=== PATIENT | female | born 1975 | race Caucasian/White ===

== ENCOUNTER → 2016-02-28 | Outpatient (CLI) | payer BC ==
[~2016-02-28] MED LIST: CYAN10005 PO; CYAN3INJ INJ; FERR1TAB23; FOLI400T18 PO; PRENTAB26 PO; VALA500T60 PO
[2016-02-28 11:30] LABS: GTGD 50 Grams
[2016-02-29 13:56] LABS: AFP CONCENTRATION 37.7 NG/ML; AFPTS GESTATIONAL AGE 16.4 WEEKS; AFPTS INSULIN DEP DIABETIC? NO; AFPTS MATERNAL WT 196 LBS; ALPHA-FETOPROTEIN RACE CAUCASIAN=W; EDD DETERMINED BY ULTRASOUND; ESTRIOL MULTIPLE OF MEDIAN 0.89; HISTORY OF NTD NO; INHIBIN A 103 PG/ML; REPEAT SAMPLE? NO; hCG MULTIPLE OF MEDIAN 1.13
== END | disposition home or self-care (01) ==
LOC: C.LAB1850 10:20
PROVIDERS: ATTEND Obstetrics & Gynecology
DX: O09.522 Supervision of elderly multigravida, second trimester (principal)

== ENCOUNTER → 2016-05-22 | Outpatient (CLI) | payer BC ==
[2016-05-22 10:26] LABS: HEMATOCRIT 31.1 % (37-47)
[2016-05-22 12:22] LABS: URINE APPEARANCE CLEAR (CLEAR); URINE BILIRUBIN NEG (NEG); URINE COLOR YELLOW; URINE NITRITE NEG (NEG); URINE SPECIFIC GRAVITY 1.023 (1.000-1.030); UROBILINOGEN NEG (NEG)
[2016-05-22 12:24] LABS: MANUAL MICROSCOPIC REQUIRED? YES; REVIEW REQ? NO
[2016-05-22 12:37] LABS: URINE BACTERIA 1+ (NEG); URINE RBC 0-4 /hpf (0-4)
== END | disposition home or self-care (01) ==
LOC: C.LAB1850 08:56
PROVIDERS: ATTEND Obstetrics & Gynecology
DX: O09.522 Supervision of elderly multigravida, second trimester (principal); Z3A.00 Weeks of gestation of pregnancy not specified; O28.1 Abnormal biochemical finding on antenatal screening of mother

== ENCOUNTER 2016-05-25 16:40 | Outpatient (CLI) | payer BC ==
[~2016-05-25] VITALS: Ht 177.8 cm; Wt 99.0 kg
[~2016-05-25 16:40] MED LIST changes: -FERR1TAB23; -VALA500T60 PO
[2016-05-25 17:44] LABS: BASO % 0.3 %; BASO ABS # 0.03 K/uL (0-0.2); EOS % 1.6 %; HEMATOCRIT 29.9 % (37-47); IG% 0.3 %; LYMPH % 31.5 %; LYMPH ABS # 3.46 K/uL (1.2-3.4); MEAN CELL VOLUME 83.5 fL (80-100); MEAN CORPUSCULAR HEMOGLOBIN 28.2 pg (25-34); MONO % 5.1 %; NEUT % 61.2 %; PLATELET COUNT 300 K/uL (130-400); RED BLOOD COUNT 3.58 M/uL (4.2-5.4); WHITE BLOOD COUNT 10.99 K/uL (4.8-10.8)
[2016-05-25 17:49] LABS: COMPLETE YES; MEAN CORPUSCULAR HGB CONC 33.8 g/dl (32-36)
[2016-05-25 17:59] VITALS: Ht 177.8 cm; Wt 99.0 kg
[2016-05-25 18:02] LABS: ALB/GLOB RATIO 0.7 (0.9-2); ALKALINE PHOSPHATASE 73 U/L (45-117); ALT/SGPT 12 U/L (12-78); AST/SGOT 13 U/L (15-37); BLOOD UREA NITROGEN 9 mg/dl (7-18); BUN/CREATININE RATIO 15.1 (10-20); CALCIUM 8.5 mg/dl (8.5-10.1); CARBON DIOXIDE 25 mmol/L (21-32); CHLORIDE 106 mmol/L (98-107); CREATININE 0.59 mg/dl (0.60-1.20); GLUCOSE 81 mg/dl (70-99); POTASSIUM 3.5 mmol/L (3.5-5.1); SODIUM 141 mmol/L (136-145)
[2016-05-25] MEDS ORDERED: FERR1TAB23 (18:06)
[2016-05-27 23:05] LABS: URINE TOTAL PROTEIN 6.3 mg/dl (0-11.9)
[2016-05-27 23:07] LABS: URINE TOTAL PROTEIN CALC 176.4 mg/24 hr (0-149.1)
== END 2016-05-25 19:12 | disposition home or self-care (01) ==
LOC: C.OPB 16:40 → C.LD 16:40 → C.OPB 19:12
PROVIDERS: ATTEND Obstetrics & Gynecology
DX: O99.89 Other specified diseases and conditions complicating pregnancy, childbirth and the puerperium (principal); R03.0 Elevated blood-pressure reading, without diagnosis of hypertension; O09.523 Supervision of elderly multigravida, third trimester; Z3A.28 28 weeks gestation of pregnancy

== ENCOUNTER → 2016-07-17 | Outpatient (CLI) | payer BC ==
[~2016-07-17] MED LIST changes: +FERR1TAB23; -FOLI400T18 PO; +VALA500T60 PO
== END | disposition home or self-care (01) ==
LOC: C.LABSPEC 10:00
PROVIDERS: ATTEND Obstetrics & Gynecology
DX: O09.523 Supervision of elderly multigravida, third trimester (principal)

== ENCOUNTER 2016-08-08 22:33 | Inpatient (IN) | payer BC ==
[~2016-08-08] VITALS: Ht 172.7 cm; Wt 104.5 kg
[~2016-08-08 22:33] MED LIST changes: -VALA500T60 PO
[2016-08-09] MEDS ORDERED: LACTATED RINGER'S 1000ML 1,000 ML IV PRN (02:12)
[2016-08-09] MEDS ORDERED: LACTATED RINGER'S 1000ML 1,000 ML IV SCH (02:12)
[2016-08-09 02:34] LABS: HEMATOCRIT 38.3 % (37-47); MEAN CELL VOLUME 86.1 fL (80-100); MEAN CORPUSCULAR HEMOGLOBIN 27.6 pg (25-34); MEAN PLATELET VOLUME 10.6 fL (7.4-10.4); PLATELET COUNT 233 K/uL (130-400); RED BLOOD COUNT 4.45 M/uL (4.2-5.4); WHITE BLOOD COUNT 11.39 K/uL (4.8-10.8)
[2016-08-09 02:39] LABS: MEAN CORPUSCULAR HGB CONC 32.1 g/dl (32-36)
[2016-08-09 03:07] LABS: ALB/GLOB RATIO 0.7 (0.9-2); ALKALINE PHOSPHATASE 124 U/L (45-117); ALT/SGPT 16 U/L (12-78); AST/SGOT 15 U/L (15-37); BLOOD UREA NITROGEN 6 mg/dl (7-18); BUN/CREATININE RATIO 7.9 (10-20); CALCIUM 8.9 mg/dl (8.5-10.1); CARBON DIOXIDE 23 mmol/L (21-32); CHLORIDE 109 mmol/L (98-107); CREATININE 0.71 mg/dl (0.60-1.20); GLUCOSE 83 mg/dl (70-99); SODIUM 142 mmol/L (136-145)
[2016-08-09] MEDS ORDERED: VALA500T60 PO (04:21)
[2016-08-09 04:25] VITALS: Ht 172.7 cm; Wt 104.5 kg
[2016-08-09] MEDS ORDERED: BUPIVACAINE 0.25% 30 ML VIAL ONE (04:51)
[2016-08-09] MEDS ORDERED: EpHEDrine SULFATE INJ 50 MG/ML AMP ONE (04:52)
[2016-08-09] MEDS ORDERED: FENTANYL 2MCG/ML ROPIV 1.25MG/ML 100ML BAG EPI ONE (04:52)
[2016-08-09] MEDS ORDERED: FENTANYL CITRATE INJ 50 MCG/1 ML 2 ML VIAL ONE (04:52)
[2016-08-09] MEDS ORDERED: NALOXONE HCL INJ 1 MG in SODIUM CHLORIDE 0.9% 1000ML 1,000 ML IV PRN ×4 (05:29)
[2016-08-09] MEDS ORDERED: LACTATED RINGER'S 1000ML 500 ML IV PRN (05:29)
[2016-08-09] MEDS ORDERED: DiphenhydrAMINE HCL 50 MG/ML VIAL IV PRN (05:30)
[2016-08-09] MEDS ORDERED: NALOXONE HCL INJ 0.4 MG/1 ML VIAL/CARP IV PRN (05:30)
[2016-08-09] MEDS ORDERED: NALBUPHINE HCL INJ 10 MG/ML AMP IV PRN (05:30)
[2016-08-09] MEDS ORDERED: ONDANSETRON INJ 2 MG/ML 2 ML VIAL IV PRN (05:30)
[2016-08-09] MEDS ORDERED: EpHEDrine SULFATE INJ 50 MG/ML AMP IV PRN (05:30)
[2016-08-09] MEDS ORDERED: PROMETHAZINE HCL INJ 25 MG in SODIUM CHLORIDE 0.9% 50ML 50 ML IV PRN (05:30)
[2016-08-09] MEDS: FENTANYL 2MCG/ML ROPIV 1.25MG/ML 100ML BAG EPI PRN ×2 (07:05→10:41)
[2016-08-09] MEDS ORDERED: ACETAMINOPHEN 500 MG TAB PO STA (13:34)
[2016-08-09] MEDS ORDERED: OXYTOCIN 30 UNITS/500ML NSS IV ONE ×2 (16:03→17:18)
[2016-08-09] MEDS ORDERED: OXYTOCIN 30 UNITS/500ML NSS IV PRN (17:30)
[2016-08-09] MEDS ORDERED: LANOLIN OINT EXT PRN ×2 (17:30)
[2016-08-09] MEDS ORDERED: HYDROCORTISONE ACETATE 25 MG SUPP PR PRN (17:30)
[2016-08-09] MEDS ORDERED: BENZOCAINE 20% AER SPR 82.5 GM CAN EXT PRN (17:30)
[2016-08-09] MEDS ORDERED: SUPERCREAM 0.870 % 15GM JAR EXT PRN (17:30)
--- NOTE | 2016-08-09 17:30 | Medical Student: [facility] ---
Medical Student Delivery Note Emily Wallace is a 41-year-old at 39 weeks-5/7 days who presented to labor and delivery with headache, "seeing spots," elevated blood pressure, and having contractions. Labor was augmented with AROM at 0400. Since admission Emily became complete, 2+ station and was ready to push. heart rate decreased but returned to baseline with supplemental maternal oxygenation. A viable female infant was delivered at 1640 in the right occiput transverse position. A nuchal cord was identified and reduced at the perineum. The was placed on the maternal abdomen for drying and attention where her nose and mouth were bulb suctioned. The umbilical cord was doubly clamped and cut by the father of the baby. scores were 8 and 9. Weight pending. An intact placenta with a 3 vessel cord was then delivered shortly after with uterine massage and ninoska downward traction. Hemostasis was achieved with continued uterine massage and Pitocin, and she did not require further intervention. EBL was 300 cc. A third degree perineal tear was apparent and was repaired with 3-0 Chromic with a crown stitch in the usual fashion. Mother and baby are currently doing well and are recovering together.
--- NOTE | 2016-08-09 19:21 | Anesthesia Procedure Note ---
Anesthesia Epidural Removal Nt Date & Time Aug 09, 2016 at 19:21 Vital Signs Pain Intensity: 4.0 Notes Mental Status: alert / awake / arousable, participated in evaluation Nausea / Vomiting: adequately controlled Pain: adequately controlled Airway Patency, RR, SpO2: stable & adequate BP & HR: stable & adequate Hydration State: stable & adequate Neuraxial Anesthesia: was administered Anesthetic Complications: no major complications apparent, pt satisfied with anesthetic care Epidural: removed without complications, with tip intact
[2016-08-09] MEDS: IBUPROFEN 600 MG TAB PO PRN (22:07)
[2016-08-09 22:30] VITALS: BP 159/84; PULSE 105; TEMP 36.7
[2016-08-09 23:00] VITALS: BP 130/89; PULSE 88; TEMP 36.8
[2016-08-09] MEDS: DOCUSATE SODIUM 100 MG CAP PO SCH (23:26)
[2016-08-09] MEDS: OXYCODONE/ACETAMINOPHEN 5-325 TAB PO PRN (23:30)
--- NOTE | 2016-08-10 00:52 | DELIVERY SUMMARY ---
DATE OF OPERATION: 08/09/2016 PREDELIVERY DIAGNOSES: 1. 41-year-old G8, P1-0-6-1 at 39 weeks 5 days. 2. Chronic hypertension. 3. History of section x1. 4. History of HSV. POSTDELIVERY DIAGNOSES: Same. PROCEDURE: Vaginal after section and repair of third degree perineal laceration. ESTIMATED BLOOD LOSS: 300 mL. FINDINGS: Viable female , Apgars 8 and 9, weight pending. Please see nursery records. DESCRIPTION OF DELIVERY: The patient progressed to complete with epidural anesthesia. She then began to push. She spontaneously vaginally delivered a viable female from cephalic presentation. The head delivered. Nuchal cord x1 was noted and easily reduced. The anterior shoulder was delivered, followed by the posterior shoulder and followed by the body. Baby was placed on mother's abdomen and a spontaneous cry was heard. Using delayed cord clamping technique, the cord was doubly clamped and cut at 1 minute. Cord blood was obtained. The placenta delivered spontaneously intact with a 3-vessel cord. Pitocin was given and the uterus began to become firm. The uterus and vagina were swept of all clots and debris. The cervix, vagina and perineum were inspected and a third degree perineal laceration with a right focal tear was noted. The rectum was examined and no lacerations were noted in the rectum. Using a 3-0 chromic, the muscle capsule of the anal sphincter was re-approximated using [id number] sutures. Next, the focal tear was re-approximated using a running stitch of 3-0 Vicryl. Now, second degree perineal laceration was repaired in standard fashion with 3-0 Vicryl. At the conclusion of the repair, an additional rectal exam was performed to ensure no stitches in the rectum and good muscle tone. Excellent hemostasis was noted. Mother and baby recovered well in the room. All instruments, sponge, and needle counts were correct x2 at the conclusion of the delivery. Prior to repair of perineal area, lidocaine was injected for better anesthetic. I attest to the content of the Intraoperative Record and any orders documented therein. Any exception s are noted below.
[2016-08-10] MEDS: IBUPROFEN 600 MG TAB PO PRN ×4 (03:28→20:01)
[2016-08-10 03:30] VITALS: BP 163/95; PULSE 75; TEMP 36.6
--- NOTE | 2016-08-10 06:38 | Medical Student: [facility] ---
Med Student [employer] Progress Nt Date of Service Aug 10, 2016. Subjective conversation w/ patient Ambulation: ambulating normally Voiding: no voiding problems Passing Gas: Yes Diet Tolerance: Regular Diet Lochia: Small Feeding Type: Breast Feeding Pain: "sore and tight" on her bottom Notes: Emily Wallace is a 41-year-old G8 now P2062 day 1 for normal spontaneous vaginal delivery. Upon admission to L&D, Emily had elevated blood pressure, headache, and was seeing spots. Yesterday her blood pressure was labile and denied having any symptoms from the day prior. Today she continues to deny headache, seeing spots, and RUQ pain. Emily says she is doing "pretty good" and does not have any other complaints. Review of Systems Constitutional: No fever, No chills Respiratory: No shortness of breath Cardiac: No chest pain Abdomen: + nausea (when showering; none otherwise), No vomiting Objective Vital Signs Date Time Temp Pulse Resp B/P (MAP) Pulse Ox O2 Delivery O2 Flow Rate FiO2 08/10/16 03:30 36.6 75 18 163/95 08/09/16 23:00 36.8 88 18 130/89 08/09/16 23:00 Room Air 08/09/16 22:30 36.7 105 18 159/84 Physical Exam General Appearance: WELL-APPEARING Respiratory/Chest: lungs clear, normal breath sounds Cardiovascular: regular rate, rhythm, no edema, no gallop, + systolic murmur ( likely of normal ) Fundus: Relation to Umbilicus (1 fingerbreadth above umbilicus) Extremities: no pedal edema, no calf tenderness Laboratory Results Last 24 Hours Test 08/10/16 04:44 Assessment and Plan Post- Day Number: 1 Continue Routine Care: Emily Wallace is a 41-year-old G8 now P2062 day 1 for normal spontaneous vaginal delivery. - Continue routine care. - Encourage fluid intake and ambulation. - Continue to monitor signs of eclampsia and HELLP syndrome.
[2016-08-10 07:32] LABS: HEMATOCRIT 27.5 % (37-47)
--- NOTE | 2016-08-10 07:34 | Progress Note ---
Subjective Aug 10, 2016. Subjective conversation w/ patient, physical exam Ambulation: ambulating normally Voiding: no voiding problems Passing Gas: Yes Diet Tolerance: Regular Diet Lochia: Moderate Feeding Type: Breast Feeding Pain: controlled Review of Systems Constitutional: No problem reported Respiratory: No problem reported Cardiac: No problem reported Breast: No problem reported Abdomen: No problem reported Female : No problem reported Objective Vital Signs Date Time Temp Pulse Resp B/P (MAP) Pulse Ox O2 Delivery O2 Flow Rate FiO2 08/10/16 03:30 36.6 75 18 163/95 08/09/16 23:00 36.8 88 18 130/89 08/09/16 23:00 Room Air 08/09/16 22:30 36.7 105 18 159/84 Physical Exam General Appearance: WELL-APPEARING, NO APPARENT DISTRESS Respiratory/Chest: no respiratory distress Cardiovascular: regular rate, rhythm Abdomen: non tender, soft Fundus: Firm Extremities: normal inspection Laboratory Results Last 24 Hours Test 08/10/16 06:54 Assessment and Plan Post- Day#: 1 Continue Routine Care: Doing well PPD#1. Continue routine care.
[2016-08-10] MEDS: DOCUSATE SODIUM 100 MG CAP PO SCH ×2 (07:52→20:00)
[2016-08-10 08:00] VITALS: BP 147/95; PULSE 85; TEMP 36.7
[2016-08-10] MEDS: OXYCODONE/ACETAMINOPHEN 5-325 TAB PO PRN (10:16)
[2016-08-10 12:00] VITALS: BP 145/93; PULSE 77; TEMP 36.6
[2016-08-10 15:48] VITALS: BP 132/85; PULSE 92; TEMP 36.7
[2016-08-10] MEDS ORDERED: BISACODYL 5 MG TABEC PO SCH (20:00)
[2016-08-11 00:25] VITALS: BP 139/89; PULSE 80; TEMP 36.7; O2SAT 99
[2016-08-11] MEDS: OXYCODONE/ACETAMINOPHEN 5-325 TAB PO PRN (00:41)
[2016-08-11] MEDS: IBUPROFEN 600 MG TAB PO PRN (06:02)
--- NOTE | 2016-08-11 06:43 | Progress Note ---
Subjective Aug 11, 2016. Subjective conversation w/ patient, physical exam Ambulation: ambulating normally Voiding: no voiding problems Diet Tolerance: Regular Diet Lochia: Small Feeding Type: Breast Feeding Pain: nipples sore Objective Vital Signs Date Time Temp Pulse Resp B/P (MAP) Pulse Ox O2 Delivery O2 Flow Rate FiO2 08/11/16 00:25 36.7 80 20 139/89 08/11/16 00:25 99 Room Air 08/10/16 16:00 Room Air 08/10/16 15:48 36.7 92 20 132/85 08/10/16 12:00 36.6 77 20 145/93 08/10/16 08:00 36.7 85 20 147/95 Physical Exam General Appearance: WELL-APPEARING, WD/WN, NO APPARENT DISTRESS Respiratory/Chest: lungs clear Cardiovascular: regular rate, rhythm Abdomen: non tender, soft Fundus: Firm, Relation to Umbilicus (2 down) Extremities: non-tender Laboratory Results Last 24 Hours Test 08/10/16 06:54 Hemoglobin 9.2 g/dL Hematocrit 27.5 % Assessment and Plan Post- Day#: 2 Continue Routine Care: stable, d/c home. f/u 6wks pp check. instructions reviewed.
--- NOTE | 2016-08-11 06:44 | Discharge Instructions ---
Discharge Instructions Date of Service Aug 11, 2016. Admission Reason for Admission: Chronic Hypertension Affecting Discharge Discharge Diagnosis / Problem: after delivery Discharge Goals Goal(s): Routine recovery after delivery Medications Continue Dispensed Medications: supercream, dermaplast, tucks, lansinoh Activity Recommendations Activity Limitations: as noted below . Instructions / Follow-Up Instructions / Follow-Up ACTIVITY RECOMMENDATIONS: * Gradual return to full activity over the next 2-3 weeks. * No lifting - nothing heavier than baby over the next 2-3 weeks. * Do not engage in vigorous exercise, sexual activity or sports until cleared by your physician. * Do not drive or operate any motorized equipment until cleared by your physician. * You may shower/bathe daily. MEDICATIONS: For discomfort or pain, you may use Acetaminophen (Tylenol), Ibuprofen (Advil), or Naproxen (Aleve) following the package directions. For constipation you may use Colace following the package directions. BREAST CARE: If you are not breast feeding: * Wear a supportive bra 24 hours a day for one to two weeks. * Avoid stimulating your breasts and nipples as much as possible during the first few weeks after delivery. * When taking a shower, have the warm water hit your back, not breasts. * When your breasts feel full, apply ice packs. Usually three to four times a day helps ease the discomfort. * Take a mild pain medication (Tylenol / Motrin) when you are uncomfortable. If breast feeding: * Use breast milk to lubricate nipples. Lansinoh cream may be used for sore nipples. You do not need to remove cream prior to breast feeding. If using a different brand of cream, check the label for directions regarding removal of cream prior to nursing. * Wear a supportive bra. * If having problems with breasts or breast feeding, call a sql consultant or your health care provider. EPISIOTOMY CARE: After delivery, if you have an episiotomy (stitches), the following steps will ease discomfort and aid healing. * For the first 24 hours after delivery, place ice packs next to your episiotomy to help reduce swelling. * After the first 24 hour-period, sitz baths, either portable or in the tub, are suggested. A shower with a shower arm sprayed over the episiotomy may be comforting. * Kenzie care should be done after each voiding and bowel movement. Squirt warm water from a plastic bottle over the perineum (region of the body between the anus and urinary opening) and pat dry. * Use Dermoplast to ease discomfort. Shake container. [place] directly over the episiotomy. Place a Tucks on a clean sanitary pad next to your episiotomy. SPECIAL CARE INSTRUCTIONS: When you are discharged from the hospital, it is important for you to follow the instructions listed below: * During the first week at home, you should be able to care for yourself and your baby. In addition, the usual light household activities are encouraged. * Limit your activities to the way you feel. Do not try to clean the house or move furniture. Be sensible. * If you actively engage in sports and have done so up until the time of your delivery, you may resume these activities as soon as you feel able. This may take up to one month or even longer. Use good judgment. * Continue to take your vitamins for at least six weeks after the of your baby. * Your diet need not be limited unless you were on a special diet before your delivery. Breast-feeding mothers need around 2500 calories per day and at least 64-80 ounces of fluid per day (8 to 10 glasses). * You should eat foods from the four major food groups. Crash diets or fad diets are to be avoided. Eating lean meats, fresh fruits and vegetables, low-fat dairy products, high fiber foods and a regular exercise program, will help you get back to your pre- weight without putting your health at risk. * Constipation is sometimes a problem after delivery. Take a mild laxative as needed. If breast feeding, Milk of Magnesia is acceptable to use. You may use a suppository or Fleets enema if no episiotomy. * A daily shower or tub bath is suggested. Be sure to thoroughly and gently dry the perineum. * A bloody vaginal discharge will usually continue until around four weeks post . A small amount of bleeding may continue for as long as six weeks. Vaginal discharge changes from the bright red bleeding after delivery to pink then brownish and finally yellowish-pink before becoming white and disappearing. * Bleeding may increase with activity. Your first period may come in 4-8 weeks. If you are breast feeding, your period may be delayed even longer. * Starke (sex) can begin whenever both you and your partner feel comfortable and do not have any form of genital infection. It is recommended that you wait at least six weeks for internal and external healing to occur. If you have questions, please talk to your health care practitioner. A condom should be used to prevent infection and . * Foreplay, gentle intercourse and lubrication is very important the first several times to prevent pain. A water-based lubricant such as K-Y jelly or Astroglide may be used. * If you have RH negative blood and your baby is RH positive, you will receive RHOGAM by injection prior to discharge. The nurse will give you a card to keep with you that has the date and place that you received RHOGAM after delivery. * During your care, you had a Rubella screen done to check for the presence of rubella antibodies in your blood. If your test was negative, you will receive a Rubella vaccine prior to discharge. This vaccine may cause a fever, soreness at the injection site and flu-like symptoms. If these symptoms persist, notify your health care practitioner. is not advised for one month after a Rubella vaccine. * Verbalizes understanding of car seat law as reviewed with patient nursing. * Car Seat hand-out given and reviewed with patient by nursing. * Shaken baby information reviewed with patient by nursing. Call you doctor if: * Heavy bleeding (saturating several pads an hour) or passing clots the size of your fist. * A fever >101 degrees F (38.3 degrees C) on two occasions four hours apart and /or chills. * Unusual pain in the pelvic or vaginal areas. * "Baby Blues" lasting longer than two weeks. If you have any questions or concerns, call your health care practitioner at . FOLLOW UP VISIT: * Please call the office at to schedule a 6 week examination. It is important you keep this appointment. It is important for you to make arrangements for either yearly or twice yearly check-ups thereafter. Current Hospital Diet Patient's current hospital diet: Regular OB Diet Discharge Diet Recommended Diet: Regular Diet Pending Studies Studies pending at discharge: no Medical Emergencies . Who to Call and When: Medical Emergencies: If at any time you feel your situation is an emergency, please call 911 immediately. . Non-Emergent Contact Non-Emergency issues call your: Software Licensing Analyst . . "Provider Documentation" section prepared by Kerry Brush. . VTE Core Measure Inpt VTE Proph given/why not?: Treatment not indicated
[2016-08-11] MEDS: DOCUSATE SODIUM 100 MG CAP PO SCH (07:33)
[2016-08-11 07:47] VITALS: BP 134/87; PULSE 76; TEMP 36.7
[2016-08-11 11:40] VITALS: BP_DIAS 87; PULSE 76; TEMP 36.7
== END 2016-08-11 11:40 | disposition home health service (06) | DRG 774 ==
LOC: C.OPB 22:33 → C.LD 22:33 → C.OPB 08-09 02:14 → C.OBG 08-09 22:50
PROVIDERS: ADMIT Obstetrics & Gynecology; ATTEND Obstetrics & Gynecology
PROC: 0DQR0ZZ Repair Anal Sphincter, Open Approach (ICD-10-PCS; principal; 2016-08-09)
PROC: 0KQM0ZZ Repair Perineum Muscle, Open Approach (ICD-10-PCS; principal; 2016-08-09)
PROC: 10903ZC Drainage of Amniotic Fluid, Therapeutic from Products of Conception, Percutaneous Approach (ICD-10-PCS; principal; 2016-08-09)
PROC: 10E0XZZ Delivery of Products of Conception, External Approach (ICD-10-PCS; principal; 2016-08-09)
DX: O10.92 Unspecified pre-existing hypertension complicating childbirth (principal); O70.20 Third degree perineal laceration during delivery, unspecified; O34.211 Maternal care for low transverse scar from previous cesarean delivery; O69.81X0 Labor and delivery complicated by cord around neck, without compression, not applicable or unspecified; Z3A.39 39 weeks gestation of pregnancy; Z86.19 Personal history of other infectious and parasitic diseases; Z37.0 Single live birth

== ENCOUNTER → 2016-08-22 | Outpatient (CLI) | payer BC ==
[~2016-08-22] MED LIST changes: -CYAN10005 PO
[2016-08-22 17:24] LABS: URINE APPEARANCE CLEAR (CLEAR); URINE BILIRUBIN NEG (NEG); URINE COLOR YELLOW; URINE EPITHELIAL CELL AUTO 20-30 /lpf (0-5); URINE NITRITE NEG (NEG); URINE SPECIFIC GRAVITY 1.015 (1.000-1.030); UROBILINOGEN NEG (NEG)
[2016-08-22 17:29] LABS: MANUAL MICROSCOPIC REQUIRED? NO; REVIEW REQ? NO
== END | disposition home or self-care (01) ==
LOC: C.LABSPEC 16:27
PROVIDERS: ATTEND Obstetrics & Gynecology
DX: R39.9 Unspecified symptoms and signs involving the genitourinary system (principal)

== ENCOUNTER → 2016-08-30 | Outpatient (CLI) | payer BC | END | disposition home or self-care (01) | LOC: C.LAB1850 15:01 | PROVIDERS: ATTEND Obstetrics & Gynecology | DX: N39.0 Urinary tract infection, site not specified (principal) ==

== ENCOUNTER → 2017-07-05 | Outpatient (CLI) | payer OTHER | END | disposition home or self-care (01) | LOC: C.LABSPEC 13:15 | PROVIDERS: ATTEND Obstetrics & Gynecology | DX: N60.09 Solitary cyst of unspecified breast (principal) ==

== ENCOUNTER 2022-01-25 10:24 | Inpatient (IN) ==
[2022-01-25 11:20] LABS: Basophils # (auto) 0.04 K/uL (0-0.2); Basophils % (auto) 0.4 %; Eosinophils # (auto) 0.11 K/uL (0-0.50); Eosinophils % (auto) 1.1 %; Hematocrit (blood only) 35.5 % (34.1-44.9); Hemoglobin 12.9 g/dl (12.0-16.0); Immature Granulocytes # (auto) 0.04 K/uL (0.00-0.02); Immature Granulocytes % (auto) 0.4 %; Lymphocytes # (auto) 1.34 K/uL (1.2-3.4); Lymphocytes % (auto) 13.4 %; Mean Corpuscular Hemoglobin 37.1 pg (25.0-34.0); Mean Corpuscular Hgb Conc 36.3 g/dL (32.0-36.0); Mean Platelet Volume 10.5 fL (9.4-12.3); Monocytes # (auto) 0.62 K/uL (0.24-0.82); Monocytes % (auto) 6.2 %; Neutrophils # (auto) 7.86 K/uL (1.4-6.5); Neutrophils % (auto) 78.5 %; Platelet Count 142 K/uL (130-400); RDW Coefficient of Variation 11.2 % (11.5-14.5); RDW Standard Deviation 42.3 fL (36.4-46.3); Red Blood Count 3.48 M/uL (3.93-5.22); White Blood Count 10.01 K/ul (4.8-10.8)
[2022-01-25 11:40] LABS: BUN Creatinine Ratio 6.8 (10-20); Calcium 8.9 mg/dl (8.5-10.1); Creatinine Clr Calc Pharmacy 137.5 ml/min; Est GFR (African American) 128.3 ml/min; Est GFR (Non-African American) 110.7 ml/min; Potassium 3.9 mmol/L (3.5-5.1)
[2022-01-25 11:42] LABS: Albumin Globulin Ratio 1.3 (0.9-2); Albumin Level 3.9 gm/dl (3.4-5.0); Bilirubin,Total 0.9 mg/dl (0.2-1.0); Globulin 2.9 gm/dl (2.5-4.0); Total Protein 6.8 gm/dl (6.0-8.3)
[2022-01-25] MEDS ORDERED: ONDANSETRON INJ 2 MG/ML 2 ML VIAL IV STA (12:54)
[2022-01-25] MEDS ORDERED: FAMOTIDINE 20MG IV PUSH 20 MG/5 ML SYR IV STA (12:54)
[2022-01-25] MEDS ORDERED: MULTI-VITAMIN INFUSION 10 ML, THIAMINE HCL 100 MG, FOLIC ACID 1 MG in SODIUM CHLORIDE 0... IV ONE (12:54)
[2022-01-25] MEDS ORDERED: MoRPHine SULFATE 4 MG/ML 1 ML CARP\\VIAL IV STA (13:05)
[2022-01-25] MEDS ORDERED: OPTIRAY 350 100ml IV ONE (13:14)
--- NOTE | 2022-01-25 14:03 | CT Scan Report ---
CT abd pelvis IV con only CLINICAL HISTORY: pancreatitis TECHNIQUE: Helical axial images of the abdomen and pelvis were obtained and displayed. Automated dose lowering techniques and/or adjustment according to patient size were utilized for this exam. This e xam was performed with intravenous contrast. CT DOSE: 630.84 mGy.cm COMPARISON: Comparison is made to CT abdomen pelvis 03/29/2018 FINDINGS: Lower chest: No acute abnormality. Liver: Hepatic steatosis is noted. Gallbladder and biliary tree: No calcified gallstones. Normal caliber wall. No intra- or extrahepatic biliary ductal dilation. Pancreas: Pancreatic fat stranding is seen. No morales pancreatic edema is noted. Spleen: Unremarkable. Adrenals: Unremarkable. Kidneys and ureters: Subcentimeter hypodensities are too small to characterize. Bladder: Unremarkable. Reproductive organs: Bilateral adnexal cysts are seen. Bowel: Unremarkable appearance of the bowel. The appendix is normal. Postsurgical changes of gastric bypass are noted. Lymph nodes Retroperitoneal: Unremarkable. Pelvic: Unremarkable. Mesenteric: Unremarkable. Peritoneum: Small amount of free fluid is seen. Vessels: Atherosclerotic calcifications are seen. Abdominal wall: A fat-containing umbilical hernia is seen. Bones: Unremarkable. IMPRESSION: 1. There is mild fat stranding about the pancreas which may reflect mild pancreatitis. Postsurgical changes of Mitzi-en-Y gastric bypass are seen. Free fluid in the pelvis is likely reactive. No [place]an creatic fluid collection is seen. 2. Hepatic steatosis. 3. Additional findings as above. ACT 112: Negative or not required by law. Electronically signed by: Sunil Krueger M.D. 01/25/2022 2:02 PM
[2022-01-25 14:28] LABS: Influenza A virus by PCR Negative (Neg); Influenza B virus by PCR Negative (Neg); RSV by PCR Negative (Neg); SARS CoV2 RNA(COVID-19) Ceph NEGATIVE (Negative)
[2022-01-25 14:48] LABS: Appearance Urine Clear (Clear); Bacteria Urine Automated Negative (Negative); Bilirubin Urine Negative (Negative); Blood Urine Negative (Negative); Cast Urine Automated 0 /lpf (0-5); Color Urine Yellow; Epithelial Cell Urine Auto >30 /lpf (0-5); Glucose Urine UA Negative (Negative); Ketones Urine Negative (Negative); Leukocyte Esterase Urine 1+ (Negative); Nitrite Urine Negative (Negative); Protein Urine Negative (Negative); RBC Urine Automated 0-4 /hpf (0-4); Specific Gravity Urine 1.025 (1.000-1.030); Urobilinogen Urine Negative (Negative)
[2022-01-25] MEDS: LACTATED RINGER'S 1,000 ML IV SCH ×2 (16:03→21:18)
--- NOTE | 2022-01-25 16:15 | Emergency Department Note ---
Impression & Plan Acute pancreatitis, Hyponatremia, Alcohol dependence, Upper abdominal pain ED Provider Note NAME: MARIELENA SIMS AGE: 47 SEX: F ARRIVES VIA: Walk-In INFORMANT: Patient ED PROVIDER(S): Walter Mejia MD CHIEF COMPLAINT: Abdominal pain PLAN: Disposition: Admit MEDICAL DECISION MAKING: The patient is a pleasant 47-year-old woman with a past medical history of alcohol dependence/abuse, recent episode of seizure-like activity currently on Keppra with scheduled outpatient neurology follow-up, history of migraines, anxiety/panic attacks, hypertension, vitamin B-12 deficiency who presents to the emergency department accompanied by her for evaluation of upper abdominal pain and nausea as well as diarrhea that has been evolving over the p ast several days. She reports having some mild upper respiratory congestion and cough which has been ongoing for the past week or so. She denies any fevers. She denies any chest pain or shortness of breath. On arrival the patient is dressed, afebrile stable vital signs. She appears clinically dry. She has mild epigastric discomfort without discrete tenderness. She has no guarding or rebound. WBC, H/H and platelets within normal limits. Chemistry without metabolic acidosis. Sodium 127 in the setting of history of alcohol dependence. AST mildly elevated at 41 in the setting of history of alcohol dependence. LFTs otherwise unremarkable. Patient's lipase is 1250 consistent with pancreatitis. UA without convincing evidence of infection with epithelial cells present. Patient's medical alcohol was undetectable where she reports last drink was last night and reports she drinks 2 bottles of wine daily. COVID-19, influenza and RSV PCR's were negative. CT of the abdomen pelvis was performed and demonstrates mild fat stranding around the pancreas consistent with pancreatitis. Patient was treated with IV fluid hydration with banana bag, famotidine, Zofran in addition to morphine for pain. She does agree with plan for admission for further management including IV fluids bowel rest as well was monitoring for etoh withdrawal. Case was discussed with Emilie WILSON with Dr. Montague, Neil hospitalist, who will evaluate the patient for admission. Triage Nursing notes reviewed and agree them. Prior medical records reviewed Vital Signs: reviewed Differential diagnosis: Appendicitis, ovarian cyst, ovarian torsion, ectopic , TOA, PID, infections, diverticulitis, UTI, obstruction, mesenteric ischemia, aortic pathology, inflammatory bowel disease, renal colic, PUD, pancreatitis, biliary pathology, hernia, volvulus, constipation, as well as other pathologies. ER treatment provided: See below. Diagnostics interpreted by me: Cardiac Monitoring: An order for continuous cardiac monitoring was placed and demonstrated normal sinus rhythm, 70 bpm, no ectopy. Laboratory studies: See below Imaging studies: See below Consultation(s): Emilie WILSON with Neil Whitlock hospitalist HPI: The patient is a pleasant 47-year-old woman with a past medical history of alcohol dependence/abuse, recent episode of seizure-like activity currently on Keppra with scheduled outpatient neurology follow-up, history of migraines, anxiety/panic attacks, hypertension, vitamin B-12 deficiency who presents to the emergency department accompanied by her for evaluation of upper abdominal pain and nausea as well as diarrhea that has been evolving over the past several days. She reports having some mild upper respiratory congestion and cough which has been ongoing for the past week or so. She denies any fevers. She denies any chest pain or shortness of breath. ROS: See above HPI for pertinent positives & negatives. A total of 10 systems reviewed and were otherwise negative. VITALS:See Below PHYSICAL EXAMINATION: GENERAL: Awake, alert, well-appearing, in no distress HENT: Normocephalic, atraumatic. Oropharynx with dry mucous membranes and otherwise unremarkable. EYES: Normal conjunctiva. Sclera non-icteric. NECK: Supple. No nuchal rigidity. FROM. No JVD. RESPIRATORY: Clear to auscultation. CARDIAC: Regular rate, normal rhythm. Extremities warm and well perfused. Pulses equal. ABDOMEN: Soft, non-distended. Mild epigastric discomfort without discrete tenderness. No rebound or guarding. No masses. RECTAL: Deferred. MUSCULOSKELETAL: Chest examination reveals no tenderness. The back is symmet rical on inspection without obvious abnormality. There is no CVA tenderness to palpation. No joint edema. LOWER EXTREMITIES: Calves are equal size bilaterally and non-tender. No edema. No discoloration. NEURO: Normal sensorium. No sensory or motor deficits noted. SKIN: No rash or jaundice noted. Walter Mejia MD Past Med/Surg History Medical History (Updated 01/25/22 @ 16:14 by Walter Mejia MD) Breech presentation Chronic mixed headache syndrome Elevated blood pressure affecting , antepartum Herpes simplex infection History of chicken pox History of nephrolithiasis Missed Surgical History delivery delivered H/O lithotripsy History of gynecologic surgery D&E-surgically induced History of Mitzi-en-Y gastric bypass Status post surgery laryngeal surgery- stripping of vocal cords Family History Uncle Bladder cancer maternal uncle Sister Brain tumor Grandfather (Paternal) Colorectal cancer Aunt Lung cancer paternal aunt Father Essential tremor Mother Hypertension Denies family history of Ovarian cancer Breast cancer Social History Smoking Status: Never smoker Hx Alcohol Use: Yes (social) Alcohol type: wine Alcohol Intake Frequency Comment: 2-3 drinks, 5-7 days per week Preferred Language: Danish marital status: Current Living Situation: Spouse and Family 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 Feels Safe at Home: Yes Allergies Allergies Allergy/AdvReac Type Severity Reaction Status Date / Time No Known Allergies Allergy Verified 12/29/21 10:52 Home Meds Home Medications Medication Instructions Recorded Confirmed cyanocobalamin (vitamin B-12) 1,000 mcg IM MONTHLY 03/29/18 12/29/21 1,000 mcg/mL injection solution zolpidem 12.5 mg tablet,extended 12.5 mg PO HS PRN Sleep 08/12/19 12/29/21 release,multiphase lisinopril 10 mg tablet 10 mg PO DAILY 06/29/20 12/29/21 escitalopram oxalate 20 mg tablet 20 mg PO DAILY 07/19/21 12/29/21 Previous Rx's Medication Instructions Recorded propranolol 160 mg capsule,24 160 mg PO DAILY #90 caps 07/19/21 hr,extended release propranolol 60 mg capsule,24 60 mg PO BID #180 caps 07/19/21 hr,extended release clindamycin phosphate 1 % lotion 1 applic topical BID #60 mL 12/29/21 levetiracetam 500 mg tablet 500 mg PO BID 2 weeks #28 tabs 01/12/22 (Aneta) Results & Data (ED) Vital Signs Vital Signs - 24 hr 01/25/22 10:30 01/25/22 14:57 Temperature 36.4 C L Temperature Source Temporal Artery Scan Pulse Rate 82 Pulse Rate [Apical] 70 Respiratory Rate 20 20 Respiratory Effort / Characteristics Non-Labored Respiratory Depth Normal Blood Pressure 117/77 Blood Pressure [Right Arm] 129/95 Blood Pressure Mean 90 Blood Pressure Mean [Right Arm] 106 Pulse Oximetry 97 97 Oxygen Delivery Method Room Air Room Air Sepsis Recent Fever Within 48 Hours No Sepsis New/Unexplained Change in Mental Status N/A Sepsis Action Taken by Nursing No Action Required Laboratory Data Attestation: I reviewed the patient's lab results. Result diagrams: 01/25/22 11:07 01/25/22 11:07 Lab Results 01/25/22 01/25/22 01/25/22 Range/Units 11:07 11:07 13:42 WBC 10.01 (4.8-10.8) K/ul RBC 3.48 L (3.93-5.22) M/uL Hgb 12.9 (12.0-16.0) g/dl Hct 35.5 (34.1-44.9) % MCV 102.0 H (80.0-100.0) fL MCH 37.1 H (25.0-34.0) pg MCHC 36.3 H (32.0-36.0) g/dL RDW Std Deviation 42.3 (36.4-46.3) fL RDW Coeff of Brielle 11.2 L (11.5-14.5) % Plt Count 142 (130-400) K/uL MPV 10.5 (9.4-12.3) fL Immature Gran % (Auto) 0.4 % Neut % (Auto) 78.5 % Lymph % (Auto) 13.4 % [place] % (Auto) 6.2 % Eos % (Auto) 1.1 % Baso % (Auto) 0.4 % Neut # (Auto) 7.86 H (1.4-6.5) K/uL Lymph # (Auto) 1.34 (1.2-3.4) K/uL [place] # (Auto) 0.62 (0.24-0.82) K/uL Eos # (Auto) 0.11 (0-0.50) K/uL Baso # (Auto) 0.04 (0-0.2) K/uL Immature Gran # (Auto) 0.04 H (0.00-0.02) K/uL Sodium 127 L (136-145) mmol/L Potassium 3.9 (3.5-5.1) mmol/L Chloride 92 L (98-107) mmol/L Carbon Dioxide 25 (21-32) mmol/L Anion Gap 10 (3-11) BUN 4 L (6-23) mg/dl Creatinine 0.59 L (0.6-1.2) mg/dl Est Cr Clr Drug Dosing 137.5 ml/min Est GFR ( Amer) 128.3 ml/min Est GFR (Non-Af Amer) 110.7 ml/min BUN/Creatinine Ratio 6.8 L (10-20) Glucose 97 (70-99(Fasting)) mg/dl Calcium 8.9 (8.5-10.1) mg/dl Total Bilirubin 0.9 (0.2-1.0) mg/dl AST 41 H (13-39) U/L ALT 24 (7-52) U/L Alkaline Phosphatase 91 (34-104) U/L Total Protein 6.8 (6.0-8.3) gm/dl Albumin 3.9 (3.4-5.0) gm/dl Globulin 2.9 (2.5-4.0) gm/dl Albumin/Globulin Ratio 1.3 (0.9-2) Lipase 1250 H (11-82) U/L Urine Color Urine Appearance (Clear) Urine pH (4.5-7.5) Ur Specific [place] (1.000-1.030) Urine Protein (Negative) Urine Glucose (UA) (Negative) Urine Ketones (Negative) Urine Blood (Negative) Urine Nitrite (Negative) Urine Bilirubin (Negative) Urine Urobilinogen (Negative) Ur Leukocyte Esterase (Negative) Urine WBC (Auto) (0-5) /hpf Urine RBC (Auto) (0-4) /hpf U Hyaline Cast (Auto) (0-5) /lpf U Epithel Cells (Auto) (0-5) /lpf Urine Bacteria (Auto) (Negative) Ethyl Alcohol mg/dL (<10.0) mg/dl SARS-CoV-2 (PCR) NEGATIVE (Negative) Influenza Type A (PCR) Negative (Neg) Influenza Type B (PCR) Negative (Neg) RSV (RT-PCR) Negative (Neg) 01/25/22 01/25/22 Range/Units 14:14 14:39 WBC (4.8-10.8) K/ul RBC (3.93-5.22) M/uL Hgb (12.0-16.0) g/dl Hct (34.1-44.9) % MCV (80.0-100.0) fL MCH (25.0-34.0) pg MCHC (32.0-36.0) g/dL RDW Std Deviation (36.4-46.3) fL RDW Coeff of Brielle (11.5-14.5) % Plt Count (130-400) K/uL MPV (9.4-12.3) fL Immature Gran % (Auto) % Neut % (Auto) % Lymph % (Auto) % [place] % (Auto) % Eos % (Auto) % Baso % (Auto) % Neut # (Auto) (1.4-6.5) K/uL Lymph # (Auto) (1.2-3.4) K/uL [place] # (Auto) (0.24-0.82) K/uL Eos # (Auto) (0-0.50) K/uL Baso # (Auto) (0-0.2) K/uL Immature Gran # (Auto) (0.00-0.02) K/uL Sodium (136-145) mmol/L Potassium (3.5-5.1) mmol/L Chloride (98-107) mmol/L Carbon Dioxide (21-32) mmol/L Anion Gap (3-11) BUN (6-23) mg/dl Creatinine (0.6-1.2) mg/dl Est Cr Clr Drug Dosing ml/min Est GFR ( Amer) ml/min Est GFR (Non-Af Amer) ml/min BUN/Creatinine Ratio (10-20) Glucose (70-99(Fasting)) mg/dl Calcium (8.5-10.1) mg/dl Total Bilirubin (0.2-1.0) mg/dl AST (13-39) U/L ALT (7-52) U/L Alkaline Phosphatase (34-104) U/L Total Protein (6.0-8.3) gm/dl Albumin (3.4-5.0) gm/dl Globulin (2.5-4.0) gm/dl Albumin/Globulin Ratio (0.9-2) Lipase (11-82) U/L Urine Color Yellow Urine Appearance Clear (Clear) Urine pH 6.0 (4.5-7.5) Ur Specific [place] 1.025 (1.000-1.030) Urine Protein Negative (Negative) Urine Glucose (UA) Negative (Negative) Urine Ketones Negative (Negative) Urine Blood Negative (Negative) Urine Nitrite Negative (Negative) Urine Bilirubin Negative (Negative) Urine Urobilinogen Negative (Negative) Ur Leukocyte Esterase 1+ H (Negative) Urine WBC (Auto) 5-10 H (0-5) /hpf Urine RBC (Auto) 0-4 (0-4) /hpf U Hyaline Cast (Auto) 0 (0-5) /lpf U Epithel Cells (Auto) >30 H (0-5) /lpf Urine Bacteria (Auto) Negative (Negative) Ethyl Alcohol mg/dL < 10.0 (<10.0) mg/dl SARS-CoV-2 (PCR) (Negative) Influenza Type A (PCR) (Neg) Influenza Type B (PCR) (Neg) RSV (RT-PCR) (Neg) Administered Medications Lactated Ringer's (Lr) 1,000 mls @ 200 mls/hr IV .Q5H MIN Stop: 02/24/22 15:59 Last Admin: 01/25/22 16:03 Dose: 200 mls/hr Documented By: ELISABETH Discontinued Medications Multivitamins 10 ml/ Thiamine HCl 100 mg/ Folic Acid 1 mg/Sodium Chloride 1,011.2 mls @ 1,011.2 mls/hr IV .Q1H ONE Stop: 01/25/22 13:53 Last Infusion: 01/25/22 15:29 Dose: 0 mls/hr Documented By: Admin: 01/25/22 13:20 Dose: 1,011.2 mls/hr Documented By: ARABELLA Famotidine (Pepcid 20mg Iv Push) 20 mg in 5 mls @ 2.5 mls/min IV NOW STA Stop: 01/25/22 12:55 Last Admin: 01/25/22 13:21 Dose: 2.5 mls/min Documented By: ARABELLA Ioversol (Optiray 350 100ml) 87 ml IV ONCE ONE Stop: 01/25/22 13:15 Last Admin: 01/25/22 13:15 Dose: 87 ml Documented By: NATALIA Morphine Sulfate (Morphine Sulfate 4 Mg/Ml 1 Ml Carp\Vial) 4 mg IV NOW STA Stop: 01/25/22 13:06 Last Admin: 01/25/22 13:21 Dose: 4 mg Documented By: ARABELLA Ondansetron HCl (Ondansetron Inj 2 Mg/Ml 2 Ml Vial) 4 mg IV NOW STA Stop: 01/25/22 12:55 Last Admin: 01/25/22 13:21 Dose: 4 mg Documented By: ARABELLA Imaging Data Radiologist's Impression: Abdomen/Pelvis CT 01/25/22 12:54 CT abd pelvis IV con only CLINICAL HISTORY: pancreatitis TECHNIQUE: Helical axial images of the abdomen and pelvis were obtained and displayed. Automated dose lowering techniques and/or adjustment according to patient size were utilized for this exam. This exam was performed with intra venous contrast. CT DOSE: 630.84 mGy.cm COMPARISON: Comparison is made to CT abdomen pelvis 03/29/2018 FINDINGS: Lower chest: No acute abnormality. Liver: Hepatic steatosis is noted. Gallbladder and biliary tree: No calcified gallstones. Normal caliber wall. No intra- or extrahepatic biliary ductal dilation. Pancreas: Pancreatic fat stranding is seen. No morales pancreatic edema is noted. Spleen: Unremarkable. Adrenals: Unremarkable. Kidneys and ureters: Subcentimeter hypodensities are too small to characterize. Bladder: Unremarkable. Reproductive organs: Bilateral adnexal cysts are seen. Bowel: Unremarkable appearance of the bowel. The appendix is normal. Postsurgical changes of gastric bypass are noted. Lymph nodes Retroperitoneal: Unremarkable. Pelvic: Unremarkable. Mesenteric: Unremarkable. Peritoneum: Small amount of free fluid is seen. Vessels: Atherosclerotic calcifications are seen. Abdominal wall: A fat-containing umbilical hernia is seen. Bones: Unremarkable. IMPRESSION: 1. There is mild fat stranding about the pancreas which may reflect mild pancreatitis. Postsurgical changes of Mitzi-en-Y gastric bypass are seen. Free fluid in the pelvis is likely reactive. No [place]ancreatic fluid collection is seen. 2. Hepatic steatosis. 3. Additional findings as above. ACT 112: Negative or not required by law. Electronically signed by: Sunil Krueger M.D. 01/25/2022 2:02 PM Discharge Plan Visit Data Chief Complaint: Abnormal Labs/Diagnostic Testing Stated Complaint: STOMACH ILLNESS AND CHEST PAIN ED Provider: Walter Mejia Discharge Problem: Acute pancreatitis, Hyponatremia, Alcohol dependence, Upper abdominal pain Forms Stand Alone Forms: [facility] Prescriptions Prescriptions: No Action escitalopram oxalate 20 mg tablet 20 mg PO DAILY propranolol 160 mg capsule,extended release 24 hr 160 mg PO DAILY Qty: 90 3RF lisinopril 10 mg tablet 10 mg PO DAILY cyanocobalamin (vitamin B-12) 1,000 mcg/mL solution 1,000 mcg IM MONTHLY Rx Instructions: USUALLY AROUND MIDDLE OF MONTH zolpidem 12.5 mg tablet,ext release multiphase 12.5 mg PO HS PRN (Reason: Sleep) levetiracetam [Keppra] 500 mg tablet 500 mg PO BID 14 Days Qty: 28 0RF valacyclovir 500 mg Tablet 500 mg PO BID PRN (Reason: Cold Sores) propranolol 60 mg capsule,extended release 24 hr 120 mg PO QDL Referrals Referrals: Serena Deng DO [Primary Care Provider] -
--- NOTE | 2022-01-25 16:30 | History & Physical Report ---
Date of Service January 25, 2022 Assessment & Plan (1) Acute pancreatitis: Plan: Admit to [facility] with telemetry Patient presenting from home with reports of abdominal pain, nausea, vomiting x 4 days. In the ED, found to have elevated lipase and CT findings consistent with mild pancreatitis History of alcohol abuse, patient reports drinking 2 bottles of wine/day Noted normal LFTs Likely EtOH pancreatitis N.p.o., IVF GI consult (2) Alcohol dependence: Plan: Patient reports drinking 2 bottles of wine/day, last drink 01/24 evening Alcohol withdrawal protocol with gabapentin Start folic acid, thiamine Behavioral health liaison consult for outpatient rehab referrals (3) Hyponatremia: Plan: Na+ 127 Likely due to poor PO intake, vomiting IVF, trend BMP (4) Seizure-like activity: Plan: Seen in ED on 01/12 for evaluation of seizure-like activity and started on Keppra, d/c'd home ?? If this was a alcohol withdrawal seizure History of questionable seizure like activity in 2020 with negative work up and was not started on antiepileptics Continue Keppra Has follow-up appointment with neurology next week (5) Essential tremor: Plan: Continue propanolol (6) Anxiety: Plan: Continue escitalopram (7) Hypertension: Plan: BP controlled, continue lisinopril DVT prophylaxis SCDs History of Present Illness Chief Complaint: Abdominal pain, nausea, vomiting Primary Care Provider: Serena Deng DO 47-year-old female with PMH HTN, essential tremor, anxiety, history of gastric bypass, and other problems listed below who presents the ED for evaluation of abdominal pain, nausea, vomiting. Patient reports her symptoms began about 4 days ago. She reports epigastric abdominal pain that radiates up into her chest at times. She has had associated nausea and a few episodes of vomiting. She describes emesis is bilious in nature, denies hematemesis or coffee-ground emesi s. Also reports diarrhea, denies bright red bleeding per rectum or dark tarry stools. No fevers or chills. Patient denies shortness of breath. Patient reports she feels " off balance" but denies lightheadedness, dizziness, diaphoresis, syncopal events. Patient was seen in the ED on 01/12 for evaluation after seizure-like activity. Patient was started on Keppra 500 mg BID at that time with instructions to follow-up with neurology. Patient reports drinking 2 bottles of wine per day, last drink being last evening. She has been drinking this amount for about the past 1 year. In the ED, labs show Na+ 127, lipase 1250. CT ABD/pelvis shows signs consistent with mild pancreatitis. Patient is hemodynamically stable. Patient was given IV famotidine, IV morphine, banana bag, IV Zofran. Allergies Allergy/AdvReac Type Severity Reaction Status Date / Time No Known Allergies Allergy Verified 01/25/22 17:02 Home Medications Medication Instructions Recorded Confirmed Type cyanocobalamin (vitamin B-12) 1,000 mcg IM MONTHLY 03/29/18 01/25/22 History 1,000 mcg/mL injection solution zolpidem 12.5 mg tablet,extended 12.5 mg PO HS PRN Sleep 08/12/19 01/25/22 History release,multiphase lisinopril 10 mg tablet 10 mg PO DAILY 06/29/20 01/25/22 History escitalopram oxalate 20 mg tablet 20 mg PO DAILY 07/19/21 01/25/22 History propranolol 160 mg capsule,24 160 mg PO DAILY #90 caps 07/19/21 01/25/22 Rx hr,extended release levetiracetam 500 mg tablet 500 mg PO BID 2 weeks #28 tabs 01/12/22 01/25/22 Rx (Keppra) propranolol 60 mg capsule,24 120 mg PO QDL 01/25/22 01/25/22 History hr,extended release valacyclovir 500 mg tablet 500 mg PO BID PRN Cold Sores 01/25/22 01/25/22 History Past Med/Surg History Medical History Anxiety Breech presentation Chronic mixed headache syndrome Classic migraine with aura Elevated blood pressure affecting , antepartum Essential tremor Herpes simplex infection History of chicken pox History of nephrolithiasis Hypertension Missed Seizure-like activity Vitamin B12 deficiency Surgical History delivery delivered H/O lithotripsy History of gynecologic surgery D&E-surgically induced History of Mitzi-en-Y gastric bypass Status post surgery laryngeal surgery- stripping of vocal cords Family History Uncle Bladder cancer maternal uncle Sister Brain tumor Grandfather (Paternal) Colorectal cancer Aunt Lung cancer paternal aunt Father Essential tremor Mother Hypertension Denies family history of Ovarian cancer Breast cancer Social History Smoking Status: Never smoker Hx Alcohol Use: Yes (social) Alcohol type: wine Alcohol Intake Frequency Comment: 2-3 drinks, 5-7 days per week Hx Substance Use: No Preferred Language: Peruvian Credit Correspondence Clerk Required: No Beliefs That Will Affect Care: None marital status: Current Living Situation: Spouse and Family 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 Other Information That Helps Us Care for You: No Feels Safe at Home: Yes Safety Concerns: Feels Safe At This Time Assistive Devices: Glasses Review of Systems Review of Systems: ROS per HPI, all other systems reviewed and negative Physical Exam Constitutional: WD/WN, vitals as above Eyes: PERRL, conjunctivae normal, anicteric sclerae ENMT: external ear and nose normal, oropharynx normal Respiratory: normal respiratory effort, lungs clear to auscultation Cardiovascular: Rate/Rhythm: regular rate and regular rhythm Vessels: normal peripheral pulses Extremities: no edema Gastrointestinal (Abdomen): Inspection/Auscultation: normal bowel sounds; abdomen not distended Percussion/Palpation: + abdomen tender (Epigastric, bilateral upper quadrants) and abdomen soft; no hepatosplenomegaly Musculoskeletal: no cyanosis or clubbing, extremities motor strength 5/5 Skin: no rashes, warm and dry Neurologic: PERRL, EOMI, accommodation nl, no face palsy, no dysarthria Psychiatric: A+Ox3, euthymic affect Results & Data Results & Data ([facility]) Vital Signs (Past 12 Hours) Vital Signs Temp Pulse Pulse Resp BP BP Pulse Ox 01/25/22 14:57 70 20 129/95 97 01/25/22 10:30 36.4 C L 82 20 117/77 97 O2 Del Method 01/25/22 14:57 Room Air 01/25/22 10:30 Room Air Laboratory Results Short CBC 01/25/22 Range/Units 11:07 WBC 10.01 (4.8-10.8) K/ul Hgb 12.9 (12.0-16.0) g/dl Hct 35.5 (34.1-44.9) % Plt Count 142 (130-400) K/uL BMP 01/25/22 11:07 Sodium 127 L Potassium 3.9 Chloride 92 L Carbon Dioxide 25 BUN 4 L Creatinine 0.59 L Glucose 97 Calcium 8.9 Liver Function 01/25/22 Range/Units 11:07 Total Bilirubin 0.9 (0.2-1.0) mg/dl AST 41 H (13-39) U/L ALT 24 (7-52) U/L Alkaline Phosphatase 91 (34-104) U/L Albumin 3.9 (3.4-5.0) gm/dl Urine 01/25/22 Range/Units 14:39 Urine Color Yellow Urine Appearance Clear (Clear) Urine pH 6.0 (4.5-7.5) Ur Specific [place] 1.025 (1.000-1.030) Urine Protein Negative (Negative) Urine Glucose (UA) Negative (Negative) Diagnostic Findings Abdomen/Pelvis CT 01/25/22 12:54 CT abd pelvis IV con only CLINICAL HISTORY: pancreatitis TECHNIQUE: Helical axial images of the abdomen and pelvis were obtained and displayed. Automated dose lowering techniques and/or adjustment according to patient size were utilized for this exam. This exam was performed with intravenous contrast. CT DOSE: 630.84 mGy.cm COMPARISON: Comparison is made to CT abdomen pelvis 03/29/2018 FINDINGS: Lower chest: No acute abnormality. Liver: Hepatic steatosis is noted. Gallbladder and biliary tree: No calcified gallstones. Normal caliber wall. No intra- or extrahepatic biliary ductal dilation. Pancreas: Pancreatic fat stranding is seen. No morales pancreatic edema is noted. Spleen: Unremarkable. Adrenals: Unremarkable. Kidneys and ureters: Subcentimeter hypodensities are too small to characterize. Bladder: Unremarkable. Reproductive organs: Bilateral adnexal cysts are seen. Bowel: Unremarkable appearance of the bowel. The appendix is normal. Postsurgical changes of gastric bypass are noted. Lymph nodes Retroperitoneal: Unremarkable. Pelvic: Unremarkable. Mesenteric: Unremarkable. Peritoneum: Small amount of free fluid is seen. Vessels: Atherosclerotic calcifications are seen. Abdominal wall: A fat-containing umbilical hernia is seen. Bones: Unremarkable. IMPRESSION: 1. There is mild fat stranding about the pancreas which may reflect mild pancreatitis. Postsurgical changes of Mitzi-en-Y gastric bypass are seen. Free fluid in the pelvis is likely reactive. No [place]ancreatic fluid collection is seen. 2. Hepatic steatosis. 3. Additional findings as above. ACT 112: Negative or not required by law. Electronically signed by: Sunil Krueger M.D. 01/25/2022 2:02 PM Code Status & VTE Plan VTE Prophylaxis Plan VTE Prophylaxis will be ordered: Yes Supervising Physician Co-Signing Physician Notes I have seen and examined the patient and have discussed the case with the provider above. I agree with the assessment and plan as stated. The patient is a 47-year-old female with abdominal pain nausea and vomiting for the last 4 days. She has a history of excessive drinking including 2 bottles of wine per day and work-up reveals an elevated lipase and CT findings consistent with mild pancreatitis. She reports a new diagnosis of seizures in the last couple of weeks and has been started on Keppra without side effects. On exam she has mild tremor that is known and is well-nourished well-developed and mentating clearly. Skin is warm and dry. She is no evidence of jaundice or scleral icterus. Cardiac auscultation reveals regular rate and rhythm with no murmurs gallops or rubs. S1/S2 is heard. Lungs are clear to auscultation. Abdomen is tender without guarding mostly located in the epigastric to left upper quadrant area. There is no right upper quadrant tenderness or lower abdominal tenderness. There is no evidence of distention. No gross neurologic deficits. Work-up in the ER reveals no leukocytosis with a normal H&H. MCV is elevated at 102 likely evidence of persistent heavy alcohol use. Sodium level is 127 with hyponatremia likely reflecting poor p.o. intake in the setting of alcohol use. Renal function is normal. There is a mild elevation of AST of 41 with no other abnormal liver function studies. Lipase is 1250. Urinalysis is contaminated with 1+ leuk esterase and 5-10 white blood cells. This does not indicate an infection and there is no UTI symptoms reported. Alcohol level was negative. Abdomen CT with IV contrast reveals evidence of pancreatitis with no peripancreatic fluid collection seen. She is postsurgical changes of a Mitzi-en-Y gastric bypass that is present and evidence of hepatic steatosis. There is no evidence of calcified gallstones and no intra or extrahepatic biliary ductal dilation. Overall this is a 47-year-old female with history of heavy alcohol use presenting with acute pancreatitis. Agree with continuing bowel rest overnight and hydrating with IV fluids. Gastroenterology consulted and will defer additional imaging studies to them as needed. Would start her back on a clear liquid diet as soon as she is hungry again and clinically improved. There is no evidence of sepsis this evening. Alcohol withdrawal is a concern and she will be monitored closely for this. She was placed on a gabapentin tapered protocol and thiamine and folic acid supplementation. DO Eddi
[2022-01-25] MEDS ORDERED: LORazepam 1 MG TAB PO PRN ×3 (17:23)
[2022-01-25] MEDS ORDERED: ONDANSETRON INJ 2 MG/ML 2 ML VIAL IV PRN (17:23)
[2022-01-25] MEDS ORDERED: GABAPENTIN 1200MG ALCOHOL WITHDRAWAL LOAD PO STA (17:23)
[2022-01-25] MEDS ORDERED: GABAPENTIN 600 MG TAB PO ONE (17:23)
[2022-01-25] MEDS ORDERED: Ativan PO Alcohol Withdrawal--Active Protocol PO PRN (17:23)
[2022-01-25 17:26] LABS: BUN Creatinine Ratio 8.9 (10-20); Calcium 7.7 mg/dl (8.5-10.1); Creatinine Clr Calc Pharmacy 180.3 ml/min; Est GFR (African American) 140.3 ml/min; Potassium 3.9 mmol/L (3.5-5.1)
[2022-01-25] MEDS: FOLIC ACID 1 MG TAB PO SCH (17:57)
[2022-01-25] MEDS: THIAMINE HCL 100 MG TAB PO SCH (17:58)
[2022-01-25] MEDS: levETIRAcetam 500 MG TAB PO SCH (21:23)
[2022-01-25] MEDS: GABAPENTIN 600 MG TAB PO SCH (21:24)
[2022-01-25] MEDS ORDERED: LORazepam 0.5 MG TAB PO PRN (22:08)
[2022-01-25] MEDS: ZOLPIDEM TARTRATE 5 MG TAB PO PRN (23:19)
[2022-01-26] MEDS: LACTATED RINGER'S 1,000 ML IV SCH ×3 (02:19→15:36)
[2022-01-26] MEDS: GABAPENTIN 600 MG TAB PO SCH ×3 (04:10→20:39)
[2022-01-26] MEDS: MoRPHine SULFATE 4 MG/ML 1 ML CARP\\VIAL IV PRN ×2 (06:35→13:58)
[2022-01-26 07:16] LABS: Hematocrit (blood only) 30.4 % (34.1-44.9); Hemoglobin 10.8 g/dl (12.0-16.0); Mean Corpuscular Hemoglobin 37.1 pg (25.0-34.0); Mean Corpuscular Hgb Conc 35.5 g/dL (32.0-36.0); Mean Corpuscular Volume 104.5 fL (80.0-100.0); Mean Platelet Volume 11.3 fL (9.4-12.3); Platelet Count 110 K/uL (130-400); RDW Coefficient of Variation 11.4 % (11.5-14.5); RDW Standard Deviation 43.7 fL (36.4-46.3); Red Blood Count 2.91 M/uL (3.93-5.22); White Blood Count 5.84 K/ul (4.8-10.8)
[2022-01-26 07:54] LABS: Albumin Globulin Ratio 1.4 (0.9-2); Albumin Level 3.2 gm/dl (3.4-5.0); BUN Creatinine Ratio 6.3 (10-20); Bilirubin,Total 0.9 mg/dl (0.2-1.0); Calcium 8.6 mg/dl (8.5-10.1); Creatinine Clr Calc Pharmacy 126.8 ml/min; Est GFR (African American) 124.9 ml/min; Est GFR (Non-African American) 107.8 ml/min; Globulin 2.3 gm/dl (2.5-4.0); Potassium 4.1 mmol/L (3.5-5.1); Total Protein 5.5 gm/dl (6.0-8.3)
[2022-01-26] MEDS: lisinopril 10 MG TAB PO SCH (08:05)
[2022-01-26] MEDS: PROPRANOLOL HCL LA 80 MG CAPCR PO SCH (08:05)
[2022-01-26] MEDS: FOLIC ACID 1 MG TAB PO SCH (08:05)
[2022-01-26] MEDS: ESCITALOPRAM OXALATE 20 MG TAB PO SCH (08:05)
[2022-01-26] MEDS: THIAMINE HCL 100 MG TAB PO SCH (08:05)
[2022-01-26] MEDS: levETIRAcetam 500 MG TAB PO SCH ×2 (08:52→20:37)
[2022-01-26] MEDS: PANTOprazole 40 MG TAB PO SCH (09:38)
--- NOTE | 2022-01-26 10:22 | Hospitalist Progress Note ---
Date of Service January 26, 2022 Assessment & Plan (1) Acute pancreatitis: Plan: Admit to [facility] with telemetry Patient presenting from home with reports of abdominal pain, nausea, vomiting x 4 days. In the ED, found to have elevated lipase and CT findings consistent with mild pancreatitis History of alcohol abuse, patient reports drinking 2 bottles of wine/day Plan: - decrease fluid rate to 125cc/hr. Start on full liquid diet. Advance as tolerated - Continue pain control. - Conselling regarding alcohol use disorder. (2) Alcohol dependence: Plan: Patient reports drinking 2 bottles of wine/day, last drink 01/24 evening Alcohol withdrawal protocol with gabapentin Start folic acid, thiamine Behavioral health liaison consult for outpatient rehab referrals (3) Hyponatremia: Plan: Na improved to 130. Likely due to poor PO intake, vomiting Continue iv fluids. (4) Seizure-like activity: Plan: Seen in ED on 01/12 for evaluation of seizure-like activity and started on Keppra, d/c'd home History of questionable seizure like activity in 2020 with negative work up and was not started on antiepileptics Continue Keppra Has follow-up appointment with neurology next week (5) Essential tremor: Plan: Continue propanolol (6) Anxiety: Plan: Continue escitalopram (7) Hypertension: Plan: BP controlled, continue lisinopril DVT prophylaxis SCDs Admission and Anticipated Discharge Date Admission Date: January 25, 2022 Subjective Patient seen and examined at bedside. The epigastric pain has improved compared to admission. Patient denied nausea, vomiting and reports improve appetite. Reports no symptoms of alcohol withdrawal. Review of Systems Review of Systems: All systems reviewed & are unremarkable except as noted in Subjective Physical Exam Physical Exam: Constitutional: WD/WN, vitals as above, NAD, sitting up in bed, pleasant, conversing easily Respiratory: normal respiratory effort, lungs clear to auscultation, no wheeze, rales, rhonchi. Normal insp/exp effort, no accessory muscle use Cardiovascular: RRR, no murmur, no edema Vessels: no JVD or carotid bruit Chest: normal inspection of chest Abdomen: no tenderness, BS present. Musculoskeletal: no cyanosis or clubbing, extremities motor strength 5/5 Skin: no rashes, warm and dry normal turgor Neurologic: PERRL, EOMI, accommodation nl, no face palsy, no dysarthria CN's II- XI intact bilaterally and moves all extremities Psychiatric: A+Ox3, euthymic affect Lymphatic: no cervical or axillary lymphadenopathy : deferred Results & Data Results & Data ([facility]) Vital Signs (Past 12 Hours) Vital Signs Temp Pulse Pulse Pulse Resp BP BP 01/26/22 08:00 01/26/22 07:34 37.0 C 75 20 137/87 01/26/22 07:01 82 01/26/22 03:49 36.8 C 69 16 113/78 01/25/22 22:29 74 01/25/22 22:52 36.8 C 75 18 123/82 Pulse Ox O2 Del Method 01/26/22 08:00 Room Air 01/26/22 07:34 94 Room Air 01/26/22 07:01 01/26/22 03:49 95 Room Air 01/25/22 22:29 01/25/22 22:52 95 Room Air Laboratory Results Laboratory Results WBC 5.84 K/ul (4.8-10.8) 01/26/22 06:21 RBC 2.91 M/uL (3.93-5.22) L 01/26/22 06:21 Hgb 10.8 g/dl (12.0-16.0) L 01/26/22 06:21 Hct 30.4 % (34.1-44.9) L 01/26/22 06:21 MCV 104.5 fL (80.0-100.0) H 01/26/22 06:21 MCH 37.1 pg (25.0-34.0) H 01/26/22 06:21 MCHC 35.5 g/dL (32.0-36.0) 01/26/22 06:21 RDW Std Deviation 43.7 fL (36.4-46.3) 01/26/22 06:21 RDW Coeff of [place] 11.4 % (11.5-14.5) L 01/26/22 06:21 Plt Count 110 K/uL (130-400) L 01/26/22 06:21 MPV 11.3 fL (9.4-12.3) 01/26/22 06:21 Immature Gran % (Auto) 0.4 % 01/25/22 11:07 Neut % (Auto) 78.5 % 01/25/22 11:07 Lymph % (Auto) 13.4 % 01/25/22 11:07 [place] % (Auto) 6.2 % 01/25/22 11:07 Eos % (Auto) 1.1 % 01/25/22 11:07 Baso % (Auto) 0.4 % 01/25/22 11:07 Neut # (Auto) 7.86 K/uL (1.4-6.5) H 01/25/22 11:07 Lymph # (Auto) 1.34 K/uL (1.2-3.4) 01/25/22 11:07 [place] # (Auto) 0.62 K/uL (0.24-0.82) 01/25/22 11:07 Eos # (Auto) 0.11 K/uL (0-0.50) 01/25/22 11:07 Baso # (Auto) 0.04 K/uL (0-0.2) 01/25/22 11:07 Immature Gran # (Auto) 0.04 K/uL (0.00-0.02) H 01/25/22 11:07 Sodium 138 mmol/L (136-145) 01/26/22 06:21 Potassium 4.1 mmol/L (3.5-5.1) 01/26/22 06:21 Chloride 104 mmol/L (98-107) 01/26/22 06:21 Carbon Dioxide 31 mmol/L (21-32) 01/26/22 06:21 Anion Gap 3 (3-11) 01/26/22 06:21 BUN 4 mg/dl (6-23) L 01/26/22 06:21 Creatinine 0.64 mg/dl (0.6-1.2) 01/26/22 06:21 Est Cr Clr Drug Dosing 126.8 ml/min 01/26/22 06:21 Est GFR ( Amer) 124.9 ml/min 01/26/22 06:21 Est GFR (Non-Af Amer) 107.8 ml/min 01/26/22 06:21 BUN/Creatinine Ratio 6.3 (10-20) L 01/26/22 06:21 Glucose 77 mg/dl (70-99(Fasting)) 01/26/22 06:21 Calcium 8.6 mg/dl (8.5-10.1) 01/26/22 06:21 Total Bilirubin 0.9 mg/dl (0.2-1.0) 01/26/22 06:21 AST 25 U/L (13-39) 01/26/22 06:21 ALT 16 U/L (7-52) 01/26/22 06:21 Alkaline Phosphatase 73 U/L (34-104) 01/26/22 06:21 Total Protein 5.5 gm/dl (6.0-8.3) L 01/26/22 06:21 Albumin 3.2 gm/dl (3.4-5.0) L 01/26/22 06:21 Globulin 2.3 gm/dl (2.5-4.0) L 01/26/22 06:21 Albumin/Globulin Ratio 1.4 (0.9-2) 01/26/22 06:21 Lipase 1250 U/L (11-82) H 01/25/22 11:07 Urine Color Yellow 01/25/22 14:39 Urine Appearance Clear (Clear) 01/25/22 14:39 Urine pH 6.0 (4.5-7.5) 01/25/22 14:39 Ur Specific [place] 1.025 (1.000-1.030) 01/25/22 14:39 Urine Protein Negative (Negative) 01/25/22 14:39 Urine Glucose (UA) Negative (Negative) 01/25/22 14:39 Urine Ketones Negative (Negative) 01/25/22 14:39 Urine Blood Negative (Negative) 01/25/22 14:39 Urine Nitrite Negative (Negative) 01/25/22 14:39 Urine Bilirubin Negative (Negative) 01/25/22 14:39 Urine Urobilinogen Negative (Negative) 01/25/22 14:39 Ur Leukocyte Esterase 1+ (Negative) H 01/25/22 14:39 Urine WBC (Auto) 5-10 /hpf (0-5) H 01/25/22 14:39 Urine RBC (Auto) 0-4 /hpf (0-4) 01/25/22 14:39 U Hyaline Cast (Auto) 0 /lpf (0-5) 01/25/22 14:39 U Epithel Cells (Auto) >30 /lpf (0-5) H 01/25/22 14:39 Urine Bacteria (Auto) Negative (Negative) 01/25/22 14:39 Ethyl Alcohol mg/dL < 10.0 mg/dl (<10.0) 01/25/22 14:14 SARS-CoV-2 (PCR) NEGATIVE (Negative) 01/25/22 13:42 Influenza Type A (PCR) Negative (Neg) 01/25/22 13:42 Influenza Type B (PCR) Negative (Neg) 01/25/22 13:42 RSV (RT-PCR) Negative (Neg) 01/25/22 13:42 Impressions Abdomen/Pelvis CT 01/25/22 12:54 CT abd pelvis IV con only CLINICAL HISTORY: pancreatitis TECHNIQUE: Helical axial images of the abdomen and pelvis were obtained and displayed. Automated dose lowering techniques and/or adjustment according to patient size were utilized for this exam. This exam was performed with intravenous contrast. CT DOSE: 630.84 mGy.cm COMPARISON: Comparison is made to CT abdomen pelvis 03/29/2018 FINDINGS: Lower chest: No acute abnormality. Liver: Hepatic steatosis is noted. Gallbladder and biliary tree: No calcified gallstones. Normal caliber wall. No intra- or extrahepatic biliary ductal dilation. Pancreas: Pancreatic fat stranding is seen. No morales pancreatic edema is noted. Spleen: Unremarkable. Adrenals: Unremarkable. Kidneys and ureters: Subcentimeter hypodensities are too small to characterize. Bladder: Unremarkable. Reproductive organs: Bilateral adnexal cysts are seen. Bowel: Unremarkable appearance of the bowel. The appendix is normal. Postsurgical changes of gastric bypass are noted. Lymph nodes Retroperitoneal: Unremarkable. Pelvic: Unremarkable. Mesenteric: Unremarkable. Peritoneum: Small amount of free fluid is seen. Vessels: Atherosclerotic calcifications are seen. Abdominal wall: A fat-containing umbilical hernia is seen. Bones: Unremarkable. IMPRESSION: 1. There is mild fat stranding about the pancreas which may reflect mild pancreatitis. Postsurgical changes of Mitzi-en-Y gastric bypass are seen. Free fluid in the pelvis is likely reactive. No [place]ancreatic fluid collection is seen. 2. Hepatic steatosis. 3. Additional findings as above. ACT 112: Negative or not required by law. Electronically signed by: Sunil Krueger M.D. 01/25/2022 2:02 PM
--- NOTE | 2022-01-26 10:59 | Gastrointestinal Consultation ---
Date of Consultation January 26, 2022 Assessment & Plan (1) Acute pancreatitis: (2) Alcohol dependence: Plan This is a 47 y/o female s/p RYGB 2006, heavy ETOH use, who presented w/ several days of n/v, worsening abd pain, and ER w/u positive for mild pancreatitis on CT and elevated lipase, with hyponatremia and mildly elevated AST which has normalized. Overnight has mild anemia which may be dilutional but also has mild Tcytopenia. With her h/o ETOH use, hepatic steatosis I've also ordered INR to check for coagulopathy. Overnight she has clinically improved and tolerated full liquids today. On exam she is well appearing and abd nontender; she's afebrile and HDS stable. Episode likely c/w ETOH pancreatitis without complication and pt has already started to improve and tolerate some PO. - Diet as tolerated (full liquids), would advance to low-fat diet thereafter and upon DC as tolerated - Supportive care with IVF - Analgesia PRN - Discussed at length the importance of complete ETOH abstention and would encourage her to seek ETOH counseling/rehab as OP - Watch for ETOH withdrawal - Folic acid and thiamine supplementation - Given this was likely ETOH induced, may not need f/u endoscopy - Can f/u as OP w/ GI for the hepatic steatosis (would be a good idea to check Fibroscan and r/o early cirrhosis) and for other GI issues (chronic diarrhea) - GI will sign off, please call with questions Thank you for allowing us to participate in the care of this patient. Please call with any acute changes, questions or concerns. Please see addendum below with additional recommendation from my supervising physician. Supervising Physician Co-Signing Physician Notes I performed a history and physical examination of the patient today, including specifically on physical exam - soft abdomen. I have discussed the patient's management with the advanced practitioner. Please refer to the nurse practitioner's note for the documented findings and plan of care. Mild acute alcohol related pancreatitis. Feeling better and tolerated full liquid diet. Alcohol cessation. OP EUS. Recall GI if needed History of Present Illness Reason for Consultation: pancreatitis Requesting Physician: STEVE Pringle Attending Physician: Gualberto Agustin MD History of Present Illness Pt is a 47-year-old female with PMH HTN, essential tremor, anxiety, history of gastric bypass w/ RYGB in 2006, alcohol abuse, and other problems listed below who presented to the ED last night w/ abd pain, n/v. Her symptoms started 4 days prior to this and she stayed at home from work for a few days but the pain got worse. It started in the epigastrium but became diffuse; occasionally radiating to the chest; it felt like a constant labor contraction. She had a few episodes of nonbloody bilious vomiting at home. H/o alcohol abuse; drinks 2 bottles of wine per day; last drink was 01/24. Since her RYGB she has chronic issues with her stomach w/ dumping syndrome and chronic diarrhea and this is unchanged. She has nonbloody stools; the last one was 01/24. In the ER she had elevated lipase at 1250, hyponatremia, AST of 41, normal ALP and bili, no leukocytosis or anemia. CTAP w/ mild pancreatitis, hepatic steatosis; no manuel dil. She still has her GB but no apparent calcified stones. She was made NPO and started on IVF, IV analgesia, IV famotidine, banana bag and Zofran. ETOH withdrawal protocol as well. Overnight she has greatly improved. Last had analgesia around 6 AM. For breakfast she had cream of wheat which she tolerated well. She reports her pain is now gone; she has no n/v and no other complaints at present. Has essential tremor but denies ETOH withdrawal symptoms. She's afebrile resting in bed comfortably. She's making urine; passing flatus; no BM today. Labs today with mild anemia, thrombocytopenia. Na and LFTs have normalized. She lives with her kids and at home. She has been trying to cut back on her ETOH use as she realizes its excessive. Denies hematemesis, dysphagia significant heartburn, Cp, SOB, fever, chills, jaundice, dark urine, reed stools, leg edema. No tobacco use. No fam history of pancreatitis. She's never had endoscopy. Allergies Allergy/AdvReac Type Severity Reaction Status Date / Time No Known Allergies Allergy Verified 01/25/22 17:02 Home Medications Medication Instructions Recorded Confirmed Type cyanocobalamin (vitamin B-12) 1,000 mcg IM MONTHLY 03/29/18 01/25/22 History 1,000 mcg/mL injection solution zolpidem 12.5 mg tablet,extended 12.5 mg PO HS PRN Sleep 08/12/19 01/25/22 History release,multiphase lisinopril 10 mg tablet 10 mg PO DAILY 06/29/20 01/25/22 History escitalopram oxalate 20 mg tablet 20 mg PO DAILY 07/19/21 01/25/22 History propranolol 160 mg capsule,24 160 mg PO DAILY #90 caps 07/19/21 01/25/22 Rx hr,extended release levetiracetam 500 mg tablet 500 mg PO BID 2 weeks #28 tabs 01/12/22 01/25/22 Rx (Keppra) propranolol 60 mg capsule,24 120 mg PO QDL 01/25/22 01/25/22 History hr,extended release valacyclovir 500 mg tablet 500 mg PO BID PRN Cold Sores 01/25/22 01/25/22 History Patient History Medical History Anxiety Breech presentation Chronic mixed headache syndrome Classic migraine with aura Elevated blood pressure affecting , antepartum Essential tremor Herpes simplex infection History of chicken pox History of nephrolithiasis Hypertension Missed Seizure-like activity Vitamin B12 deficiency Surgical History delivery delivered H/O lithotripsy History of gynecologic surgery D&E-surgically induced History of Mitzi-en-Y gastric bypass Status post surgery laryngeal surgery- stripping of vocal cords Family History Uncle Bladder cancer maternal uncle Sister Brain tumor Grandfather (Paternal) Colorectal cancer Aunt Lung cancer paternal aunt Father Essential tremor Mother Hypertension Denies family history of Ovarian cancer Breast cancer Social History Smoking Status: Never smoker Hx Alcohol Use: Yes (social) Alcohol type: wine Alcohol Intake Frequency Comment: 2-3 drinks, 5-7 days per week Hx Substance Use: No Preferred Language: Moldovan Communication Ability: Effective Wire Technician Required: No Beliefs That Will Affect Care: None marital status: Current Living Situation: Spouse and Family 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 Other Information That Helps Us Care for You: No Feels Safe at Home: Yes Safety Concerns: Feels Safe At This Time Assistive Devices: None Review of Systems Review of Systems: All systems reviewed & are unremarkable except as noted in HPI & below Physical Exam Constitutional: WD/WN, vitals as above Eyes: PERRL, conjunctivae normal, anicteric sclerae ENMT: external ear and nose normal, oropharynx normal Respiratory: normal respiratory effort, lungs clear to auscultation Cardiovascular: RRR, no murmur, no edema Gastrointestinal (Abdomen): normal bowel sounds, soft, nontender, no hepatosplenomegaly Skin: no rashes, warm and dry Neurologic: mild tremor noted to the b/l extrems Psychiatric: A+Ox3, euthymic affect Results & Data ([facility]) Vital Signs (Past 12 Hours) Vital Signs Temp Pulse Pulse Pulse Resp BP BP 01/26/22 08:00 01/26/22 07:34 37.0 C 75 20 137/87 01/26/22 07:01 82 01/26/22 03:49 36.8 C 69 16 113/78 01/25/22 22:52 36.8 C 75 18 123/82 Pulse Ox O2 Del Method 01/26/22 08:00 Room Air 01/26/22 07:34 94 Room Air 01/26/22 07:01 01/26/22 03:49 95 Room Air 01/25/22 22:52 95 Room Air Laboratory Results 01/26/22 01/26/22 01/25/22 Range/Units 06:21 06:21 16:51 WBC 5.84 (4.8-10.8) K/ul RBC 2.91 L (3.93-5.22) M/uL Hgb 10.8 L (12.0-16.0) g/dl Hct 30.4 L (34.1-44.9) % MCV 104.5 H (80.0-100.0) fL MCH 37.1 H (25.0-34.0) pg MCHC 35.5 (32.0-36.0) g/dL RDW Std Deviation 43.7 (36.4-46.3) fL RDW Coeff of Brielle 11.4 L (11.5-14.5) % Plt Count 110 L (130-400) K/uL MPV 11.3 (9.4-12.3) fL Immature Gran % (Auto) % Neut % (Auto) % Lymph % (Auto) % Vernon % (Auto) % Eos % (Auto) % Baso % (Auto) % Neut # (Auto) (1.4-6.5) K/uL Lymph # (Auto) (1.2-3.4) K/uL Vernon # (Auto) (0.24-0.82) K/uL Eos # (Auto) (0-0.50) K/uL Baso # (Auto) (0-0.2) K/uL Immature Gran # (Auto) (0.00-0.02) K/uL Sodium 138 130 L (136-145) mmol/L Potassium 4.1 3.9 (3.5-5.1) mmol/L Chloride 104 99 (98-107) mmol/L Carbon Dioxide 31 22 (21-32) mmol/L Anion Gap 3 9 (3-11) BUN 4 L 4 L (6-23) mg/dl Creatinine 0.64 0.45 L (0.6-1.2) mg/dl Est Cr Clr Drug Dosing 126.8 180.3 ml/min Est GFR ( Amer) 124.9 140.3 ml/min Est GFR (Non-Af Amer) 107.8 121.0 ml/min BUN/Creatinine Ratio 6.3 L 8.9 L (10-20) Glucose 77 76 (70-99(Fasting)) mg/dl Calcium 8.6 7.7 L (8.5-10.1) mg/dl Total Bilirubin 0.9 (0.2-1.0) mg/dl AST 25 (13-39) U/L ALT 16 (7-52) U/L Alkaline Phosphatase 73 (34-104) U/L Total Protein 5.5 L (6.0-8.3) gm/dl Albumin 3.2 L (3.4-5.0) gm/dl Globulin 2.3 L (2.5-4.0) gm/dl Albumin/Globulin Ratio 1.4 (0.9-2) Lipase (11-82) U/L Urine Color Urine Appearance (Clear) Urine pH (4.5-7.5) Ur Specific [place] (1.000-1.030) Urine Protein (Negative) Urine Glucose (UA) (Negative) Urine Ketones (Negative) Urine Blood (Negative) Urine Nitrite (Negative) Urine Bilirubin (Negative) Urine Urobilinogen (Negative) Ur Leukocyte Esterase (Negative) Urine WBC (Auto) (0-5) /hpf Urine RBC (Auto) (0-4) /hpf U Hyaline Cast (Auto) (0-5) /lpf U Epithel Cells (Auto) (0-5) /lpf Urine Bacteria (Auto) (Negative) Ethyl Alcohol mg/dL (<10.0) mg/dl SARS-CoV-2 (PCR) (Negative) Influenza Type A (PCR) (Neg) Influenza Type B (PCR) (Neg) RSV (RT-PCR) (Neg) 01/25/22 01/25/22 01/25/22 Range/Units 14:39 14:14 13:42 WBC (4.8-10.8) K/ul RBC (3.93-5.22) M/uL Hgb (12.0-16.0) g/dl Hct (34.1-44.9) % MCV (80.0-100.0) fL MCH (25.0-34.0) pg MCHC (32.0-36.0) g/dL RDW Std Deviation (36.4-46.3) fL RDW Coeff of Brielle (11.5-14.5) % Plt Count (130-400) K/uL MPV (9.4-12.3) fL Immature Gran % (Auto) % Neut % (Auto) % Lymph % (Auto) % Vernon % (Auto) % Eos % (Auto) % Baso % (Auto) % Neut # (Auto) (1.4-6.5) K/uL Lymph # (Auto) (1.2-3.4) K/uL Vernon # (Auto) (0.24-0.82) K/uL Eos # (Auto) (0-0.50) K/uL Baso # (Auto) (0-0.2) K/uL Immature Gran # (Auto) (0.00-0.02) K/uL Sodium (136-145) mmol/L Potassium (3.5-5.1) mmol/L Chloride (98-107) mmol/L Carbon Dioxide (21-32) mmol/L Anion Gap (3-11) BUN (6-23) mg/dl Creatinine (0.6-1.2) mg/dl Est Cr Clr Drug Dosing ml/min Est GFR ( Amer) ml/min Est GFR (Non-Af Amer) ml/min BUN/Creatinine Ratio (10-20) Glucose (70-99(Fasting)) mg/dl Calcium (8.5-10.1) mg/dl Total Bilirubin (0.2-1.0) mg/dl AST (13-39) U/L ALT (7-52) U/L Alkaline Phosphatase (34-104) U/L Total Protein (6.0-8.3) gm/dl Albumin (3.4-5.0) gm/dl Globulin (2.5-4.0) gm/dl Albumin/Globulin Ratio (0.9-2) Lipase (11-82) U/L Urine Color Yellow Urine Appearance Clear (Clear) Urine pH 6.0 (4.5-7.5) Ur Specific [place] 1.025 (1.000-1.030) Urine Protein Negative (Negative) Urine Glucose (UA) Negative (Negative) Urine Ketones Negative (Negative) Urine Blood Negative (Negative) Urine Nitrite Negative (Negative) Urine Bilirubin Negative (Negative) Urine Urobilinogen Negative (Negative) Ur Leukocyte Esterase 1+ H (Negative) Urine WBC (Auto) 5-10 H (0-5) /hpf Urine RBC (Auto) 0-4 (0-4) /hpf U Hyaline Cast (Auto) 0 (0-5) /lpf U Epithel Cells (Auto) >30 H (0-5) /lpf Urine Bacteria (Auto) Negative (Negative) Ethyl Alcohol mg/dL < 10.0 (<10.0) mg/dl SARS-CoV-2 (PCR) NEGATIVE (Negative) Influenza Type A (PCR) Negative (Neg) Influenza Type B (PCR) Negative (Neg) RSV (RT-PCR) Negative (Neg) 01/25/22 01/25/22 Range/Units 11:07 11:07 WBC 10.01 (4.8-10.8) K/ul RBC 3.48 L (3.93-5.22) M/uL Hgb 12.9 (12.0-16.0) g/dl Hct 35.5 (34.1-44.9) % MCV 102.0 H (80.0-100.0) fL MCH 37.1 H (25.0-34.0) pg MCHC 36.3 H (32.0-36.0) g/dL RDW Std Deviation 42.3 (36.4-46.3) fL RDW Coeff of Brielle 11.2 L (11.5-14.5) % Plt Count 142 (130-400) K/uL MPV 10.5 (9.4-12.3) fL Immature Gran % (Auto) 0.4 % Neut % (Auto) 78.5 % Lymph % (Auto) 13.4 % Vernon % (Auto) 6.2 % Eos % (Auto) 1.1 % Baso % (Auto) 0.4 % Neut # (Auto) 7.86 H (1.4-6.5) K/uL Lymph # (Auto) 1.34 (1.2-3.4) K/uL Vernon # (Auto) 0.62 (0.24-0.82) K/uL Eos # (Auto) 0.11 (0-0.50) K/uL Baso # (Auto) 0.04 (0-0.2) K/uL Immature Gran # (Auto) 0.04 H (0.00-0.02) K/uL Sodium 127 L (136-145) mmol/L Potassium 3.9 (3.5-5.1) mmol/L Chloride 92 L (98-107) mmol/L Carbon Dioxide 25 (21-32) mmol/L Anion Gap 10 (3-11) BUN 4 L (6-23) mg/dl Creatinine 0.59 L (0.6-1.2) mg/dl Est Cr Clr Drug Dosing 137.5 ml/min Est GFR ( Amer) 128.3 ml/min Est GFR (Non-Af Amer) 110.7 ml/min BUN/Creatinine Ratio 6.8 L (10-20) Glucose 97 (70-99(Fasting)) mg/dl Calcium 8.9 (8.5-10.1) mg/dl Total Bilirubin 0.9 (0.2-1.0) mg/dl AST 41 H (13-39) U/L ALT 24 (7-52) U/L Alkaline Phosphatase 91 (34-104) U/L Total Protein 6.8 (6.0-8.3) gm/dl Albumin 3.9 (3.4-5.0) gm/dl Globulin 2.9 (2.5-4.0) gm/dl Albumin/Globulin Ratio 1.3 (0.9-2) Lipase 1250 H (11-82) U/L Urine Color Urine Appearance (Clear) Urine pH (4.5-7.5) Ur Specific [place] (1.000-1.030) Urine Protein (Negative) Urine Glucose (UA) (Negative) Urine Ketones (Negative) Urine Blood (Negative) Urine Nitrite (Negative) Urine Bilirubin (Negative) Urine Urobilinogen (Negative) Ur Leukocyte Esterase (Negative) Urine WBC (Auto) (0-5) /hpf Urine RBC (Auto) (0-4) /hpf U Hyaline Cast (Auto) (0-5) /lpf U Epithel Cells (Auto) (0-5) /lpf Urine Bacteria (Auto) (Negative) Ethyl Alcohol mg/dL (<10.0) mg/dl SARS-CoV-2 (PCR) (Negative) Influenza Type A (PCR) (Neg) Influenza Type B (PCR) (Neg) RSV (RT-PCR) (Neg) Diagnostic Findings CTAP: Lower chest: No acute abnormality. Liver: Hepatic steatosis is noted. Gallbladder and biliary tree: No calcified gallstones. Normal caliber wall. No intra- or extrahepatic biliary ductal dilation. Pancreas: Pancreatic fat stranding is seen. No morales pancreatic edema is noted. Spleen: Unremarkable. Adrenals: Unremarkable. Kidneys and ureters: Subcentimeter hypodensities are too small to characterize. Bladder: Unremarkable. Reproductive organs: Bilateral adnexal cysts are seen. Bowel: Unremarkable appearance of the bowel. The appendix is normal. Postsurgical changes of gastric bypass are noted. Lymph nodes Retroperitoneal: Unremarkable. Pelvic: Unremarkable. Mesenteric: Unremarkable. Peritoneum: Small amount of free fluid is seen. Vessels: Atherosclerotic calcifications are seen. Abdominal wall: A fat-containing umbilical hernia is seen. Bones: Unremarkable. IMPRESSION: 1. There is mild fat stranding about the pancreas which may reflect mild pancreatitis. Postsurgical changes of Mitzi-en-Y gastric bypass are seen. Free f luid in the pelvis is likely reactive. No peripancreatic fluid collection is seen. 2. Hepatic steatosis. 3. Additional findings as above.
[2022-01-26] MEDS: ACETAMINOPHEN 325 MG TAB PO PRN ×2 (11:05→21:22)
[2022-01-26 11:15] LABS: INR 1.1 (0.9-1.1); Prothrombin Time 11.4 Seconds (9.0-12.0)
[2022-01-26] MEDS ORDERED: PROPRANOLOL HCL 60 MG LA CAP PO SCH (11:30)
--- NOTE | 2022-01-26 19:26 | Ultrasound Report ---
ULTRASOUND RIGHT UPPER QUADRANT ABDOMEN CLINICAL HISTORY: History of pancreatitis. COMPARISON STUDY: Abdominal CT dated 01/25/2022. TECHNIQUE: Real-time, grayscale, and color flow sonography of the right upper quadrant of the abdomen was performed. Images are reviewed in the transverse and longitudinal planes. FINDINGS: Liver: The liver is enlarged and demonstrates heterogeneously increased echotexture indicating steato sis. There is no intrahepatic biliary ductal dilatation. The main portal vein is patent. Gallbladder: No shadowing gallstones are identified. Tiny gallbladder polyps measure up to 4 mm. Ther e is no gallbladder wall thickening or pericholecystic fluid. A sonographic Sawyer's sign is reported ly absent. The common bile duct measures up to 0.4 cm in diameter. Pancreas: Visualized portions of the pancreatic head and body are normal in appearance. The splenic v ein is patent. Right kidney: Survey images of the right kidney demonstrate normal size and echotexture. There is no hydronephrosis. Ascites: None. IMPRESSION: 1. No shadowing gallstones are identified. 2. Small gallbladder polyps are incidentally noted and measures up to 4 mm. 3. Hepatomegaly and hepatic steatosis. ACT 112: Negative or not required by law. Electronically signed by: Julius Salgado M.D. 01/26/2022 7:25 PM
[2022-01-26] MEDS: ZOLPIDEM TARTRATE 5 MG TAB PO PRN (21:22)
[2022-01-27] MEDS: LACTATED RINGER'S 1,000 ML IV SCH ×2 (00:04→07:30)
[2022-01-27] MEDS: MoRPHine SULFATE 4 MG/ML 1 ML CARP\\VIAL IV PRN (03:37)
[2022-01-27] MEDS: GABAPENTIN 600 MG TAB PO SCH (03:38)
[2022-01-27 05:59] LABS: Hematocrit (blood only) 30.4 % (34.1-44.9); Hemoglobin 10.6 g/dl (12.0-16.0); Mean Corpuscular Hemoglobin 36.9 pg (25.0-34.0); Mean Corpuscular Hgb Conc 34.9 g/dL (32.0-36.0); Mean Corpuscular Volume 105.9 fL (80.0-100.0); Mean Platelet Volume 10.7 fL (9.4-12.3); Platelet Count 125 K/uL (130-400); RDW Coefficient of Variation 11.3 % (11.5-14.5); RDW Standard Deviation 43.9 fL (36.4-46.3); Red Blood Count 2.87 M/uL (3.93-5.22); White Blood Count 5.71 K/ul (4.8-10.8)
[2022-01-27 06:12] LABS: BUN Creatinine Ratio 5.1 (10-20); Calcium 8.5 mg/dl (8.5-10.1); Est GFR (African American) 128.3 ml/min; Est GFR (Non-African American) 110.7 ml/min; Potassium 3.8 mmol/L (3.5-5.1)
[2022-01-27 06:24] LABS: Basophils # (auto) 0.03 K/uL (0-0.2); Basophils % (auto) 0.5 %; Eosinophils % (auto) 5.3 %; Immature Granulocytes # (auto) 0.01 K/uL (0.00-0.02); Immature Granulocytes % (auto) 0.2 %; Lymphocytes # (auto) 1.43 K/uL (1.2-3.4); Monocytes # (auto) 0.53 K/uL (0.24-0.82); Monocytes % (auto) 9.3 %; Neutrophils # (auto) 3.41 K/uL (1.4-6.5); Neutrophils % (auto) 59.7 %
[2022-01-27] MEDS: levETIRAcetam 500 MG TAB PO SCH (07:28)
[2022-01-27] MEDS: ESCITALOPRAM OXALATE 20 MG TAB PO SCH (07:28)
[2022-01-27] MEDS: THIAMINE HCL 100 MG TAB PO SCH (07:29)
[2022-01-27] MEDS: lisinopril 10 MG TAB PO SCH (07:29)
[2022-01-27] MEDS: FOLIC ACID 1 MG TAB PO SCH (07:29)
[2022-01-27] MEDS: PANTOprazole 40 MG TAB PO SCH (07:29)
[2022-01-27] MEDS: PROPRANOLOL HCL LA 80 MG CAPCR PO SCH (07:29)
--- NOTE | 2022-01-27 13:29 | Discharge Summary ---
Date of Service January 27, 2022 Admission HPI Per Admitting Provider 47-year-old female with PMH HTN, essential tremor, anxiety, history of gastric bypass, and other problems listed below who presents the ED for evaluation of abdominal pain, nausea, vomiting. Patient reports her symptoms began about 4 days ago. She reports epigastric abdominal pain that radiates up into her chest at times. She has had associated nausea and a few episodes of vomiting. She describes emesis is bilious in nature, denies hematemesis or coffee-ground emesis. Also reports diarrhea, denies bright red bleeding per rectum or dark tarry stools. No fevers or chills. Patient denies shortness of breath. Patient reports she feels " off balance" but denies lightheadedness, dizziness, diaphoresis, syncopal events. Patient was seen in the ED on 01/12 for evaluation after seizure-like activity. Patient was started on Keppra 500 mg BID at that time with instructions to follow-up with neurology. Patient reports drinking 2 bottles of wine per day, last drink being last evening. She has been drinking this amount for about the past 1 year. In the ED, labs show Na+ 127, lipase 1250. CT ABD/pelvis shows signs consistent with mild pancreatitis. Patient is hemodynamically stable. Patient was given IV famotidine, IV morphine, banana bag, IV Zofran. Admission Exam Per Admitting Provider Constitutional: WD/WN, vitals as above Eyes: PERRL, conjunctivae normal, anicteric sclerae ENMT: external ear and nose normal, oropharynx normal Respiratory: normal respiratory effort, lungs clear to auscultation Cardiovascular: Rate/Rhythm: regular rate and regular rhythm Vessels: normal peripheral pulses Extremities: no edema Gastrointestinal (Abdomen): Inspection/Auscultation: normal bowel sounds; abdomen not distended Percussion/Palpation: + abdomen tender (Epigastric, bilateral upper quadrants) and abdomen soft; no hepatosplenomegaly Musculoskeletal: no cyanosis or clubbing, extremities motor strength 5/5 Skin: no rashes, warm and dry Neurologic: PERRL, EOMI, accommodation nl, no face palsy, no dysarthria Psychiatric: A+Ox3, euthymic affect Principal Diagnosis Acute pancreatitis Alcohol use disorder Hyponatremia Discharge Exam Constitutional: WD/WN, vitals as above Eyes: PERRL, conjunctivae normal, anicteric sclerae ENMT: external ear and nose normal, oropharynx normal Respiratory: normal respiratory effort, lungs clear to auscultation Cardiovascular: Rate/Rhythm: regular rate and regular rhythm Vessels: normal peripheral pulses Extremities: no edema Gastrointestinal (Abdomen): Inspection/Auscultation: normal bowel sounds; abdomen not distended Percussion/Palpation: + abdomen tender (Epigastric, bilateral upper quadrants) and abdomen soft; no hepatosplenomegaly Musculoskeletal: no cyanosis or clubbing, extremities motor strength 5/5 Skin: no rashes, warm and dry Neurologic: PERRL, EOMI, accommodation nl, no face palsy, no dysarthria Psychiatric: A+Ox3, euthymic affect Discharge Data Allergies Allergy/AdvReac Type Severity Reaction Status Date / Time No Known Allergies Allergy Verified 01/25/22 17:02 Consultations 01/25/22 14:29 ED Decision to Admit Stat 01/25/22 17:23 Consult Behavioral Health Liaison Routine Consult Gastroenterology Routine Ordered Studies 01/25/22 12:54 CT abd pelvis IV con only Stat 01/26/22 15:19 US gallbladder Routine Hospital Course (1) Acute pancreatitis: (2) Alcohol dependence: (3) Hyponatremia: (4) Seizure-like activity: (5) Essential tremor: (6) Anxiety: (7) Hypertension: Plan Patient is a 47-year-old female with past medical history of hypertension, essential tremor, gastric bypass presented to the ED with abdominal pain, nausea and vomiting. Patient has history of alcohol use disorder; drinks 2 bottles of wine per day. CT abdomen was consistent with mild pancreatitis. Lipase was elevated. Ultrasound of the gallbladder showed 4 mm polyp; no gallstone. Patient was admitted to telemetry floor. She was treated with IV fluids and analgesics. Her diet was advanced as tolerated. Over the course of the hospitalization, patient reported improvement in her abdominal pain; was able to tolerate low-fat diet. Patient did not have any features of alcohol withdrawal. Patient was discharged home with instruction to follow-up with her primary care doctor and GI. Total Time Total Time Spent Total Time Spent (In Minutes): 35 Total Time Includes: Examination of the Patient, Discharge Planning, Medication Reconciliation, Communication With Other Providers and Other Discharge Plan Discharge Items Patient Disposition: Home - Self-Care Reason For Visit: STOMACH ILLNESS AND CHEST PAIN Discharge Diagnosis: Alcohol induced pancreatitis. Activity: Resume your previous activity Non-emergency contact: Primary Care Provider Call non-emergency contact if: you have any medication questions and your sympto ms worsen Follow-up/Referrals: Sriram Lew MD [Physician] - 01/30/22 11:00 am Serena Deng DO [Primary Care Provider] - (Date & Time 01/31/2022 10:00 AM Provider Miora Yancey DO [facility] ) Diet: Low Fat Addtl Attending Provider Instructions: You were admitted to the hospital with acute pancreatitis. You were treated with IV fluids and pain medication while you were here. Please continue to take low-fat diet for 1 week more. You can use [id number] ibuprofen and Tylenol if you have mild pain. If you have severe pain which does not resolve with [id number] medication; please contact your primary care doctor and if necessary, come back to hospital. Ultrasound of the gallbladder showed small 4 mm polyp. Please discuss the finding with your primary care doctor. You will need GI referral. You have follow-up with your primary care doctor on 31 January at 10 AM. Pending Studies at Discharge: No Stand-Alone Forms: My [employer], Smoking Cessation Medications and DC Order Prescriptions: Continued escitalopram oxalate 20 mg tablet 20 mg PO DAILY propranolol 160 mg capsule,extended release 24 hr 160 mg PO DAILY Qty: 90 3RF lisinopril 10 mg tablet 10 mg PO DAILY cyanocobalamin (vitamin B-12) 1,000 mcg/mL solution 1,000 mcg IM MONTHLY Rx Instructions: USUALLY AROUND MIDDLE OF MONTH zolpidem 12.5 mg tablet,ext release multiphase 12.5 mg PO HS PRN (Reason: Sleep) levetiracetam [Keppra] 500 mg tablet 500 mg PO BID 14 Days Qty: 28 0RF valacyclovir 500 mg Tablet 500 mg PO BID PRN (Reason: Cold Sores) propranolol 60 mg capsule,extended release 24 hr 120 mg PO QDL Discharge Orders: Discharge Order (Routine); Ordered 01/27/22 Ordered By: Gualberto Wilhelm/Other Patient Handouts: Essential Tremor (ET), Alcoholism Resources, Treating Drug Abuse and Addiction Admission Data Admit Date/Time: 01/25/22 14:41 Attending Provider: Gualberto Agustin Admit Provider: Karen Montague Primary Care Provider: Serena Deng Other Providers: Karen Montague ; Riccardo Valencia Other Interventions: Discharge Summary Assessment (RN) Last Done: 01/27/22 07:48
[2022-01-27] MEDS ORDERED: GABAPENTIN 600 MG TAB PO SCH (16:00)
[2022-01-29] MEDS ORDERED: GABAPENTIN 600 MG TAB PO SCH (04:00)
== END 2022-01-27 08:55 | disposition home or self-care (01) | DRG 439 ==
LOC: ED 10:24 → SUATTDRO 14:41 → EDINP 14:41 → 2N 20:10

== ENCOUNTER 2022-07-06 12:47 | Inpatient (IN) ==
[2022-07-06 14:05] LABS: Basophils # (auto) 0.05 K/uL (0-0.2); Basophils % (auto) 0.6 %; Eosinophils # (auto) 0.18 K/uL (0-0.50); Eosinophils % (auto) 2.1 %; Hematocrit (blood only) 38.8 % (37.0-47.0); Hemoglobin 13.9 g/dl (12.0-16.0); Immature Granulocytes # (auto) 0.03 K/uL (0.01-0.20); Immature Granulocytes % (auto) 0.4 %; Lymphocytes # (auto) 1.49 K/uL (1.2-3.4); Lymphocytes % (auto) 17.7 %; Mean Corpuscular Hemoglobin 35.9 pg (25.0-34.0); Mean Corpuscular Hgb Conc 35.8 g/dL (32.0-36.0); Mean Corpuscular Volume 100.3 fL (80.0-100.0); Mean Platelet Volume 10.4 fL (9.4-12.4); Monocytes # (auto) 0.55 K/uL (0.11-0.59); Monocytes % (auto) 6.5 %; Neutrophils % (auto) 72.7 %; Platelet Count 221 K/uL (130-400); RDW Coefficient of Variation 14.9 % (11.5-14.5); RDW Standard Deviation 55.6 fL (36.4-46.3); Red Blood Count 3.87 M/uL (4.20-5.40)
[2022-07-06 14:13] LABS: BUN Creatinine Ratio 12.5 (10-20); Calcium 10.4 mg/dl (8.6-10.3); Creatinine Clr Calc Pharmacy 101.4 ml/min; Est GFR (African American) 103.2 ml/min; Pregnancy Test, Serum Negative (Negative)
[2022-07-06 14:15] LABS: Albumin Globulin Ratio 1.5 (0.9-2); Albumin Level 4.8 gm/dl (3.4-5.0); Bilirubin,Total 1.8 mg/dl (0.2-1.0); Globulin 3.1 gm/dl (2.5-4.0); Total Protein 7.9 gm/dl (6.0-8.3)
[2022-07-06] MEDS ORDERED: SODIUM CHLORIDE 0.9% 1000ML 1,000 ML IV STA (15:20)
[2022-07-06] MEDS ORDERED: LORazepam 2 MG/1 ML VIAL IV STA (15:20)
[2022-07-06] MEDS ORDERED: MoRPHine SULFATE 4 MG/ML 1 ML CARP\\VIAL IV STA (15:20)
[2022-07-06] MEDS ORDERED: ONDANSETRON INJ 2 MG/ML 2 ML VIAL IV STA (15:20)
--- NOTE | 2022-07-06 15:27 | Emergency Department Note ---
Impression & Plan Abdominal pain, vomiting, and diarrhea ED Provider Note INFORMANT: Patient ED PROVIDER(S): Alex Garcia DO CHIEF COMPLAINT: Epigastric abdominal pain, nausea, vomiting, diarrhea PLAN: Disposition: Admission Outpatient prescription management: none Discussion with: I spoke with the hospitalist, who will see the patient for admission/observation and further evaluation and consultation. MEDICAL DECISION MAKING: This is a 47-year-old female who presents to the ED with a chief complaint of nausea, vomiting and diarrhea. She also reports epigastric abdominal pain. Symptoms started yesterday around 2 PM. She states that she ate some chicken noodle soup and then developed the symptoms. She states that she still has her gallbladder. She reports epigastric abdominal pain. No right upper quadrant abdominal pain. She also states that her son developed nausea and vomiting and some diarrhea last night as well. She feels like she might be dehydrated. She reports history of gastric bypass surgery. She also reports that she has had pancreatitis in the past. Also alcohol dependence is noted in her past medical history. She also is noted to have an essential tremor. The patient on my exam is a little shaky. She has a nontender abdomen. Normal bowel sounds. No CVA tenderness. Lungs are clear. Heart is regular rate and rhythm. Vital signs reveal mild hypertension. His CBC did not show leukocytosis or anemia. Chemistry panel shows no electrolyte abnormality. Bilirubin is mildly elevated at 1.8. Lipase is elevated at 1605 concerning for pancreatitis based on the patient's clinical symptoms of epigastric abdominal pain. EKG shows normal s inus rhythm at a rate of 73. The patient was treated with IV fluids, IV morphine, IV Zofran and some IV lorazepam. She will be seen by the hospitalist for further evaluation and care. Triage Nursing notes reviewed. Vital Signs: reviewed Prior /Outside records reviewed: none Differential diagnosis: Pancreatitis, cholecystitis, hepatitis, gastritis, bowel obstruction, dehydration, electrolyte abnormality, other. Diagnostics, as interpreted by me: 12 lead ECG: none Cardiac Monitoring ordered: none Medical decision rules: none Imaging studies: [none] Procedures: none. Critical care: none. HPI: See MDM above. PAST MEDICAL HISTORY: See Below PAST SURGICAL HISTORY: See Below SOCIAL HISTORY: See Below HOME MEDICATIONS:See Below ALLERGIES: See Below VITALS: See Below PHYSICAL EXAMINATION: See MDM for positive findings otherwise unremarkable. CONSTITUTIONAL/VITAL SIGNS: Reviewed GENERAL:done as appropriate INTEGUMENTARY: done as appropriate HEAD: done as appropriate EYES: done as appropriate RESPIRATORY: done as appropriate CARDIOVASCULAR:done as appropriate GI/ABDOMEN:done as appropriate EXTREMITIES: done as appropriate NEUROLOGICAL: done as appropriate PSYCHIATRIC:done as appropriate MUSCULOSKELETAL:done as appropriate TRIAGE NURSING DOCUMENTATION REVIEWED. Past Med/Surg History Medical History Acute pancreatitis Anxiety Breech presentation Chronic mixed headache syndrome Classic migraine with aura Elevated blood pressure affecting , antepartum Essential tremor Herpes simplex infection History of chicken pox History of nephrolithiasis Hypertension Hyponatremia Missed Seizure-like activity Vitamin B12 deficiency Surgical History delivery delivered H/O lithotripsy History of gynecologic surgery D&E-surgically induced History of Mitzi-en-Y gastric bypass Status post surgery laryngeal surgery- stripping of vocal cords Family History Uncle Bladder cancer maternal uncle Sister Brain tumor Grandfather (Paternal) Colorectal cancer Aunt Lung cancer paternal aunt Father Essential tremor Mother Hypertension Denies family history of Ovarian cancer Breast cancer Social History Smoking Status: Never smoker Do You Dip or Chew Tobacco: No; Hx Alcohol Use: Yes (social) Alcohol type: wine Alcohol Intake Frequency Comment: 2-3 drinks, 5-7 days per week Hx Substance Use: No Preferred Language: Maltese Communication Ability: Effective 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 Beliefs That Will Affect Care: None marital status: Current Living Situation: Spouse and Family 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 Feels Safe at Home: Yes Assistive Devices: None Allergies Allergies Allergy/AdvReac Type Severity Reaction Status Date / Time No Known Allergies Allergy Verified 03/22/22 15:29 Home Meds Home Medications Medication Instructions Recorded Confirmed lisinopril 10 mg tablet 10 mg PO DAILY 06/29/20 03/22/22 escitalopram oxalate 20 mg tablet 20 mg PO DAILY 07/19/21 03/22/22 valacyclovir 500 mg tablet 500 mg PO BID PRN Cold Sores 01/25/22 03/22/22 Previous Rx's Medication Instructions Recorded propranolol 160 mg capsule,24 160 mg PO DAILY #90 caps 07/19/21 hr,extended release propranolol 120 mg capsule,24 120 mg PO .COMPLEX #90 caps 03/06/22 hr,extended release cyanocobalamin (vitamin B-12) 1,000 mcg subcut .biweekly #2 mL 03/15/22 1,000 mcg/mL injection solution zolpidem 12.5 mg tablet,extended 12.5 mg PO HS PRN Sleep #30 tabs 03/15/22 release,multiphase levetiracetam 500 mg tablet 500 mg PO BID #60 tabs 06/12/22 Results & Data (ED) Vital Signs Vital Signs - 24 hr 07/06/22 12:49 Temperature 36.1 C L Temperature Source Temporal Artery Scan Pulse Rate 75 Respiratory Rate 18 Respiratory Effort / Characteristics Non-Labored Respiratory Depth Normal Blood Pressure 145/85 H Blood Pressure Mean 105 Pulse Oximetry 100 Oxygen Delivery Method Room Air Sepsis Recent Fever Within 48 Hours No Sepsis New/Unexplained Change in Mental Status No Sepsis Action Taken by Nursing No Action Required Laboratory Data 07/06/22 13:28 07/06/22 13:28 Lab Results 07/06/22 07/06/22 07/06/22 Range/Units 13:28 13:28 13:28 WBC 8.40 (4.8-10.8) K/ul RBC 3.87 L (4.20-5.40) M/uL Hgb 13.9 (12.0-16.0) g/dl Hct 38.8 (37.0-47.0) % MCV 100.3 H (80.0-100.0) fL MCH 35.9 H (25.0-34.0) pg MCHC 35.8 (32.0-36.0) g/dL RDW Std Deviation 55.6 H (36.4-46.3) fL RDW Coeff of Brielle 14.9 H (11.5-14.5) % Plt Count 221 (130-400) K/uL MPV 10.4 (9.4-12.4) fL Immature Gran % (Auto) 0.4 % Neut % (Auto) 72.7 % Lymph % (Auto) 17.7 % [place] % (Auto) 6.5 % Eos % (Auto) 2.1 % Baso % (Auto) 0.6 % Neut # (Auto) 6.10 (1.40-6.50) K/uL Lymph # (Auto) 1.49 (1.2-3.4) K/uL [place] # (Auto) 0.55 (0.11-0.59) K/uL Eos # (Auto) 0.18 (0-0.50) K/uL Baso # (Auto) 0.05 (0-0.2) K/uL Immature Gran # (Auto) 0.03 (0.01-0.20) K/uL Sodium 133 L (136-145) mmol/L Potassium 4.0 (3.5-5.1) mmol/L Chloride 97 L (98-107) mmol/L Carbon Dioxide 24 (21-32) mmol/L Anion Gap 12 H (3-11) BUN 10 (6-23) mg/dl Creatinine 0.80 (0.6-1.2) mg/dl Est Cr Clr Drug Dosing 101.4 ml/min Est GFR ( Amer) 103.2 ml/min Est GFR (Non-Af Amer) 89.0 ml/min BUN/Creatinine Ratio 12.5 (10-20) Glucose 113 H (70-99(Fasting)) mg/dl Calcium 10.4 H (8.6-10.3) mg/dl Total Bilirubin 1.8 H (0.2-1.0) mg/dl AST 29 (13-39) U/L ALT 15 (7-52) U/L Alkaline Phosphatase 82 (34-104) U/L Total Protein 7.9 (6.0-8.3) gm/dl Albumin 4.8 (3.4-5.0) gm/dl Globulin 3.1 (2.5-4.0) gm/dl Albumin/Globulin Ratio 1.5 (0.9-2) Lipase 1605 H (11-82) U/L HCG, Qual Negative (Negative) Discharge Plan Visit Data Chief Complaint: Abdominal Pain Stated Complaint: ABD PAIN, NAUSEA,VOMITING, ED Provider: Alex Garcia Discharge Problem: Abdominal pain, vomiting, and diarrhea Patient Disposition: Being Evaluated by Hospitalist Forms Stand Alone Forms: [facility] Prescriptions Prescriptions: No Action propranolol 120 mg capsule,extended release 24 hr 120 mg PO .COMPLEX Qty: 90 3RF Rx Instructions: 120 mg orally in the afternoon; levetiracetam 500 mg tablet 500 mg PO BID Qty: 60 1RF escitalopram oxalate 20 mg tablet 20 mg PO DAILY propranolol 160 mg capsule,extended release 24 hr 160 mg PO DAILY Qty: 90 3RF lisinopril 10 mg tablet 10 mg PO DAILY cyanocobalamin (vitamin B-12) 1,000 mcg/mL solution 1,000 mcg subcut .biweekly Qty: 2 5RF Rx Instructions: inject 1000mcg SQ once every two weeks zolpidem 12.5 mg tablet,ext release multiphase 12.5 mg PO HS PRN (Reason: Sleep) Qty: 30 5RF valacyclovir 500 mg Tablet 500 mg PO BID PRN (Reason: Cold Sores) Referrals Referrals: Serena Deng DO [Primary Care Provider] -
--- NOTE | 2022-07-06 15:39 | Electrocardiogram Report ---
Test Reason : Blood Pressure : / mmHG Vent. Rate : 073 BPM Atrial Rate : 073 BPM P-R Int : 154 ms QRS Dur : 066 ms QT Int : 384 ms P-R-T Axes : 051 -01 013 degrees QTc Int : 423 ms Normal sinus rhythm Abnormal ECG When compared with ECG of 12-JAN-2022 17:59, T wave inversion now evident in Inferior leads Nonspecific T wave abnormality now evident in Anterior leads Confirmed by Andreas Lane ([id number]) on 07/06/2022 3:39:20 PM Referred By: Confirmed By:Harjinder Lane
[2022-07-06 15:50] LABS: Appearance Urine Clear (Clear); Bacteria Urine Automated Negative (Negative); Blood Urine Negative (Negative); Color Urine Orange; Epithelial Cell Urine Auto >30 /lpf (0-5); Glucose Urine UA Negative (Negative); Ketones Urine 3+ (Negative); Leukocyte Esterase Urine Trace (Negative); Nitrite Urine Positive (Negative); Protein Urine Trace (Negative); RBC Urine Automated 0-4 /hpf (0-4); Specific Gravity Urine 1.023 (1.000-1.030); Urobilinogen Urine Negative (Negative); pH Urine 5.5 (4.5-7.5)
[2022-07-06 15:51] LABS: Bilirubin Urine 2+ (Negative)
[2022-07-06] MEDS ORDERED: ACETAMINOPHEN 325 MG TAB PO PRN (16:07)
[2022-07-06] MEDS ORDERED: MAGNESIUM HYDROXIDE SUSP 30 ML UDC PO PRN (16:07)
[2022-07-06] MEDS ORDERED: POLYETHYLENE (MIRALAX) 17 GM PACK PO PRN (16:07)
[2022-07-06] MEDS ORDERED: ALUMINUM/MAGNESIUM SUSP 30 ML UDC PO PRN (16:07)
[2022-07-06] MEDS ORDERED: ONDANSETRON INJ 2 MG/ML 2 ML VIAL IV PRN (16:07)
--- NOTE | 2022-07-06 17:43 | History & Physical Report ---
Date of Service July 06, 2022 Assessment & Plan (1) Acute pancreatitis: Plan: Likely secondary to alcohol use Past medical history of hypertension, essential tremors, alcohol use disorder, seizure disorder on Keppra Presents to the hospital with epigastric pain. Lipase elevated to 1605 Right upper quadrant shows features of acute cholecystitis; no gallstones seen. Recommend HIDA to rule out acute cholecystitis. Patient has gallstone polyp seen similar to her last gallbladder ultrasound from January 2022. IV fluids Pain control Clear liquid diet, n.p.o. from midnight. Will place on empiric ceftriaxone and Flagyl given the right upper quadrant ultrasound finding. Questionable if patient has acute cholecystitis. Will obtain HIDA scan. GI consult (2) Alcohol dependence: Plan: History of alcohol use disorder Patient reports cutting down on the alcohol. Currently drinks 3 glasses of wine a day Will start him on Valium 5 mg every 6 hours scheduled. Will taper down to 3 times a day, twice a day and once a day. Also Ativan ordered as needed Plan Chronic conditions; Essential tremorscontinue propanolol Seizure disordercontinue Keppra Mood disordercontinue citalopram Full code Prophylaxis SCDs Time spent evaluating patient, direct bedside care, chart review, placing orders, interpretation of diagnostic studies, discussion with consultants, patient, and family members, as well as other required patient management activities is 75 minutes Please note the above document was generated using voice recognition software. It may contain grammatical, syntax or spelling errors. Any formal questions or concerns about the content, text or information contained within the body of this dictation should be directly addressed to the provider for clarification History of Present Illness Chief Complaint: Epigastric pain for 1 day Primary Care Provider: Serena Deng DO History obtained from patient and records. Past medical history of hypertension, essential tremors, alcohol use disorder, seizure disorder on Keppra Last confinement in January 2022 for alcoholic pancreatitis. Patient presents to the hospital with epigastric pain since last 2 days. Patient reports that she has been trying to cut down on the alcohol since her last admission. Reports that she drinks only 3 glasses of wine daily presently. However, on Saturdaypatient drank increased amount of alcohol. The epigastric pain radiates to the back; is associated with nausea and vomiting. She denies fever, chills, chest pain, headache, dizziness or UTI symptoms. On presentation to the ED, she was hypertensive, afebrile and saturating well on room air. CBC unremarkable. Noted to have mild hyponatremia. Lipase elevated to 1605. Urinalysis shows ketones. Right upper quadrant ultrasound suggestive of distended gallbladder with edematous wall thickening. No cholelithiasis identified. Recommend hepatobiliary scan to exclude cholecystitis. Allergies Allergy/AdvReac Type Severity Reaction Status Date / Time No Known Allergies Allergy Verified 07/06/22 15:48 Home Medications Medication Instructions Recorded Confirmed Type lisinopril 10 mg tablet 10 mg PO DAILY 06/29/20 07/06/22 History escitalopram oxalate 20 mg tablet 20 mg PO DAILY 07/19/21 07/06/22 History valacyclovir 500 mg tablet 500 mg PO BID PRN Cold Sores 01/25/22 07/06/22 History cyanocobalamin (vitamin B-12) 1,000 mcg subcut .biweekly #2 mL 03/15/22 07/06/22 Rx 1,000 mcg/mL injection solution zolpidem 12.5 mg tablet,extended 12.5 mg PO HS PRN Sleep #30 tabs 03/15/22 07/06/22 Rx release,multiphase levetiracetam 500 mg tablet 500 mg PO BID #60 tabs 06/12/22 07/06/22 Rx propranolol 120 mg capsule,24 120 mg PO QPM 07/06/22 07/06/22 History hr,extended release propranolol 160 mg capsule,24 160 mg PO QAM 07/06/22 07/06/22 History hr,extended release Past Med/Surg History Medical History (Updated 07/06/22 @ 17:51 by Gualberto Agustin MD) Acute pancreatitis Anxiety Breech presentation Chronic mixed headache syndrome Classic migraine with aura Elevated blood pressure affecting , antepartum Essential tremor Herpes simplex infection History of chicken pox History of nephrolithiasis Hypertension Hyponatremia Missed Seizure-like activity Vitamin B12 deficiency Surgical History delivery delivered H/O lithotripsy History of gynecologic surgery D&E-surgically induced History of Mitzi-en-Y gastric bypass Status post surgery laryngeal surgery- stripping of vocal cords Family History Uncle Bladder cancer maternal uncle Sister Brain tumor Grandfather (Paternal) Colorectal cancer Aunt Lung cancer paternal aunt Father Essential tremor Mother Hypertension Denies family history of Ovarian cancer Breast cancer Social History Smoking Status: Never smoker Do You Dip or Chew Tobacco: No; Hx Alcohol Use: Yes (social) Alcohol type: wine Alcohol Intake Frequency Comment: 2-3 drinks, 5-7 days per week Hx Substance Use: No Preferred Language: Central African Communication Ability: Effective 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 Normal insp/exp effort, no accessory muscle use Cardiovascular: RRR, no murmur, no edema Vessels: no JVD or carotid bruit Chest: normal inspection of chest Abdomen: Tenderness in epigastric region. Musculoskeletal: no cyanosis or clubbing, extremities motor strength 5/5 Skin: no rashes, warm and dry normal turgor Neurologic: PERRL, EOMI, accommodation nl, no face palsy, no dysarthria CN's II- XI intact bilaterally and moves all extremities Psychiatric: A+Ox3, euthymic affect Lymphatic: no cervical or axillary lymphadenopathy : deferred Results & Data Results & Data Vital Signs (Past 12 Hours) Vital Signs Temp Pulse Resp BP Pulse Ox O2 Del Method 07/06/22 16:48 15 98 Room Air 07/06/22 16:04 75 07/06/22 15:48 84 15 96 07/06/22 15:42 16 98 Room Air 07/06/22 12:49 36.1 C L 75 18 145/85 H 100 Room Air Laboratory Results Laboratory Results WBC 8.40 K/ul (4.8-10.8) 07/06/22 13:28 RBC 3.87 M/uL (4.20-5.40) L 07/06/22 13:28 Hgb 13.9 g/dl (12.0-16.0) 07/06/22 13:28 Hct 38.8 % (37.0-47.0) 07/06/22 13:28 MCV 100.3 fL (80.0-100.0) H 07/06/22 13:28 MCH 35.9 pg (25.0-34.0) H 07/06/22 13:28 MCHC 35.8 g/dL (32.0-36.0) 07/06/22 13:28 RDW Std Deviation 55.6 fL (36.4-46.3) H 07/06/22 13:28 RDW Coeff of Brielle 14.9 % (11.5-14.5) H 07/06/22 13:28 Plt Count 221 K/uL (130-400) 07/06/22 13:28 MPV 10.4 fL (9.4-12.4) 07/06/22 13:28 Immature Gran % (Auto) 0.4 % 07/06/22 13:28 Neut % (Auto) 72.7 % 07/06/22 13:28 Lymph % (Auto) 17.7 % 07/06/22 13:28 [place] % (Auto) 6.5 % 07/06/22 13:28 Eos % (Auto) 2.1 % 07/06/22 13:28 Baso % (Auto) 0.6 % 07/06/22 13:28 Neut # (Auto) 6.10 K/uL (1.40-6.50) 07/06/22 13:28 Lymph # (Auto) 1.49 K/uL (1.2-3.4) 07/06/22 13:28 [place] # (Auto) 0.55 K/uL (0.11-0.59) 07/06/22 13:28 Eos # (Auto) 0.18 K/uL (0-0.50) 07/06/22 13:28 Baso # (Auto) 0.05 K/uL (0-0.2) 07/06/22 13:28 Immature Gran # (Auto) 0.03 K/uL (0.01-0.20) 07/06/22 13:28 Sodium 133 mmol/L (136-145) L 07/06/22 13:28 Potassium 4.0 mmol/L (3.5-5.1) 07/06/22 13:28 Chloride 97 mmol/L (98-107) L 07/06/22 13:28 Carbon Dioxide 24 mmol/L (21-32) 07/06/22 13:28 Anion Gap 12 (3-11) H 07/06/22 13:28 BUN 10 mg/dl (6-23) 07/06/22 13:28 Creatinine 0.80 mg/dl (0.6-1.2) 07/06/22 13:28 Est Cr Clr Drug Dosing 101.4 ml/min 07/06/22 13:28 Est GFR ( Amer) 103.2 ml/min 07/06/22 13:28 Est GFR (Non-Af Amer) 89.0 ml/min 07/06/22 13:28 BUN/Creatinine Ratio 12.5 (10-20) 07/06/22 13:28 Glucose 113 mg/dl (70-99(Fasting)) H 07/06/22 13:28 Calcium 10.4 mg/dl (8.6-10.3) H 07/06/22 13:28 Total Bilirubin 1.8 mg/dl (0.2-1.0) H 07/06/22 13:28 AST 29 U/L (13-39) 07/06/22 13:28 ALT 15 U/L (7-52) 07/06/22 13:28 Alkaline Phosphatase 82 U/L (34-104) 07/06/22 13:28 Total Protein 7.9 gm/dl (6.0-8.3) 07/06/22 13:28 Albumin 4.8 gm/dl (3.4-5.0) 07/06/22 13:28 Globulin 3.1 gm/dl (2.5-4.0) 07/06/22 13:28 Albumin/Globulin Ratio 1.5 (0.9-2) 07/06/22 13:28 Lipase 1605 U/L (11-82) H 07/06/22 13:28 HCG, Qual Negative (Negative) 07/06/22 13:28 Urine Color [place] 07/06/22 15:27 Urine Appearance Clear (Clear) 07/06/22 15:27 Urine pH 5.5 (4.5-7.5) 07/06/22 15:27 Ur Specific [place] 1.023 (1.000-1.030) 07/06/22 15:27 Urine Protein Trace (Negative) H 07/06/22 15:27 Urine Glucose (UA) Negative (Negative) 07/06/22 15:27 Urine Ketones 3+ (Negative) H 07/06/22 15:27 Urine Blood Negative (Negative) 07/06/22 15:27 Urine Nitrite Positive (Negative) A 07/06/22 15:27 Urine Bilirubin 2+ (Negative) H 07/06/22 15:27 Urine Urobilinogen Negative (Negative) 07/06/22 15:27 Ur Leukocyte Esterase Trace (Negative) H 07/06/22 15:27 Urine WBC (Auto) 1-5 /hpf (0-5) 07/06/22 15:27 Urine RBC (Auto) 0-4 /hpf (0-4) 07/06/22 15:27 U Hyaline Cast (Auto) 10-30 /lpf (0-5) H 07/06/22 15:27 U Epithel Cells (Auto) >30 /lpf (0-5) H 07/06/22 15:27 Urine Bacteria (Auto) Negative (Negative) 07/06/22 15:27 SARS-CoV-2, RNA, NAAT NEGATIVE (NEGATIVE) 07/06/22 16:52 Impressions Liver Ultrasound 07/06/22 16:07 ABDOMINAL ULTRASOUND, RIGHT UPPER QUADRANT HISTORY: Acute right upper quadrant abdominal pain COMPARISON: abdominal ultrasound 01/26/2022, CT 01/25/2022. . FINDINGS: Pancreas: The pancreas is obscured by bowel gas. Liver: 17 cm in length with increased echogenicity. No hepatic mass. Gallbladder: Distended without edematous wall thickening measuring up to 5. Positive sonographic Sawyer's sign. No shadowing cholelithiasis identified. Dependent nonshadowing echogenic foci within the gallbladder lumen measuring up to 5 mm. CBD: 0.6 cm. Right kidney: No hydronephrosis. IMPRESSION: 1. Distended gallbladder with edematous wall thickening and positive sonographic Sawyer's sign. No shadowing cholelithiasis identified, however finding should be correlated with hepatobiliary scan in order to exclude cholecystitis. 2. Hepatomegaly with hepatic steatosis. 3. Gallbladder polyps are again noted measuring up to 5 mm. ACT 112: Negative or not required by law. Electronically signed by: Colten Eldridge M.D. 07/06/2022 5:40 PM Code Status & VTE Plan VTE Prophylaxis Plan VTE Prophylaxis will be ordered: Yes
--- NOTE | 2022-07-06 17:43 | Ultrasound Report ---
ABDOMINAL ULTRASOUND, RIGHT UPPER QUADRANT HISTORY: Acute right upper quadrant abdominal pain COMPARISON: abdominal ultrasound 01/26/2022, CT 01/25/2022. . FINDINGS: Pancreas: The pancreas is obscured by bowel gas. Liver: 17 cm in length with increased echogenicity. No hepatic mass. Gallbladder: Distended without edematous wall thickening measuring up to 5. Positive sonographic Murp hy's sign. No shadowing cholelithiasis identified. Dependent nonshadowing echogenic foci within the g allbladder lumen measuring up to 5 mm. CBD: 0.6 cm. Right kidney: No hydronephrosis. IMPRESSION: 1. Distended gallbladder with edematous wall thickening and positive sonographic Sawyer's sign. No sh adowing cholelithiasis identified, however finding should be correlated with hepatobiliary scan in or [place] to exclude cholecystitis. 2. Hepatomegaly with hepatic steatosis. 3. Gallbladder polyps are again noted measuring up to 5 mm. ACT 112: Negative or not required by law. Electronically signed by: Colten Eldridge M.D. 07/06/2022 5:40 PM
[2022-07-06] MEDS: LACTATED RINGER'S 1,000 ML IV SCH (19:01)
[2022-07-06] MEDS: MoRPHine SULFATE 2 MG/ML CARP IV PRN (19:05)
[2022-07-06] MEDS ORDERED: LORazepam 1 MG TAB PO PRN (19:27)
[2022-07-06] MEDS ORDERED: LORazepam 2 MG/1 ML VIAL IV PRN (19:27)
[2022-07-06] MEDS: metroNIDAZOLE 500 MG/100 ML BAG IV SCH (20:16)
[2022-07-06] MEDS: diazePAM 5 MG TABLET PO SCH (20:16)
[2022-07-06] MEDS: levETIRAcetam 500 MG TAB PO SCH (20:49)
[2022-07-06] MEDS: cefTRIAXone SODIUM 2,000 MG in DEXTROSE 5% 50 ML IV SCH (20:58)
[2022-07-07] MEDS: diazePAM 5 MG TABLET PO SCH ×4 (01:45→20:13)
[2022-07-07] MEDS: LACTATED RINGER'S 1,000 ML IV SCH ×4 (01:49→20:11)
[2022-07-07] MEDS: MoRPHine SULFATE 2 MG/ML CARP IV PRN ×4 (01:56→20:12)
[2022-07-07] MEDS: metroNIDAZOLE 500 MG/100 ML BAG IV SCH ×3 (03:42→20:15)
[2022-07-07 05:28] LABS: Albumin Globulin Ratio 1.6 (0.9-2); Albumin Level 3.3 gm/dl (3.4-5.0); BUN Creatinine Ratio 8.7 (10-20); Bilirubin,Total 0.8 mg/dl (0.2-1.0); Calcium 8.2 mg/dl (8.6-10.3); Creatinine Clr Calc Pharmacy 117.6 ml/min; Est GFR (African American) 121.8 ml/min; Est GFR (Non-African American) 105.1 ml/min; Globulin 2.1 gm/dl (2.5-4.0); Hematocrit (blood only) 29.4 % (37.0-47.0); Hemoglobin 10.2 g/dl (12.0-16.0); Magnesium 1.5 mg/dl (1.7-2.4); Mean Corpuscular Hgb Conc 34.7 g/dL (32.0-36.0); Mean Corpuscular Volume 103.9 fL (80.0-100.0); Mean Platelet Volume 10.4 fL (9.4-12.4); Platelet Count 157 K/uL (130-400); Potassium 3.6 mmol/L (3.5-5.1); RDW Coefficient of Variation 14.8 % (11.5-14.5); RDW Standard Deviation 56.1 fL (36.4-46.3); Red Blood Count 2.83 M/uL (4.20-5.40); Total Protein 5.4 gm/dl (6.0-8.3); White Blood Count 6.12 K/ul (4.8-10.8)
[2022-07-07] MEDS: PROPRANOLOL HCL LA 80 MG CAPCR PO SCH (08:39)
[2022-07-07] MEDS: levETIRAcetam 500 MG TAB PO SCH ×2 (08:39→20:13)
[2022-07-07] MEDS: ESCITALOPRAM OXALATE 20 MG TAB PO SCH (08:40)
[2022-07-07] MEDS: THIAMINE HCL 100 MG in SYRINGE 9 ML IV SCH (08:41)
[2022-07-07] MEDS: lisinopril 10 MG TAB PO SCH (08:41)
[2022-07-07] MEDS: FOLIC ACID 1 MG TAB PO SCH (11:56)
--- NOTE | 2022-07-07 13:33 | Consultation ---
Date of Consultation July 07, 2022 History of Present Illness Reason for Consultation: pancreatitis Attending Physician: Chance Carrillo MD History of Present Illness 47 yo f with h/o alcohol abuse s/p hosp in January for alcoholic pancreatitis, now admit for 1 day history of pain, n/v that began . She drank a bottle of wine on Saturday. On admit, she had normal VS. Labs showed Hemoconcentration with fall in hgb and albumin wih hydration since admit; nl WBC; Bili 1.8 and now normal; normal transaminases; lipase 1605 on admit. Uls with CBD 6 mm, no stones, Gb wall thick and fluid but no stones with positive sono Sawyer's. At present, she continues to have pain requiring morphine q 4 hours but is hungry and passing flatus. She is urinating well. Denies chronic or recurring abdominal pain since January. She denies MJ use, tobacco. PE: Appears comfortable, although asking the nurse for pain meds. HEENT: oc clear, mmm, anicteric CV: RRR Resp: CTA Abd: tender epigastrium, also more severe tenderness in RUQ on light palpation. Extrem: 2+ pulses,no tremor Psych: lucid, pleasant and smiling but appears anxious. Labs/imaging reviewed A/P: Pancreatitis Cholecystitis - Clin exam and imaging findings suspicious for cholecsytitis. Will request MRCP r/o retained CBD stone, although normal LFTs and absence of manuel dil makes this unlikely,. I asked hospitalist to request surgery consult. - Her pancreatitis may be from alcohol use or from biliary source. No indication for ERCP, supportive care with fluids/analgesia. Adv diet once surgery has seen and if MRI shows no CBD stone. Allergies Allergy/AdvReac Type Severity Reaction Status Date / Time No Known Allergies Allergy Verified 07/06/22 15:48 Home Medications Medication Instructions Recorded Confirmed Type lisinopril 10 mg tablet 10 mg PO DAILY 06/29/20 07/06/22 History escitalopram oxalate 20 mg tablet 20 mg PO DAILY 07/19/21 07/06/22 History valacyclovir 500 mg tablet 500 mg PO BID PRN Cold Sores 01/25/22 07/06/22 History cyanocobalamin (vitamin B-12) 1,000 mcg subcut .biweekly #2 mL 03/15/22 07/06/22 Rx 1,000 mcg/mL injection solution zolpidem 12.5 mg tablet,extended 12.5 mg PO HS PRN Sleep #30 tabs 03/15/22 07/06/22 Rx release,multiphase levetiracetam 500 mg tablet 500 mg PO BID #60 tabs 06/12/22 07/06/22 Rx propranolol 120 mg capsule,24 120 mg PO QPM 07/06/22 07/06/22 History hr,extended release propranolol 160 mg capsule,24 160 mg PO QAM 07/06/22 07/06/22 History hr,extended release Patient History Medical History (Updated 07/06/22 @ 17:51 by Gualberto Agustin MD) Acute pancreatitis Anxiety Breech presentation Chronic mixed headache syndrome Classic migraine with aura Elevated blood pressure affecting , antepartum Essential tremor Herpes simplex infection History of chicken pox History of nephrolithiasis Hypertension Hyponatremia Missed Seizure-like activity Vitamin B12 deficiency Surgical History delivery delivered H/O lithotripsy History of gynecologic surgery D&E-surgically induced History of Mitzi-en-Y gastric bypass Status post surgery laryngeal surgery- stripping of vocal cords Family History Uncle Bladder cancer maternal uncle Sister Brain tumor Grandfather (Paternal) Colorectal cancer Aunt Lung cancer paternal aunt Father Essential tremor Mother Hypertension Denies family history of Ovarian cancer Breast cancer Social History Smoking Status: Never smoker Do You Dip or Chew Tobacco: No; Hx Alcohol Use: Yes Alcohol type: wine Alcohol Intake Frequency Comment: 2-3 drinks, 5-7 days per week Hx Substance Use: No Preferred Language: Estonian Communication Ability: Effective Crozer Required: No Beliefs That Will Affect Care: None marital status: Current Living Situation: Spouse 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 Feels Safe at Home: Yes Assistive Devices: None Results & Data Vital Signs (Past 12 Hours) Vital Signs Temp Pulse Pulse Resp BP BP Pulse Ox 07/07/22 11:51 75 07/07/22 11:35 37.2 C 72 19 142/87 H 97 07/07/22 11:32 37.2 C 72 19 142/87 H 97 07/07/22 08:56 72 22 128/89 99 07/07/22 06:30 65 12 95 07/07/22 06:15 83 13 96 07/07/22 06:00 72 16 94 07/07/22 05:45 69 14 94 07/07/22 05:30 67 23 95 05 05:15 68 17 94 07/07/22 05:00 67 18 94 07/07/22 04:45 71 15 93 07/07/22 04:30 69 12 94 07/07/22 04:15 70 17 94 07/07/22 04:00 71 20 95 07/07/22 03:46 72 16 120/84 96 07/07/22 03:45 72 15 94 07/07/22 03:30 69 19 94 07/07/22 03:15 73 20 93 07/07/22 03:00 72 18 92 07/07/22 02:45 73 23 94 07/07/22 02:30 75 16 93 07/07/22 02:15 71 15 96 07/07/22 02:00 78 24 96 07/07/22 01:45 77 22 95 O2 Del Method 07/07/22 11:51 07/07/22 11:35 Room Air 07/07/22 11:32 Room Air 07/07/22 08:56 Room Air 07/07/22 06:30 07/07/22 06:15 07/07/22 06:00 07/07/22 05:45 07/07/22 05:30 07/07/22 05:15 07/07/22 05:00 07/07/22 04:45 07/07/22 04:30 07/07/22 04:15 07/07/22 04:00 07/07/22 03:46 07/07/22 03:45 07/07/22 03:30 07/07/22 03:15 07/07/22 03:00 07/07/22 02:45 07/07/22 02:30 07/07/22 02:15 07/07/22 02:00 07/07/22 01:45
--- NOTE | 2022-07-07 14:48 | Magnetic Resonance Report ---
MR MRCP HISTORY: Generalized abdominal pain. acute pancreatitis TECHNIQUE: MRCP of the abdomen was performed without contrast according to standard departmental prot ocol. COMPARISON STUDY: Abdomen and pelvis CT 01/25/2022. Abdominal ultrasound 07/06/2022. FINDINGS: There are trace bilateral pleural effusions. No hepatic or splenic masses. There is a 1.3 c m T2 hyperintense lesion within the upper pole the left kidney. This contains a small amount of layer ing debris. This favors a slightly complex cyst. Stable 9 mm T2 hyperintense lesion within the right kidney which also favors a cyst. There is mild bilateral perinephric edema. No hydronephrosis. No ret roperitoneal lymphadenopathy. Normal caliber abdominal aorta. There is an edematous pancreatic head w ith surrounding peripancreatic edema. This is consistent with an acute pancreatitis. Small amount of fluid within the bilateral anterior pararenal spaces. There is also pericholecystic fluid/gallbladder wall edema. This is also likely due to the acute pancreatitis. There may be a small cluster of stone s at the gallbladder fundus.. The common bile duct and main pancreatic duct are normal in course and caliber. No filling defects within the common bile duct to suggest choledocholithiasis. IMPRESSION: 1. Edema both within and surrounding the pancreas consistent with an acute pancreatitis. 2. There is perinephric edema with a small amount of fluid within the bilateral anterior pararenal sp aces and retroperitoneum. This is likely due to the acute pancreatitis. 3. Pericholecystic fluid/gallbladder wall edema is also noted. This is likely due to the acute pancre atitis. Acute cholecystitis is considered less likely but not entirely excluded. This will be confirm ed with the nuclear medicine hepatobiliary scan. 4. Suspect a small gallstones at the gallbladder fundus. 5. Normal caliber common bile duct. No filling defects within the common bile duct to suggest choledo cholithiasis. ACT 112: Negative or not required by law. Electronically signed by: Cuauhtemoc Caldera M.D. 07/07/2022 2:46 PM
--- NOTE | 2022-07-07 15:37 | Hospitalist Progress Note ---
Date of Service July 07, 2022 Assessment & Plan (1) Acute pancreatitis: Plan: Likely secondary to alcohol use Past medical history of hypertension, essential tremors, alcohol use disorder, seizure disorder on Keppra Presents to the hospital with epigastric pain. Lipase elevated to 1605 Right upper quadrant shows features of acute cholecystitis; no gallstones seen. Recommend HIDA to rule out acute cholecystitis. Patient has gallstone polyp seen similar to her last gallbladder ultrasound from January 2022. IV fluids Pain control Clear liquid diet, n.p.o. from midnight. Will place on empiric ceftriaxone and Flagyl given the right upper quadrant ultrasound finding. Questionable if patient has acute cholecystitis. Will obtain HIDA scan. GI consult 07/07 still having some abdominal pain, but improving lipase improved to 500s MRCP: 1. Edema both within and surrounding the pancreas consistent with an acute pancreatitis. 2. There is perinephric edema with a small amount of fluid within the bilateral anterior pararenal spaces and retroperitoneum. This is likely due to the acute pancreatitis. 3. Pericholecystic fluid/gallbladder wall edema is also noted. This is likely due to the acute pancreatitis. Acute cholecystitis is considered less likely but not entirely excluded. This will be confirmed with the nuclear medicine hepatobiliary scan. 4. Suspect a small gallstones at the gallbladder fundus. 5. Normal caliber common bile duct. No filling defects within the common bile duct to suggest choledocholithiasis. GI consulted continue LR at 125cc/hr Possible Acute Cholecystis LFTs ok Gen Surg consulted continue Ceftri + Flagyl IV (2) Alcohol dependence: Plan: History of alcohol use disorder Patient reports cutting down on the alcohol. Currently drinks 3 glasses of wine a day Will start him on Valium 5 mg every 6 hours scheduled. Will taper down to 3 times a day, twice a day and once a day. Also Ativan ordered as needed 07/07 no signs of overt alcohol withdrawal continue Valium taper, PRN Ativan Plan Chronic conditions; Essential tremorscontinue propanolol Seizure disordercontinue Keppra Mood disordercontinue citalopram Full code Prophylaxis SCDs Disposition discharge to home when medically stable plan of care discussed with patient in detail and at length all questions answered she is understanding, agreeable, comfortable with the plan of care Admission and Anticipated Discharge Date Admission Date: July 06, 2022 Subjective ff up for acute pancreatitis, possible cholecystitis, etc seen resting in bed, RN at bedside throughout whole encounter not in distress, appears tired states she still has some abdominal pain, more on the LUQ no nausea/vomiting, fever/chills no chest pain, dyspnea, palpitations, dizziness no tremors, has some anxiety, no hallucinations no other symptoms Review of Systems Review of Systems: all noted and negative except for above Physical Exam Physical Exam: General- oriented x 3, not in distress, speaks in sentences with no effort or accessory muscle use Head- atraumatic Eyes- PERRL, EOMI, anicteric ENT- oropharynx clear Neck- supple, no JVD, no adenopathy, no thyromegaly; carotids +2/2, no bruits appreciated Lungs- clear to auscultation bilaterally, no rales/wheezes Heart- normal rate, regular rhythm; no murmur, no gallop, no rub appreciated Abdomen- normal bowel sounds, nondistended, soft, (+) mild epigastric and RUQ tenderness Extremities- no pretibial edema, no calf tenderness; peripheral pulses intact Neuro- alert, oriented x 3; CN 2-12 grossly intact; motor 5/5 bilaterally;sensation 100% on all extremities; no other gross focal neurologic deficits Skin- warm & dry Results & Data Results & Data Vital Signs (Past 12 Hours) Vital Signs Temp Pulse Pulse Resp BP BP Pulse Ox 07/07/22 12:30 07/07/22 11:51 75 07/07/22 11:35 37.2 C 72 19 142/87 H 97 07/07/22 11:32 37.2 C 72 19 142/87 H 97 07/07/22 08:56 72 22 128/89 99 07/07/22 06:30 65 12 95 07/07/22 06:15 83 13 96 07/07/22 06:00 72 16 94 07/07/22 05:45 69 14 94 07/07/22 05:30 67 23 95 07/07/22 05:15 68 17 94 07/07/22 05:00 67 18 94 07/07/22 04:45 71 15 93 07/07/22 04:30 69 12 94 07/07/22 04:15 70 17 94 07/07/22 04:00 71 20 95 07/07/22 03:46 72 16 120/84 96 07/07/22 03:45 72 15 94 O2 Del Method 07/07/22 12:30 Room Air 07/07/22 11:51 07/07/22 11:35 Room Air 07/07/22 11:32 Room Air 07/07/22 08:56 Room Air 07/07/22 06:30 07/07/22 06:15 07/07/22 06:00 07/07/22 05:45 07/07/22 05:30 07/07/22 05:15 07/07/22 05:00 07/07/22 04:45 07/07/22 04:30 07/07/22 04:15 07/07/22 04:00 07/07/22 03:46 07/07/22 03:45 all noted and reviewed including below
[2022-07-07] MEDS: PROPRANOLOL HCL 60 MG LA CAP PO SCH (16:03)
--- NOTE | 2022-07-07 16:16 | Surgery Consultation ---
Date of Consultation July 07, 2022 Assessment & Plan (1) Acute pancreatitis: (2) Abdominal pain, vomiting, and diarrhea: (3) Alcohol dependence: (4) Polyp of gallbladder: Plan The patient is clinically improving. She remains afebrile and HD stable with decreasing GI symptoms. Imaging findings c/w exam and history. No evidence for choledocholithiasis on imaging to be the cause of this pancreatitis episode. History points to an alcoholic pancreatitis and the organs in the area may become irritated from leaked pancreatic fluid which is the case with the GB appearance on imaging. The gallbladder was distended because she had not eaten for more than 12 hours prior to admission. That being said, I do think there is a possibility that outside of this particular episode, that Emily may experience some mild biliary colic-like symptoms from the presence of her known GB polyps and for that reason she may benefit from outpatient surgical follow up when her pancreatitis has resolved to determine the benefit of possible cholecystectomy. In the meantime, Emily may try full liquids today. Provided she tolerates without the development of n/v or worsened abdominal pain, she may continue to advance as tolerated and be discharged once medically stable and all abdominal symptoms have resolved. I have discussed the imaging findings and laboratory results with Emily making her aware that it seems as though this episode of alcoholic pancreatitis does seem more severe than her previous and that at this point she should not have any alcohol at all as her pancreas is now very sensitive to this substance. She may end up with worsened episodes in the future that could be fatal. In addition, her last episode was less than 6 months ago. She expressed understanding of this and has already considered this possibility of having to completely avoid alcohol from this point on. She may follow up with me in the office after discharge. History of Present Illness Reason for Consultation: Questionable acute cholecystitis Attending Physician: Chance Carrillo MD History of Present Illness 47 yo pleasant female with h/o alcohol abuse s/p hospitalization in January for alcoholic pancreatitis, now admitted yesterday for a 1 day history of pain, n/v that began . She drank a bottle of wine on Saturday. HD stable and no leukocytosis on admission. Bili was elevated at 1.8 and now normal and she had nol transaminitis. Her lipase was notably elevated to 1605 on admit. US not suspicious for GB stones mentions edematous with GB wall thickening to 5mm, CBD 6 mm not containing stones, Sawyer's sign was positive. Small polyps again noted in the GB compared to her last US in January. She was admitted to medicine and continued supportive care with IV fluid hydration for the pancreatitis. An MRCP was performed today that now provides a broader picture identifying edema within and surrounding the pancreas, leakage of pancreatic fluid at b/l perinephric spaces as well as in the retroperitoneum. At present, she continues to have pain but states it is much improved. Her pain is b/l upper abdomen and epigastric. She is no longer nauseous, has not vomited since early yesterday am and is passing flatus. She has been tolerating water this am and feels hungry. Denies chronic or recurring abdominal pain since January and said up until this week, she had really decreased her alcohol intake. While this current incident was triggered by alcohol intake, upon further questioning to elicit wether or not she could off and on have symptoms from GB polyps, she admits that for years she feels twinges at her RUQ when she eats fatty foods and also gets diarrhea. She describes symptoms of biliary colic that has been chronic. Allergies Allergy/AdvReac Type Severity Reaction Status Date / Time No Known Allergies Allergy Verified 07/06/22 15:48 Home Medications Medication Instructions Recorded Confirmed Type lisinopril 10 mg tablet 10 mg PO DAILY 06/29/20 07/06/22 History escitalopram oxalate 20 mg tablet 20 mg PO DAILY 07/19/21 07/06/22 History valacyclovir 500 mg tablet 500 mg PO BID PRN Cold Sores 01/25/22 07/06/22 History cyanocobalamin (vitamin B-12) 1,000 mcg subcut .biweekly #2 mL 03/15/22 07/06/22 Rx 1,000 mcg/mL injection solution zolpidem 12.5 mg tablet,extended 12.5 mg PO HS PRN Sleep #30 tabs 03/15/22 07/06/22 Rx release,multiphase levetiracetam 500 mg tablet 500 mg PO BID #60 tabs 06/12/22 07/06/22 Rx propranolol 120 mg capsule,24 120 mg PO QPM 07/06/22 07/06/22 History hr,extended release propranolol 160 mg capsule,24 160 mg PO QAM 07/06/22 07/06/22 History hr,extended release Patient History Medical History (Updated 07/07/22 @ 16:25 by Chao Pérez DO) Acute pancreatitis Anxiety Breech presentation Chronic mixed headache syndrome Classic migraine with aura Elevated blood pressure affecting , antepartum Essential tremor Herpes simplex infection History of chicken pox History of nephrolithiasis Hypertension Hyponatremia Missed Seizure-like activity Vitamin B12 deficiency Surgical History delivery delivered H/O lithotripsy History of gynecologic surgery D&E-surgically induced History of Mitzi-en-Y gastric bypass Status post surgery laryngeal surgery- stripping of vocal cords Family History Uncle Bladder cancer maternal uncle Sister Brain tumor Grandfather (Paternal) Colorectal cancer Aunt Lung cancer paternal aunt Father Essential tremor Mother Hypertension Denies family history of Ovarian cancer Breast cancer Social History Smoking Status: Never smoker Do You Dip or Chew Tobacco: No; Hx Alcohol Use: Yes Alcohol type: wine Alcohol Intake Frequency Comment: 2-3 drinks, 5-7 days per week Hx Substance Use: No Preferred Language: Brazilian Communication Ability: Effective Court Messenger Required: No Beliefs That Will Affect Care: None marital status: Current Living Situation: Spouse 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 Feels Safe at Home: Yes Assistive Devices: None Review of Systems Constitutional: no fever, no chills, no body aches and no weakness Respiratory: no cough, no dyspnea, no hemoptysis and no wheezing Cardiovascular: no chest pain, no chest pain with activity, no orthopnea and no lightheadedness Gastrointestinal: as stated above Physical Exam Constitutional: healthy appearing, cooperative and comfortable; no acute distress and not ill appearing Respiratory: normal respiratory effort; no respiratory distress, no labored breathing and does not use accessory muscles Cardiovascular: Rate/Rhythm: regular rate Extremities: no edema Gastrointestinal (Abdomen): Inspection/Auscultation: abdomen normal to inspection; abdomen not distended and no abdominal wall ecchymosis Percussion/Palpation: + abdomen tender (b/l upper abdomen c/w imaging findings) and abdomen soft; no guarding and abdomen not rigid Results & Data Vital Signs (Past 12 Hours) Vital Signs Temp Pulse Pulse Resp BP Pulse Ox O2 Del Method 07/07/22 12:30 Room Air 07/07/22 11:51 75 07/07/22 11:35 37.2 C 72 19 142/87 H 97 Room Air 07/07/22 11:32 37.2 C 72 19 142/87 H 97 Room Air 07/07/22 08:56 72 22 128/89 99 Room Air 07/07/22 06:30 65 12 95 07/07/22 06:15 83 13 96 07/07/22 06:00 72 16 94 07/07/22 05:45 69 14 94 07/07/22 05:30 67 23 95 07/07/22 05:15 68 17 94 07/07/22 05:00 67 18 94 07/07/22 04:45 71 15 93 07/07/22 04:30 69 12 94 07/07/22 04:15 70 17 94 Laboratory Results WBC remains WNL at 6.12 today H/H back to her baseline anemia at 10.2/29.4 Plt normal at 157 T bili WNL at 0.8 Transaminases and Alk Phos remain WNL Lipase decreased to 598 today Diagnostic Findings MRCP today: 1. Edema both within and surrounding the pancreas consistent with an acute pancreatitis. 2. There is perinephric edema with a small amount of fluid within the bilateral anterior pararenal spaces and retroperitoneum. This is likely due to the acute pancreatitis. 3. Pericholecystic fluid/gallbladder wall edema is also noted. This is likely due to the acute pancreatitis. Acute cholecystitis is considered less likely but not entirely excluded. This will be confirmed with the nuclear medicine hepatobiliary scan. 4. Suspect a small gallstones at the gallbladder fundus. 5. Normal caliber common bile duct. No filling defects within the common bile duct to suggest choledocholithiasis. Liver US on 07/06/22: 1. Distended gallbladder with edematous wall thickening and positive sonographic Sawyer's sign. No shadowing cholelithiasis identified, however finding should be correlated with hepatobiliary scan in order to exclude cholecystitis. 2. Hepatomegaly with hepatic steatosis. 3. Gallbladder polyps are again noted measuring up to 5 mm. PG Care Time/CCT Total # of Minutes Spent Total Time Spent with Patient: Total time spent is greater than 50% in coordination of care (as documented) at patient's floor/unit and/or counseling patient: Coding Level of Care Code 53167 IN/OBS CONSULT LVL 2,35M Diagnoses Acute pancreatitis K85.90 Abdominal pain, vomiting, and diarrhea R10.9; R11.10; R19.7 Alcohol dependence F10.20 Polyp of gallbladder K82.4
[2022-07-07] MEDS: cefTRIAXone SODIUM 2,000 MG in DEXTROSE 5% 50 ML IV SCH (21:15)
[2022-07-08] MEDS: diazePAM 5 MG TABLET PO SCH ×4 (01:11→20:39)
[2022-07-08] MEDS: metroNIDAZOLE 500 MG/100 ML BAG IV SCH ×3 (03:37→20:35)
[2022-07-08] MEDS: MoRPHine SULFATE 2 MG/ML CARP IV PRN ×3 (06:04→22:19)
[2022-07-08 06:17] LABS: Basophils # (auto) 0.04 K/uL (0-0.2); Basophils % (auto) 0.7 %; Eosinophils # (auto) 0.34 K/uL (0-0.50); Eosinophils % (auto) 5.7 %; Hematocrit (blood only) 28.6 % (37.0-47.0); Hemoglobin 9.9 g/dl (12.0-16.0); Immature Granulocytes # (auto) 0.01 K/uL (0.01-0.20); Immature Granulocytes % (auto) 0.2 %; Lymphocytes # (auto) 1.58 K/uL (1.2-3.4); Lymphocytes % (auto) 26.5 %; Mean Corpuscular Hemoglobin 36.7 pg (25.0-34.0); Mean Corpuscular Hgb Conc 34.6 g/dL (32.0-36.0); Mean Corpuscular Volume 105.9 fL (80.0-100.0); Mean Platelet Volume 10.8 fL (9.4-12.4); Monocytes # (auto) 0.46 K/uL (0.11-0.59); Monocytes % (auto) 7.7 %; Neutrophils # (auto) 3.53 K/uL (1.40-6.50); Neutrophils % (auto) 59.2 %; Platelet Count 141 K/uL (130-400); RDW Coefficient of Variation 14.5 % (11.5-14.5); RDW Standard Deviation 55.8 fL (36.4-46.3); White Blood Count 5.96 K/ul (4.8-10.8)
--- NOTE | 2022-07-08 06:29 | Surgery Progress Note ---
Date of Service July 08, 2022 Assessment & Plan (1) Polyp of gallbladder: (2) Acute pancreatitis: Plan: Patient has been admitted on the hospitalist service. Clinically seems to be improving. She has no leukocytosis, is HD stable and afebrile. From a surgical perspective we recommend continuing care as follows: Concern noted for alcoholic pancreatitis as the cause of patient's abdominal pain May begin to wean off IV fluids as patient is taking in oral intake and tolerating thus far. Monitor closely for changes. F/u lipase for this am, still pending with the lab to be sure it continues to trend down as she has started a diet. Continue antibiotics in the form of Rocephin and Flagyl Continue analgesics and antiemetics as needed. Abstaining from alcohol consumption recommended Concerning gallbladder polyps, patient will follow-up in surgery clinic as an outpatient and further discussion will be had concerning the possibility of cholecystectomy Admission and Anticipated Discharge Date Admission Date: July 06, 2022 Supervising Physician Co-Signing Physician Notes I have seen and examined this patient with the surgical PA and adjusted elements to this note. I agree with the plan. Subjective Patient notes overall she feels improved but does have a small amount of pain at the upper quadrants and feels this is more pronounced on the left side. She notes last evening she did have a bowel movement and is passing flatus. Currently she does not report any nausea or vomiting although says she had a small wave of nausea in the early am that resolved on its own. Says she is able to tolerate her current diet without immediate pain with eating. She denies any fevers, shakes, or chills. Physical Exam Gastrointestinal (Abdomen): Abdomen is soft and nonrigid with positive bowel sounds. Patient had some slight tenderness to palpation in the b/l upper quadrants without rebound tenderness or guarding. Results & Data Vital Signs (Past 12 Hours) Vital Signs Temp Pulse Pulse Resp BP Pulse Ox O2 Del Method 07/08/22 04:04 36.8 C 65 18 120/81 94 Room Air 07/07/22 22:06 37.3 C 74 18 104/68 93 Room Air 07/07/22 23:06 77 07/07/22 19:15 37.3 C 74 18 117/79 96 Room Air PG Care Time/CCT Total # of Minutes Spent Total Time Spent with Patient: Total time spent is greater than 50% in coordination of care (as documented) at patient's floor/unit and/or counseling patient: Coding [place] [address] SUB INP/OBS CARE 03/14MIN Patient Type Established Medical Decision Making Straight Forward Diagnoses Polyp of gallbladder K82.4 Acute pancreatitis K85.90
[2022-07-08 06:39] LABS: Albumin Level 3.1 gm/dl (3.4-5.0); BUN Creatinine Ratio 5.6 (10-20); Bilirubin Direct 0.1 mg/dl (0-0.2); Bilirubin,Total 0.4 mg/dl (0.2-1.0); Calcium 8.6 mg/dl (8.6-10.3); Creatinine Clr Calc Pharmacy 153.1 ml/min; Est GFR (African American) 132.1 ml/min; Potassium 3.7 mmol/L (3.5-5.1); Total Protein 5.3 gm/dl (6.0-8.3)
[2022-07-08] MEDS: levETIRAcetam 500 MG TAB PO SCH ×2 (08:25→20:39)
[2022-07-08] MEDS: lisinopril 10 MG TAB PO SCH (08:25)
[2022-07-08] MEDS: FOLIC ACID 1 MG TAB PO SCH (08:25)
[2022-07-08] MEDS: ESCITALOPRAM OXALATE 20 MG TAB PO SCH (08:25)
[2022-07-08] MEDS: PROPRANOLOL HCL LA 80 MG CAPCR PO SCH (08:26)
[2022-07-08] MEDS: THIAMINE HCL 100 MG in SYRINGE 9 ML IV SCH (10:01)
--- NOTE | 2022-07-08 14:24 | Gastroenterology Progress Note ---
Date of Service July 08, 2022 Assessment & Plan Admission and Anticipated Discharge Date Admission Date: July 06, 2022 Subjective No complaints - NO pain, and no use of PRN analgesics. Suman liquids, hungry for solids, and had BM this am. VS show O2 sat 93-94, o/w normal VS overnight Looks comfortable, watching TV and paying bills. OC clear Abd: soft NT. Her prior RUQ tenderness has completely resolved. Labs reviewed - Macrocytic anemia, normal LFTs MRI review - Peripanc fluid, pericholecystic fluid A/P: Alcoholic pancreatitis - Mild appears mild and clinically resolved. Diet as tolerated, re-emphasized need for complete EtOH abstinence. GB wall thick and fluid, RUQ tenderness - ? related to pancreatitis. Her RUQ pain is entirely resolved since yesterday. Defer management to surgery. Consi kentrell d/c abx. Macrocytic anemia - would ask hospitalist to check TSH, b12, folate; presumably EtOH related. Will sign off, please reconsult as needed. Results & Data Vital Signs (Past 12 Hours) Vital Signs Temp Pulse Pulse Resp BP BP Pulse Ox 07/08/22 12:02 36.9 C 77 20 104/75 93 07/08/22 09:30 07/08/22 08:15 36.8 C 72 18 126/84 94 07/08/22 06:04 65 07/08/22 04:04 36.8 C 65 18 120/81 94 O2 Del Method 07/08/22 12:02 Room Air 07/08/22 09:30 Room Air 07/08/22 08:15 Room Air 07/08/22 06:04 07/08/22 04:04 Room Air
[2022-07-08] MEDS: LACTATED RINGER'S 1,000 ML IV SCH (15:14)
[2022-07-08] MEDS: PROPRANOLOL HCL 60 MG LA CAP PO SCH (16:10)
--- NOTE | 2022-07-08 16:49 | Hospitalist Progress Note ---
Date of Service July 08, 2022 Assessment & Plan (1) Acute pancreatitis: Plan: Likely secondary to alcohol use Past medical history of hypertension, essential tremors, alcohol use disorder, seizure disorder on Keppra Presents to the hospital with epigastric pain. Lipase elevated to 1605 Right upper quadrant shows features of acute cholecystitis; no gallstones seen. Recommend HIDA to rule out acute cholecystitis. Patient has gallstone polyp seen similar to her last gallbladder ultrasound from January 2022. IV fluids Pain control Clear liquid diet, n.p.o. from midnight. Will place on empiric ceftriaxone and Flagyl given the right upper quadrant ultrasound finding. Questionable if patient has acute cholecystitis. Will obtain HIDA scan. GI consult 07/07 still having some abdominal pain, but improving lipase improved to 500s MRCP: 1. Edema both within and surrounding the pancreas consistent with an acute pancreatitis. 2. There is perinephric edema with a small amount of fluid within the bilateral anterior pararenal spaces and retroperitoneum. This is likely due to the acute pancreatitis. 3. Pericholecystic fluid/gallbladder wall edema is also noted. This is likely due to the acute pancreatitis. Acute cholecystitis is considered less likely but not entirely excluded. This will be confirmed with the nuclear medicine hepatobiliary scan. 4. Suspect a small gallstones at the gallbladder fundus. 5. Normal caliber common bile duct. No filling defects within the common bile duct to suggest choledocholithiasis. GI consulted continue LR at 125cc/hr Possible Acute Cholecystis LFTs ok Gen Surg consulted continue Ceftri + Flagyl IV 07/08 clinically improving Lipase trended down LFTS ok Acute Cholecystitis unlikely decrease LR continue with Abx per Gen Surg advance diet (2) Alcohol dependence: Plan: History of alcohol use disorder Patient reports cutting down on the alcohol. Currently drinks 3 glasses of wine a day Will start him on Valium 5 mg every 6 hours scheduled. Will taper down to 3 times a day, twice a day and once a day. Also Ativan ordered as needed 07/08 no signs of overt alcohol withdrawal continue Valium taper, PRN Ativan Plan Chronic conditions; Essential tremorscontinue propanolol Seizure disordercontinue Keppra Mood disordercontinue citalopram Full code Prophylaxis SCDs Disposition anticipate discharge to home tomorrow plan of care discussed with patient in detail and at length all questions answered she is understanding, agreeable, comfortable with the plan of care Admission and Anticipated Discharge Date Admission Date: July 06, 2022 Subjective ff up for acute pancreatitis, etc seen sitting up in bed, in good spirits states abdominal pain continues to improve no nausea, fever/chills no chest pain, dyspnea, palpitations, dizziness no tremors, anxiety, confusion no other new symptoms Review of Systems Review of Systems: all noted and negative except for above Physical Exam Physical Exam: General- oriented x 3, not in distress, speaks in sentences with no effort or accessory muscle use Eyes- anicteric Neck- no JVD Lungs- clear BS BL Heart- normal rate, regular rhythm; no murmurs Abdomen- normal bowel sounds, nondistended, soft,mild tenderness epigastric area no RUQ tenderness Extremities- no pretibial edema, no calf tenderness no tremors Neuro- alert, oriented x 3; no gross focal neurologic deficits Skin- warm & dry Results & Data Results & Data Vital Signs (Past 12 Hours) Vital Signs Temp Pulse Pulse Resp BP BP Pulse Ox 07/08/22 14:08 67 07/08/22 16:12 36.9 C 78 20 125/83 95 07/08/22 12:02 36.9 C 77 20 104/75 93 07/08/22 09:30 07/08/22 08:15 36.8 C 72 18 126/84 94 07/08/22 06:04 65 O2 Del Method 07/08/22 14:08 07/08/22 16:12 Room Air 07/08/22 12:02 Room Air 07/08/22 09:30 Room Air 07/08/22 08:15 Room Air 07/08/22 06:04 all noted and reviewed including below
[2022-07-08] MEDS: cefTRIAXone SODIUM 2,000 MG in DEXTROSE 5% 50 ML IV SCH (22:19)
[2022-07-09] MEDS: diazePAM 5 MG TABLET PO SCH (01:52)
[2022-07-09] MEDS: metroNIDAZOLE 500 MG/100 ML BAG IV SCH (04:08)
[2022-07-09] MEDS: LACTATED RINGER'S 1,000 ML IV SCH ×2 (07:27→10:16)
[2022-07-09 08:15] LABS: Calcium 8.8 mg/dl (8.6-10.3); Potassium 3.5 mmol/L (3.5-5.1)
[2022-07-09 08:21] LABS: BUN Creatinine Ratio 5.4 (10-20); Creatinine Clr Calc Pharmacy 149.2 ml/min; Est GFR (African American) 130.5 ml/min; Est GFR (Non-African American) 112.6 ml/min
[2022-07-09] MEDS: FOLIC ACID 1 MG TAB PO SCH (08:22)
[2022-07-09] MEDS: ESCITALOPRAM OXALATE 20 MG TAB PO SCH (08:22)
[2022-07-09] MEDS: levETIRAcetam 500 MG TAB PO SCH (08:23)
[2022-07-09] MEDS: PROPRANOLOL HCL LA 80 MG CAPCR PO SCH (08:23)
[2022-07-09] MEDS: lisinopril 10 MG TAB PO SCH (08:23)
[2022-07-09] MEDS: THIAMINE HCL 100 MG in SYRINGE 9 ML IV SCH (08:24)
[2022-07-09] MEDS ORDERED: diazePAM 5 MG TABLET PO SCH ×2 (10:00→13:00)
--- NOTE | 2022-07-09 11:14 | Hospitalist Progress Note ---
Date of Service July 09, 2022 Assessment & Plan (1) Acute pancreatitis: Plan: per admitting service notes with addendum: Likely secondary to alcohol use Past medical history of hypertension, essential tremors, alcohol use disorder, seizure disorder on Keppra Presents to the hospital with epigastric pain. Lipase elevated to 1605 Right upper quadrant shows features of acute cholecystitis; no gallstones seen. Recommend HIDA to rule out acute cholecystitis. Patient has gallstone polyp seen similar to her last gallbladder ultrasound from January 2022. MRCP: 1. Edema both within and surrounding the pancreas consistent with an acute pancreatitis. 2. There is perinephric edema with a small amount of fluid within the bilateral anterior pararenal spaces and retroperitoneum. This is likely due to the acute pancreatitis. 3. Pericholecystic fluid/gallbladder wall edema is also noted. This is likely due to the acute pancreatitis. Acute cholecystitis is considered less likely but not entirely excluded. This will be confirmed with the nuclear medicine hepatobiliary scan. 4. Suspect a small gallstones at the gallbladder fundus. 5. Normal caliber common bile duct. No filling defects within the common bile duct to suggest choledocholithiasis. GI consulted given LR at 125cc/hr Lipase levels trended down Pain resolved, diet advanced Strongly advised against alcohol use Possible Acute Cholecystis LFTs ok Gen Surg consulted-acute cholecystitis unlikely but did recommend continued IV ceftriaxone and Flagyl Discharged on p.o. Augmentin 875 mg twice daily x5 days Follow-up with neurosurgery Dr. Merida in 1 to 2 weeks (2) Alcohol dependence: Plan: History of alcohol use disorder Patient reports cutting down on the alcohol. Currently drinks 3 glasses of wine a day Will start him on Valium 5 mg every 6 hours scheduled. Will taper down to 3 times a day, twice a day and once a day. Also Ativan ordered as needed 07/09 no signs of overt alcohol withdrawal Placed on Valium taper, PRN Ativan Discharge plan: Valium 5 mg 3 times daily x1 day, then Twice a day for 2 days, then once daily, then stop Discussed at length with patient, Valium not to be combined with alcohol or Am tal No driving until follow-up with PCP Return to the ER immediately if with worsening signs of alcohol withdrawal Patient verbalized understanding and agreement Plan Chronic conditions; Essential tremorscontinue propanolol Seizure disordercontinue Keppra Mood disordercontinue citalopram Full code Prophylaxis SCDs Disposition Discharge to home Follow-up with PCP in 1 week Follow-up with general surgery in 1-2 plan of care discussed with patient in detail and at length all questions answered she is understanding, agreeable, comfortable with the plan of care Admission and Anticipated Discharge Date Admission Date: July 06, 2022 Subjective Follow-up for acute pancreatitis, etc. Sitting up in bed, comfortable, not in distress In good spirits States she feels better overall No abdominal pain, tolerating diet well No tremors, anxiety, sweating, confusion no other symptoms Review of Systems Review of Systems: all noted and negative except for above Physical Exam Physical Exam: General- oriented x 3, not in distress, speaks in sentences with no effort or accessory muscle use Eyes- anicteric Neck- no JVD Lungs- clear BS bilaterally, no rales/wheezes Heart- normal rate, regular rhythm; no murmurs Abdomen- normal bowel sounds, nondistended, soft, nontender Extremities- no pretibial edema, no calf tenderness no tremors Neuro- alert, oriented x 3; no gross focal neurologic deficits Skin- warm & dry Results & Data Results & Data Vital Signs (Past 12 Hours) Vital Signs Temp Pulse Pulse Resp BP Pulse Ox O2 Del Method 07/09/22 07:41 36.6 C 63 18 128/88 95 Room Air 07/09/22 07:32 Room Air 07/09/22 05:58 58 L 07/09/22 03:05 36.4 C L 64 16 135/88 94 Room Air 07/09/22 00:10 72 all noted and reviewed including below
--- NOTE | 2022-07-09 16:16 | Discharge Summary ---
Discharge Summary Date of Service July 09, 2022 Notes For Next Care Provider Medication Changes From Visit Valium 5 mg 3 times a day x1 day, twice a day x2 days, then once a day x1 day, then stop Augmentin 8 7 5 mg p.o. twice daily x5 days Admission HPI Per Admitting Provider History obtained from patient and records. Past medical history of hypertension, essential tremors, alcohol use disorder, seizure disorder on [facility] Last confinement in January 2022 for alcoholic pancreatitis. Patient presents to the hospital with epigastric pain since last 2 days. Patient reports that she has been trying to cut down on the alcohol since her last admission. Reports that she drinks only 3 glasses of wine daily presently. However, on Saturdaypatient drank increased amount of alcohol. The epigastric pain radiates to the back; is associated with nausea and vomiting. She denies fever, chills, chest pain, headache, dizziness or UTI symptoms. On presentation to the ED, she was hypertensive, afebrile and saturating well on room air. CBC unremarkable. Noted to have mild hyponatremia. Lipase elevated to 1605. Urinalysis shows ketones. Right upper quadrant ultrasound suggestive of distended gallbladder with edematous wall thickening. No cholelithiasis identified. Recommend hepatobiliary scan to exclude cholecystitis. Admission Exam Per Admitting Provider Constitutional: WD/WN, vitals as above, NAD, sitting up in bed, pleasant, conversing easily Respiratory: normal respiratory effort, lungs clear to auscultation, no wheeze, rales, rhonchi. Normal insp/exp effort, no accessory muscle use Cardiovascular: RRR, no murmur, no edema Vessels: no JVD or carotid bruit Chest: normal inspection of chest Abdomen: Tenderness in epigastric region. Musculoskeletal: no cyanosis or clubbing, extremities motor strength 5/5 Skin: no rashes, warm and dry normal turgor Neurologic: PERRL, EOMI, accommodation nl, no face palsy, no dysarthria CN's II- XI intact bilaterally and moves all extremities Psychiatric: A+Ox3, euthymic affect Lymphatic: no cervical or axillary lymphadenopathy : deferred Principal Dx & Hospital Course #1 = Principal Diagnosis (1) Acute pancreatitis: per admitting service notes with addendum: Likely secondary to alcohol use Past medical history of hypertension, essential tremors, alcohol use disorder, seizure disorder on Kera Presents to the hospital with epigastric pain. Lipase elevated to 1605 Right upper quadrant shows features of acute cholecystitis; no gallstones seen. Recommend HIDA to rule out acute cholecystitis. Patient has gallstone polyp seen similar to her last gallbladder ultrasound from January 2022. MRCP: 1. Edema both within and surrounding the pancreas consistent with an acute pancreatitis. 2. There is perinephric edema with a small amount of fluid within the bilateral anterior pararenal spaces and retroperitoneum. This is likely due to the acute pancreatitis. 3. Pericholecystic fluid/gallbladder wall edema is also noted. This is likely due to the acute pancreatitis. Acute cholecystitis is considered less likely but not entirely excluded. This will be confirmed with the nuclear medicine hepatobiliary scan. 4. Suspect a small gallstones at the gallbladder fundus. 5. Normal caliber common bile duct. No filling defects within the common bile duct to suggest choledocholithiasis. GI consulted given LR at 125cc/hr Lipase levels trended down Pain resolved, diet advanced Strongly advised against alcohol use Possible Acute Cholecystis LFTs ok Gen Surg consulted-acute cholecystitis unlikely but did recommend continued IV ceftriaxone and Flagyl Discharged on p.o. Augmentin 875 mg twice daily x5 days Follow-up with neurosurgery Dr. Merida in 1 to 2 weeks Abnormal MRCP findings There are trace bilateral pleural effusions. No hepatic or splenic masses. There is a 1.3 cm T2 hyperintense lesion within the upper pole the left kidney. This contains a small amount of layering debris. This favors a slightly complex cyst. Stable 9 mm T2 hyperintense lesion within the right kidney which also favors a cyst. There is mild bilateral perinephric edema. No hydronephrosis. No retrope ritoneal lymphadenopathy. Further work up, management, and ff up as outpatient (2) Alcohol dependence: History of alcohol use disorder Patient reports cutting down on the alcohol. Currently drinks 3 glasses of wine a day Will start him on Valium 5 mg every 6 hours scheduled. Will taper down to 3 times a day, twice a day and once a day. Also Ativan ordered as needed 07/09 no signs of overt alcohol withdrawal Placed on Valium taper, PRN Ativan Discharge plan: Valium 5 mg 3 times daily x1 day, then Twice a day for 2 days, then once daily, then stop Discussed at length with patient, Valium not to be combined with alcohol or Ambien No driving until follow-up with PCP Return to the ER immediately if with worsening signs of alcohol withdrawal Patient verbalized understanding and agreement Plan Chronic conditions; Essential tremorscontinue propanolol Seizure disordercontinue Keppra Mood disordercontinue citalopram Full code Prophylaxis SCDs Disposition Discharge to home Follow-up with PCP in 1 week Follow-up with general surgery in 1-2 plan of care discussed with patient in detail and at length all questions answered she is understanding, agreeable, comfortable with the plan of care Discharge Exam General- oriented x 3, not in distress, speaks in sentences with no effort or accessory muscle use Eyes- anicteric Neck- no JVD Lungs- clear BS bilaterally, no rales/wheezes Heart- normal rate, regular rhythm; no murmurs Abdomen- normal bowel sounds, nondistended, soft, nontender Extremities- no pretibial edema, no calf tenderness no tremors Neuro- alert, oriented x 3; no gross focal neurologic deficits Skin- warm & dry Updated Medication List Medication Instructions Recorded Confirmed Type lisinopril 10 mg tablet 10 mg PO DAILY 06/29/20 07/06/22 History escitalopram oxalate 20 mg tablet 20 mg PO DAILY 07/19/21 07/06/22 History valacyclovir 500 mg tablet 500 mg PO BID PRN Cold Sores 01/25/22 07/06/22 History cyanocobalamin (vitamin B-12) 1,000 mcg subcut .biweekly #2 mL 03/15/22 07/06/22 Rx 1,000 mcg/mL injection solution levetiracetam 500 mg tablet 500 mg PO BID #60 tabs 06/12/22 07/06/22 Rx propranolol 120 mg capsule,24 120 mg PO QPM 07/06/22 07/06/22 History hr,extended release propranolol 160 mg capsule,24 160 mg PO QAM 07/06/22 07/06/22 History hr,extended release amoxicillin 875 mg-potassium 1 tab PO BID 5 days #10 tabs 07/09/22 Rx clavulanate 125 mg tablet diazepam 5 mg tablet 5 mg PO UD #7 tabs 07/09/22 Rx Hospital Stay Data Consultations 07/06/22 16:06 ED Decision to Admit Stat 07/06/22 16:07 Consult Gastroenterology Routine 07/07/22 13:39 Consult General Surgery Routine Diagnostic Imagining Performed 07/06/22 16:07 US RUQ [US liver] Stat 07/07/22 13:39 MR MRCP Routine FINDINGS: There are trace bilateral pleural effusions. No hepatic or splenic masses. There is a 1.3 cm T2 hyperintense lesion within the upper pole the left kidney. This contains a small amount of layering debris. This favors a slightly complex cyst. Stable 9 mm T2 hyperintense lesion within the right kidney which also favors a cyst. There is mild bilateral perinephric edema. No hydronephrosis. No retroperitoneal lymphadenopathy. Normal caliber abdominal aorta. There is an edematous pancreatic head with surrounding peripancreatic edema. This is consistent with an acute pancreatitis. Small amount of fluid within the bilateral anterior pararenal spaces. There is also pericholecystic fluid/gallbladder wall edema. This is also likely due to the acute pancreatitis. There may be a small cluster of stones at the gallbladder fundus.. The common bile duct and main pancreatic duct are normal in course and caliber. No filling defects within the common bile duct to suggest choledocholithiasis. IMPRESSION: 1. Edema both within and surrounding the pancreas consistent with an acute pancreatitis. 2. There is perinephric edema with a small amount of fluid within the bilateral anterior pararenal spaces and retroperitoneum. This is likely due to the acute pancreatitis. 3. Pericholecystic fluid/gallbladder wall edema is also noted. This is likely due to the acute pancreatitis. Acute cholecystitis is considered less likely but not entirely excluded. This will be confirmed with the nuclear medicine hepatobiliary scan. 4. Suspect a small gallstones at the gallbladder fundus. 5. Normal caliber common bile duct. No filling defects within the common bile duct to suggest choledocholithiasis. ACT 112: Negative or not required by law. Electronically signed by: Cuauhtemoc Caldera M.D. 07/07/2022 2:46 PM Pending Results Patient Have Any Pending Studies at Discharge: No Discharge Instructions Given to Patient (Per Discharging Provider) PLEASE REFER TO YOUR NEW MEDICATION LIST AND FOLLOW INSTRUCTIONS CAREFULLY. YOUR NEW MEDICATIONS INCLUDE: VALIUM- for prevention of alcohol withdrawal - never combine with alcohol stop Ambien (Zolpidem) while taking Valium - take as follows: 5mg twice a day x 3 days, then 5mg once a day, then stop AUGMENTIN- antibiotic for possible gallbladder infection PLEASE DRINK PLENTY OF WATER. NO ALCOHOL/SMOKING. PLEASE CALL YOUR PRIMARY CARE PHYSICIAN OR RETURN TO THE ER IF WITH WORSENING OF SYMPTOMS, INCLUDING ABDOMINAL PAIN, NAUSEA/VOMITING, FEVER/CHILLS, TREMORS, ANXIETY, SWEATING, CONFUSION, ETC. FOLLOW UP WITH PRIMARY CARE PHYSICIAN IN 1 WEEK. FOLLOW UP WITH GENERAL SURGEON DR. LINK OUTLINED ABOVE. TAKE CARE! Total Time Total Time Spent Total Time Spent (In Minutes): > 30 minutes
[2022-07-10] MEDS ORDERED: THIAMINE HCL 100 MG TAB PO SCH (09:00)
== END 2022-07-09 12:17 | disposition home or self-care (01) | DRG 439 ==
LOC: ED 12:47 → SUATTDRO 16:07 → EDINP 16:07 → 2W 19:28

== ENCOUNTER 2023-09-17 11:07 | Inpatient (IN) ==
[2023-09-17] MEDS: KETOROLAC TROMETHAMINE 15 MG/ML VIAL IV ONE (11:27)
--- NOTE | 2023-09-17 11:29 | Emergency Department Note ---
History of Present Illness General Chief complaint: Chest Pain Stated complaint: CHEST PAINS, SWOLLEN ANKLES, BACK PAIN Time Seen by Provider: 09/17/23 11:16 Source: patient, RN notes reviewed and old records reviewed (09/17/23-quick care note. The patient had an EKG and was referred to the ER) Mode of arrival: ambulatory Limitations: no limitations History of Present Illness Maximum Pain Intensity: 7 This patient 48-year-old female comes in with chest pain that she said woke her up around 4:30 in the morning she has similar episode a month ago. She took 2 adult aspirins. It is pleuritic is worse when she lays down it does radiate to her back at times. She says it hurts to laugh or swallow as well. 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 No cough she says she was hoarse last week but had no sore throat. She feels her ankles are slightly swollen. No history of DVT or PE or cardiac disease Home Medications Medication Instructions Recorded Confirmed Type lisinopril 10 mg tablet 10 mg PO QAM 06/29/20 09/17/23 History propranolol 120 mg capsule,24 120 mg PO BID #60 caps 03/05/23 09/17/23 Rx hr,extended release levetiracetam 500 mg tablet 500 mg PO BID #60 tabs 04/18/23 09/17/23 Rx escitalopram oxalate 20 mg tablet 10 mg PO QAM 07/22/23 09/17/23 History cyanocobalamin (vitamin B-12) 1,000 mcg subcut Q14D 09/17/23 09/17/23 History 1,000 mcg/mL injection solution hydrocortisone 2.5 % topical cream 1 applic OR BID PRN hemorrhoids 09/17/23 09/17/23 History with perineal applicator (Anusol-HC) lamotrigine 100 mg tablet 100 mg PO DAILY 09/17/23 09/17/23 History zolpidem 10 mg tablet 10 mg PO HS PRN Sleep 09/17/23 09/17/23 History Allergies Allergy/AdvReac Type Severity Reaction Status Date / Time No Known Allergies Allergy Verified 07/30/24 10:30 Past Med/Surg History Problem List (Updated 09/17/23 @ 13:57 by Kristopher Bell MD) Epigastric abdominal pain (Acute) Elevated d-dimer (Acute) Acute pancreatitis (Acute) Chest pain (Acute) Idiopathic polyneuropathy Alcohol use Encounter for pre-operative examination Chronic diarrhea Rectal bleeding Polyp of gallbladder Abdominal pain, vomiting, and diarrhea (Acute) Cellulitis Abnormal uterine bleeding (AUB) Alcohol dependence (Acute) Elevated blood pressure affecting , antepartum Chronic hypertension affecting delivery delivered (Acute) Oligohydramnios (Acute) Breech presentation (Acute) Acute pancreatitis (Acute) Vitamin B12 deficiency Hypertension Anxiety Essential tremor reason for propranolol Seizure-like activity f/u dr. crenshaw Missed (Acute) hx Medical History Rectal bleeding Hx of pancreatitis Chronic diarrhea Classic migraine with aura History of nephrolithiasis Chronic mixed headache syndrome Surgical History History of esophagogastroduodenoscopy (EGD) History of x1 History of gynecologic surgery D&E-surgically induced H/O lithotripsy Status post surgery laryngeal surgery- stripping of vocal cords>pt denies History of Mitzi-en-Y gastric bypass 2006 Family History Uncle Bladder cancer maternal uncle Sister Brain tumor Grandfather (Paternal) Colorectal cancer Aunt Lung cancer paternal aunt Father Essential tremor Mother Hypertension Denies family history of Ovarian cancer Breast cancer Social History Smoking Status: Never smoker Second Hand Exposure: No; Do You Dip or Chew Tobacco: No; Hx Alcohol Use: Yes Alcohol type: wine Alcohol Intake Frequency Comment: 2-3 drinks, 5-7 days per week Preferred Language: Estonian Communication Ability: Effective 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 Beliefs That Will Affect Care: None marital status: Current Living Situation: Spouse 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 Feels Safe at Home: Yes Assistive Devices: None Review of Systems A total of 10 systems reviewed and were otherwise negative Physical Exam Vital Signs Vital Signs - 24 hr 09/17/23 11:14 09/17/23 11:24 09/17/23 11:26 Temperature 36.5 C Temperature Source Temporal Artery Scan Pulse Rate 65 Pulse Rate [Apical] Pulse Rate from SpO2 Sensor Pulse Rhythm Pulse Rhythm [Apical] Pulse Strength [Apical] Respiratory Rate 18 Respiratory Effort / Characteristics Non-Labored Spontaneous Respiratory Depth Normal Respiratory Pattern Blood Pressure 135/74 169/132 H 132/109 H Blood Pressure [Right Arm] Blood Pressure Mean 94 144 117 Blood Pressure Mean [Right Arm] Blood Pressure Position Sitting Pulse Oximetry 98 Oxygen Delivery Method Room Air Sepsis Recent Fever Within 48 Hours No Sepsis New/Unexplained Change in Mental Status No Sepsis Action Taken by Nursing No Action Required 09/17/23 11:30 09/17/23 11:30 09/17/23 11:30 Temperature Temperature Source Pulse Rate 67 Pulse Rate [Apical] Pulse Rate from SpO2 Sensor 66 Pulse Rhythm Pulse Rhythm [Apical] Pulse Strength [Apical] Respiratory Rate 19 Respiratory Effort / Characteristics Respiratory Depth Respiratory Pattern Blood Pressure 139/94 139/94 Blood Pressure [Right Arm] Blood Pressure Mean 110 110 Blood Pressure Mean [Right Arm] Blood Pressure Position Pulse Oximetry 99 Oxygen Delivery Method Sepsis Recent Fever Within 48 Hours Sepsis New/Unexplained Change in Mental Status Sepsis Action Taken by Nursing 09/17/23 11:35 09/17/23 11:35 09/17/23 11:37 Temperature Temperature Source Pulse Rate 63 Pulse Rate [Apical] 65 Pulse Rate from SpO2 Sensor Pulse Rhythm Regular Pulse Rhythm [Apical] Regular Pulse Strength [Apical] Normal Respiratory Rate 20 18 Respiratory Effort / Characteristics Non-Labored Spontaneous Respiratory Depth Normal Respiratory Pattern Regular Blood Pressure Blood Pressure [Right Arm] 139/94 Blood Pressure Mean Blood Pressure Mean [Right Arm] 109 Blood Pressure Position Pulse Oximetry 97 97 97 Oxygen Delivery Method Room Air Room Air Room Air Sepsis Recent Fever Within 48 Hours Sepsis New/Unexplained Change in Mental Status Sepsis Action Taken by Nursing 09/17/23 11:42 09/17/23 11:54 09/17/23 12:06 Temperature Temperature Source Pulse Rate 65 65 61 Pulse Rate [Apical] Pulse Rate from SpO2 Sensor 66 61 Pulse Rhythm Pulse Rhythm [Apical] Pulse Strength [Apical] Respiratory Rate 19 17 14 Respiratory Effort / Characteristics Respiratory Depth Respiratory Pattern Blood Pressure Blood Pressure [Right Arm] Blood Pressure Mean Blood Pressure Mean [Right Arm] Blood Pressure Position Pulse Oximetry 96 97 Oxygen Delivery Method Sepsis Recent Fever Within 48 Hours Sepsis New/Unexplained Change in Mental Status Sepsis Action Taken by Nursing 09/17/23 12:15 09/17/23 12:21 09/17/23 12:27 Temperature Temperature Source Pulse Rate 64 64 65 Pulse Rate [Apical] Pulse Rate from SpO2 Sensor 65 64 66 Pulse Rhythm Pulse Rhythm [Apical] Pulse Strength [Apical] Respiratory Rate 13 14 14 Respiratory Effort / Characteristics Respiratory Depth Respiratory Pattern Blood Pressure Blood Pressure [Right Arm] Blood Pressure Mean Blood Pressure Mean [Right Arm] Blood Pressure Position Pulse Oximetry 98 98 98 Oxygen Delivery Method Sepsis Recent Fever Within 48 Hours Sepsis New/Unexplained Change in Mental Status Sepsis Action Taken by Nursing 09/17/23 12:29 09/17/23 12:31 09/17/23 12:31 Temperature Temperature Source Pulse Rate 66 Pulse Rate [Apical] Pulse Rate from SpO2 Sensor Pulse Rhythm Pulse Rhythm [Apical] Pulse Strength [Apical] Respiratory Rate Respiratory Effort / Characteristics Respiratory Depth Respiratory Pattern Blood Pressure 137/81 137/81 Blood Pressure [Right Arm] Blood Pressure Mean 97 97 Blood Pressure Mean [Right Arm] Blood Pressure Position Pulse Oximetry Oxygen Delivery Method Sepsis Recent Fever Within 48 Hours Sepsis New/Unexplained Change in Mental Status Sepsis Action Taken by Nursing 09/17/23 12:48 09/17/23 12:54 09/17/23 13:08 Temperature Temperature Source Pulse Rate 67 67 Pulse Rate [Apical] 67 Pulse Rate from SpO2 Sensor Pulse Rhythm Pulse Rhythm [Apical] Pulse Strength [Apical] Respiratory Rate 16 13 20 Respiratory Effort / Characteristics Non-Labored Spontaneous Respiratory Depth Normal Respiratory Pattern Regular Blood Pressure Blood Pressure [Right Arm] Blood Pressure Mean Blood Pressure Mean [Right Arm] Blood Pressure Position Pulse Oximetry 94 Oxygen Delivery Method Room Air Sepsis Recent Fever Within 48 Hours Sepsis New/Unexplained Change in Mental Status Sepsis Action Taken by Nursing General: Well developed well nourished middle-age female who appears in no acute distress, breathing comfortably on room air. Normal speech HEENT: Normal cephalic atraumatic. Pupils are equal round and reactive to light. Extraocular movements are intact. Oropharynx is pink with moist mucous membranes. No swelling of the mouth lips or tongue. Neck: Supple with a midline trachea. No meningeal signs or stiffness, no JVD or bruits. No Stridor. Chest: Clear to auscultation bilaterally. No wheezes or rhonchi. No increased work of breathing. She is somewhat tender palpation left anterior sternal border Heart: Regular rate and rhythm without murmurs or gallops. Abdomen: Soft nontender, nondistended without rebound guarding or rigidity. Extremities: No cyanosis clubbing or edema. No calf tenderness or assymetry Spine/Back. Non tender to palpation. No CVA tenderness Skin: Good turgor without rashes. Neurologic exam: Cranial nerves two through 12 are intact. Motor and sensation are intact and symmetrical throughout. Course Administered Medications Sodium Chloride (Nss) 1,000 mls @ 999 mls/hr IV .Q1H1M ONE Stop: 09/17/23 14:12 Last Admin: 09/17/23 13:19 Dose: 999 mls/hr Documented By: BRANDI Discontinued Medications Ioversol (Optiray 320 125ml) 112 ml IV ONCE ONE Stop: 09/17/23 12:43 Last Admin: 09/17/23 12:42 Dose: 112 ml Documented By: DIANA Ketorolac Tromethamine (Ketorolac Tromethamine 15 Mg/Ml Vial) 10 mg IV NOW ONE Stop: 09/17/23 11:25 Last Admin: 09/17/23 11:27 Dose: 10 mg Documented By: BRANDI Medical Decision Making Differential Diagnosis Acute coronary syndrome, arrhythmia, costochondritis, GI, musculoskeletal, pulmonary disease, pancreatitis, pneumothorax, PE, aortic pathology, infection Medical Records Attestation: I reviewed the patient's medical records. Home Medications Current Medication List: was personally reviewed by me Laboratory Data Attestation: I reviewed the patient's lab results. 09/17/23 11:24 09/17/23 11:24 Lab Results 09/17/23 Range/Units 11:24 WBC 8.52 (4.8-10.8) K/ul RBC 3.64 L (4.20-5.40) M/uL Hgb 12.6 (12.0-16.0) g/dl Hct 37.7 (37.0-47.0) % MCV 103.6 H (80.0-100.0) fL MCH 34.6 H (25.0-34.0) pg MCHC 33.4 (32.0-36.0) g/dL RDW Std Deviation 47.0 H (36.4-46.3) fL RDW Coeff of Brielle 12.3 (11.5-14.5) % Plt Count 432 H (130-400) K/uL MPV 9.3 L (9.4-12.4) fL Immature Gran % (Auto) 0.1 % Neut % (Auto) 63.5 % Lymph % (Auto) 23.8 % Wilkes % (Auto) 6.2 % Eos % (Auto) 5.5 % Baso % (Auto) 0.9 % Neut # (Auto) 5.40 (1.40-6.50) K/uL Lymph # (Auto) 2.03 (1.20-3.40) K/uL Wilkes # (Auto) 0.53 (0.11-0.59) K/uL Eos # (Auto) 0.47 (0.00-0.50) K/uL Baso # (Auto) 0.08 (0.00-0.20) K/uL Immature Gran # (Auto) 0.01 (0.01-0.20) K/uL D-Dimer 3780 H* (0-500) ug/L FEU Sodium 138 (136-145) mmol/L Potassium 4.3 (3.5-5.1) mmol/L Chloride 103 (98-107) mmol/L Carbon Dioxide 29 (21-32) mmol/L Anion Gap 6 (3-11) BUN 3 L (6-23) mg/dl Creatinine 0.56 L (0.6-1.2) mg/dl Est Cr Clr Drug Dosing 138.9 ml/min Est GFR ( Amer) 129.6 ml/min Est GFR (Non-Af Amer) 111.8 ml/min BUN/Creatinine Ratio 5.4 L (10-20) Glucose 100 H (70-99(Fasting)) mg/dl Calcium 9.2 (8.6-10.3) mg/dl Total Bilirubin 0.7 (0.2-1.0) mg/dl AST 64 H (13-39) U/L ALT 28 (7-52) U/L Alkaline Phosphatase 203 H (34-104) U/L Troponin I High Sens < 2.3 (0-14) pg/ml Total Protein 6.4 (6.0-8.3) gm/dl Albumin 3.5 (3.4-5.0) gm/dl Globulin 2.9 (2.5-4.0) gm/dl Albumin/Globulin Ratio 1.2 (0.9-2) Lipase 171 H (11-82) U/L HCG, Qual Negative (Negative) Imaging Data Attestation: I personally reviewed and interpreted this imaging study as follows: My Impression: Chest x-rayno acute infiltrate, failure, pneumothorax seen Radiologist's Impression: Chest X-Ray 09/17/23 11:24 XR chest 1V portable CLINICAL HISTORY: Chest pain, nonspecific TECHNIQUE: Single frontal radiograph of the chest was obtained. Comparison: Comparison is made to chest radiograph 09/14/2020 FINDINGS: No lines and tubes are seen. The cardiomediastinal silhouette is normal. The lungs are clear. No evidence of pleural effusion or pneumothorax. IMPRESSION: No acute chest disease. ACT 112: Negative or not required by law. Electronically signed by: Sunil Krueger M.D. 09/17/2023 12:22 PM Abdomen/Pelvis CT 09/17/23 12:26 CT abd pelvis IV con only CLINICAL HISTORY: eval for pancreatitis TECHNIQUE: Helical axial images of the abdomen and pelvis were obtained and displayed. Automated dose lowering techniques and/or adjustment according to patient size were utilized for this exam. This exam was performed with intravenous contrast. COMPARISON: Comparison is made to CT abdomen pelvis 04/14/2023 FINDINGS: Lower chest: No acute abnormality. Liver: Hepatic steatosis is noted. Gallbladder and biliary tree: No calcified gallstones. Normal caliber wall. No intra- or extrahepatic biliary ductal dilation. Pancreas: There is swelling and edema and cystic components predominantly in the head of the pancreas. Peripancreatic fat stranding is seen. Spleen: Unremarkable. Adrenals: Unremarkable. Kidneys and ureters: Unremarkable. Bladder: Unremarkable. Reproductive organs: Unremarkable. Bowel: Postsurgical changes of gastric bypass surgery seen. There is a small hiatal hernia. The appendix is unremarkable. Lymph nodes Retroperitoneal: Unremarkable. Pelvic: Unremarkable. Mesenteric: Unremarkable. Peritoneum: Peripancreatic fat stranding is seen. Free fluid is seen in the pelvis. There is a fluid collection in the upper abdomen measuring 67 x 48 mm. Vessels: Unremarkable. Abdominal wall: Unremarkable. Bones: Unremarkable. IMPRESSION: Findings are compatible with acute pancreatitis with acute fluid collections within the pancreatic head. No definite evidence of pancreatic necrosis. ACT 112: Negative or not required by law. Electronically signed by: Sunil Krueger M.D. 09/17/2023 12:56 PM Chest CTA 09/17/23 12:26 CT angio chest PE protocol CT DOSE: 2078.45 mGy.cm HISTORY: 48 years-old Female with PE. Acute shortness of breath with chest and abdominal pain TECHNIQUE: Multiple CTA images of the chest were obtained after the intravenous administration of 112 ml Optiray. Coronal and sagittal MIPS were obtained from the axial data set and were submitted for review. All measurements were obtained according to NASCET criteria. A dose lowering technique was utilized adhering to the principles of ALARA. COMPARISON: CT abdomen and pelvis of same day and also to 2523 FINDINGS: CTA: The heart is normal in size. There is no pericardial effusion identified. No thoracic aortic aneurysm or dissection. Mild coronary artery calcifications. No pulmonary emboli identified, however the subsegmental branches are not well opacified and therefore cannot be evaluated. CT CHEST: Left-sided thyroid nodules including a peripherally calcified 1.4 cm nodule. There is no lymphadenopathy identified. Trace pleural effusions. No pneumothorax. Mild nonspecific bronchial wall thickening with subsegmental areas of bibasilar atelectasis. No suspicious pulmonary nodules or masses. Partially imaged edema and ascites within the lesser sac with atrophic pancreas demonstrating acute pancreatitis. Gastric bypass. Fluid collections within the upper abdomen including 6.3 x 4.7 cm collection on image 13 series 2 suggestive of an acute peripancreatic fluid collection. Hepatomegaly with hepatic steatosis. Unremarkable soft tissues. No acute fracture. IMPRESSION: 1. No pulmonary emboli identified. 2. Trace pleural effusions without evidence of pneumonia. 3. Please refer to the same day CT abdomen and pelvis study for discussion of the acute pancreatitis with associated fluid collections. 4. Hepatic steatosis. ACT 112: Negative or not required by law. The above report was generated using voice recognition software. It may contain grammatical, syntax or spelling errors. Electronically signed by: Colten Eldridge M.D. 09/17/2023 1:21 PM ECG Data Attestation: I personally reviewed and interpreted this ECG as follows: Indication: + chest pain Rate (beats per minute): 63 Rhythm: + normal sinus ECG Intervals/blocks: + Normal QRS, + Normal QT and + Normal OR ECG [place]: + Normal ECG ST segments: + Normal ST segments ECG Findings: no PACs or no PVCs Comparison ECG Date: from (04/14/2023) Change: no significant change MDM Narrative This patient comes in as scribed above she has been having chest pain for several hours now. It is reproducible with breathing laughing and position. She had initially been seen in urgent care and I reviewed their note in the computer. She apparently had normal EKG there. I repeated EKG here was normal she was placed on a monitor car operator room A9. She was given Toradol 10 mg IV and a full workup was done including chest x-ray cardiac monitoring EKG and multiple blood testing. She was reassessed frequently. Chest x-ray was unremarkable. EKG shows no ischemic changes troponin is negative. She is noticing of electrolyte or metabolic abnormalities. Lipase is elevated she does have a history of pancreatitis. she does admit to drinking alcohol . she tells me she does not have any symptoms of withdrawal ever. Her D-dimer was elevated and in light of this , I did do CT angiography and with her pancreas enzymes being elevated also scan her abdomen. She has no evidence of PE or any other acute pulmonary process but she does have pancreatitis with a fair amount of fluid. There is no gallstones or ductal dilatation. Looking back through her chart , it is thought in the past to be related to alcohol. I do think she needs to be admitted she was given IV fluid boluses. I have consulted and discussed case at length with the [facility] team and she will be admitted/observed for further inpatient treatment and evaluation. Continuous cardiac monitoring: Orders placed in EMR for continuous monitor car operator: Upon my evaluation patient noted to be in normal sinus with a rate of 65 Impression & Plan Acute pancreatitis, Chest pain, Elevated d-dimer, Epigastric abdominal pain Discharge Plan Visit Data Chief Complaint: Chest Pain Stated Complaint: CHEST PAINS, SWOLLEN ANKLES, BACK PAIN ED Provider: Kristopher Bell Discharge Problem: Acute pancreatitis, Chest pain, Elevated d-dimer, Epigastric abdominal pain Forms Stand Alone Forms: My [facility] Prescriptions Prescriptions: No Action levetiracetam 500 mg tablet 500 mg PO BID Qty: 60 3RF lisinopril 10 mg tablet 10 mg PO QAM escitalopram oxalate 20 mg tablet 10 mg PO QAM propranolol 120 mg capsule,extended release 24 hr 120 mg PO BID Qty: 60 5RF Rx Instructions: 120 mg orally TWICE A DAY; hydrocortisone [Anusol-HC] 2.5 % cream with perineal applicator 1 applic OR BID PRN (Reason: hemorrhoids) cyanocobalamin (vitamin B-12) 1,000 mcg/mL solution 1,000 mcg subcut Q14D zolpidem 10 mg tablet 10 mg PO HS PRN (Reason: Sleep) lamotrigine 100 mg tablet 100 mg PO DAILY Referrals Referrals: Moira Yancey, [Primary Care Provider] - Discharge Problem: Acute pancreatitis Qualifiers: Pancreatitis type: alcohol induced Acute pancreatitis complication: unspecified Qualified Code(s): K85.20 - Alcohol induced acute pancreatitis without necrosis or infection Chest pain Qualifiers: Chest pain type: precordial pain Qualified Code(s): R07.2 - Precordial pain
[2023-09-17 11:40] LABS: Basophils # (auto) 0.08 K/uL (0.00-0.20); Basophils % (auto) 0.9 %; Eosinophils # (auto) 0.47 K/uL (0.00-0.50); Eosinophils % (auto) 5.5 %; Hematocrit (blood only) 37.7 % (37.0-47.0); Hemoglobin 12.6 g/dl (12.0-16.0); Immature Granulocytes # (auto) 0.01 K/uL (0.01-0.20); Immature Granulocytes % (auto) 0.1 %; Lymphocytes # (auto) 2.03 K/uL (1.20-3.40); Lymphocytes % (auto) 23.8 %; Mean Corpuscular Hemoglobin 34.6 pg (25.0-34.0); Mean Corpuscular Hgb Conc 33.4 g/dL (32.0-36.0); Mean Corpuscular Volume 103.6 fL (80.0-100.0); Mean Platelet Volume 9.3 fL (9.4-12.4); Monocytes # (auto) 0.53 K/uL (0.11-0.59); Monocytes % (auto) 6.2 %; Neutrophils % (auto) 63.5 %; Platelet Count 432 K/uL (130-400); RDW Coefficient of Variation 12.3 % (11.5-14.5); Red Blood Count 3.64 M/uL (4.20-5.40); White Blood Count 8.52 K/ul (4.8-10.8)
[2023-09-17 11:50] LABS: Pregnancy Test, Serum Negative (Negative)
[2023-09-17 11:56] LABS: Alanine Aminotransferase 28 U/L (7-52); Albumin Globulin Ratio 1.2 (0.9-2); Albumin Level 3.5 gm/dl (3.4-5.0); Alkaline Phosphatase 203 U/L (34-104); Anion Gap 6 (3-11); Aspartate Aminotransferase 64 U/L (13-39); BUN Creatinine Ratio 5.4 (10-20); Bilirubin,Total 0.7 mg/dl (0.2-1.0); Blood Urea Nitrogen 3 mg/dl (6-23); Calcium 9.2 mg/dl (8.6-10.3); Carbon Dioxide 29 mmol/L (21-32); Chloride 103 mmol/L (98-107); Creatinine Clr Calc Pharmacy 138.9 ml/min; Est GFR (African American) 129.6 ml/min; Est GFR (Non-African American) 111.8 ml/min; Globulin 2.9 gm/dl (2.5-4.0); Glucose 100 mg/dl (70-99(Fasting)); Lipase 171 U/L (11-82); Potassium 4.3 mmol/L (3.5-5.1); Sodium 138 mmol/L (136-145); Total Protein 6.4 gm/dl (6.0-8.3)
[2023-09-17 12:02] LABS: Troponin I High Sensitivity < 2.3 pg/ml (0-14)
[2023-09-17 12:16] LABS: D Dimer 3780 ug/L FEU (0-500)
--- NOTE | 2023-09-17 12:23 | XRay Report ---
XR chest 1V portable CLINICAL HISTORY: Chest pain, nonspecific TECHNIQUE: Single frontal radiograph of the chest was obtained. Comparison: Comparison is made to chest radiograph 09/14/2020 FINDINGS: No lines and tubes are seen. The cardiomediastinal silhouette is normal. The lungs are clear. No evid ence of pleural effusion or pneumothorax. IMPRESSION: No acute chest disease. ACT 112: Negative or not required by law. Electronically signed by: Sunil Krueger M.D. 09/17/2023 12:22 PM
[2023-09-17] MEDS: OPTIRAY 320 125ml IV ONE (12:42)
--- NOTE | 2023-09-17 12:58 | CT Scan Report ---
CT abd pelvis IV con only CLINICAL HISTORY: eval for pancreatitis TECHNIQUE: Helical axial images of the abdomen and pelvis were obtained and displayed. Automated dose lowering techniques and/or adjustment according to patient size were utilized for this exam. This e xam was performed with intravenous contrast. COMPARISON: Comparison is made to CT abdomen pelvis 04/14/2023 FINDINGS: Lower chest: No acute abnormality. Liver: Hepatic steatosis is noted. Gallbladder and biliary tree: No calcified gallstones. Normal caliber wall. No intra- or extrahepatic biliary ductal dilation. Pancreas: There is swelling and edema and cystic components predominantly in the head of the pancreas . Peripancreatic fat stranding is seen. Spleen: Unremarkable. Adrenals: Unremarkable. Kidneys and ureters: Unremarkable. Bladder: Unremarkable. Reproductive organs: Unremarkable. Bowel: Postsurgical changes of gastric bypass surgery seen. There is a small hiatal hernia. The appen johnny is unremarkable. Lymph nodes Retroperitoneal: Unremarkable. Pelvic: Unremarkable. Mesenteric: Unremarkable. Peritoneum: Peripancreatic fat stranding is seen. Free fluid is seen in the pelvis. There is a fluid collection in the upper abdomen measuring 67 x 48 mm. Vessels: Unremarkable. Abdominal wall: Unremarkable. Bones: Unremarkable. IMPRESSION: Findings are compatible with acute pancreatitis with acute fluid collections within the pancreatic he ad. No definite evidence of pancreatic necrosis. ACT 112: Negative or not required by law. Electronically signed by: Sunil Krueger M.D. 09/17/2023 12:56 PM
[2023-09-17] MEDS: SODIUM CHLORIDE 0.9% 1,000 ML IV ONE (13:19)
--- NOTE | 2023-09-17 13:22 | CT Scan Report ---
CT angio chest PE protocol CT DOSE: 2078.45 mGy.cm HISTORY: 48 years-old Female with PE. Acute shortness of breath with chest and abdominal pain TECHNIQUE: Multiple CTA images of the chest were obtained after the intravenous administration of 112 ml Optiray. Coronal and sagittal MIPS were obtained from the axial data set and were submitted for review. All measurements were obtained according to NASCET criteria. A dose lowering technique was u tilized adhering to the principles of ALARA. COMPARISON: CT abdomen and pelvis of same day and also to 2523 FINDINGS: CTA: The heart is normal in size. There is no pericardial effusion identified. No thoracic aortic aneurysm or dissection. Mild coronary artery calcifications. No pulmonary emboli identified, however the subs egmental branches are not well opacified and therefore cannot be evaluated. CT CHEST: Left-sided thyroid nodules including a peripherally calcified 1.4 cm nodule. There is no lymphadenopa thy identified. Trace pleural effusions. No pneumothorax. Mild nonspecific bronchial wall thickening with subsegmental areas of bibasilar atelectasis. No suspicious pulmonary nodules or masses. Partially imaged edema and ascites within the lesser sac with atrophic pancreas demonstrating acute p ancreatitis. Gastric bypass. Fluid collections within the upper abdomen including 6.3 x 4.7 cm collec tion on image 13 series 2 suggestive of an acute peripancreatic fluid collection. Hepatomegaly with h epatic steatosis. Unremarkable soft tissues. No acute fracture. IMPRESSION: 1. No pulmonary emboli identified. 2. Trace pleural effusions without evidence of pneumonia. 3. Please refer to the same day CT abdomen and pelvis study for discussion of the acute pancreatitis with associated fluid collections. 4. Hepatic steatosis. ACT 112: Negative or not required by law. The above report was generated using voice recognition software. It may contain grammatical, syntax o r spelling errors. Electronically signed by: Colten Eldridge M.D. 09/17/2023 1:21 PM
--- NOTE | 2023-09-17 13:27 | History & Physical Report ---
Date of Service September 17, 2023 Assessment & Plan (1) Acute pancreatitis: Plan: Worsening substernal chest pain with radiation to the right shoulder x 2 days prior to arrival Hx of acute pancreatitis Troponin WNL on arrival and EKG without changes A/P CT revealed acute pancreatitis; no gallstones noted Lipase mildly elevated at 171 Elevated AST and alk phos Triglyceride levels WNL Strict n.p.o. except for medications for now, and advance to clear liquid, then low-fat diet as tolerated IVF with LR at 150 mL/hr x 4 L Acetaminophen as needed for pain 13 Dilaudid IV q4h as needed for breakthrough pain A.m. CBC, CMP, mag (2) Pleuritic chest pain: Plan: Patient also endorses pleuritic CP; no hemoptysis No leukocytosis; afebrile D-dimer elevated at 3780 Chest CTA without pulmonary emboli Given pleuritic CP will add on viral screen for COVID, flu, and RSV (3) Esophagitis: Plan: Suspect patient's substernal pain is secondary to esophagitis secondary to alcohol use Protonix 40 mg IV QAM while inpatient (4) Alcohol use: Plan: Patient endorses drinking wine daily (2-3 drinks); last drink the evening of 09/15 Medical alcohol level ordered, pending AWSS at risk protocol with Ativan as needed Daily thiamine and folate supplementation (5) Seizure-like activity: Plan: Hx of seizures with the last being in December 2021 Continue Keppra daily Keppra level ordered, pending (6) Essential tremor: Plan: Continue propranolol (7) Elevated d-dimer: Plan Disposition: Obs - Admit to [facility] Telemetry Full code Keep n.p.o. for now then advance to clear liquid diet in 24-48h as tolerated VTE PPx: Lovenox 40 mg SQ q24h History of Present Illness Chief Complaint: Acute pancreatitis, epigastric pain Primary Care Provider: DO Emily Red is a 48-year-old female with PMH of seizure-like activity, essential tremor, HTN, anxiety, pancreatitis, alcohol dependence, abnormal uterine bleeding, cellulitis, and idiopathic polyneuropathy. She presented for worsening, sharp midsternal chest pain that radiates to her right scapula and neck x 2 days. Patient reports that the pain is constant, but that she has intermittent stabbing pain when she moves certain ways or takes deep breaths in. She has been taking ibuprofen at home for the pain; she reports this helps; she has been taking 2 to 4 tablets daily. Patient reports that the pain is located substernally and not epigastric. Radiates to the upper back; patient describes this as T3 up to her cervical spine. She rates the pain as 6/10 at present after receiving pain medicine in the ED; 8/10 at worst when stabbing occurs. Laying flat makes the pain worse. She is tolerating solids and liquids, but this exacerbates the pain. She denies any recent change in diet. Patient does have a history of pancreatitis, with the last occurrence being 1 year ago; she is unsure what caused this, but was told that it was believed secondary to her alcohol use. When she spoke to her neurologist later, she believes it may have been secondary to seizure medications. She has a history of kidney stones, but is unsure if she has a history of gallbladder issues. When she had bariatric surgery, she was post to have her gallbladder removed, but she was told it was too "infected" to be taken out. Patient denies any recent falls, injuries, or trauma to the neck, head, chest wall, back, or abdomen. No recent seizures (last seizure was on the Saturday after in 2021). Patient did not take her regular morning medications today; no recent change in medications. Last took Keppra last night. Patient reports she drinks wine daily; with the last drink yesterday afternoon; she reports she drinks "a couple" glasses of wine daily. She denies history of alcohol withdrawal seizures or DTs. No history of DVT/PE. Patient does not use supplemental oxygen at baseline. Patient denies smoking, tobacco use, or recreational drug use. No recent change in diet. She reports that she developed a hoarse [place] the beach [place]; not difficulty swallowing or throat pain; she is unsure if she was around any sick contacts. Patient vitals are stable at time of admission; SpO2 94% on RA. Patient's vitals are stable at time of admission ED course: Toradol 10mg IV NSS 1000mL ROS: Patient endorses substernal chest pain with radiation to middle back and right shoulder, SOB at rest and with exertion, pleuritic CP, nausea, dry heaving, diarrhea (ongoing), essential tremor in fingers and neuropathy in feet. Patient denies fever, chills, night-sweats, dizziness/lightheadedness, headache, cough, hemoptysis, vomiting, changes in urinary/bowel habits, and blood in urine/bowel. Allergies Allergy/AdvReac Type Severity Reaction Status Date / Time No Known Allergies Allergy Verified 09/17/23 10:30 Home Medications Medication Instructions Recorded Confirmed Type lisinopril 10 mg tablet 10 mg PO QAM 06/29/20 09/17/23 History propranolol 120 mg capsule,24 120 mg PO BID #60 caps 03/05/23 09/17/23 Rx hr,extended release levetiracetam 500 mg tablet 500 mg PO BID #60 tabs 04/18/23 09/17/23 Rx escitalopram oxalate 20 mg tablet 10 mg PO QAM 07/22/23 09/17/23 History cyanocobalamin (vitamin B-12) 1,000 mcg subcut Q14D 09/17/23 09/17/23 History 1,000 mcg/mL injection solution hydrocortisone 2.5 % topical cream 1 applic MS BID PRN hemorrhoids 09/17/23 09/17/23 History with perineal applicator (Anusol-HC) lamotrigine 100 mg tablet 100 mg PO BID 09/17/23 09/18/23 History zolpidem 10 mg tablet 10 mg PO HS PRN Sleep 09/17/23 09/17/23 History Past Med/Surg History Problem List (Updated 09/17/23 @ 14:30 by Cuauhtemoc Martinez PA-C) Pleuritic chest pain Esophagitis Epigastric abdominal pain (Acute) Elevated d-dimer (Acute) Acute pancreatitis (Acute) Chest pain (Acute) Idiopathic polyneuropathy Alcohol use Encounter for pre-operative examination Chronic diarrhea Rectal bleeding Polyp of gallbladder Abdominal pain, vomiting, and diarrhea (Acute) Cellulitis Abnormal uterine bleeding (AUB) Alcohol dependence (Acute) Elevated blood pressure affecting , antepartum Chronic hypertension affecting delivery delivered (Acute) Oligohydramnios (Acute) Breech presentation (Acute) Acute pancreatitis (Acute) Vitamin B12 deficiency Hypertension Anxiety Essential tremor reason for propranolol Seizure-like activity f/u dr. crenshaw Missed (Acute) hx Medical History Rectal bleeding Hx of pancreatitis Chronic diarrhea Classic migraine with aura History of nephrolithiasis Chronic mixed headache syndrome Surgical History History of esophagogastroduodenoscopy (EGD) History of x1 History of gynecologic surgery D&E-surgically induced H/O lithotripsy Status post surgery laryngeal surgery- stripping of vocal cords>pt denies History of Mitzi-en-Y gastric bypass 2006 Family History Uncle Bladder cancer maternal uncle Sister Brain tumor Grandfather (Paternal) Colorectal cancer Aunt Lung cancer paternal aunt Father Essential tremor Mother Hypertension Denies family history of Ovarian cancer Breast cancer Social History Smoking Status: Never smoker Second Hand Exposure: No; Do You Dip or Chew Tobacco: No; Tobacco Cessation Education Requested by Patient: No Hx Alcohol Use: Yes Alcohol type: wine Alcohol Intake Frequency Comment: 2-3 drinks, 5-7 days per week Hx Substance Use: No Preferred Language: Yoruba Communication Ability: Effective Personnel Quality Assurance Auditor Required: No Beliefs That Will Affect Care: None marital status: Current Living Situation: Spouse and Family 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 Other Information That Helps Us Care for You: No Feels Safe at Home: Yes Safety Concerns: Feels Safe At This Time Assistive Devices: None Review of Systems Review of Systems: See HPI above Physical Exam Physical Exam: General: no acute distress; non-toxic appearing; cooperative HEENT: normocephalic, atraumatic; no scleral icterus; PERRLA; vision and hearing grossly intact Neck: supple; no lymphadenopathy; trachea midline Skin: warm, dry without signs of tenting; no cyanosis; no rashes, bruising, lesions, or erythema noted CV: chest wall is mildly TTP mid sternum RRR; S1/S2 normal; no murmurs/rubs/gallops; pulses intact and symmetric at radial, DP, and PT Lungs: no acute respiratory distress; symmetrical chest wall expansion; clear breath sounds across all lung new w/o adventitious sounds; no wheezing ABD: Soft, NTP; negative Sawyer sign; BS present; no rebound/guarding; no distention Back: Right shoulder and scapula are TTP; negative CVA tenderness MSK: no tics or fasciculations; no edema noted in the LEs b/l, nonerythematous Neuro: A&Ox3; normal mood and affect; fluent speech; no focal deficits; sensation grossly intact in the LEs b/l Results & Data Results & Data Vital Signs (Past 12 Hours) Vital Signs Temp Pulse Pulse Resp BP BP Pulse Ox 09/17/23 13:08 67 20 94 09/17/23 12:54 67 13 09/17/23 12:48 67 16 09/17/23 12:31 137/81 09/17/23 12:31 137/81 09/17/23 12:29 66 09/17/23 12:27 65 14 98 09/17/23 12:21 64 14 98 09/17/23 12:15 64 13 98 09/17/23 12:06 61 14 97 09/17/23 11:54 65 17 09/17/23 11:42 65 19 96 09/17/23 11:37 63 18 97 09/17/23 11:35 65 20 139/94 97 09/17/23 11:35 97 09/17/23 11:30 67 19 99 09/17/23 11:30 139/94 09/17/23 11:30 139/94 09/17/23 11:26 132/109 H 09/17/23 11:24 169/132 H 09/17/23 11:14 36.5 C 65 18 135/74 98 O2 Del Method 09/17/23 13:08 Room Air 09/17/23 12:54 09/17/23 12:48 09/17/23 12:31 09/17/23 12:31 09/17/23 12:29 09/17/23 12:27 09/17/23 12:21 09/17/23 12:15 09/17/23 12:06 09/17/23 11:54 09/17/23 11:42 09/17/23 11:37 Room Air 09/17/23 11:35 Room Air 09/17/23 11:35 Room Air 09/17/23 11:30 09/17/23 11:30 09/17/23 11:30 09/17/23 11:26 09/17/23 11:24 09/17/23 11:14 Room Air Laboratory Results Abnormal lab results 09/17/23 Range/Units 11:24 RBC 3.64 L (4.20-5.40) M/uL MCV 103.6 H (80.0-100.0) fL MCH 34.6 H (25.0-34.0) pg RDW Std Deviation 47.0 H (36.4-46.3) fL Plt Count 432 H (130-400) K/uL MPV 9.3 L (9.4-12.4) fL D-Dimer 3780 H* (0-500) ug/L FEU BUN 3 L (6-23) mg/dl Creatinine 0.56 L (0.6-1.2) mg/dl BUN/Creatinine Ratio 5.4 L (10-20) Glucose 100 H (70-99(Fasting)) mg/dl AST 64 H (13-39) U/L Alkaline Phosphatase 203 H (34-104) U/L Lipase 171 H (11-82) U/L Diagnostic Findings Chest X-Ray 09/17/23 11:24 XR chest 1V portable CLINICAL HISTORY: Chest pain, nonspecific TECHNIQUE: Single frontal radiograph of the chest was obtained. Comparison: Comparison is made to chest radiograph 09/14/2020 FINDINGS: No lines and tubes are seen. The cardiomediastinal silhouette is normal. The lungs are clear. No evidence of pleural effusion or pneumothorax. IMPRESSION: No acute chest disease. ACT 112: Negative or not required by law. Electronically signed by: Sunil Krueger M.D. 09/17/2023 12:22 PM Abdomen/Pelvis CT 09/17/23 12:26 CT abd pelvis IV con only CLINICAL HISTORY: eval for pancreatitis TECHNIQUE: Helical axial images of the abdomen and pelvis were obtained and displayed. Automated dose lowering techniques and/or adjustment according to patient size were utilized for this exam. This exam was performed with intravenous contrast. COMPARISON: Comparison is made to CT abdomen pelvis 04/14/2023 FINDINGS: Lower chest: No acute abnormality. Liver: Hepatic steatosis is noted. Gallbladder and biliary tree: No calcified gallstones. Normal caliber wall. No intra- or extrahepatic biliary ductal dilation. Pancreas: There is swelling and edema and cystic components predominantly in the head of the pancreas. Peripancreatic fat stranding is seen. Spleen: Unremarkable. Adrenals: Unremarkable. Kidneys and ureters: Unremarkable. Bladder: Unremarkable. Reproductive organs: Unremarkable. Bowel: Postsurgical changes of gastric bypass surgery seen. There is a small hiatal hernia. The appendix is unremarkable. Lymph nodes Retroperitoneal: Unremarkable. Pelvic: Unremarkable. Mesenteric: Unremarkable. Peritoneum: Peripancreatic fat stranding is seen. Free fluid is seen in the pelvis. There is a fluid collection in the upper abdomen measuring 67 x 48 mm. Vessels: Unremarkable. Abdominal wall: Unremarkable. Bones: Unremarkable. IMPRESSION: Findings are compatible with acute pancreatitis with acute fluid collections within the pancreatic head. No definite evidence of pancreatic necrosis. ACT 112: Negative or not required by law. Electronically signed by: Sunil Krueger M.D. 09/17/2023 12:56 PM Chest CTA 09/17/23 12:26 CT angio chest PE protocol CT DOSE: 2078.45 mGy.cm HISTORY: 48 years-old Female with PE. Acute shortness of breath with chest and abdominal pain TECHNIQUE: Multiple CTA images of the chest were obtained after the intravenous administration of 112 ml Optiray. Coronal and sagittal MIPS were obtained from the axial data set and were submitted for review. All measurements were obtained according to NASCET criteria. A dose lowering technique was utilized adhering to the principles of ALARA. COMPARISON: CT abdomen and pelvis of same day and also to 2523 FINDINGS: CTA: The heart is normal in size. There is no pericardial effusion identified. No thoracic aortic aneurysm or dissection. Mild coronary artery calcifications. No pulmonary emboli identified, however the subsegmental branches are not well opacified and therefore cannot be evaluated. CT CHEST: Left-sided thyroid nodules including a peripherally calcified 1.4 cm nodule. There is no lymphadenopathy identified. Trace pleural effusions. No pneumothorax. Mild nonspecific bronchial wall thickening with subsegmental areas of bibasilar atelectasis. No suspicious pulmonary nodules or masses. Partially imaged edema and ascites within the lesser sac with atrophic pancreas demonstrating acute pancreatitis. Gastric bypass. Fluid collections within the upper abdomen including 6.3 x 4.7 cm collection on image 13 series 2 suggestive of an acute peripancreatic fluid collection. Hepatomegaly with hepatic steatosis. Unremarkable soft tissues. No acute fracture. IMPRESSION: 1. No pulmonary emboli identified. 2. Trace pleural effusions without evidence of pneumonia. 3. Please refer to the same day CT abdomen and pelvis study for discussion of the acute pancreatitis with associated fluid collections. 4. Hepatic steatosis. ACT 112: Negative or not required by law. The above report was generated using voice recognition software. It may contain grammatical, syntax or spelling errors. Electronically signed by: Colten Eldridge M.D. 09/17/2023 1:21 PM ECG Additional Comments: EKG on arrival revealed NSR at 63 bpm; QTc 397 Code Status & VTE Plan Code Status Full code VTE Prophylaxis Plan VTE Prophylaxis will be ordered: Yes Supervising Physician Co-Signing Physician Notes I personally saw and examined the patient. I independently reviewed the labs, EKG, imaging, problem list, medication list, past medical history and family history. I verified all monroy points and agree with Cuauhtemoc Martinez PA-C with the following exceptions and/or additions: 48 year old female with prior history of pancreatitis and gastric bypass presents to the ER with O/E HS RRR, no murmurs, Chest CTAB, mild epigastric pain on palpation, no CVA tenderness A/P Acute pancreatitis - suspected based on imaging findings and epigastric pain, Increase LR rate to 200ml/hr but can decrease amount to 2L. Chest pain - possible esophagitis, start pantoprazole PG Care Time/CCT Total # of Minutes Spent Total Time Spent with Patient: Total time spent is greater than 50% in coordination of care (as documented) at patient's floor/unit and/or counseling patient: Coding [place] [address] INT INP/OBS CARE 3/75MIN Patient Type Established Medical Decision Making High Complexity Diagnoses Acute pancreatitis K85.20 Acute pancreatitis complication: unspecified Pancreatitis type: alcohol induced Pleuritic chest pain R07.81 Esophagitis K20.90 Alcohol use Z78.9 Seizure-like activity R56.9 Essential tremor G25.0 Elevated d-dimer R79.89 (1) Acute pancreatitis Acute pancreatitis complication: unspecified Pancreatitis type: alcohol in duced Qualified Code(s): K85.20 - Alcohol induced acute pancreatitis without necrosis or infection
[2023-09-17] MEDS ORDERED: LORazepam 1 MG in SYRINGE 0.5 ML IV PRN (14:08)
[2023-09-17 14:39] LABS: Magnesium 1.6 mg/dl (1.7-2.4); Triglycerides 72 mg/dl (0-150)
[2023-09-17] MEDS: LACTATED RINGER'S 1,000 ML IV SCH (14:39)
[2023-09-17] MEDS: PANTOprazole 40 MG in SYRINGE 0 ML IV ONE (14:39)
[2023-09-17] MEDS: levETIRAcetam 500 MG TAB PO ONE (14:45)
[2023-09-17] MEDS: lamoTRIgine 100 MG TAB PO ONE (14:45)
[2023-09-17 15:13] LABS: Influenza A virus by PCR Negative (Neg); Influenza B virus by PCR Negative (Neg); RSV by PCR Negative (Neg); SARS CoV2 RNA(COVID-19) Ceph NEGATIVE (Negative)
[2023-09-17] MEDS: ONDANSETRON INJ 2 MG/ML 2 ML VIAL IV PRN (15:55)
[2023-09-17] MEDS: HYDROmorphone INJ 0.5 MG/0.5 ML SYR IV PRN (15:55)
[2023-09-17] MEDS: ESCITALOPRAM OXALATE 10 MG TAB PO SCH (17:30)
[2023-09-17] MEDS: MAGNESIUM SULFATE / D5W 1 GM/100 ML BAG IV ONE (19:50)
[2023-09-17] MEDS: MELATONIN 3 MG TAB PO PRN (19:50)
[2023-09-17] MEDS: ENOXAPARIN INJ 40 MG/0.4 ML SYR SQ SCH (19:50)
[2023-09-17] MEDS: HYDROmorphone INJ 1 MG/ML SYRINGE IV PRN (19:50)
[2023-09-17] MEDS: PROPRANOLOL HCL 60 MG LA CAP PO SCH (19:51)
[2023-09-17] MEDS: levETIRAcetam 500 MG TAB PO SCH (19:51)
[2023-09-18 06:46] LABS: Basophils # (auto) 0.05 K/uL (0.00-0.20); Basophils % (auto) 0.9 %; Eosinophils # (auto) 0.33 K/uL (0.00-0.50); Eosinophils % (auto) 5.9 %; Hematocrit (blood only) 30.5 % (37.0-47.0); Hemoglobin 9.9 g/dl (12.0-16.0); Immature Granulocytes # (auto) 0.01 K/uL (0.01-0.20); Immature Granulocytes % (auto) 0.2 %; Lymphocytes # (auto) 1.83 K/uL (1.20-3.40); Lymphocytes % (auto) 32.7 %; Mean Corpuscular Hemoglobin 34.7 pg (25.0-34.0); Mean Corpuscular Hgb Conc 32.5 g/dL (32.0-36.0); Mean Platelet Volume 9.9 fL (9.4-12.4); Monocytes # (auto) 0.43 K/uL (0.11-0.59); Monocytes % (auto) 7.7 %; Neutrophils # (auto) 2.94 K/uL (1.40-6.50); Neutrophils % (auto) 52.6 %; Platelet Count 291 K/uL (130-400); RDW Coefficient of Variation 12.5 % (11.5-14.5); RDW Standard Deviation 49.2 fL (36.4-46.3); Red Blood Count 2.85 M/uL (4.20-5.40); White Blood Count 5.59 K/ul (4.8-10.8)
[2023-09-18 07:26] LABS: Albumin Globulin Ratio 1.2 (0.9-2); Albumin Level 2.5 gm/dl (3.4-5.0); Bilirubin,Total 0.6 mg/dl (0.2-1.0); Creatinine Clr Calc Pharmacy 159.1 ml/min; Est GFR (African American) 134.5 ml/min; Est GFR (Non-African American) 116.1 ml/min; Globulin 2.1 gm/dl (2.5-4.0); Magnesium 1.7 mg/dl (1.7-2.4); Potassium 4.4 mmol/L (3.5-5.1); Total Protein 4.6 gm/dl (6.0-8.3)
[2023-09-18] MEDS: lamoTRIgine 100 MG TAB PO SCH ×2 (07:31→19:40)
[2023-09-18] MEDS: lisinopril 10 MG TAB PO SCH (07:31)
[2023-09-18] MEDS: THIAMINE HCL 100 MG TAB PO SCH (08:31)
[2023-09-18] MEDS: FOLIC ACID 1 MG TAB PO SCH (08:31)
[2023-09-18] MEDS: LACTATED RINGER'S 1,000 ML IV SCH (09:11)
[2023-09-18] MEDS: MAGNESIUM SULFATE / D5W 1 GM/100 ML BAG IV ONE (09:11)
[2023-09-18] MEDS: PANTOprazole 40 MG in SYRINGE 0 ML IV SCH ×2 (10:34→20:29)
[2023-09-18 10:44] LABS: Folate (Folic Acid),Ser orPlas 5.85 ng/ml (>5.38)
--- NOTE | 2023-09-18 13:50 | Gastrointestinal Consultation ---
<Statement entered by Brenda Tijerina MD - 09/18/23 17:24> I have examined the patient, reviewed the History & Physical and in the interval since the performance of the History & Physical I have noted the following changes of clinical significance: no changes noted. I agree with the documentation provided by STEVE Chi with no additional comments. Looks well, feeling better. Advanced to a full liquid diet. Agree with other recommended course and follow up. Date of Consultation September 18, 2023 Assessment & Plan (1) Acute pancreatitis: 48 year old female with history of seizure-like activity, essential tremor, HTN, anxiety, RYGB, pancreatitis x 2, alcohol dependence, abnormal uterine bleeding, cellulitis, and idiopathic polyneuropathy and others below admitted through the ED on 09/17/23 for midsternal chest pain x 2 days, imaging showing acute pancreatitis w/ acute fluid collections of the pancreas head but no report of pancreatic necrosis. She has normal total bilirubin and biliary system appears unremarkable on CT imaging without any apparent biliary dilation. 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 PRN - Analgesia PRN - Encouraged OOB as tolerated and ambulating as permitted - Stressed the importance of complete ETOH cessation moving forward - Given her RYGB anatomy, should be evaluated by a tertiary center as discharge to discuss if she is a candidate for an EUS/EDGE procedure to rule out any other etiology of pancreatitis - Will need repeat ABD imaging in about 6 weeks time to assess fluid collection - Lamotrigine was reported as a new medication in the last few months, however, this is not a likely cause of drug-induced acute pancreatitis - Chronic black/bloody stools x 1 year - Trend H&H - No signs of acute GI bleeding - Normal BUN - Please use IV PPI push BID x 48 hours then PO PPI 40 mg twice daily - Please arrange outpatient EGD - Encouraged to stop all NSAIDs - ETOH abuse - Complete ETOH cessation recommended - ETOH withdrawal protocol - Agree w/ thiamine/folate supplementation Thank you for allowing us to participate in the care of this patient. Please call with any acute changes, questions or concerns. Please see addendum below with additional recommendation from my supervising physician. I spent a total of 65 minutes on the date of service in review of patient's record, and previously obtained information in person and appropriate medical visit, discussion and education of plan, with patient and/or caregiver, placing orders for tests/referral/procedures as medically necessary and documentation of pertinent clinical information in patient's medical records for their visit today. History of Present Illness Reason for Consultation: chest pain,gastric bypass,NSAID use,pancreatitis Requesting Physician: Eric Attending Physician: Juanita Reyes MD History of Present Illness 48 year old female with history of seizure-like activity, essential tremor, HTN, anxiety, RYGB, pancreatitis x 2, alcohol dependence, abnormal uterine bleeding, cellulitis, and idiopathic polyneuropathy and others below admitted through the ED on 09/17/23 for midsternal chest pain x 2 days. GI was asked to evaluate. Pt was seen and evaluated, chart reviewed. She endorses a history of suspected ETOH induced pancreatitis x 2. Despite this, she reports daily consumptions of ETOH, wine, between 2-4 glasses daily. She notes over the last 1-2 months she has generally felt unwell. Endorses chronic abd upset, fullness, bloating, decreased appetite and nausea. No vomiting. Reports in the last 48 hours, she developed different symptoms. Does not feel similar to her prior episodes of pancreatitis. She reported gradual onset sternal pain that radiates through to her back. This was constant, severe and seemed worse with movements and trying to take a deep breath. She did not have nausea/vomiting or fevers associated with this.She reports chronic black/bloody stools x 1 year. No diarrhea/constipation. No fever, chills, CP, SOB. 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 D-Dimer 3,780 Chest CTA 2023: No pulmonary emboli identified.Trace pleural effusions without evidence of pneumonia. Please refer to the same day CT abdomen and pelvis study for discussion of the acute pancreatitis with associated fluid collections.. Hepatic steatosis CTAP 2023: Findings are compatible with acute pancreatitis with acute fluid collections within the pancreatic head. No definite evidence of pancreatic necrosis. EGD: suggests 10+ years ago Colonoscopy 2023: Preparation of the colon was fair. The entire examined colon is normal. Biopsied. External hemorrhoids. Allergies Allergy/AdvReac Type Severity Reaction Status Date / Time No Known Allergies Allergy Verified 09/17/23 10:30 Home Medications Medication Instructions Recorded Confirmed Type lisinopril 10 mg tablet 10 mg PO QAM 06/29/20 09/17/23 History propranolol 120 mg capsule,24 120 mg PO BID #60 caps 03/05/23 09/17/23 Rx hr,extended release levetiracetam 500 mg tablet 500 mg PO BID #60 tabs 04/18/23 09/17/23 Rx escitalopram oxalate 20 mg tablet 10 mg PO QAM 07/22/23 09/17/23 History cyanocobalamin (vitamin B-12) 1,000 mcg subcut Q14D 09/17/23 09/17/23 History 1,000 mcg/mL injection solution hydrocortisone 2.5 % topical cream 1 applic [place] BID PRN hemorrhoids 09/17/23 09/17/23 History with perineal applicator (Anusol-HC) lamotrigine 100 mg tablet 100 mg PO BID 09/17/23 09/18/23 History zolpidem 10 mg tablet 10 mg PO HS PRN Sleep 09/17/23 09/17/23 History Patient History Medical History Rectal bleeding Hx of pancreatitis Chronic diarrhea Classic migraine with aura History of nephrolithiasis Chronic mixed headache syndrome Surgical History History of esophagogastroduodenoscopy (EGD) History of x1 History of gynecologic surgery D&E-surgically induced H/O lithotripsy Status post surgery laryngeal surgery- stripping of vocal cords>pt denies History of Mitzi-en-Y gastric bypass 2006 Family History Uncle Bladder cancer maternal uncle Sister Brain tumor Grandfather (Paternal) Colorectal cancer Aunt Lung cancer paternal aunt Father Essential tremor Mother Hypertension Denies family history of Ovarian cancer Breast cancer Social History Smoking Status: Never smoker Second Hand Exposure: No; Do You Dip or Chew Tobacco: No; Tobacco Cessation Education Requested by Patient: No Hx Alcohol Use: Yes Alcohol type: wine Alcohol Intake Frequency Comment: 2-3 drinks, 5-7 days per week Hx Substance Use: No Preferred Language: Mohawk Communication Ability: Effective Hammer Adjuster Required: No Beliefs That Will Affect Care: None marital status: Current Living Situation: Spouse and Family 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 Physical Exam Constitutional: WD/WN, vitals as above Respiratory: normal respiratory effort, lungs clear to auscultation Cardiovascular: Rate/Rhythm: regular rate and regular rhythm Gastrointestinal (Abdomen): Inspection/Auscultation: abdomen normal to inspection and normal bowel sounds Percussion/Palpation: + abdomen tender (generalized discomfort reported with palpation ) and abdomen soft; no guarding and abdomen not rigid Skin: no rashes, warm and dry Results & Data Vital Signs (Past 12 Hours) Vital Signs Temp Pulse Pulse Pulse Resp BP Pulse Ox 09/18/23 10:54 37.0 C 70 14 114/76 93 09/18/23 10:10 37.0 C 73 16 118/82 95 09/18/23 08:19 70 09/18/23 07:38 36.9 C 74 16 109/74 95 09/18/23 07:30 73 112/77 09/18/23 02:57 37 C 69 16 119/81 96 O2 Del Method 09/18/23 10:54 Room Air 09/18/23 10:10 Room Air 09/18/23 08:19 09/18/23 07:38 Room Air 09/18/23 07:30 09/18/23 02:57 Room Air Laboratory Results 09/18/23 09/17/23 09/17/23 Range/Units 06:14 14:31 14:18 WBC 5.59 (4.8-10.8) K/ul RBC 2.85 L (4.20-5.40) M/uL Hgb 9.9 L (12.0-16.0) g/dl Hct 30.5 L (37.0-47.0) % MCV 107.0 H (80.0-100.0) fL MCH 34.7 H (25.0-34.0) pg MCHC 32.5 (32.0-36.0) g/dL RDW Std Deviation 49.2 H (36.4-46.3) fL RDW Coeff of Brielle 12.5 (11.5-14.5) % Plt Count 291 (130-400) K/uL MPV 9.9 (9.4-12.4) fL Immature Gran % (Auto) 0.2 % Neut % (Auto) 52.6 % Lymph % (Auto) 32.7 % [place] % (Auto) 7.7 % Eos % (Auto) 5.9 % Baso % (Auto) 0.9 % Neut # (Auto) 2.94 (1.40-6.50) K/uL Lymph # (Auto) 1.83 (1.20-3.40) K/uL [place] # (Auto) 0.43 (0.11-0.59) K/uL Eos # (Auto) 0.33 (0.00-0.50) K/uL Baso # (Auto) 0.05 (0.00-0.20) K/uL Immature Gran # (Auto) 0.01 (0.01-0.20) K/uL Sodium 138 (136-145) mmol/L Potassium 4.4 (3.5-5.1) mmol/L Chloride 105 (98-107) mmol/L Carbon Dioxide 30 (21-32) mmol/L Anion Gap 3 (3-11) BUN 4 L (6-23) mg/dl Creatinine 0.50 L (0.6-1.2) mg/dl Est Cr Clr Drug Dosing 159.1 ml/min Est GFR ( Amer) 134.5 ml/min Est GFR (Non-Af Amer) 116.1 ml/min BUN/Creatinine Ratio 8.0 L (10-20) Glucose 89 (70-99(Fasting)) mg/dl Calcium 8.0 L (8.6-10.3) mg/dl Magnesium 1.7 (1.7-2.4) mg/dl Total Bilirubin 0.6 (0.2-1.0) mg/dl AST 31 (13-39) U/L ALT 17 (7-52) U/L Alkaline Phosphatase 149 H (34-104) U/L Total Protein 4.6 L D (6.0-8.3) gm/dl Albumin 2.5 L (3.4-5.0) gm/dl Globulin 2.1 L (2.5-4.0) gm/dl Albumin/Globulin Ratio 1.2 (0.9-2) Triglycerides (0-150) mg/dl Vitamin B12 599 (180-914) pg/ml Folate 5.85 (>5.38) ng/ml Levetiracetam Pending Ethyl Alcohol mg/dL < 10.0 (<10.0) mg/dl SARS-CoV-2 (PCR) NEGATIVE (Negative) Influenza Type A (PCR) Negative (Neg) Influenza Type B (PCR) Negative (Neg) RSV (RT-PCR) Negative (Neg) 09/17/23 Range/Units 11:24 WBC (4.8-10.8) K/ul RBC (4.20-5.40) M/uL Hgb (12.0-16.0) g/dl Hct (37.0-47.0) % MCV (80.0-100.0) fL MCH (25.0-34.0) pg MCHC (32.0-36.0) g/dL RDW Std Deviation (36.4-46.3) fL RDW Coeff of Brielle (11.5-14.5) % Plt Count (130-400) K/uL MPV (9.4-12.4) fL Immature Gran % (Auto) % Neut % (Auto) % Lymph % (Auto) % [place] % (Auto) % Eos % (Auto) % Baso % (Auto) % Neut # (Auto) (1.40-6.50) K/uL Lymph # (Auto) (1.20-3.40) K/uL [place] # (Auto) (0.11-0.59) K/uL Eos # (Auto) (0.00-0.50) K/uL Baso # (Auto) (0.00-0.20) K/uL Immature Gran # (Auto) (0.01-0.20) K/uL Sodium (136-145) mmol/L Potassium (3.5-5.1) mmol/L Chloride (98-107) mmol/L Carbon Dioxide (21-32) mmol/L Anion Gap (3-11) BUN (6-23) mg/dl Creatinine (0.6-1.2) mg/dl Est Cr Clr Drug Dosing ml/min Est GFR ( Amer) ml/min Est GFR (Non-Af Amer) ml/min BUN/Creatinine Ratio (10-20) Glucose (70-99(Fasting)) mg/dl Calcium (8.6-10.3) mg/dl Magnesium 1.6 L (1.7-2.4) mg/dl Total Bilirubin (0.2-1.0) mg/dl AST (13-39) U/L ALT (7-52) U/L Alkaline Phosphatase (34-104) U/L Total Protein (6.0-8.3) gm/dl Albumin (3.4-5.0) gm/dl Globulin (2.5-4.0) gm/dl Albumin/Globulin Ratio (0.9-2) Triglycerides 72 (0-150) mg/dl Vitamin B12 (180-914) pg/ml Folate (>5.38) ng/ml Levetiracetam Ethyl Alcohol mg/dL (<10.0) mg/dl SARS-CoV-2 (PCR) (Negative) Influenza Type A (PCR) (Neg) Influenza Type B (PCR) (Neg) RSV (RT-PCR) (Neg) PG Care Time/CCT Total # of Minutes Spent Total Time Spent with Patient: Total time spent is greater than 50% in coordination of care (as documented) at patient's floor/unit and/or counseling patient: Coding Level of Care Code 70930 OFFICE CONSULT LVL Diagnoses Acute pancreatitis K85.20 Acute pancreatitis complication: unspecified Pancreatitis type: alcohol induced (1) Acute pancreatitis Acute pancreatitis complication: unspecified Pancreatitis type: alcohol induced Qualified Code(s): K85.20 - Alcohol induced acute pancreatitis without necrosis or infection
--- NOTE | 2023-09-18 17:30 | Hospitalist Progress Note ---
Date of Service September 18, 2023 Assessment & Plan (1) Acute pancreatitis: Plan: Presented with intermittent sharp stabbing pains in the right substernal region worsened with deep breaths x 2 days. She does report that she is had nausea and some more vague chest pains for the last month postprandially. She also reports development of a hoarse voice in the last week Could have gastritis or esophagitis as she also has NSAID use and alcohol use Hx of suspected alcohol induced acute pancreatitis and found to have acute pancreatitis on CT scan with a fluid collection around the pancreatic head measuring 6 x 4 cm and elevated lipase on admission. Normal gallbladder but with mildly elevated AST and alkaline phosphatase which are now improved Troponin WNL on arrival and EKG without changes. CTA chest negative for PE or dissection or pneumonia, D-dimer was elevated Triglyceride levels WNL, calcium levels not elevated Suspect acute on chronic/recurrent alcohol induced pancreatitis with possible developing pseudocyst. No fevers or leukocytosis. Clinically appears to be improving Appreciate GI consultation-consider tertiary care referral as an outpatient for EUS/EDGE procedure specific for patients with Mitzi-en-Y gastric bypass surgery to see if needs drainage of the fluid collection around the pancreas Advance diet to full liquids as per GI Continue IV fluids Follow CBC, CMP, lipase in the morning Pain control with IV Dilaudid Increase Protonix to 40 Mg IV twice daily for possible gastritis/esophagitis causing hoarse voice and chest pains Add Voltaren gel for chest pain as there may be some costochondritis component (2) Esophagitis: Plan: As noted above, treating with PPI twice daily (3) Alcohol use: Plan: Patient endorses drinking wine daily (2-4 drinks); last drink the evening of 09/15 Medical alcohol level negative AWSS at risk protocol with Ativan as needed Daily thiamine and folate supplementation Folate level borderline low just above 5 likely due to gastric bypass and poor absorption (4) Seizure disorder: Plan: Hx of seizures with the last being in December 2021 She was recently seen by neurology in 07/2023 and started on Lamictal due to irritable mood secondary to Keppra-she has been titrating up on the Lamictal and is now taking 100 mg daily I discussed her care with neurology-plan to increase Lamictal to 100 Mg p.o. twice daily and start tapering down Keppra-changed to 250 Mg p.o. twice daily x 1 week then stop Keppra level ordered, pending (5) Essential tremor: Plan: Continue propranolol (6) Chronic diarrhea: Plan: Ongoing for years, had normal colonoscopy in 2023 Could be due to pancreatic insufficiency given recurrent pancreatitis and atrophy of pancreas seen on CT Check pancreatic elastaseone of the stool Follow-up as an outpatient (7) Hoarseness of voice: Plan: Could be secondary to silent reflux as noted above Increase PPI IV twice daily and plan to send home with p.o. PPI (8) History of Mitzi-en-Y gastric bypass: Plan: Hemoglobin low today at 9.9 but likely hemodilutional for some component B12 normal, folate borderline low-supplement folate and she takes B12 at home but has not been consistent with it Check iron studies in the morning Plan Disposition: Continued stay MedSurg Telemetry Full code VTE PPx: Lovenox 40 mg SQ q24h Admission and Anticipated Discharge Date Admission Date: September 17, 2023 Subjective Patient still having intermittent stabbing pains in her chest and the chest is sometimes directly tender to palpation in 1 specific spot. She denies any epigastric pain but does have pain in the chest when she takes a deep breath. Overall, pain is improved since yesterday. Reports chronic intermittent small amounts of bright red blood in her stool and chronic loose stools but has not had a stool today. She is feeling hungry and just finished eating a chocolate pudding when I saw her as diet was advanced to full liquids by GI Telemetry with normal sinus rhythm with rates in the 60s to 80s Physical Exam Constitutional: WD/WN, vitals as above Respiratory: normal respiratory effort, lungs clear to auscultation Cardiovascular: RRR, no murmur, no edema Chest (Breasts): Additional Comments: Positive tenderness to palpation over right lower costosternal border Gastrointestinal (Abdomen): normal bowel sounds, soft, nontender, no hepatosplenomegaly Psychiatric: A+Ox3, euthymic affect Results & Data Results & Data Vital Signs (Past 12 Hours) Vital Signs Temp Pulse Pulse Pulse Resp BP Pulse Ox 09/18/23 15:48 70 09/18/23 15:38 36.8 C 72 18 114/70 97 09/18/23 10:54 37.0 C 70 14 114/76 93 09/18/23 10:10 37.0 C 73 16 118/82 95 09/18/23 08:19 70 09/18/23 07:38 36.9 C 74 16 109/74 95 09/18/23 07:30 73 112/77 O2 Del Method 09/18/23 15:48 09/18/23 15:38 Room Air 09/18/23 10:54 Room Air 09/18/23 10:10 Room Air 09/18/23 08:19 09/18/23 07:38 Room Air 09/18/23 07:30 Laboratory Results CBC, CMP, magnesium, B12, folate reviewed PG Care Time/CCT Total # of Minutes Spent Total Time Spent with Patient: Total time spent is greater than 50% in coordination of care (as documented) at patient's floor/unit and/or counseling patient: Coding Level of Care Code 04317 SUB INP/OBS CARE 3/50MIN Diagnoses Acute pancreatitis K85.20 Acute pancreatitis complication: unspecified Pancreatitis type: alcohol induced Esophagitis K20.90 Alcohol use Z78.9 Seizure disorder G40.909 Essential tremor G25.0 Chronic diarrhea K52.9 Hoarseness of voice R49.0 History of Mitzi-en-Y gastric bypass Z98.84 (1) Acute pancreatitis Acute pancreatitis complication: unspecified Pancreatitis type: alcohol induced Qualified Code(s): K85.20 - Alcohol induced acute pancreatitis without necrosis or infection
[2023-09-18] MEDS: DICLOFENAC SOD 1% GEL 100 GM TUBE EXT SCH (19:38)
[2023-09-18] MEDS: levETIRAcetam 250 MG TAB PO SCH (19:39)
--- NOTE | 2023-09-18 21:58 | Electrocardiogram Report ---
Test Reason : Blood Pressure : / mmHG Vent. Rate : 063 BPM Atrial Rate : 063 BPM P-R Int : 146 ms QRS Dur : 070 ms QT Int : 388 ms P-R-T Axes : 032 032 041 degrees QTc Int : 397 ms Normal sinus rhythm Normal ECG When compared with ECG of 14-APR-2023 01:03, No significant change was found Confirmed by Trevor Martin ([id number]) on 09/18/2023 9:58:06 PM Referred By: Confirmed By:Trevor Martin
[2023-09-19 07:18] LABS: Basophils # (auto) 0.04 K/uL (0.00-0.20); Basophils % (auto) 0.7 %; Eosinophils # (auto) 0.34 K/uL (0.00-0.50); Eosinophils % (auto) 5.8 %; Hematocrit (blood only) 28.2 % (37.0-47.0); Hemoglobin 9.2 g/dl (12.0-16.0); Immature Granulocytes # (auto) 0.02 K/uL (0.01-0.20); Immature Granulocytes % (auto) 0.3 %; Lymphocytes # (auto) 1.58 K/uL (1.20-3.40); Mean Corpuscular Hemoglobin 34.7 pg (25.0-34.0); Mean Corpuscular Hgb Conc 32.6 g/dL (32.0-36.0); Mean Corpuscular Volume 106.4 fL (80.0-100.0); Mean Platelet Volume 10.7 fL (9.4-12.4); Monocytes # (auto) 0.44 K/uL (0.11-0.59); Monocytes % (auto) 7.5 %; Neutrophils # (auto) 3.44 K/uL (1.40-6.50); Neutrophils % (auto) 58.7 %; Platelet Count 264 K/uL (130-400); RDW Coefficient of Variation 12.5 % (11.5-14.5); RDW Standard Deviation 49.3 fL (36.4-46.3); Red Blood Count 2.65 M/uL (4.20-5.40); White Blood Count 5.86 K/ul (4.8-10.8)
[2023-09-19 08:13] LABS: Albumin Level 2.7 gm/dl (3.4-5.0); Bilirubin,Total 0.5 mg/dl (0.2-1.0); Magnesium 1.6 mg/dl (1.7-2.4)
[2023-09-19 08:19] LABS: Albumin Globulin Ratio 1.3 (0.9-2); Creatinine Clr Calc Pharmacy 185.8 ml/min; Est GFR (African American) 141.4 ml/min; Globulin 2.1 gm/dl (2.5-4.0); Total Protein 4.8 gm/dl (6.0-8.3)
[2023-09-19] MEDS ORDERED: HYDROCORTISONE HC 2.5% CRM 30GM TUBE EXT PRN (08:20)
[2023-09-19] MEDS ORDERED: ZOLPIDEM TARTRATE 5 MG TAB PO PRN (08:53)
[2023-09-19] MEDS: MAGNESIUM SULFATE / D5W 1 GM/100 ML BAG IV SCH (08:59)
--- NOTE | 2023-09-19 16:57 | Hospitalist Progress Note ---
Date of Service September 19, 2023 Assessment & Plan (1) Acute pancreatitis: Plan: Presented with intermittent sharp stabbing pains in the right substernal region worsened with deep breaths x 2 days. She does report that she is had nausea and some more vague chest pains for the last month postprandially. She also reports development of a hoarse voice in the last week Found to have acute pancreatitis on CT scan with a fluid collection around the pancreatic head measuring 6 x 4 cm and elevated lipase on admission. Normal gallbladder but with mildly elevated AST and alkaline phosphatase which are now improved Troponin WNL and EKG without ischemic changes. CTA chest negative for PE or dissection or pneumonia, D-dimer was elevated Triglyceride levels WNL, calcium levels not elevated Also likely with gastritis or esophagitis causing chest pain given recent hoarse voice, NSAID use and daily alcohol use She has a h/o alcohol induced acute pancreatitis Suspect acute on chronic/recurrent alcohol induced pancreatitis with possible developing pseudocyst. No fevers or leukocytosis. Clinically continues to improve Lipase trending downward, pain lessened Appreciate GI consultation-recommends tertiary care referral as an outpatient for EUS/EDGE procedure specific for patients with Mitzi-en-Y gastric bypass surgery to see if needs drainage of the fluid collection around the pancreas--> Nurse Navigator will make this referral to [facility] Advance diet to low fat Will discontinue IV fluids Follow CBC, CMP, lipase in the morning Pain control-add po oxycodone and encouraged to use this rather than IV Dilaudid-could give small supply of oxycodone on discharge Continue Protonix 40 Mg IV twice daily for possible gastritis/esophagitis causing hoarse voice and chest pains--> plan to send home with po PPI bid Continue Voltaren gel for MSK component of chest pain (costochondritis) (2) Esophagitis: Plan: As noted above, treating with PPI twice daily (3) Alcohol use: Plan: Patient endorses drinking wine daily (2-4 drinks); last drink the evening of 09/15 Medical alcohol level negative AWSS at risk protocol with Ativan as needed-no signs of withdrawal here Daily thiamine and folate supplementation Folate level borderline low just above 5 likely due to gastric bypass and poor absorption (4) Seizure disorder: Plan: Hx of seizures with the last being in December 2021 She was recently seen by neurology in 07/2023 and started on Lamictal due to irritable mood secondary to Keppra-she has been titrating up on the Lamictal and is now taking 100 mg daily Keppra level ordered, pending I discussed her care with neurology-will now increase Lamictal to 100 Mg p.o. twice daily and start tapering down Keppra-changed to 250 Mg p.o. twice daily x 1 week then stop after 09/24/23 (5) Essential tremor: Plan: Continue propranolol (6) Chronic diarrhea: Plan: Ongoing for years, had normal colonoscopy in 2023 Could be due to pancreatic insufficiency given recurrent pancreatitis and atrophy of pancreas seen on CT Check pancreatic elastase1 of the stool-PENDING Follow-up as an outpatient (7) Hoarseness of voice: Plan: Could be secondary to silent reflux as noted above Continue PPI IV twice daily and plan to send home with p.o. 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 Likely discharge to home tomorrow Full code VTE PPx: Lovenox 40 mg SQ q24h Admission and Anticipated Discharge Date Admission Date: September 19, 2023 Subjective Pt feeling better with no pain at rest but has pain in lower chest with any hiccup or cough or laugh. Feels hungry for regular food. No nausea. Feels her hoarse voice is improved and she is no longer having the sharp stabbing pains in her sternum since starting the voltaren gel. Still taking IV dilaudid but discussed trying po oxycodone Tele with NSR normal rates Physical Exam Constitutional: WD/WN, vitals as above Respiratory: normal respiratory effort, lungs clear to auscultation Cardiovascular: RRR, no murmur, no edema Gastrointestinal (Abdomen): normal bowel sounds, soft, nontender, no hepatosplenomegaly (only mild epigastric ttp w/o guarding or rebound) Psychiatric: A+Ox3, euthymic affect Results & Data Results & Data Vital Signs (Past 12 Hours) Vital Signs Temp Pulse Pulse Resp BP Pulse Ox O2 Del Method 09/19/23 15:59 36.8 C 70 18 111/73 98 Room Air 09/19/23 12:37 36.7 C 79 18 115/87 95 Room Air 09/19/23 11:05 36.9 C 74 18 114/75 92 Room Air 09/19/23 07:51 72 09/19/23 07:36 37.2 C 75 18 118/69 93 Room Air Laboratory Results CBC, CMP, lipase, Hemoccult stool,magnesium reviewed PG Care Time/CCT Total # of Minutes Spent Total Time Spent with Patient: Total time spent is greater than 50% in coordination of care (as documented) at patient's floor/unit and/or counseling patient: Coding Level of Care Code 19995 SUB INP/OBS CARE 2/35MIN Diagnoses Acute pancreatitis K85.20 Acute pancreatitis complication: unspecified Pancreatitis type: alcohol induced Esophagitis K20.90 Alcohol use Z78.9 Seizure disorder G40.909 Essential tremor G25.0 Chronic diarrhea K52.9 Hoarseness of voice R49.0 History of Mitzi-en-Y gastric bypass Z98.84 (1) Acute pancreatitis Acute pancreatitis complication: unspecified Pancreatitis type: alcohol induced Qualified Code(s): K85.20 - Alcohol induced acute pancreatitis without necrosis or infection
[2023-09-19] MEDS: IRON SUCROSE 200 MG in 0.9 % SODIUM CHLORIDE 100 ML IV ONE (17:52)
[2023-09-19] MEDS: oxyCODONE HCL IR 5 MG TAB (IMMEDIATE RELEASE) PO PRN (19:29)
[2023-09-19 20:04] VITALS: RESP 18
[2023-09-20 07:28] LABS: Basophils # (auto) 0.03 K/uL (0.00-0.20); Basophils % (auto) 0.8 %; Eosinophils # (auto) 0.25 K/uL (0.00-0.50); Eosinophils % (auto) 6.7 %; Hematocrit (blood only) 26.8 % (37.0-47.0); Hemoglobin 8.9 g/dl (12.0-16.0); Immature Granulocytes # (auto) 0.01 K/uL (0.01-0.20); Immature Granulocytes % (auto) 0.3 %; Lymphocytes # (auto) 1.35 K/uL (1.20-3.40); Lymphocytes % (auto) 36.2 %; Mean Corpuscular Hemoglobin 34.9 pg (25.0-34.0); Mean Corpuscular Hgb Conc 33.2 g/dL (32.0-36.0); Mean Corpuscular Volume 105.1 fL (80.0-100.0); Mean Platelet Volume 10.3 fL (9.4-12.4); Monocytes # (auto) 0.28 K/uL (0.11-0.59); Monocytes % (auto) 7.5 %; Neutrophils # (auto) 1.81 K/uL (1.40-6.50); Neutrophils % (auto) 48.5 %; Platelet Count 220 K/uL (130-400); RDW Coefficient of Variation 12.5 % (11.5-14.5); RDW Standard Deviation 48.4 fL (36.4-46.3); Red Blood Count 2.55 M/uL (4.20-5.40); White Blood Count 3.73 K/ul (4.8-10.8)
[2023-09-20 07:43] LABS: Albumin Globulin Ratio 1.2 (0.9-2); Albumin Level 2.4 gm/dl (3.4-5.0); BUN Creatinine Ratio 3.6 (10-20); Bilirubin,Total 0.4 mg/dl (0.2-1.0); Calcium 7.8 mg/dl (8.6-10.3); Creatinine Clr Calc Pharmacy 142.6 ml/min; Est GFR (African American) 129.6 ml/min; Est GFR (Non-African American) 111.8 ml/min; Potassium 4.5 mmol/L (3.5-5.1); Total Protein 4.4 gm/dl (6.0-8.3)
[2023-09-20 07:52] VITALS: BP 132/81; TEMP 97.3; O2SAT 98
[2023-09-20 07:58] LABS: Thyroid Stimulating Hormone 1.201 uIu/ml (0.300-4.500)
[2023-09-20] MEDS: ACETAMINOPHEN 325 MG TAB PO PRN (08:00)
[2023-09-20] MEDS: IRON SUCROSE 200 MG in 0.9 % SODIUM CHLORIDE 100 ML IV ONE (09:40)
--- NOTE | 2023-09-20 11:36 | Discharge Summary ---
Discharge Summary Date of Service September 20, 2023 Principal Dx & Hospital Course #1 = Principal Diagnosis (1) Acute pancreatitis: Probably of alcohol intake etiology. Now resolved. Alcohol intake cessation highly recommended. (2) Esophagitis: From GERD. Continue Carafate suspension at discharge and PPI therapy (3) Alcohol use: Alcohol intake cessation highly recommended. Likely cause of acute pancrea titis. (4) Seizure disorder: Keppra dosage decreased and eventually will be discontinued. She remains on Lamictal. (5) Essential tremor: Continue propranolol (6) Chronic diarrhea: Ongoing for years. Normal colonoscopy in 2023. Supportive care. No infectious etiology seen (7) Hoarseness of voice: More than likely due to acid reflux. Continue Protonix therapy. (8) History of Mitzi-en-Y gastric bypass: Supportive care. (9) Iron deficiency anemia following bariatric surgery: She received 1 dose of parenteral iron replacement. She will start oral iron replacement going forward Plan Home today, September 19 Admission HPI Per Admitting Provider Emily is a 48-year-old female with PMH of seizure-like activity, essential tremor, HTN, anxiety, pancreatitis, alcohol dependence, abnormal uterine bleeding, cellulitis, and idiopathic polyneuropathy. She presented for worsening, sharp midsternal chest pain that radiates to her right scapula and neck x 2 days. Patient reports that the pain is constant, but that she has intermittent stabbing pain when she moves certain ways or takes deep breaths in. She has been taking ibuprofen at home for the pain; she reports this helps; she has been taking 2 to 4 tablets daily. Patient reports that the pain is located substernally and not epigastric. Radiates to the upper back; patient describes this as T3 up to her cervical spine. She rates the pain as 6/10 at present after receiving pain medicine in the ED; 8/10 at worst when stabbing occurs. Laying flat makes the pain worse. She is tolerating solids and liquids, but this exacerbates the pain. She denies any recent change in diet. Patient does have a history of pancreatitis, with the last occurrence being 1 year ago; she is unsure what caused this, but was told that it was believed secondary to her alcohol use. When she spoke to her neurologist later, she believes it may have been secondary to seizure medications. She has a history of kidney stones, but is unsure if she has a history of gallbladder issues. When she had bariatric surgery, she was post to have her gallbladder removed, but she was told it was too "infected" to be taken out. Patient denies any recent falls, injuries, or trauma to the neck, head, chest wall, back, or abdomen. No recent seizures (last seizure was on the Saturday after in 2021). Patient did not take her regular morning medications today; no recent change in medications. Last took Keppra last night. Patient reports she drinks wine daily; with the last drink yesterday afternoon; she reports she drinks "a couple" glasses of wine daily. She denies history of alcohol withdrawal seizures or DTs. No history of DVT/PE. Patient does not use supplemental oxygen at baseline. Patient denies smoking, tobacco use, or recreational drug use. No recent change in diet. She reports that she developed a hoarse [place] the beach [place]; not difficulty swallowing or throat pain; she is unsure if she was around any sick contacts. Patient vitals are stable at time of admission; SpO2 94% on RA. Patient's vitals are stable at time of admission ED course: Toradol 10mg IV NSS 1000mL ROS: Patient endorses substernal chest pain with radiation to middle back and right shoulder, SOB at rest and with exertion, pleuritic CP, nausea, dry heaving, diarrhea (ongoing), essential tremor in fingers and neuropathy in feet. Patient denies fever, chills, night-sweats, dizziness/lightheadedness, headache, cough, hemoptysis, vomiting, changes in urinary/bowel habits, and blood in urine/bowel. Discharge Exam General-alert and oriented x3, no fever, no chills HEENT-head atraumatic and normocephalic, pupils equal and reactive to light, extraocular muscles intact Neck-no lymphadenopathy or thyromegaly, trachea midline Chest-clear to auscultation. No rales, wheezing or rhonchi Cardiac-regular rate and rhythm, normal S1 and S2 Abdomen-normal bowel sounds, no hepatosplenomegaly Extremities-no cyanosis, clubbing, or edema Neuro-cranial nerves II through XII intact, motor and sensory function within normal limits, strength symmetrical, no focal deficits Psych-normal affect, normal mood Updated Medication List Medication Instructions Recorded Confirmed Type lisinopril 10 mg tablet 10 mg PO QAM 06/29/20 09/17/23 History propranolol 120 mg capsule,24 120 mg PO BID #60 caps 03/05/23 09/17/23 Rx hr,extended release levetiracetam 500 mg tablet 500 mg PO BID #60 tabs 04/18/23 09/17/23 Rx escitalopram oxalate 20 mg tablet 10 mg PO QAM 07/22/23 09/17/23 History cyanocobalamin (vitamin B-12) 1,000 mcg subcut Q14D 09/17/23 09/17/23 History 1,000 mcg/mL injection solution hydrocortisone 2.5 % topical cream 1 applic LA BID PRN hemorrhoids 09/17/23 09/17/23 History with perineal applicator (Anusol-HC) lamotrigine 100 mg tablet 100 mg PO BID 09/17/23 09/18/23 History zolpidem 10 mg tablet 10 mg PO HS PRN Sleep 09/17/23 09/17/23 History levetiracetam 250 mg tablet 250 mg PO BID #14 tabs 09/20/23 Rx (Keppra) pantoprazole 40 mg tablet,delayed 40 mg PO BID #60 tabs 09/20/23 Rx release sucralfate 100 mg/mL oral 1 g (10 mL) PO ACHS #500 mL 09/20/23 Rx suspension (Carafate) Hospital Stay Data Consultations 09/17/23 13:25 ED Decision to Admit Stat 09/18/23 10:13 Consult Gastroenterology Routine Diagnostic Imagining Performed 09/17/23 12:26 CT abd pelvis IV con only Stat CT angio chest PE protocol Stat Pending Results Patient Have Any Pending Studies at Discharge: No Discharge Instructions Given to Patient (Per Discharging Provider) Take Protonix twice daily to suppress stomach acid. Take Carafate suspension on an empty stomach before meals and at bedtime for 2 weeks Total Time Total Time Spent Total Time Spent (In Minutes): 45 minutes Coding Level of Care Code 46059 INP/OBS DISCH >30 MIN Diagnoses Acute pancreatitis K85.20 Acute pancreatitis complication: unspecified Pancreatitis type: alcohol induced Esophagitis K20.90 Alcohol use Z78.9 Seizure disorder G40.909 Essential tremor G25.0 Chronic diarrhea K52.9 Hoarseness of voice R49.0 History of Mitzi-en-Y gastric bypass Z98.84 Iron deficiency anemia following bariatric surgery K95.89; D50.8
[2023-09-20 11:45] VITALS: PULSE 73
[2023-09-20] MEDS ORDERED: PANTOprazole 40 MG TAB PO SCH (21:00)
== END 2023-09-20 12:03 | disposition home or self-care (01) | DRG 440 ==
LOC: ED 11:07 → EDINP 11:07 → SUATTDRO 14:06 → 2N 15:52 → SUATTDRO 09-19 08:16 → 3N 09-19 12:32
DX: K85.20 Alcohol induced acute pancreatitis without necrosis or infection; I10 Essential (primary) hypertension; G25.0 Essential tremor; Z98.84 Bariatric surgery status; K86.0 Alcohol-induced chronic pancreatitis; Z11.52 Encounter for screening for COVID-19; G40.909 Epilepsy, unspecified, not intractable, without status epilepticus; Z79.899 Other long term (current) drug therapy; K52.9 Noninfective gastroenteritis and colitis, unspecified; R49.0 Dysphonia; D50.9 Iron deficiency anemia, unspecified; K21.00 Gastro-esophageal reflux disease with esophagitis, without bleeding; F10.20 Alcohol dependence, uncomplicated

== ENCOUNTER 2024-12-03 14:45 | Inpatient (IN) ==
--- NOTE | 2024-12-03 16:20 | Emergency Department Note ---
History of Present Illness General Chief complaint: Referred by Doctor Stated complaint: SURGERY ON 11/27, EKG ABNORMAL, DIZZY Time Seen by Provider: 12/03/24 16:11 History of Present Illness Maximum Pain Intensity: 7 This is a 49-year-old female that presents to the emergency department via private vehicle referred by PCP with complaints of "dizziness, elevated heart rate, recent surgery". The patient notes that on 11/27/24 she underwent perineal cyst surgical extraction while under general anesthesia. She states that she has done well postoperatively however notes that this past Saturday notes that the sutures tore and began to feel unwell. She notes that she was seen by her surgeon yesterday however notes that today she continues with whole body shakes, nausea, diffuse chills, elevated heart rate, and overall feeling unwell. No fever. She notes uncontrolled shakes and was seen in the PCP office and noted to be borderline hypotensive and tachycardic in the 120s. Patient referred here for further assessment. She denies any cough, congestion. No chest pain or shortness of breath. No abdominal pain. Minimal discomfort in the perineal region where the cyst was extracted. Current pain 08/27. She denies any drug use. No tobacco use. She does note a few glasses of wine each night but no changes in the wine consumption. Patient also notes right greater than left inguinal lymphadenopathy. Home Medications Medication Instructions Recorded Confirmed Type cyanocobalamin (vitamin B-12) 1,000 mcg subcut Q14D 09/17/23 12/03/24 History 1,000 mcg/mL injection solution propranolol 120 mg capsule,24 120 mg PO QAM 01/27/24 12/03/24 History hr,extended release Supercream (OBGYN) [place] 1 applic topical BID PRN 10/21/24 12/03/24 Rx [facility] 15 g ointment hemorrhoids #15 grams trazodone 50 mg tablet 50 mg PO HS 11/18/24 12/03/24 History lamotrigine 100 mg tablet 100 mg PO BID 30 days #60 tabs 12/01/24 12/03/24 Rx oxycodone 5 mg tablet 5 mg PO Q8H PRN pain #7 tabs 12/02/24 12/03/24 Rx Allergies Allergy/AdvReac Type Severity Reaction Status Date / Time No Known Allergies Allergy Verified 12/01/24 14:17 Past Med/Surg History Problem List (Updated 12/03/24 @ 20:33 by Geoffrey Lynch PA-C) Fatigue (Acute) Myalgia (Acute) Elevated AST (SGOT) (Acute) Elevated lactic acid level (Acute) Elevated procalcitonin (Acute) Sepsis (Acute) Postop check Hx of hemorrhoids Seizure-like activity "only full blown seizure she's ever had" 2021; f/u dr. crenshaw Perineal cyst in female Vaginal lump Vaginal cyst Iron deficiency anemia following bariatric surgery Hoarseness of voice Esophagitis Epigastric abdominal pain (Acute) Idiopathic polyneuropathy Encounter for pre-operative examination Chronic diarrhea Rectal bleeding Polyp of gallbladder Abdominal pain, vomiting, and diarrhea (Acute) Cellulitis Entered 2022 Abnormal uterine bleeding (AUB) Alcohol dependence (Acute) Vitamin B12 deficiency Hypertension Anxiety Medical History Hoarseness of voice History of anxiety Hx of iron deficiency anemia Idiopathic polyneuropathy History of hypertension Seizure disorder last seizure 2021, f/u dr. crenshaw, [facility] Alcohol use Essential tremor reason for propranolol Hx of pancreatitis Classic migraine with aura hx, none for years History of nephrolithiasis Chronic mixed headache syndrome Surgical History H/O removal of cyst Hx of colonoscopy (2023) History of esophagogastroduodenoscopy (EGD) History of x1 History of gynecologic surgery D&E-surgically induced H/O lithotripsy Status post surgery laryngeal surgery- stripping of vocal cords, nodules removed History of Mitzi-en-Y gastric bypass 2006 Family History Uncle Bladder cancer maternal uncle Sister Brain tumor Grandfather (Paternal) Colorectal cancer Aunt Lung cancer paternal aunt Father Essential tremor Mother Hypertension Denies family history of Ovarian cancer Breast cancer Social History Smoking Status: Never smoker Second Hand Exposure: No; Do You Dip or Chew Tobacco: No; Hx Alcohol Use: Yes Alcohol type: wine Alcohol Intake Frequency Comment: 2-3 drinks, 5-7 days per week Hx Substance Use: No Preferred Language: Slovenian Communication Ability: Effective Health Administrator Required: No Beliefs That Will Affect Care: None marital status: Current Living Situation: Spouse 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 Feels Safe at Home: Yes Assistive Devices: None Review of Systems A total of 10 systems reviewed and were otherwise negative Physical Exam Vital Signs Vital Signs - 24 hr 12/03/24 14:56 12/03/24 16:42 12/03/24 16:55 Temperature 36.6 C Temperature Source Temporal Artery Scan Pulse Rate 112 H 101 H 100 H Pulse Rate from SpO2 Sensor 103 H Respiratory Rate 18 16 Respiratory Effort / Characteristics Non-Labored Spontaneous Respiratory Depth Normal Respiratory Pattern Regular Blood Pressure 131/80 116/83 Blood Pressure Mean 97 94 Pulse Oximetry 93 97 Oxygen Delivery Method Room Air Sepsis Recent Fever Within 48 Hours No Sepsis New/Unexplained Change in Mental Status N/A Sepsis Action Taken by Nursing No Action Required 12/03/24 17:00 12/03/24 17:30 12/03/24 17:45 Temperature Temperature Source Pulse Rate 117 H 107 H 108 H Pulse Rate from SpO2 Sensor 107 H Respiratory Rate 12 24 16 Respiratory Effort / Characteristics Respiratory Depth Respiratory Pattern Blood Pressure 122/92 129/91 146/100 H Blood Pressure Mean 105 109 106 Pulse Oximetry 94 96 98 Oxygen Delivery Method Sepsis Recent Fever Within 48 Hours Sepsis New/Unexplained Change in Mental Status Sepsis Action Taken by Nursing 12/03/24 18:00 12/03/24 18:30 12/03/24 18:45 Temperature Temperature Source Pulse Rate 108 H 105 H 104 H Pulse Rate from SpO2 Sensor 108 H 105 H Respiratory Rate 23 22 15 Respiratory Effort / Characteristics Respiratory Depth Respiratory Pattern Blood Pressure 124/104 H 135/102 H 127/105 H Blood Pressure Mean 111 118 109 Pulse Oximetry 97 98 99 Oxygen Delivery Method Sepsis Recent Fever Within 48 Hours Sepsis New/Unexplained Change in Mental Status Sepsis Action Taken by Nursing 12/03/24 19:00 Temperature Temperature Source Pulse Rate 105 H Pulse Rate from SpO2 Sensor 105 H Respiratory Rate 13 Respiratory Effort / Characteristics Respiratory Depth Respiratory Pattern Blood Pressure 133/99 Blood Pressure Mean 111 Pulse Oximetry 97 Oxygen Delivery Method Sepsis Recent Fever Within 48 Hours Sepsis New/Unexplained Change in Mental Status Sepsis Action Taken by Nursing VITAL SIGNS - Vital signs and nursing notes were reviewed. Tachycardic, otherwise Stable and afebrile. GENERAL -49-year-old female appearing her stated age who is in no acute distress. Communicates well with provider and answers questions appropriately. SKIN - Without rashes. Please see exam below HEAD - NC/AT. EYES - PERRL with EOMI bilaterally. Sclera anicteric. EARS - No deformities of external structures noted on gross examination bilaterally. NOSE - No epistaxis or purulent drainage noted. MOUTH/OROPHARYNX - Without perioral cyanosis. NECK - Neck with FROM. No nuchal rigidity. LUNGS - CTA CARDIAC - RRR ABDOMEN - Abdominal contour normal without pulsations or visible masses. BS normoactive all four quadrants. No tenderness, palpable masses, hepatosplenomegaly, or ascites noted. EXTREMITIES - No clubbing or peripheral cyanosis. +5/5 strength noted in UE/LE bilaterally. NEUROLOGIC - Cranial nerves II through XII grossly intact. PSYCH -alert, oriented and pleasant on examination. Katie GUTIERREZ present at bedside for compounding and finishing supervisor. Verbal consent was obtained from patient. The right peroneal region is erythematous with increased warmth. Course Administered Medications Lactated Ringer's (Lr) 1,000 mls @ 125 mls/hr IV .Q8H MIN Stop: 12/04/24 05:54 Last Admin: 12/03/24 22:27 Dose: 125 mls/hr Documented By: MATHIEU Piperacillin Sod/Tazobactam Sod (Zosyn) 4.5 gm in 100 mls @ 25 mls/hr IV Q8H [facility]; Protocol Stop: 12/13/24 22:29 Last Admin: 12/03/24 22:34 Dose: 25 mls/hr Documented By: MATHIEU Lamotrigine (Lamotrigine 100 Mg Tab) 100 mg PO BID MIN; Protocol Stop: 01/02/25 21:54 Last Admin: 12/03/24 22:32 Dose: 100 mg Documented By: MATHIEU Morphine Sulfate (Morphine Sulfate 4 Mg/Ml 1 Ml Carp\\Vial) 1 - 2 mg IV Q3H PRN PRN Reason: Pain Stop: 12/17/24 19:59 Last Admin: 12/03/24 22:25 Dose: 1 mg Documented By: MATHIEU Trazodone HCl (Trazodone Hcl 50 Mg Tab) 50 mg PO HS MIN Stop: 01/02/25 21:54 Last Admin: 12/03/24 22:32 Dose: 50 mg Documented By: MATHIEU Discontinued Medications Fentanyl Citrate (Fentanyl Citrate Pf 100 Mcg/2 Ml Vial) 25 mcg IV NOW STA Stop: 12/03/24 18:35 Last Admin: 12/03/24 19:14 Dose: 25 mcg Documented By: BLANCA Fluconazole (Fluconazole 50 Mg Tab) 150 mg PO NOW ONE Stop: 12/03/24 22:41 Last Admin: 12/03/24 23:40 Dose: 150 mg Documented By: MATHIEU Sodium Chloride (Nss) 1,000 mls @ 999 mls/hr IV .Q1H1M ONE Stop: 12/03/24 17:23 Last Infusion: 12/03/24 18:04 Dose: Infused Documented By: Admin: 12/03/24 16:55 Dose: 999 mls/hr Documented By: BLANCA Acetaminophen (Ofirmev) 1,000 mg in 100 mls @ 400 mls/hr IV NOW STA Stop: 12/03/24 17:03 Last Infusion: 12/03/24 17:12 Dose: Infused Documented By: Admin: 12/03/24 16:55 Dose: 400 mls/hr Documented By: BLANCA Sodium Chloride (Nss) 1,000 mls @ 999 mls/hr IV .Q1H1M ONE Stop: 12/03/24 17:58 Last Infusion: 12/03/24 19:31 Dose: Infused Documented By: Admin: 12/03/24 17:50 Dose: 999 mls/hr Documented By: BLANCA Piperacillin Sod/Tazobactam Sod (Zosyn) 4.5 gm in 100 mls @ 200 mls/hr IV NOW ONE; Protocol Stop: 12/03/24 17:31 Last Infusion: 12/03/24 18:22 Dose: Infused Documented By: Admin: 12/03/24 17:50 Dose: 200 mls/hr Documented By: BLANCA Thiamine HCl 100 mg/ Syringe 10 mls @ 2 mls/min IV NOW STA Stop: 12/03/24 18:00 Last Admin: 12/03/24 19:14 Dose: 2 mls/min Documented By: BLANCA Folic Acid 1 mg/ Syringe 10 mls @ 5 mls/min IV NOW STA Stop: 12/03/24 17:57 Last Admin: 12/03/24 19:14 Dose: 5 mls/min Documented By: BLANCA Vancomycin HCl 1,250 mg/ (Sodium Chloride) 525 mls @ 200 mls/hr IV NOW ONE Stop: 12/03/24 21:22 Last Infusion: 12/03/24 23:41 Dose: Infused Documented By: Admin: 12/03/24 20:36 Dose: 200 mls/hr Documented By: BLANCA Lactated Ringer's (Lr) 1,000 mls @ 999 mls/hr IV .Q1H1M ONE Stop: 12/03/24 20:46 Last Infusion: 12/03/24 21:43 Dose: Infused Documented By: Admin: 12/03/24 20:36 Dose: 999 mls/hr Documented By: BLANCA Ioversol (Optiray 320 100ml) 93 ml IV ONCE ONE Stop: 12/03/24 17:20 Last Admin: 12/03/24 17:19 Dose: 93 ml Documented By: XENA Ondansetron HCl (Ondansetron Inj 2 Mg/Ml 2 Ml Vial) 4 mg IV NOW STA Stop: 12/03/24 18:35 Last Admin: 12/03/24 19:14 Dose: 4 mg Documented By: BLANCA Medical Decision Making Laboratory Data 12/03/24 16:35 12/03/24 16:35 Lab Results 12/03/24 12/03/24 12/03/24 Range/Units 16:21 16:35 16:41 WBC 8.78 (4.8-10.8) K/ul RBC 3.54 L (4.20-5.40) M/uL Hgb 12.7 (12.0-16.0) g/dl POC Hgb 13.3 (12.0-16.0) g/dl Hct 36.4 L (37.0-47.0) % POC Hct 39 (37-47) % MCV 102.8 H (80.0-100.0) fL MCH 35.9 H (25.0-34.0) pg MCHC 34.9 (32.0-36.0) g/dL RDW Std Deviation 49.7 H (36.4-46.3) fL RDW Coeff of Brielle 13.2 (11.5-14.5) % Plt Count 265 (130-400) K/uL MPV 9.7 (9.4-12.4) fL Immature Gran % (Auto) 0.2 % Neut % (Auto) 68.6 % Lymph % (Auto) 21.1 % [place] % (Auto) 7.9 % Eos % (Auto) 1.4 % Baso % (Auto) 0.8 % Neut # (Auto) 6.03 (1.40-6.50) K/uL Lymph # (Auto) 1.85 (1.20-3.40) K/uL [place] # (Auto) 0.69 H (0.11-0.59) K/uL Eos # (Auto) 0.12 (0.00-0.50) K/uL Baso # (Auto) 0.07 (0.00-0.20) K/uL Immature Gran # (Auto) 0.02 (0.01-0.20) K/uL POC Sodium 139 (135-144) mmol/L Sodium 141 (136-145) mmol/L POC Potassium 4.1 (3.3-5.0) mmol/L Potassium 4.2 (3.5-5.1) mmol/L POC Chloride 103 (101-112) mmol/L Chloride 104 (98-107) mmol/L Carbon Dioxide 24 (21-32) mmol/L POC Total CO2 23 L (24-31) mmol/L Anion Gap 13 H (3-11) POC Anion Gap 18.0 (16-25) mmol/L POC BUN 9 (7-18) mg/dl BUN 10 (6-23) mg/dl Creatinine 0.40 L (0.6-1.2) mg/dl POC Creatinine 0.7 (0.6-1.3) mg/dl Est Cr Clr Drug Dosing 172.4 ml/min eGFR 122.77 BUN/Creatinine Ratio 25.0 H (10-20) Glucose 100 H (70-99(Fasting)) mg/dl POC Glucose (other) 100 H (70-99) mg/dl Lactate 4.5 H* (0.4-2.0) mmol/L Calcium 8.5 L (8.6-10.3) mg/dl POC Ioniz Calcium Jan 1.03 L (1.12-1.32) mmol/l Total Bilirubin 0.9 (0.2-1.0) mg/dl AST 148 H (13-39) U/L ALT 43 (7-52) U/L Alkaline Phosphatase 150 H (34-104) U/L Total Protein 5.6 L (6.0-8.3) gm/dl Albumin 2.9 L (3.4-5.0) gm/dl Globulin 2.7 (2.5-4.0) gm/dl Albumin/Globulin Ratio 1.1 (0.9-2) Procalcitonin 8.64 H (0-0.5) ng/ml HCG, Qual Negative (Negative) Adenovirus (PCR) (NotDetected) B. pertussis DNA (PCR) (NotDetected) B.parapertussis DNA PCR (NotDetected) C. pneumoniae DNA (PCR) (NotDetected) Coronavirus OC43 (PCR) (NotDetected) Coronavirus HKU1 (PCR) (NotDetected) Coronavirus 229E (PCR) (NotDetected) SARS-CoV-2 (PCR) (NotDetected) Coronavirus NL63 (PCR) (NotDetected) Human Metapneumovir PCR (NotDetected) Influenza Type A (PCR) (NotDetected) Influenza Type B (PCR) (NotDetected) M. pneumoniae (PCR) (NotDetected) Parainfluenza 1 (PCR) (NotDetected) Parainfluenza 2 (PCR) (NotDetected) Parainfluenza 3 (PCR) (NotDetected) Parainfluenza 4 (PCR) (NotDetected) RSV (PCR) (NotDetected) Entero/Rhino (PCR) (NotDetected) 12/03/24 12/03/24 Range/Units 16:58 19:22 WBC (4.8-10.8) K/ul RBC (4.20-5.40) M/uL Hgb (12.0-16.0) g/dl POC Hgb (12.0-16.0) g/dl Hct (37.0-47.0) % POC Hct (37-47) % MCV (80.0-100.0) fL MCH (25.0-34.0) pg MCHC (32.0-36.0) g/dL RDW Std Deviation (36.4-46.3) fL RDW Coeff of Brielle (11.5-14.5) % Plt Count (130-400) K/uL MPV (9.4-12.4) fL Immature Gran % (Auto) % Neut % (Auto) % Lymph % (Auto) % [place] % (Auto) % Eos % (Auto) % Baso % (Auto) % Neut # (Auto) (1.40-6.50) K/uL Lymph # (Auto) (1.20-3.40) K/uL [place] # (Auto) (0.11-0.59) K/uL Eos # (Auto) (0.00-0.50) K/uL Baso # (Auto) (0.00-0.20) K/uL Immature Gran # (Auto) (0.01-0.20) K/uL POC Sodium (135-144) mmol/L Sodium (136-145) mmol/L POC Potassium (3.3-5.0) mmol/L Potassium (3.5-5.1) mmol/L POC Chloride (101-112) mmol/L Chloride (98-107) mmol/L Carbon Dioxide (21-32) mmol/L POC Total CO2 (24-31) mmol/L Anion Gap (3-11) POC Anion Gap (16-25) mmol/L POC BUN (7-18) mg/dl BUN (6-23) mg/dl Creatinine (0.6-1.2) mg/dl POC Creatinine (0.6-1.3) mg/dl Est Cr Clr Drug Dosing ml/min eGFR BUN/Creatinine Ratio (10-20) Glucose (70-99(Fasting)) mg/dl POC Glucose (other) (70-99) mg/dl Lactate 5.2 H* (0.4-2.0) mmol/L Calcium (8.6-10.3) mg/dl POC Ioniz Calcium Jan (1.12-1.32) mmol/l Total Bilirubin (0.2-1.0) mg/dl AST (13-39) U/L ALT (7-52) U/L Alkaline Phosphatase (34-104) U/L Total Protein (6.0-8.3) gm/dl Albumin (3.4-5.0) gm/dl Globulin (2.5-4.0) gm/dl Albumin/Globulin Ratio (0.9-2) Procalcitonin (0-0.5) ng/ml HCG, Qual (Negative) Adenovirus (PCR) Not Detected (NotDetected) B. pertussis DNA (PCR) Not Detected (NotDetected) B.parapertussis DNA PCR Not Detected (NotDetected) C. pneumoniae DNA (PCR) Not Detected (NotDetected) Coronavirus OC43 (PCR) Not Detected (NotDetected) Coronavirus HKU1 (PCR) Not Detected (NotDetected) Coronavirus 229E (PCR) Not Detected (NotDetected) SARS-CoV-2 (PCR) Not Detected (NotDetected) Coronavirus NL63 (PCR) Not Detected (NotDetected) Human Metapneumovir PCR Not Detected (NotDetected) Influenza Type A (PCR) Not Detected (NotDetected) Influenza Type B (PCR) Not Detected (NotDetected) M. pneumoniae (PCR) Not Detected (NotDetected) Parainfluenza 1 (PCR) Not Detected (NotDetected) Parainfluenza 2 (PCR) Not Detected (NotDetected) Parainfluenza 3 (PCR) Not Detected (NotDetected) Parainfluenza 4 (PCR) Not Detected (NotDetected) RSV (PCR) Not Detected (NotDetected) Entero/Rhino (PCR) Not Detected (NotDetected) Imaging Data Radiologist's Impression: Chest X-Ray 12/03/24 16:44 Technique: A frontal view of the chest was obtained Comparison is made to the prior examination dated 11/19/2023 Findings: There are no confluent pulmonary infiltrates. The heart size is within normal limits. No pleural effusion or pneumothorax is seen. There is no definite pulmonary nodule. No fracture is noted. No foreign body is seen Impression: No active disease Electronically signed by Kp Moser 12-03-2024 5:[address] 12/03/24 16:48 EXAMINATION: Head CT without CLINICAL HISTORY: Falls, struck head, dizziness PRIORS: MRI 09/27/2020 TECHNIQUE: Contiguous axial images were obtained through the head without the use of intravenous contrast. Sagittal and coronal reformations are supplied. FINDINGS: Mild frontal lobe parenchymal volume loss is noted. De León-white differentiation is preserved. No edema or midline shift. No intra-axial or extra-axial hemorrhage. Ventricles are normal in size and configuration. Brainstem and cerebellum have a normal appearance. Calvarium unremarkable. Paranasal sinuses and mastoid air cells are well-pneumatized. Globes are intact. No retrobulbar abnormality. IMPRESSION: No CT evidence of an acute intracranial abnormality. Electronically signed by Meenakshi Liu 12-03-2024 5:[address] 12/03/24 17:00 EXAM: CT cervical spine CLINICAL HISTORY: Fall struck head, dizzy no pneumothorax in the lung apices. TECHNIQUE: Contiguous axial images were obtained through the cervical spine without the use of intravenous contrast. Sagittal and coronal reformations are supplied. PRIORS: None FINDINGS: Bone stock is normal. Lordotic straightening is noted. No acute cervical spine fracture or facet dislocation. No prevertebral soft tissue swelling. Visualized trachea is patent. Partly calcified left thyroid lesion IMPRESSION: No CT evidence of an acute osseous abnormality. Electronically signed by Meenakshi Liu 12-03-2024 6:15 PM Abdomen/Pelvis CT 12/03/24 17:07 EXAMINATION: Abdomen and pelvis CT with CLINICAL HISTORY: Rigors, recent gynecologic surgery PRIORS: 08/18/2023 TECHNIQUE: Contiguous axial images were obtained through the abdomen and pelvis with the use of intravenous contrast. Sagittal and coronal reformations are supplied. FINDINGS: Lung bases unremarkable. The liver is enlarged measuring 19.5 cm with homogeneous fatty infiltration. Gallbladder mildly distended without inflammatory change. The portal vein, spleen, adrenals, aorta and IVC are morphologically unremarkable. Postsurgical change of the stomach noted, unchanged. Pancreas is indistinct and atrophic. Few calcifications present in the pancreas. A cyst is present in the posterior aspect of the stomach, appearing in the interval, measuring 5.0 x 4.3 cm, image 23, series 8. This abuts the pancreatic tail. No peripancreatic inflammatory change. The kidneys enhance symmetrically. Kidneys in early excretory phase. No hydronephrosis. No retroperitoneal adenopathy. A moderate amount of formed stool present throughout the colon. Urinary bladder distends normally. The appendix is normal, image 26, series 900. Small to moderate amount of free fluid present in the pelvic cul-de-sac, to the right of midline. Bilateral small ovarian cysts or follicles noted. No drainable fluid collection in the pelvis. Uterus is retroverted. No adenopathy in the pelvis. No gas in the urinary bladder lumen. No acute osseous abnormality. IMPRESSION: 1. Small to moderate amount of simple fluid in the right pelvic cul-de-sac with no drainable fluid collection, adenopathy or extraluminal gas. Pelvic ultrasound could be considered if appropriate. 2. Cyst present in the body of the stomach, abutting the pancreatic tail, appearing in the interval, possibly a pancreatic pseudocyst from prior pancreatitis noted on the previous examinations. Close clinical follow-up and evaluation suggested. 3. Fatty infiltration of the liver and hepatomegaly. ACT 112: Positive. There are findings on this examination that require communication between the performing entity and the patient following Patient Test Result Information Act ([place] ACT 112) guidelines. Electronically signed by Meenakshi Liu 12-03-2024 5:50 PM MDM Narrative Patient was seen and evaluated as above in room A04. Review was performed of triage nursing notes and vital signs. I did review pertinent previous visits and patient history. After obtaining a thorough history and physical examination the above work up was performed. Please see HPI for full details. Patient presents to us today with fevers, chills, rigors, myalgias, with patient noting right greater than left inguinal lymphadenopathy/swelling. Patient referred in by PCP noting tachycardia and borderline low blood pressure. On my assessment the patient does have chills/mild rigors. I will note the patient was seen during a period of elevated volume and acuity in the emergency department. Patient on examination with female RN compounding and finishing supervisor present does have erythema and a small amount of edema to the perineal region. There also are a few punctate erythematous pustules overlying the left gluteal area. She does not seem to be tender in the operative area. EKG per my interpretation reveals sinus tachycardia at a rate of 104 bpm. QTc 431. QRS 56. There is no ST elevation on this rhythm tracing. Options of care were discussed with the patient. There is no leukocytosis or concerning anemia. There is no evidence of kidney or emergent liver failure but will note transaminitis with AST of 148. Alk phos 150. The transaminitis is up from an AST of 114 in January 2024. Patient's lactate returned elevated at 4.5. Procalcitonin elevated at 8.64. hCG returned negative. Chest x-ray negative for acute process. A CT scan was ordered of the abdomen/pelvis as well as CT imaging of the head and C-spine. Abdomen and pelvis were ordered to further evaluate the patient's right greater than left inguinal lymphadenopathy and infectious symptoms in the setting of recent procedure but also head and neck were added as the patient did note frequent falls and has struck the head in the recent past. CT head and neck as above and are negative. Abdomen/pelvis are as above noting small to moderate amount of simple fluid in the right pelvic cul-de-sac with no drainable fluid collection. No adenopathy. No extraluminal gas. BioFire panel returned negative. Patient's procalcitonin elevated at 8.64 making sepsis likely. The patient did receive 2 L of IV fluid here in the ED for fluid resuscitation noting the tachycardia in the setting of suspected infectious etiology. IV Zosyn ordered for broad coverage as well. IV vancomycin also ordered. The patient denies any known cardiac history or known volume issues. The patient does note she does drink wine regularly each evening. There has been no recent change to the amount that she consumes. I did order IV thiamine and folic acid. Presentation not consistent with that of alcohol withdrawal at this time, more consistent with that of infectious etiology. I did review presentation with [facility]MER, Dr. Stein as the patient did have recent gynecologic procedure however will consider other etiologies for the sepsis as well. Patient reevaluated numerous times and responded well to IV hydration. No breathing issues or evidence of volume overload clinically post IV hydration ordered in ED. The tachycardia and symptoms are felt to be infectious and not secondary to pulmonary embolism. No chest pain or dyspnea. I do believe that further evaluation and management in the inpatient setting is warranted. Case discussed with the hospitalist service. Please refer to further documentation regarding her stay. GCS: 15 In the evaluation and treatment of this patient the following differential diagnoses were entertained: Sepsis, septic shock, perineal infection, peritonitis, pneumonia, PE, intracranial hemorrhage, alcohol withdrawal, bacteremia, electrolyte disturbance, among others. Impression & Plan Sepsis, Elevated procalcitonin, Elevated lactic acid level, Elevated AST (SGOT), Myalgia, Fatigue Discharge Plan Visit Data Chief Complaint: Referred by Doctor Stated Complaint: SURGERY ON 11/27, EKG ABNORMAL, DIZZY ED Provider: Pavel Shahid ED Midlevel Provider: Geoffrey Lynch Discharge Problem: Sepsis, Elevated procalcitonin, Elevated lactic acid level, Elevated AST (SGOT), Myalgia, Fatigue Patient Disposition: Admitted As Inpatient Condition: Fair Discharge Instructions Interventions: ED Discharge Assessment Last Done: 12/03/24 22:30
[2024-12-03] MEDS: SODIUM CHLORIDE 0.9% 1,000 ML IV ONE ×2 (16:55→17:50)
[2024-12-03] MEDS: ACETAMINOPHEN 1,000 MG/100 ML VIAL IV STA (16:55)
[2024-12-03 17:04] LABS: Hematocrit (blood only) 36.4 % (37.0-47.0); Hemoglobin 12.7 g/dl (12.0-16.0); Immature Granulocytes # (auto) 0.02 K/uL (0.01-0.20); Immature Granulocytes % (auto) 0.2 %; Mean Corpuscular Hemoglobin 35.9 pg (25.0-34.0); Mean Corpuscular Volume 102.8 fL (80.0-100.0); Platelet Count 265 K/uL (130-400); RDW Standard Deviation 49.7 fL (36.4-46.3); Red Blood Count 3.54 M/uL (4.20-5.40); White Blood Count 8.78 K/ul (4.8-10.8)
--- NOTE | 2024-12-03 17:16 | XRay Report ---
Technique: A frontal view of the chest was obtained Comparison is made to the prior examination dated 11/19/2023 Findings: There are no confluent pulmonary infiltrates. The heart size is within normal limits. No pleural effusion or pneumothorax is seen. There is no definite pulmonary nodule. No fracture is noted. No foreign body is seen Impression: No active disease Electronically signed by Kp Moser 12-03-2024 5:16 PM
[2024-12-03 17:18] LABS: Alanine Aminotransferase 43.0 U/L (7-52); Albumin Globulin Ratio 1.1 (0.9-2); Albumin Level 2.9 gm/dl (3.4-5.0); Alkaline Phosphatase 150.0 U/L (34-104); Anion Gap 13.0 (3-11); Bilirubin,Total 0.9 mg/dl (0.2-1.0); Blood Urea Nitrogen 10.0 mg/dl (6-23); Calcium 8.5 mg/dl (8.6-10.3); Carbon Dioxide 24.0 mmol/L (21-32); Chloride 104.0 mmol/L (98-107); Creatinine Clr Calc Pharmacy 172.4 ml/min; Globulin 2.7 gm/dl (2.5-4.0); Glucose 100.0 mg/dl (70-99(Fasting)); Potassium 4.2 mmol/L (3.5-5.1); Sodium 141.0 mmol/L (136-145); Total Protein 5.6 gm/dl (6.0-8.3)
[2024-12-03 17:19] LABS: Pregnancy Test, Serum Negative (Negative)
[2024-12-03] MEDS: OPTIRAY 320 100ml IV ONE (17:19)
--- NOTE | 2024-12-03 17:43 | CT Scan Report ---
EXAMINATION: Head CT without CLINICAL HISTORY: Falls, struck head, dizziness PRIORS: MRI 09/27/2020 TECHNIQUE: Contiguous axial images were obtained through the head without the use of intravenous contrast. Sagittal and coronal reformations are supplied. FINDINGS: Mild frontal lobe parenchymal volume loss is noted. De León-white differentiation is preserved. No edema or midline shift. No intra-axial or extra-axial hemorrhage. Ventricles are normal in size and configuration. Brainstem and cerebellum have a normal appearance. Calvarium unremarkable. Paranasal sinuses and mastoid air cells are well-pneumatized. Globes are intact. No retrobulbar abnormality. IMPRESSION: No CT evidence of an acute intracranial abnormality. Electronically signed by Meenakshi Liu 12-03-2024 5:43 PM
[2024-12-03] MEDS: PIPERACILLIN/TAZOBACTAM 4.5 GM/100 ML BAG IV ONE (17:50)
--- NOTE | 2024-12-03 17:51 | CT Scan Report ---
EXAMINATION: Abdomen and pelvis CT with CLINICAL HISTORY: Rigors, recent gynecologic surgery PRIORS: 08/18/2023 TECHNIQUE: Contiguous axial images were obtained through the abdomen and pelvis with the use of intravenous contrast. Sagittal and coronal reformations are supplied. FINDINGS: Lung bases unremarkable. The liver is enlarged measuring 19.5 cm with homogeneous fatty infiltration. Gallbladder mildly distended without inflammatory change. The portal vein, spleen, adrenals, aorta and IVC are morphologically unremarkable. Postsurgical change of the stomach noted, unchanged. Pancreas is indistinct and atrophic. Few calcifications present in the pancreas. A cyst is present in the posterior aspect of the stomach, appearing in the interval, measuring 5.0 x 4.3 cm, image 23, series 8. This abuts the pancreatic tail. No peripancreatic inflammatory change. The kidneys enhance symmetrically. Kidneys in early excretory phase. No hydronephrosis. No retroperitoneal adenopathy. A moderate amount of formed stool present throughout the colon. Urinary bladder distends normally. The appendix is normal, image 26, series 900. Small to moderate amount of free fluid present in the pelvic cul-de-sac, to the right of midline. Bilateral small ovarian cysts or follicles noted. No drainable fluid collection in the pelvis. Uterus is retroverted. No adenopathy in the pelvis. No gas in the urinary bladder lumen. No acute osseous abnormality. IMPRESSION: 1. Small to moderate amount of simple fluid in the right pelvic cul-de-sac with no drainable fluid collection, adenopathy or extraluminal gas. Pelvic ultrasound could be considered if appropriate. 2. Cyst present in the body of the stomach, abutting the pancreatic tail, appearing in the interval, possibly a pancreatic pseudocyst from prior pancreatitis noted on the previous examinations. Close clinical follow-up and evaluation suggested. 3. Fatty infiltration of the liver and hepatomegaly. ACT 112: Positive. There are findings on this examination that require communication between the performing entity and the patient following Patient Test Result Information Act ([place] ACT 112) guidelines. Electronically signed by Meenakshi Liu 12-03-2024 5:50 PM
[2024-12-03 17:57] LABS: Chlamydia pneumoniae PCR Not Detected (NotDetected); Coronavirus 229E PCR Not Detected (NotDetected); Coronavirus CoV-2 (COVID19)PCR Not Detected (NotDetected); Coronavirus HKU1 PCR Not Detected (NotDetected); Coronavirus NL63 PCR Not Detected (NotDetected); Coronavirus OC43PCR Not Detected (NotDetected); Human Metapneumovirus PCR Not Detected (NotDetected); Parainfluenza Virus 1 PCR Not Detected (NotDetected); Parainfluenza Virus 2 PCR Not Detected (NotDetected); Parainfluenza Virus 3 PCR Not Detected (NotDetected); Parainfluenza Virus 4 PCR Not Detected (NotDetected); Respiratory Syncytial VirusPCR Not Detected (NotDetected); Rhinovirus/Enterovirus PCR Not Detected (NotDetected)
--- NOTE | 2024-12-03 18:25 | CT Scan Report ---
EXAM: CT cervical spine CLINICAL HISTORY: Fall struck head, dizzy no pneumothorax in the lung apices. TECHNIQUE: Contiguous axial images were obtained through the cervical spine without the use of intravenous contrast. Sagittal and coronal reformations are supplied. PRIORS: None FINDINGS: Bone stock is normal. Lordotic straightening is noted. No acute cervical spine fracture or facet dislocation. No prevertebral soft tissue swelling. Visualized trachea is patent. Partly calcified left thyroid lesion IMPRESSION: No CT evidence of an acute osseous abnormality. Electronically signed by Meenakshi Liu 12-03-2024 6:15 PM
[2024-12-03] MEDS ORDERED: VANCOMYCIN CONSULT ACTIVE PRN (18:45)
--- NOTE | 2024-12-03 18:45 | Communication Note ---
Date of Service: December 03, 2024 49-year-old woman with recent pelvic surgery for cyst removal presented with rigors/myalgias and sepsis - elevated lactate, procalcitonin, tachycardia ED discussed with surgeon Dr. Stein - seenin office 2d ago had tiny wound dehiscence did not appear infected at that time CT A/P with some simple fluid in pelvis, LAD. Nothing drainable -IVF 2L, pip-tazo, UA and blood cultures and repeat lactate pending Had fallen hit head - CT head and neck
[2024-12-03] MEDS: ONDANSETRON INJ 2 MG/ML 2 ML VIAL IV STA (19:14)
[2024-12-03] MEDS: THIAMINE HCL 100 MG in SYRINGE 9 ML IV STA (19:14)
[2024-12-03] MEDS: FOLIC ACID 1 MG in SYRINGE 9.8 ML IV STA (19:14)
--- NOTE | 2024-12-03 19:21 | History & Physical Report ---
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 ED evaluation concerning for developing sepsis as the patient is tachycardic, with lactate 4.5 and procalcitonin 8.64 and identifiable infection. White count is normal, with slightly elevated AG of 13, creatinine decreased to 0.4, and elevated liver enzymes with alk phos 150 and AST 148. Her imaging is without acute findings with exception of CTAP showing small amount of fluid in the R pelvis cul-de-sac without drainable area. Patient will be admitted for IV antibiotics for developing sepsis suspected to be from recent perineal cyst removal. #Sepsis/Recent perineal cyst removal Likely source from ? perineal cyst removal, completed 11/27/2024, with follow-up visit 12/01 for superficial wound separation and no signs of infection at that time, seen in outpatient setting day of arrival by PCP (12/03) and reports of hypotension + tachycardia with worsening pain, no fevers; received 2L NSS in ED, sepsis fluid volume per IBW is 1908.9 mL. No other clear source of infection at this time, pending UA (w/ LUTS). No respiratory symptoms, without wound elsewhere, no identifiable etiology per imaging. Pending blood cx. Admission for sepsis. - CBC without leukocytosis; lactate 4.5, repeat 5.2, trend; procalcitonin 8.64 - CBC am - CMP with elevated AG, AST (148), and alkaline phosphatase (150) - BioFire negative - UA pending - Pending blood cx - EKG sinus tachycardia at 104 bpm - CXR no active disease; head CT no acute findings; C-spine CT no acute finding - CTAP small to moderate amount supple fluid in R pelvic cul-de-sac with no drainable fluid collection, cyst present in body of stomach abutting pancreatic tail, fatty infiltrate liver and hepatomegaly - Ice to affected area, provide with squirt bottle for restroom use - LR 1L now then IVF LR @ 125 mL/hr - Acetaminophen prn fever/pain (caution with excessive use - transaminitis), morphine moderate-severe pain - Zofran prn N/V - Diflucan po now x 1 - Zosyn + Vanco IV - continue - Gyne consulted - greatly appreciate input + recs #Alcohol dependence Typically drinks 3-4 glasses of wine per night, every night; 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 PAWS 1 (HR elevated, although likely d/t infection). Received IV thiamine + folate in ED. - CMP AST 148, alkaline phosphatase 150; EtOH neg - trend LFTs as appropriate - CTAP fatty infiltrate of liver, hepatomegaly - AWSS - IVF as above - Thiamine IV + folate IV am - Lorazepam per protocol # Seizure-like activity Prior history of seizures, last seizure being December 2021. On lamotrigine twice daily. - Fall precautions, seizure precautions - CT head without acute finding - Has been taking lamotrigine as prescribed -- Continue lamotrigine #Essential tremor- Propranolol - hold for now as may impact BP, continue next AM if BP stable #Insomnia- Trazodone - continue Dispo: Admit, PCU VTE Prophylaxis: SCDs This document was dictated utilizing [employer]. Please excuse any gramm atical errors that may be secondary to use of this software. 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 Patient reports that overall she feels "exhausted." She states on the day of arrival she started to have chills but has not had any chills or fever reported prior to that. She is having a very painful perineal area, stating that at its worst without movement it is a 6 out of 10 on the pain scale but if she starts to move around it goes to a 9 out of 10 on the pain scale. 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 At that time, the area did not appear infected and patient was not started on any antibiotics. She has been using ice and Tylenol every 4 hours in attempts to alleviate pain, and she was also given oxycodone for the pain. States that she normally has loose bowel movements, but this has decreased some since starting opioid medications for the pain. She also admits to having rather significant burning when she urinates, but no pain with bowel movements. 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 Otherwise she is without chest pain, palpitations, shortness of breath, abdominal pain, N/V, numbness/tingling, fever, URI symptoms, additional LUTS, weakness, or falls. ED evaluation reveals CBC without leukocytosis, H&H 12.7/36.4; CMP AG 13, creatinine 0.4, ratio 25, glucose 100, alk phos 150, AST 148, protein 5.6, BUN 2.9; lactate 4.5, pending repeat; calcium 8.5; procalcitonin 8.64; BioFire negative; CXR no active disease; head CT no evidence of acute intracranial abnormality; cervical spine CT no CT evidence of acute osseous abnormality; CTAP small to moderate amount of simple fluid in the R pelvis cul-de-sac no drainable fluid collection, cyst present in body of the stomach possibly pancreatic pseudocyst from prior pancreatitis, fatty infiltration of liver and hepatomegaly; EKG sinus tachycardia at 104 bpm.; Provided with 2L NSS, acetaminophen 1 g IV, and Zosyn 4.5 g IV in ED. Please see Dr. Melo's attestation for adjustments/additions to treatment plan. Allergies Allergy/AdvReac Type Severity Reaction Status Date / Time No Known Allergies Allergy Verified 12/01/24 14:17 Home Medications Medication Instructions Recorded Confirmed Type cyanocobalamin (vitamin B-12) 1,000 mcg subcut Q14D 09/17/23 12/03/24 History 1,000 mcg/mL injection solution propranolol 120 mg capsule,24 120 mg PO QAM 01/27/24 12/03/24 History hr,extended release Supercream (OBGYN) [place]on 1 applic topical BID PRN 10/21/24 12/03/24 Rx [facility] 15 g ointment hemorrhoids #15 grams trazodone 50 mg tablet 50 mg PO HS 11/18/24 12/03/24 History lamotrigine 100 mg tablet 100 mg PO BID 30 days #60 tabs 12/01/24 12/03/24 Rx oxycodone 5 mg tablet 5 mg PO Q8H PRN pain #7 tabs 12/02/24 12/03/24 Rx Past Med/Surg History Problem List Fatigue (Acute) Myalgia (Acute) Elevated AST (SGOT) (Acute) Elevated lactic acid level (Acute) Elevated procalcitonin (Acute) Sepsis (Acute) Postop check Hx of hemorrhoids Seizure-like activity "only full blown seizure she's ever had" 2021; f/u dr. crenshaw Perineal cyst in female Vaginal lump Vaginal cyst Iron deficiency anemia following bariatric surgery Hoarseness of voice Esophagitis Epigastric abdominal pain (Acute) Idiopathic polyneuropathy Encounter for pre-operative examination Chronic diarrhea Rectal bleeding Polyp of gallbladder Abdominal pain, vomiting, and diarrhea (Acute) Cellulitis Entered 2022 Abnormal uterine bleeding (AUB) Alcohol dependence (Acute) Vitamin B12 deficiency Hypertension Anxiety Medical History Hoarseness of voice History of anxiety Hx of iron deficiency anemia Idiopathic polyneuropathy History of hypertension Seizure disorder last seizure 2021, f/u dr. cren[place], [place] Alcohol use Essential tremor reason for propranolol Hx of pancreatitis Classic migraine with aura hx, none for years History of nephrolithiasis Chronic mixed headache syndrome Surgical History H/O removal of cyst Hx of colonoscopy (2023) History of esophagogastroduodenoscopy (EGD) History of x1 History of gynecologic surgery D&E-surgically induced H/O lithotripsy Status post surgery laryngeal surgery- stripping of vocal cords, nodules removed History of Mitzi-en-Y gastric bypass 2006 Family History Uncle Bladder cancer maternal uncle Sister Brain tumor Grandfather (Paternal) Colorectal cancer Aunt Lung cancer paternal aunt Father Essential tremor Mother Hypertension Denies family history of Ovarian cancer Breast cancer Social History Smoking Status: Never smoker Second Hand Exposure: No; Do You Dip or Chew Tobacco: No; Hx Alcohol Use: Yes Alcohol type: wine Alcohol Intake Frequency Comment: 2-3 drinks, 5-7 days per week Hx Substance Use: No Preferred Language: Tajik Communication Ability: Effective Barrel Driller Required: No Beliefs That Will Affect Care: None marital status: Current Living Situation: Spouse 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 Feels Safe at Home: Yes Assistive Devices: None Review of Systems Review of Systems: All systems reviewed & are unremarkable except as noted in Subjective Physical Exam Physical Exam: General: No acute distress Skin: Warm and dry Head: Normocephalic, atraumatic Eyes: PERRL, conjunctivae clear, sclera non-icteric ENT: External ear and ear canal without swelling; nose atraumatic; good dentition, tongue normal appearance, pharynx normal Neck: Supple, no LAD Cardio: RRR, no M/G/R, S1 and S2 normal Resp: No respiratory distress, Lungs CTA in all lobes bilaterally, no wheezes, rales, or rhonchi Abdomen: Soft, symmetric, nontender; No masses or hepatosplenomegaly; Bowel sounds normoactive MSK: No deformities; pulses palpable and equal; no edema. Neuro: Awake, alert; Sensation intact bilaterally; CN grossly intact Psych: Appropriate mood and affect; good judgement and insight. Results & Data Results & Data Vital Signs (Past 12 Hours) Vital Signs Temp Pulse Resp BP Pulse Ox O2 Del Method 12/03/24 18:00 108 H 23 124/104 H 97 12/03/24 17:45 108 H 16 146/100 H 98 12/03/24 17:30 107 H 24 129/91 96 12/03/24 17:00 117 H 12 122/92 94 12/03/24 16:55 100 H 12/03/24 16:42 101 H 16 116/83 97 12/03/24 14:56 36.6 C 112 H 18 131/80 93 Room Air Laboratory Results 12/03/24 16:35 Aerobic Blood Culture - Pending Blood Anaerobic Blood Culture - Pending 12/03/24 16:35 Aerobic Blood Culture - Pending Blood Anaerobic Blood Culture - Pending 12/03/24 12/03/24 12/03/24 16:58 16:41 16:35 WBC 8.78 RBC 3.54 L Hgb 12.7 POC Hgb 13.3 Hct 36.4 L POC Hct 39 MCV 102.8 H MCH 35.9 H MCHC 34.9 RDW Std Deviation 49.7 H RDW Coeff of Brielle 13.2 Plt Count 265 MPV 9.7 Immature Gran % (Auto) 0.2 Neut % (Auto) 68.6 Lymph % (Auto) 21.1 Dixie % (Auto) 7.9 Eos % (Auto) 1.4 Baso % (Auto) 0.8 Neut # (Auto) 6.03 Lymph # (Auto) 1.85 Dixie # (Auto) 0.69 H Eos # (Auto) 0.12 Baso # (Auto) 0.07 Immature Gran # (Auto) 0.02 POC Sodium 139 Sodium 141 POC Potassium 4.1 Potassium 4.2 POC Chloride 103 Chloride 104 Carbon Dioxide 24 POC Total CO2 23 L Anion Gap 13 H POC Anion Gap 18.0 POC BUN 9 BUN 10 Creatinine 0.40 L POC Creatinine 0.7 Est Cr Clr Drug Dosing 172.4 eGFR 122.77 BUN/Creatinine Ratio 25.0 H Glucose 100 H POC Glucose (other) 100 H Lactate 4.5 H* Calcium 8.5 L POC Ioniz Calcium Jan 1.03 L Total Bilirubin 0.9 AST 148 H ALT 43 Alkaline Phosphatase 150 H Total Protein 5.6 L Albumin 2.9 L Globulin 2.7 Albumin/Globulin Ratio 1.1 Procalcitonin HCG, Qual Negative Adenovirus (PCR) Not Detected B. pertussis DNA (PCR) Not Detected B.parapertussis DNA PCR Not Detected C. pneumoniae DNA (PCR) Not Detected Coronavirus OC43 (PCR) Not Detected Coronavirus HKU1 (PCR) Not Detected Coronavirus 229E (PCR) Not Detected SARS-CoV-2 (PCR) Not Detected Coronavirus NL63 (PCR) Not Detected Human Metapneumovir PCR Not Detected Influenza Type A (PCR) Not Detected Influenza Type B (PCR) Not Detected M. pneumoniae (PCR) Not Detected Parainfluenza 1 (PCR) Not Detected Parainfluenza 2 (PCR) Not Detected Parainfluenza 3 (PCR) Not Detected Parainfluenza 4 (PCR) Not Detected RSV (PCR) Not Detected Entero/Rhino (PCR) Not Detected 12/03/24 16:21 WBC RBC Hgb POC Hgb Hct POC Hct MCV MCH MCHC RDW Std Deviation RDW Coeff of Brielle Plt Count MPV Immature Gran % (Auto) Neut % (Auto) Lymph % (Auto) Dixie % (Auto) Eos % (Auto) Baso % (Auto) Neut # (Auto) Lymph # (Auto) Dixie # (Auto) Eos # (Auto) Baso # (Auto) Immature Gran # (Auto) POC Sodium Sodium POC Potassium Potassium POC Chloride Chloride Carbon Dioxide POC Total CO2 Anion Gap POC Anion Gap POC BUN BUN Creatinine POC Creatinine Est Cr Clr Drug Dosing eGFR BUN/Creatinine Ratio Glucose POC Glucose (other) Lactate Calcium POC Ioniz Calcium Jan Total Bilirubin AST ALT Alkaline Phosphatase Total Protein Albumin Globulin Albumin/Globulin Ratio Procalcitonin 8.64 H HCG, Qual Adenovirus (PCR) B. pertussis DNA (PCR) B.parapertussis DNA PCR C. pneumoniae DNA (PCR) Coronavirus OC43 (PCR) Coronavirus HKU1 (PCR) Coronavirus 229E (PCR) SARS-CoV-2 (PCR) Coronavirus NL63 (PCR) Human Metapneumovir PCR Influenza Type A (PCR) Influenza Type B (PCR) M. pneumoniae (PCR) Parainfluenza 1 (PCR) Parainfluenza 2 (PCR) Parainfluenza 3 (PCR) Parainfluenza 4 (PCR) RSV (PCR) Entero/Rhino (PCR) Diagnostic Findings Chest X-Ray 12/03/24 16:44 Technique: A frontal view of the chest was obtained Comparison is made to the prior examination dated 11/19/2023 Findings: There are no confluent pulmonary infiltrates. The heart size is within normal limits. No pleural effusion or pneumothorax is seen. There is no definite pulmonary nodule. No fracture is noted. No foreign body is seen Impression: No active disease Electronically signed by Kp Moser 12-03-2024 5:[address] 12/03/24 16:48 EXAMINATION: Head CT without CLINICAL HISTORY: Falls, struck head, dizziness PRIORS: MRI 09/27/2020 TECHNIQUE: Contiguous axial images were obtained through the head without the use of intravenous contrast. Sagittal and coronal reformations are supplied. FINDINGS: Mild frontal lobe parenchymal volume loss is noted. De León-white differentiation is preserved. No edema or midline shift. No intra-axial or extra-axial hemorrhage. Ventricles are normal in size and configuration. Brainstem and cerebellum have a normal appearance. Calvarium unremarkable. Paranasal sinuses and mastoid air cells are well-pneumatized. Globes are intact. No retrobulbar abnormality. IMPRESSION: No CT evidence of an acute intracranial abnormality. Electronically signed by Meenakshi Liu 12-03-2024 5:[address] 12/03/24 17:00 EXAM: CT cervical spine CLINICAL HISTORY: Fall struck head, dizzy no pneumothorax in the lung apices. TECHNIQUE: Contiguous axial images were obtained through the cervical spine without the use of intravenous contrast. Sagittal and coronal reformations are supplied. PRIORS: None FINDINGS: Bone stock is normal. Lordotic straightening is noted. No acute cervical spine fracture or facet dislocation. No prevertebral soft tissue swelling. Visualized trachea is patent. Partly calcified left thyroid lesion IMPRESSION: No CT evidence of an acute osseous abnormality. Electronically signed by Meenakshi Liu 12-03-2024 6:15 PM Abdomen/Pelvis CT 12/03/24 17:07 EXAMINATION: Abdomen and pelvis CT with CLINICAL HISTORY: Rigors, recent gynecologic surgery PRIORS: 08/18/2023 TECHNIQUE: Contiguous axial images were obtained through the abdomen and pelvis with the use of intravenous contrast. Sagittal and coronal reformations are supplied. FINDINGS: Lung bases unremarkable. The liver is enlarged measuring 19.5 cm with homogeneous fatty infiltration. Gallbladder mildly distended without inflammatory change. The portal vein, spleen, adrenals, aorta and IVC are morphologically unremarkable. Postsurgical change of the stomach noted, unchanged. Pancreas is indistinct and atrophic. Few calcifications present in the pancreas. A cyst is present in the posterior aspect of the stomach, appearing in the interval, measuring 5.0 x 4.3 cm, image 23, series 8. This abuts the pancreatic tail. No peripancreatic inflammatory change. The kidneys enhance symmetrically. Kidneys in early excretory phase. No hydronephrosis. No retroperitoneal adenopathy. A moderate amount of formed stool present throughout the colon. Urinary bladder distends normally. The appendix is normal, image 26, series 900. Small to moderate amount of free fluid present in the pelvic cul-de-sac, to the right of midline. Bilateral small ovarian cysts or follicles noted. No drainable fluid collection in the pelvis. Uterus is retroverted. No adenopathy in the pelvis. No gas in the urinary bladder lumen. No acute osseous abnormality. IMPRESSION: 1. Small to moderate amount of simple fluid in the right pelvic cul-de-sac with no drainable fluid collection, adenopathy or extraluminal gas. Pelvic ultrasound could be considered if appropriate. 2. Cyst present in the body of the stomach, abutting the pancreatic tail, appearing in the interval, possibly a pancreatic pseudocyst from prior pancreatitis noted on the previous examinations. Close clinical follow-up and evaluation suggested. 3. Fatty infiltration of the liver and hepatomegaly. ACT 112: Positive. There are findings on this examination that require communication between the performing entity and the patient following Patient Test Result Information Act ([place] ACT 112) guidelines. Electronically signed by Meenakshi Liu 12-03-2024 5:50 PM Medications Administered 2L NSS Acetaminophen 1 g IV Zosyn 4.5 g IV ECG Additional Comments: Sinus tachycardia 104 bpm, SC 114, QRS 56, QT/QTc 328/431, PRT 11/39/47 Code Status & VTE Plan Code Status Full Supervising Physician Co-Signing Physician Notes Patient seen and examined, chart reviewed, case discussed with MAKAYLA Chance and I agree with the assessment and plan as above. In brief, patient is a 49yo female with history of essential tremor, HTN, anxiety s/p recent perineal cyst removal one week ago - patient with sepsis present on admission with tachycardia, hypotension as well as elevated lactate and procalcitonin. She has some dysuria. UA with 4+ bacteria On exam she is afebrile, HD stable, NAD Skin - no rash HEENT - MMM, Neck supple Heart - +S1/S2, regular, tachycardic, no m/r/g Lungs - CTA, no rales/rhonchi/wheezes Abd - soft, NT/ND Ext - no edema Genitourinary - no bleeding, drainage or crepitus. Femoral lymph nodes tender t o palpation bilaterally Labs and images reviewed Sepsis - elevated lactate and procalcitonin. Source unclear. Appreciate OB-Patient Placement Coordinator input, do not strongly suspect perineal cyst site as infection source. Patient does endorse dysuria, UA with 4+ bacteria -Admit to medical -Continue IVF -Repeat Lactate with AM labs -Empiric antibiotics with Vancomycin and Zosyn for now -Await cultures -Remainder as above AWSS - patient drinks daily. No history of withdrawal in the past Remainder as above PG Care Time/CCT Total # of Minutes Spent Total Time Spent with Patient: Total time spent is greater than 50% in coordination of care (as documented) at patient's floor/unit and/or counseling patient: Coding Level of Care Code 05157 INT INP/OBS CARE 3/75MIN Diagnoses Sepsis A41.9 Alcohol dependence F10.20
[2024-12-03] MEDS ORDERED: ACETAMINOPHEN 325 MG TAB PO PRN ×2 (20:00→21:55)
[2024-12-03] MEDS ORDERED: NALOXONE HCL 0.4 MG/1 ML VIAL/CARP IV PRN (20:01)
--- NOTE | 2024-12-03 20:25 | OB/GYN Consultation ---
Date of Consultation December 03, 2024 Assessment & Plan (1) Postop check: (2) Sepsis: Plan Patient has s/s that may be consistent with sepsis. the source remains unknown. I think that there is a very low probability that the area of the perineum is actually infected and is the primary cause of a potential sepsis. On my exam, the area does not look significantly changed from when I saw it in the office on . It is open as the stitches have pulled out and there is a little more skin swelling , but no significant erythema or purulent d/c. Additionally there is no pain beyond the area of the surgery. I asked the radiologist to look particularly at this area on the CT scan and he does not note any area of concern in the area of the perineum or the tissues plains surrounding. Not sure of the significance of the small amount of fluid in the pelvic cul de sac. Appreciate hospitalist admitting this patient and defer to them for the choice of antibiotics. Blood cultures pending. Would continue to look for other potential sources. Will continue to monitor the postop area while here. Defer most care to the hospitalist service. History of Present Illness Reason for Consultation: recent surgery Requesting Physician: mk Gordon History of Present Illness Patient is a 49yowf who approximately one week ago had an excision of a superficial perineal cyst in the operating room. It was approximately 1 cm and was a benign epidermal cyst. Patient presented to the office on for a check. The stitches had unfortunately pulled out, ,but the deep stitches were intact. There was some very slight erythema to the surrounding skin. Was appropriately tender for post op. Did not look infected and made appt for Saturday. she was doing sitz baths three times daily and was not using any creams or ointments as instructed. Yesterday she started not feeling well, fatigued and in the evening started to have chills and shakes. This persisted into today and she went to her PCP for a previously scheduled appt. She had a low blood pressure and was tachycardic. She was sent to the ED. When I see her she is lying comfortably in bed. She is wrapped in several blankets. Notes fatigue and shaking chills. No sick contacts. Has not really noted any change in her perineum or discomfort. WBC 8.0. no shift. No fever. Temp 36.6 which is no different than temps on the day of surgery or even before. She has some intermittent shaking. Additionally patient notes she had some hives or welts on her buttocks also around this time. CT--1. Small to moderate amount of simple fluid in the right pelvic cul-de-sac with no drainable fluid collection, adenopathy or extraluminal gas. Pelvic ultrasound could be considered if appropriate. labs abnl--ast--148, lactate 5.2, procal 8.64, resp panel negative. Allergies Allergy/AdvReac Type Severity Reaction Status Date / Time No Known Allergies Allergy Verified 12/01/24 14:17 Home Medications Medication Instructions Recorded Confirmed Type cyanocobalamin (vitamin B-12) 1,000 mcg subcut Q14D 09/17/23 12/03/24 History 1,000 mcg/mL injection solution propranolol 120 mg capsule,24 120 mg PO QAM 01/27/24 12/03/24 History hr,extended release Supercream (OBGYN) Omer 1 applic topical BID PRN 10/21/24 12/03/24 Rx [facility] 15 g ointment hemorrhoids #15 grams trazodone 50 mg tablet 50 mg PO HS 11/18/24 12/03/24 History lamotrigine 100 mg tablet 100 mg PO BID 30 days #60 tabs 12/01/24 12/03/24 Rx oxycodone 5 mg tablet 5 mg PO Q8H PRN pain #7 tabs 12/02/24 12/03/24 Rx Patient History Medical History Hoarseness of voice History of anxiety Hx of iron deficiency anemia Idiopathic polyneuropathy History of hypertension Seizure disorder last seizure 2021, f/u dr. crenshaw, de neuro Alcohol use Essential tremor reason for propranolol Hx of pancreatitis Classic migraine with aura hx, none for years History of nephrolithiasis Chronic mixed headache syndrome Surgical History H/O removal of cyst Hx of colonoscopy (2023) History of esophagogastroduodenoscopy (EGD) History of x1 History of gynecologic surgery D&E-surgically induced H/O lithotripsy Status post surgery laryngeal surgery- stripping of vocal cords, nodules removed History of Mitzi-en-Y gastric bypass 2006 Family History Uncle Bladder cancer maternal uncle Sister Brain tumor Grandfather (Paternal) Colorectal cancer Aunt Lung cancer paternal aunt Father Essential tremor Mother Hypertension Denies family history of Ovarian cancer Breast cancer Social History Smoking Status: Never smoker Second Hand Exposure: No; Do You Dip or Chew Tobacco: No; Hx Alcohol Use: Yes Alcohol type: wine Alcohol Intake Frequency Comment: 2-3 drinks, 5-7 days per week Hx Substance Use: No Preferred Language: Frisian Communication Ability: Effective Watch Crystal Grinder Required: No Beliefs That Will Affect Care: None marital status: Current Living Situation: Spouse 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 The skin edges look a little more swollen than tues. There is no purulent drainage. Not more erythematous then prior. the area is soft. It is tender but not out of proportion to postop Results & Data Vital Signs (Past 12 Hours) Vital Signs Temp Pulse Resp BP Pulse Ox O2 Del Method 12/03/24 18:00 108 H 23 124/104 H 97 12/03/24 17:45 108 H 16 146/100 H 98 12/03/24 17:30 107 H 24 129/91 96 12/03/24 17:00 117 H 12 122/92 94 12/03/24 16:55 100 H 12/03/24 16:42 101 H 16 116/83 97 12/03/24 14:56 36.6 C 112 H 18 131/80 93 Room Air PG Care Time/CCT Total # of Minutes Spent Total Time Spent with Patient: Total time spent is greater than 50% in coordination of care (as documented) at patient's floor/unit and/or counseling patient: Coding Level of Care Code 63172 IN/OBS CONSULT LVL 2,35M Diagnoses Postop check Z09 Sepsis A41.9
[2024-12-03] MEDS: VANCOMYCIN HCL 1,250 MG in SODIUM CHLORIDE 0.9% 500 ML IV ONE (20:36)
[2024-12-03] MEDS: LACTATED RINGER'S 1,000 ML IV ONE (20:36)
[2024-12-03] MEDS ORDERED: LORazepam 1 MG TAB PO PRN (21:55)
[2024-12-03] MEDS: MoRPHine SULFATE 4 MG/ML 1 ML CARP\\VIAL IV PRN (22:25)
[2024-12-03] MEDS: LACTATED RINGER'S 1,000 ML IV SCH (22:27)
[2024-12-03] MEDS: lamoTRIgine 100 MG TAB PO SCH (22:32)
[2024-12-03 22:34] LABS: Appearance Urine Clear (Clear); Bacteria Urine Automated 4+ (None Seen); Cast Urine Automated 0-2 /lpf (0-2); Glucose Urine UA Negative (Negative); RBC Urine Automated 0-2 /hpf (0-2); WBC Urine Automated 0-5 /hpf (0-5)
[2024-12-03] MEDS: PIPERACILLIN/TAZOBACTAM 4.5 GM/100 ML BAG IV SCH (22:34)
[2024-12-03] MEDS: FLUCONAZOLE 50 MG TAB PO ONE (23:40)
[2024-12-04] MEDS: POLYETHYLENE (MIRALAX) 17 GM PACK PO PRN (01:30)
[2024-12-04] MEDS: LACTATED RINGER'S 1,000 ML IV STA (02:35)
[2024-12-04 04:36] LABS: Anion Gap 10.0 (3-11); Blood Urea Nitrogen 8.0 mg/dl (6-23); Calcium 7.4 mg/dl (8.6-10.3); Carbon Dioxide 22.0 mmol/L (21-32); Chloride 106.0 mmol/L (98-107); Creatinine Clr Calc Pharmacy 140.3 ml/min; Glucose 94.0 mg/dl (70-99(Fasting)); Potassium 3.5 mmol/L (3.5-5.1); Sodium 138.0 mmol/L (136-145)
[2024-12-04 06:05] LABS: Hematocrit (blood only) 27.0 % (37.0-47.0); Hemoglobin 9.0 g/dl (12.0-16.0); Mean Corpuscular Hemoglobin 34.4 pg (25.0-34.0); Mean Corpuscular Volume 103.1 fL (80.0-100.0); Platelet Count 147 K/uL (130-400); RDW Standard Deviation 50.8 fL (36.4-46.3); Red Blood Count 2.62 M/uL (4.20-5.40); White Blood Count 4.14 K/ul (4.8-10.8)
--- NOTE | 2024-12-04 07:30 | Pharmacy Report ---
Pharmacy PK ABX Note - Date of Service December 04, 2024 - Assessment and Plan Assessment 49 year old F started on vancomycin/zosyn for possible perineal infection/sepsis. Presenting with tachycardia/hypotension - s/p perineal cyst removal last week. Blood cultures pending. Plan Vancomycin * Loading dose: 1250 mg IV x 1 * Maintenance dose: 1250 mg IV every 12 hours * Regimen is predicted to achieve target AUC/MARTHA of 400-600 mg/L.hr * Plan to obtain vancomycin level tomorrow AM to assess dosing Pharmacy will continue to follow and will adjust dose/frequency as necessary. Thank you. Pharmacy has transitioned to AUC monitoring for vancomycin. AUC/MARTHA is the preferred PK/PD target and is associated with decreased risk of nephrotoxicity compared to traditional trough targets.
--- NOTE | 2024-12-04 07:48 | Gynecologic Progress Note ---
Date of Service December 04, 2024 Assessment & Plan (1) Sepsis: (2) Postop check: Plan postop area appears unchanged. Again, suspect that the post op area is not the primary cause of what is going on. await blood cultures. will likely not stop by again unless there is a change in the area. Please call if any concerns. Primary care per hospitalist team, thank you. Clean area tid and spoke to nursing about care. Admission and Anticipated Discharge Date Admission Date: December 03, 2024 Subjective Patient notes she is feeling overall a little better. No longer having shaking chills. no n/v. Tolerating regular diet. Wondering if has UTI. Noted a little blood with wiping after urination. She notes some itching in the area as well. Physical Exam Constitutional: WD/WN, vitals as above Psychiatric: A+Ox3, euthymic affect Genitourinary: perineal area appears unchanged. Open but no purulent d/c or bleeding. Some skin swelling of the edges. no increase in erythema or tenderness noted. Results & Data Vital Signs (Past 12 Hours) Vital Signs Temp Pulse Pulse Resp BP BP Pulse Ox 12/04/24 04:30 36.9 C 104 H 16 127/85 96 12/03/24 23:12 90 12/03/24 22:00 36.8 C 112 H 16 122/78 99 12/03/24 20:00 107 H 13 138/101 H 99 O2 Del Method 12/04/24 04:30 Room Air 12/03/24 23:12 12/03/24 22:00 Room Air 12/03/24 20:00 PG Care Time/CCT Total # of Minutes Spent Total Time Spent with Patient: Total time spent is greater than 50% in coordination of care (as documented) at patient's floor/unit and/or counseling patient: Coding Level of Care Code None Diagnoses Sepsis A41.9 Postop check Z09
[2024-12-04] MEDS: THIAMINE HCL 100 MG in SYRINGE 9 ML IV SCH (08:03)
[2024-12-04] MEDS: FOLIC ACID 1 MG in SYRINGE 9.8 ML IV SCH (08:03)
[2024-12-04] MEDS: VANCOMYCIN HCL 1,250 MG in SODIUM CHLORIDE 0.9% 250 ML IV SCH (08:03)
[2024-12-04] MEDS: LACTATED RINGER'S 1,000 ML IV ONE (08:22)
[2024-12-04] MEDS: LACTATED RINGER'S 1,000 ML IV SCH (09:23)
[2024-12-04] MEDS: ENOXAPARIN INJ 40 MG/0.4 ML SYR SQ SCH (09:25)
--- NOTE | 2024-12-04 11:23 | Hospitalist Progress Note ---
Date of Service December 04, 2024 Assessment & Plan (1) Sepsis: Plan 49-year-old female with history of several episodes of pancreatitis a year ago, known pseudocyst, perineal cyst removal a week [employer], admitted for severe sepsis Severe sepsis - present on admission, source unclear Improved but remains unwell - still tachycardic this AM and lactate still elevated Suspect she will prove to be bacteremic, which will give a clue on source Sources: Potentially perineal wound/SSTI but only mild inflammation, no abscess. Urinalysis contaminated, no pyuria, UTI unlikely. Did not meet criteria for reflex culture, culture at this time will be negative because she has been on broad spectrum IV antibiotics, several doses. Considered infected pseudocyst, however, this is unlikely since she has no abdominal pain or tenderness in the area, pseudocyst is longstanding and no cheyanne-cyst inflammation noted on CT, I personally reviewed the CT abdomen images. Pneumonia unlikely - no cough/dyspnea/hypoxia. No evidence of joint inflammation, no other wounds or sk in infections. No headache/neck pain/meningismus to suggest meningitis. Dilated GB on CT but no wall thickening or tenderness, LFTs normal bili and only minimally elevated alk phos, no evidence of acute cholecystitis. Consider tickborne illness though unusual to present this way. LFTs ok and no significant cytopenias, afebrile. No URI sx or diarrhea to suggest viral infection. Plan -Dr. Stein consulted and signed off, reviewed recs, thinks wound infection unlikely as source of sepsis -ordered 1L LR bolus then 2L at 150 mL/h. [place] better after bolus -continue pip-tazo and vancomycin pending blood cultures -added on procal for today, repeat lactate at 2pm. add on LFT -AM CBC CMP -probiotic Lymphadenopathy Enlarged lymph nodes in left groin, more prominent on right, likely post-surg ical or infection-related. Monitor Perineal itching - diflucan 150 po x 1 given on admission, repeat dose if Sx persisting #Alcohol dependence Typically drinks 3-4 glasses of wine per night, every night; last drink 1-2 nights [employer]; No h/o WD in the past. PAWS 1 (HR elevated, although likely d/t infection). Received IV thiamine + folate in ED. -no evidence of alcohol withdrawal which is unlikely, will stop AWSS protocol and monitor for sx -mild elevation of AST probably related to this, hepatic steatosis on imaging and atrophic pancreas # History of seizure-like activity last seizure being December 2021. continue lamotrigine twice daily. #Essential tremor- Propranolol - hold for now as may impact BP, continue next AM if BP stable #Insomnia- Trazodone - continue #B12 deficiency - ordered 1000 mg IM x 1 since she requested and her dose is due DVT Prophylaxis: DVT prophylaxis with enoxaparin 40 sepsis remains uncontrolled, continue PCU Medical Complexity: Medical decision making was complex, high risk for clinical deterioration morbidity, or mortality for this encounter. Unstable conditions include severe sepsis. High risk medications and treatments include IV Zosyn, vancomycin Admission and Anticipated Discharge Date Admission Date: December 03, 2024 Subjective The patient consented to use of [employer], an AI based tool that will listen to our encounter and draft a clinical note based on our conversation. All notes will be reviewed and edited by me before entering them into the medical record. Reason for Admit: Sepsis. The patient experienced severe rigors and chills yesterday, now improved. No respiratory symptoms, nausea without vomiting, no bowel movement despite MiraLAX, no abdominal or back pain. History of pancreatitis with 3-4 episodes in 2023 and a pseudocyst between stomach and pancreas, not believed to be the current issue. General malaise, lack of appetite, no sore throat, head or neck pain, or severe headache. Scratching back and abdomen due to dryness. Joints stable, no swelling. On broad-spectrum antibiotics, fluconazole for suspected yeast infection, and DVT prophylaxis with heparin. Pruritus since Saturday, severe yesterday morning, improved today. Inflammation and soreness in right inguinal region, possibly related to recent surgery, appeared Saturday, consulted Dr. Cardenas. Physical Exam Physical Exam: General Appearance: Normal. Vital signs: Reviewed past 24h vital signs in EMR, unremarkable. HEENT: Within normal limits. Respiratory: Clear anteriorly and posteriorly. Cardiovascular: Mildly tachycardic, no murmurs, rubs, or gallops. Gastrointestinal: Non-tender. including RUQ, epigastric area near pseudocyst. NABS Extremities: Warm legs, good pulses. Right groin tender LAD, L groin milder LAD. WAREHOUSE ATTENDANT exam deferred since just done by OBGYN Skin: Warm and dry, no rash. MSK: no inflamed joints Ext: WWP, good cap refill, strong DP pulses Neurological: Normal. Psychiatric: Normal. Results & Data Results & Data Vital Signs (Past 12 Hours) Vital Signs Temp Pulse Pulse Resp BP Pulse Ox O2 Del Method 12/04/24 10:41 100 H 12/04/24 07:11 36.8 C 103 H 16 122/84 96 Room Air 12/04/24 04:30 36.9 C 104 H 16 127/85 96 Room Air 12/03/24 23:12 90 Laboratory Results - Labs: - Urinalysis: Epithelial cells and bacteria, no white cells, nitrates, or leukocyte esterase, culture not submitted did not meet reflex criteria - White blood count: Decreased from 8-->4 - dilutional drop in Hg to 9 - Lactate: Elevated >4 improved from high 5's - Procalcitonin: pending - Imaging: - CT: Pseudocyst not inflamed, small/mod free pelvic fluid PG Care Time/CCT Total # of Minutes Spent Total Time Spent with Patient: Total time spent is greater than 50% in coordination of care (as documented) at patient's floor/unit and/or counseling patient: Coding Level of Care Code 74448 SUB INP/OBS CARE 3/50MIN Diagnoses Sepsis A41.9
[2024-12-04] MEDS: CYANOCOBALAMIN 1000 MCG/ML VIAL IM ONE (12:12)
[2024-12-04] MEDS: ADVANCED PROBIOTIC 625 MG CAPSULE PO SCH (12:12)
[2024-12-04 12:18] LABS: Alanine Aminotransferase 33.0 U/L (7-52); Albumin Level 2.2 gm/dl (3.4-5.0); Alkaline Phosphatase 137.0 U/L (34-104); Bilirubin,Total 1.3 mg/dl (0.2-1.0); Total Protein 4.4 gm/dl (6.0-8.3)
[2024-12-05 08:29] LABS: Hematocrit (blood only) 28.1 % (37.0-47.0); Hemoglobin 9.2 g/dl (12.0-16.0); Mean Corpuscular Hemoglobin 34.5 pg (25.0-34.0); Mean Corpuscular Volume 105.2 fL (80.0-100.0); Platelet Count 152 K/uL (130-400); RDW Standard Deviation 51.4 fL (36.4-46.3); Red Blood Count 2.67 M/uL (4.20-5.40); White Blood Count 3.47 K/ul (4.8-10.8)
[2024-12-05 08:51] LABS: Alanine Aminotransferase 25.0 U/L (7-52); Albumin Globulin Ratio 1.0 (0.9-2); Albumin Level 2.0 gm/dl (3.4-5.0); Alkaline Phosphatase 117.0 U/L (34-104); Anion Gap 7.0 (3-11); Bilirubin,Total 0.9 mg/dl (0.2-1.0); Blood Urea Nitrogen 4.0 mg/dl (6-23); Calcium 7.8 mg/dl (8.6-10.3); Carbon Dioxide 26.0 mmol/L (21-32); Chloride 107.0 mmol/L (98-107); Creatinine Clr Calc Pharmacy 121.6 ml/min; Globulin 2.1 gm/dl (2.5-4.0); Glucose 141.0 mg/dl (70-99(Fasting)); Potassium 3.3 mmol/L (3.5-5.1); Sodium 140.0 mmol/L (136-145); Total Protein 4.1 gm/dl (6.0-8.3)
[2024-12-05] MEDS: VANCOMYCIN LEVEL ONE (09:06)
--- NOTE | 2024-12-05 09:58 | Pharmacy Report ---
Pharmacy PK ABX Note - Date of Service December 05, 2024 - Assessment and Plan Assessment 12/04: 49 year old F started on vancomycin/zosyn for possible perineal infection/sepsis. Presenting with tachycardia/hypotension - s/p perineal cyst removal last week. Blood cultures pending. 12/05: * Blood cultures NGTD so far * WBC trended down to 3.47 this AM * Afebrile * SCr stable at 0.55 this AM Plan Vancomycin * Loading dose: 1250 mg IV x 1 (given 12/03 @2100) * Maintenance dose: 1250 mg IV every 12 hours * Level 12/05 @0800 was 11.8 (true trough) * Continue same regimen at 1250mg IV every 12 hours * Regimen is predicted to achieve target AUC/MARTHA of 400-600 mg/L.hr * Next level: 12/08/24 @0444 Pharmacy will continue to follow and will adjust dose/frequency as necessary. Thank you. Pharmacy has transitioned to AUC monitoring for vancomycin. AUC/MARTHA is the preferred PK/PD target and is associated with decreased risk of nephrotoxicity compared to traditional trough targets.
[2024-12-05] MEDS: POTASSIUM CHLORIDE CRTAB 20 MEQ TABCR PO STA (10:06)
[2024-12-05] MEDS: MAGNESIUM SULFATE / D5W 1 GM/100 ML BAG IV ONE (10:11)
[2024-12-05 10:37] LABS: Magnesium 1.5 mg/dl (1.7-2.4)
[2024-12-05] MEDS: ONDANSETRON INJ 2 MG/ML 2 ML VIAL IV PRN (12:19)
[2024-12-05] MEDS ORDERED: LOPERAMIDE HCL 2 MG CAP PO PRN (13:31)
[2024-12-05] MEDS: PROPRANOLOL HCL 60 MG LA CAP PO SCH (13:54)
--- NOTE | 2024-12-05 17:19 | Hospitalist Progress Note ---
Date of Service December 05, 2024 Assessment & Plan (1) Sepsis: Plan 49-year-old female with history of several episodes of pancreatitis a year ago, known pseudocyst, perineal cyst removal a week [employer], admitted for severe sepsis Severe sepsis - related to perineal SSTI. No other source identified despite thorough evaluation. Improved Blood cultures NGTD aat 48h - stop vancomycin Continue pip-tazo Probably home tomorrow on augmentin Lactate drawn this AM (I did not intend it). Mildly elevated at 2.7. I do not think this is accurate or related to sepsis. Possibly specimen handling error or drawn near LR infusion with impaired clearance related to mild hepatic dysfunction. Clinically well at this time and no reason to repeat it. Diarrhea - imodium probiotic. Abx assoniated Lymphadenopathy Enlarged lymph nodes in left groin, more prominent on right, likely post- surgical or infection-related. Monitor Perineal itching - diflucan 150 po x 1 given on admission, repeat dose if Sx persisting #Alcohol dependence Typically drinks 3-4 glasses of wine per night, every night; last drink 1-2 nights [employer]; No h/o WD in the past. PAWS 1 (HR elevated, although likely d/t infection). Received IV thiamine + folate in ED. 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 continue lamotrigine twice daily. #Essential tremor- Propranolol - resume at half usual dose #Insomnia- Trazodone - continue #B12 deficiency - ordered 1000 mg IM x 1 since dose is due DVT Prophylaxis: DVT prophylaxis with enoxaparin 40 Admission and Anticipated Discharge Date Admission Date: December 03, 2024 Subjective She is feeling significantly better with some appetite returning. Perineal pain is improving. She is mobile without lightheadedness. No chest pain, shortness of breath, abdominal pain, nausea, or vomiting. She is experiencing diarrhea. Physical Exam Physical Exam: General Appearance: Patient is awake and oriented x4. Vital signs: Reviewed past 24h vital signs in EMR, unremarkable. HEENT: Within normal limits. Respiratory: Lungs clear to auscultation bilaterally. Normal work of breathing. Cardiovascular: Heart regular, no murmurs, rubs, or gallops. Gastrointestinal: Abdomen soft, nontender, nondistended, normal bowel sounds. Genitourinary: Female, small wound (<2 cm) between anus and vagina, site of surgical procedure. Lymphatic: Tender lymphadenopathy in right groin perineal area without signif icant erythema, inflammation, or drainage. Skin: Warm and dry, no rash. Neurological: Normal. Psychiatric: Normal. Results & Data Results & Data Vital Signs (Past 12 Hours) Vital Signs Temp Pulse Pulse Resp BP Pulse Ox O2 Del Method 12/05/24 16:01 37.2 C 84 18 131/96 97 Room Air 12/05/24 15:02 85 12/05/24 11:49 36.8 C 97 H 18 138/101 H 94 Room Air 12/05/24 10:20 78 12/05/24 07:16 36.7 C 87 16 134/94 97 Room Air Laboratory Results - Laboratory Studies: - White blood count: 3.47 (leukopenia) - Hemoglobin: 9.2 (stable) - Platelets: normal - Potassium: 3.3 (low) - Creatinine: 0.55 (normal) - Lactate: 2.7 (mildly elevated) - Bilirubin: 0.9 (normalized) - AST: 60 (improved) - ALT: 25 (normal) - Alkaline phosphatase: 117 (improved) - Albumin: 2.0 (low) - Blood cultures: negative to date PG Care Time/CCT Total # of Minutes Spent Total Time Spent with Patient: Total time spent is greater than 50% in coordination of care (as documented) at patient's floor/unit and/or counseling patient: Coding Level of Care Code 35657 SUB INP/OBS CARE 2/35MIN Diagnoses Sepsis A41.9
[2024-12-06] MEDS: MELATONIN 3 MG TAB PO PRN (01:05)
[2024-12-06 02:55] VITALS: RESP 18
[2024-12-06 07:51] LABS: Hematocrit (blood only) 27.4 % (37.0-47.0); Hemoglobin 8.9 g/dl (12.0-16.0); Mean Corpuscular Hemoglobin 34.4 pg (25.0-34.0); Mean Corpuscular Volume 105.8 fL (80.0-100.0); Platelet Count 151 K/uL (130-400); RDW Standard Deviation 50.1 fL (36.4-46.3); Red Blood Count 2.59 M/uL (4.20-5.40); White Blood Count 3.15 K/ul (4.8-10.8)
[2024-12-06 08:07] LABS: Alanine Aminotransferase 32.0 U/L (7-52); Albumin Globulin Ratio 1.1 (0.9-2); Albumin Level 2.0 gm/dl (3.4-5.0); Alkaline Phosphatase 121.0 U/L (34-104); Anion Gap 2.0 (3-11); Bilirubin,Total 0.8 mg/dl (0.2-1.0); Blood Urea Nitrogen 3.0 mg/dl (6-23); Calcium 7.8 mg/dl (8.6-10.3); Carbon Dioxide 31.0 mmol/L (21-32); Chloride 109.0 mmol/L (98-107); Creatinine Clr Calc Pharmacy 129.6 ml/min; Globulin 1.8 gm/dl (2.5-4.0); Glucose 92.0 mg/dl (70-99(Fasting)); Potassium 3.8 mmol/L (3.5-5.1); Sodium 142.0 mmol/L (136-145); Total Protein 3.8 gm/dl (6.0-8.3)
[2024-12-06 08:17] VITALS: TEMP 98.4; O2SAT 97
--- NOTE | 2024-12-06 09:00 | Discharge Summary ---
Discharge Summary Date of Service December 06, 2024 Principal Dx & Hospital Course #1 = Principal Diagnosis (1) Sepsis: Plan 49-year-old female with history of several episodes of pancreatitis a year ago, known pseudocyst, perineal cyst removal a week [employer], admitted for severe sepsis Severe sepsis - seems to have been related to perineal SSTI/postoperative wound infection. No other source identified despite thorough evaluation. ED did not collect urine culture prior to IV antibiotics, however, there was no pyuria on UA so if there was any bacteriuria it would not have been enough to explain severe sepsis. STE[employer] ESTIM[employer] Dr. Stein consulted, did not think there was evidence of wound infection Treated with IV fluids, broad spectrum antibiotics mainly pip-tazo Blood cultures negative to date at 72h, not yet finalized Resolved and discharging home to complete course of oral Augmentin Diarrhea - imodium probiotic. Abx assoniated Lymphadenopathy Enlarged tender lymph nodes in right groin, more prominent than on left, likely post-surgical or infection-related. Monitor for expected resolution Perineal itching - diflucan 150 po x 1 given on admission, repeat dose if Sx persisting #Hepatic steatosis / elevated LFTs #Alcohol use -typically drinks wine, no alcohol withdrawal -hepatic steatosis on imaging and atrophic pancreas. Had bariatric surgery in past partially to address fatty liver so there is some component of MAFLD -mildly abnormal LFTs improved compared to on admission. There could have been mild ischemic hepatitis related to sepsis -advised alcohol cessation because of elevated risk of cirrhosis from fatty liver # History of seizure-like activity last seizure being December 2021. continue lamotrigine twice daily. #Essential tremor- Propranolol - resume #Insomnia- Trazodone - continue #B12 deficiency - 1000 mg IM x 1 given since dose is due Notes For Next Care Provider blood cultures ngtd, not finalized yet Medication Changes From Visit augmentin to complete total 7d course of abx Admission HPI Per Admitting Provider 49-year-old female PMHx seizure-like activity, essential tremor, HTN, anxiety, pancreatitis, alcohol dependence, AUB, cellulitis, and idiopathic polyneuropathy presenting for tachycardia and hypotension in the outpatient setting after a perineal cyst removal a week [employer], complaining of swollen groin glands. Patient reports that overall she feels "exhausted." She states on the day of arrival she started to have chills but has not had any chills or fever reported prior to that. She is having a very painful perineal area, stating that at its worst without movement it is a 6 out of 10 on the pain scale but if she starts to move around it goes to a 9 out of 10 on the pain scale. She states that starting 2 days [employer] she started to have a stabbing pain in the area which is why she saw her housekeeper nanny. At that time, the area did not appear infected and patient was not started on any antibiotics. She has been using ice and Tylenol every 4 hours in attempts to alleviate pain, and she was also given oxycodone for the pain. States that she normally has loose bowel movements, but this has decreased some since starting opioid medications for the pain. She also admits to having rather significant burning when she urinates, but no pain with bowel movements. States that the burning with urination started around 2 days [employer], and she thinks that her urine may look a little "abnormal." She states that she is concerned that she is developing a yeast infection. Otherwise she is without chest pain, palpitations, shortness of breath, abdominal pain, N/V, numbness/tingling, fever, URI symptoms, additional LUTS, weakness, or falls. ED evaluation reveals CBC without leukocytosis, H&H 12.7/36.4; CMP AG 13, creatinine 0.4, ratio 25, glucose 100, alk phos 150, AST 148, protein 5.6, BUN 2.9; lactate 4.5, pending repeat; calcium 8.5; procalcitonin 8.64; BioFire negative; CXR no active disease; head CT no evidence of acute intracranial abnormality; cervical spine CT no CT evidence of acute osseous abnormality; CTAP small to moderate amount of simple fluid in the R pelvis cul-de-sac no drainable fluid collection, cyst present in body of the stomach possibly pancreatic pseudocyst from prior pancreatitis, fatty infiltration of liver and hepatomegaly; EKG sinus tachycardia at 104 bpm.; Provided with 2L NSS, acetaminophen 1 g IV, and Zosyn 4.5 g IV in ED. Please see Dr. Melo's attestation for adjustments/additions to treatment plan. Discharge Exam General Appearance: well appearing Vital signs: Reviewed past 24h vital signs in EMR, unremarkable. HEENT: Within normal limits. Respiratory: Normal work of breathing. Cardiovascular: Gastrointestinal: Genitourinary: Female, small wound (<2 cm) between anus and vagina, site of surgical procedure. No erythema or drainage. (yesterday exam) Lymphatic: Tender lymphadenopathy in right groin area, milder LAD in left groin (yesterday exam) Skin: Warm and dry, no rash. Neurological: Normal. Psychiatric: Normal. Discharge Plan Discharge Items Patient Disposition: Home - Self-Care Reason For Visit: sepsis, s/p removal of perineal cyst Discharge Diagnosis: severe sepsis secondary to postoperative wound infection / perineal cellulitis Condition on Discharge: Good Activity: Resume your previous activity Non-emergency contact: Primary Care Provider and Surgeon Call non-emergency contact if: you have any medication questions, your symptoms worsen, your pain is worsening and you have a fever Follow-up/Referrals: Moira Yancey, [Primary Care Provider] - Diet: Regular Addtl Attending Provider Instructions: You were treated for sepsis (severe infection). I think this was postoperative wound infection / perineal cellulitis and I did not identify an alternative source. Sepsis has resolved and infection is resolving/resolved. Continue to take augmentin until it runs out You can take a probiotic for 2-4 weeks to prevent antibiotic associated diarrhea. These are available over the counter. If you have rash or severe diarrhea after/while taking antibiotics, call your doctor. Diarrhea associated with broad spectrum antibiotics can occur up to six months following antibiotics. If you have significant ongoing diarrhea, especially with abdominal pain or fever, seek medical attention. Follow up with Dr. Stein - call saturday to schedule, or follow up as previously scheduled Blood cultures are negative at 72h. Most likely they will stay negative. If anything concerning grows from blood cultures, we will call you and may have to adjust your antibiotics and rarely bring you back in to the hospital to set up IV antibiotics You have fatty liver and elevated liver tests related to this. Damage from metabolic fatty liver disease and alcohol-related fatty liver is additive at least. Over time, this can lead to permanent scarring (cirrhosis) and even liver failure. Alcohol, sugar, and simple carbohydrates cause the liver to store excess fat. Try to avoid these as much as possible. Eat a lot of protein while recovering from this illness. Your blood protein levels are low. You would benefit from adding a protein shake to your diet. It was a pleasure taking care of you in the hospital, Abigail Clay MD Pending Studies at Discharge: Yes (blood cultures - finalize after 5 days) Stand-Alone Forms: My [facility], Smoking Cessation Medications and DC Order Prescriptions: New amoxicillin-pot clavulanate 875-125 mg tablet 1 tab PO BID Qty: 9 0RF Continued lamotrigine 100 mg tablet 100 mg PO BID 30 Days Qty: 60 5RF oxycodone 5 mg tablet 5 mg PO Q8H PRN (Reason: pain) Qty: 7 0RF Supercream (OBGYN) [facility] 15 g ointment 1 applic topical BID PRN (Reason: hemorrhoids) Qty: 15 0RF Rx Instructions: Epinephrine 1mg/mL inj 0.24mL; benzocaine powd 3g; tannic acid powd 0.16g; lanolin anhydr oint 11.88g; Na metabisulfite 100% granu 0.05g1 pea size applic. to Anal Fissure 3x daily as needed propranolol 120 mg capsule,extended release 24hr 120 mg PO QAM Rx Instructions: 120 mg orally ONCE A DAY; trazodone 50 mg tablet 50 mg PO HS cyanocobalamin (vitamin B-12) 1,000 mcg/mL solution 1,000 mcg subcut Q14D Discharge Orders: Discharge Order (Routine); Ordered 12/06/24 Ordered By: Abigail Clay Admission Data Admit Date/Time: 12/03/24 19:46 Attending Provider: Abigail Clay Admit Provider: Geoffrey Chance Primary Care Provider: Moira Yancey Other Providers: Serena Stein; Abigail Clay Other Interventions: Discharge Summary Assessment (RN) Last Done: 12/06/24 14:02 Hospital Stay Data Consultations 12/03/24 18:27 ED Decision to Admit Stat 12/03/24 20:03 Consult Gynecology Routine Diagnostic Imagining Performed 12/03/24 16:48 CT head/brain wo con Stat 12/03/24 17:00 CT cervical spine wo con Stat 12/03/24 17:07 CT abd pelvis IV con only Stat Pending Results Patient Have Any Pending Studies at Discharge: Yes (blood cultures - finalize after 5 days) Discharge Instructions Given to Patient (Per Discharging Provider) You were treated for sepsis (severe infection). I think this was postoperative wound infection / perineal cellulitis and I did not identify an alternative source. Sepsis has resolved and infection is resolving/resolved. Continue to take augmentin until it runs out You can take a probiotic for 2-4 weeks to prevent antibiotic associated diarrhea. These are available over the counter. If you have rash or severe diarrhea after/while taking antibiotics, call your doctor. Diarrhea associated with broad spectrum antibiotics can occur up to six months following antibiotics. If you have significant ongoing diarrhea, especially with abdominal pain or fever, seek medical attention. Follow up with Dr. Stein - call saturday to schedule, or follow up as previously scheduled Blood cultures are negative at 72h. Most likely they will stay negative. If a nything concerning grows from blood cultures, we will call you and may have to adjust your antibiotics and rarely bring you back in to the hospital to set up IV antibiotics You have fatty liver and elevated liver tests related to this. Damage from metabolic fatty liver disease and alcohol-related fatty liver is additive at least. Over time, this can lead to permanent scarring (cirrhosis) and even liver failure. Alcohol, sugar, and simple carbohydrates cause the liver to store excess fat. Try to avoid these as much as possible. Eat a lot of protein while recovering from this illness. Your blood protein levels are low. You would benefit from adding a protein shake to your diet. It was a pleasure taking care of you in the hospital, Abigail Clay MD Total Time Total Time Spent Total Time Spent (In Minutes): I personally spent: 40 minutes today on clinical care activities including: reviewing chart notes and vital signs reviewing labs reviewing micro examining and counseling the patient writing orders writing prescriptions, discharge instructions documentation Coding Level of Care Code 58786 INP/OBS DISCH >30 MIN Diagnoses Sepsis A41.9
[2024-12-06 14:03] VITALS: BP 137/94; PULSE 76
--- NOTE | 2024-12-07 00:26 | Electrocardiogram Report ---
Test Reason : Blood Pressure : */* mmHG Vent. Rate : 104 BPM Atrial Rate : 104 BPM P-R Int : 114 ms QRS Dur : 56 ms QT Int : 328 ms P-R-T Axes : 11 39 47 degrees QTcB Int : 431 ms Sinus tachycardia Septal infarct , age undetermined Abnormal ECG When compared with ECG of 27-Nov-2024 11:54, Vent. rate has increased by 38 bpm Septal infarct is now Present Confirmed by Raul Loyd ([id number]) on 12/07/2024 12:25:55 AM Referred By: Confirmed By: Raul Loyd
--- NOTE | 2024-12-07 20:15 | Communication Note ---
Date of Service: December 07, 2024 Telephone note 49 y/o recently admitted for sepsis, perineal infection and history of pancreatitis in the past (year ago). Went home yesterday on augmentin. Blood cultures still negative. I spoke with Emily by phone she called in because she's having abdominal pain that is new/different from pain she had before. Pain has been more upper abdomen and on both sides, alternating, sharp/stabbing and crampy on/off. Still having loose stools from antibiotic and some nausea but no emesis. When pain is active hurt more with deep breath. No fever/chills. Not pelvic pain. Took some pepto bismol, pain has improved compared to several hours ago. Sounds like probably gas/dyspepsia type pain that may be improving/resolving and she will continue to monitor, but have low threshold to come in to the ED if nonresolving or worsening. She is home with her .
== END 2024-12-06 14:26 | disposition home or self-care (01) | DRG 862 ==
LOC: ED 14:45 → SUATTDRO 19:46 → 2S 19:46

== ENCOUNTER 2025-01-02 20:10 | Inpatient (IN) ==
--- NOTE | 2025-01-02 20:16 | Emergency Department Note ---
Impression & Plan GI (gastrointestinal bleed), Chest pain, Anemia, Acidosis, lactic ED Provider Note ED Provider Note NAME: MARIELENA SIMS AGE:49 SEX: Female : 1975 ARRIVES VIA: EMS INFORMANT: Patient ED PROVIDER(s): Rico Cruz CHIEF COMPLAINT: GI bleed HPI: 49-year-old female presents emergency room with complaints of GI bleed. Patient states she was admitted for sepsis a week or 2 ago. States that they thought it was may be from a cyst that was removed, but that is healed nicely and her surgeon has seen her since and said there was no problems. Patient states today she started feeling weak and having palpitations and tachycardia. States that she noticed some rectal bleeding. States that she felt she was getting septic again, so she came in to be seen. PAST MEDICAL HISTORY:See Below PAST SURGICAL HISTORY:See Below FAMILY HISTORY:See Below SOCIAL HISTORY:See Below HOME MEDICATIONS:See Below ALLERGIES:See Below VITALS:See Below PHYSICAL EXAMINATION: GENERAL: alert, well appearing, well nourished, no distress, non-toxic EYE EXAM: normal conjunctiva, PERRL and EOM's grossly intact OROPHARYNX: no exudate, no erythema, lips, buccal mucosa, and tongue normal and mucous membranes are moist NECK: supple, no nuchal rigidity, no adenopathy, non-tender LUNGS: Clear to auscultation. Normal chest wall mechanics, no w/r/r HEART: no murmurs, S1 normal and S2 normal ABDOMEN: abdomen soft, non-tender With exception of mild suprapubic tenderness to palpation, normo-active bowel sounds, no masses, no rebound or guarding. BACK: Back is symmetrical on inspection and there is no deformity, no midline tenderness, no CVA tenderness. SKIN: no rashes, petechiae, orbruising UPPER EXTREMITIES: upper extremities are grossly normal. FROM, nml pulses b/l. LOWER EXTREMITIES: No pitting edema. FROM, nml pulses b/l. NEURO EXAM: Normal sensorium, cranial nerves II-XII grossly intact, normal speech, no facial droop,nogross weakness of arms, no gross weakness of legs. Gross sensation intact. No ataxia. Vital Signs: reviewed and remarkable Differential Diagnosis: Diverticulosis, AVM, coagulopathy, colitis, inflammatory bowel disease, malignancy, Rose-Moe tear, esophagitis, peptic ulcer disease, variceal bleed, gastritis, epistaxis, fissure, hemorrhoids, as well as other pathologies. MEDICAL DECISION MAKIN-year-old female presents emergency room with complaints of GI bleed. Patient with initially high lactic acidosis. Did not give significant amount of IV fluids secondary to risk of further hemodilution given patient's severe anemia. Blood was ordered. Patient scan was essentially negative for acute bleeding. I spoke with her about results and plan for admission. She is agreeable. I spoke with hospitalist, they will admit. Consultation(s): Hospitalist ER Treatment Provided: See below Diagnostics Interpreted By Me: -ECG: EKG shows sinus tach at a rate of [address] changes, some ST flattening. -Cardiac Monitoring: An order was placed for continuous cardiac monitoring. The monitor shows a rate of 112 with Sinus tach rhythm. -Laboratory studies: As stated above and show below. -Imaging studies: CXR - no acute changes; CT abd/pelvis - no acute hemorrhage Triage Nursing Note Reviewed Prior/Outside Records Reviewed Critical care: there was greater than 35 minutes of critical care time spent managing this patient including any procedures. Past Med/Surg History Problem List (Updated 01/02/25 @ 22:48 by Shakira Cruz DO) Acidosis, lactic (Acute) GI (gastrointestinal bleed) (Acute) Anemia (Acute) Chest pain (Acute) Leucopenia Elevated AST (SGOT) (Acute) Hx of hemorrhoids Seizure-like activity "only full blown seizure she's ever had" 2021; f/u dr. crenshaw Perineal cyst in female Vaginal lump Vaginal cyst Iron deficiency anemia following bariatric surgery Hoarseness of voice Esophagitis Epigastric abdominal pain (Acute) Idiopathic polyneuropathy Encounter for pre-operative examination Chronic diarrhea Rectal bleeding Polyp of gallbladder Abdominal pain, vomiting, and diarrhea (Acute) Cellulitis Entered 2022 Abnormal uterine bleeding (AUB) Vitamin B12 deficiency Hypertension Anxiety Medical History Hoarseness of voice History of anxiety Hx of iron deficiency anemia Idiopathic polyneuropathy History of hypertension Seizure disorder last seizure 2021, f/u dr. crenshaw, [facility] Alcohol use Essential tremor reason for propranolol Hx of pancreatitis Classic migraine with aura hx, none for years History of nephrolithiasis Chronic mixed headache syndrome Surgical History H/O removal of cyst Hx of colonoscopy (2023) History of esophagogastroduodenoscopy (EGD) History of x1 History of gynecologic surgery D&E-surgically induced H/O lithotripsy Status post surgery laryngeal surgery- stripping of vocal cords, nodules removed History of Mitzi-en-Y gastric bypass 2006 Family History Uncle Bladder cancer maternal uncle Sister Brain tumor Grandfather (Paternal) Colorectal cancer Aunt Lung cancer paternal aunt Father Essential tremor Mother Hypertension Denies family history of Ovarian cancer Breast cancer Social History Smoking Status: Never smoker Second Hand Exposure: No; Do You Dip or Chew Tobacco: No; Hx Alcohol Use: Yes Alcohol type: wine Alcohol Intake Frequency Comment: 2-3 drinks, 5-7 days per week Hx Substance Use: No Preferred Language: Stateless Communication Ability: Effective 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 Beliefs That Will Affect Care: None marital status: Current Living Situation: Spouse 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 Feels Safe at Home: Yes Assistive Devices: Glasses Allergies Allergies Allergy/AdvReac Type Severity Reaction Status Date / Time No Known Allergies Allergy Verified 01/02/25 22:00 Home Meds Home Medications Medication Instructions Recorded Confirmed cyanocobalamin (vitamin B-12) 1,000 mcg subcut Q14D 09/17/23 01/02/25 1,000 mcg/mL injection solution propranolol 120 mg capsule,24 120 mg PO QAM 01/27/24 01/02/25 hr,extended release escitalopram oxalate 10 mg tablet 10 mg PO DAILY 12/16/24 01/02/25 Previous Rx's Medication Instructions Recorded Supercream (OBGYN) [place] 1 applic topical BID PRN 10/21/24 [facility] 15 g ointment hemorrhoids #15 grams lamotrigine 100 mg tablet 100 mg PO BID 30 days #60 tabs 12/01/24 oxycodone 5 mg tablet 5 mg PO Q8H PRN pain #7 tabs 12/02/24 trazodone 50 mg tablet 50 mg PO HS #30 tabs 01/01/25 Results & Data (ED) Vital Signs Vital Signs - 24 hr 01/02/25 20:10 01/02/25 20:13 01/02/25 20:16 Temperature 36.7 C Temperature Source Oral Pulse Rate 112 H 126 H Pulse Rhythm Pulse Strength Respiratory Rate 20 Respiratory Effort / Characteristics Non-Labored Spontaneous Respiratory Depth Normal Respiratory Pattern Regular Blood Pressure 144/90 H Blood Pressure Mean 108 Blood Pressure Position Pulse Oximetry 98 98 Oxygen Delivery Method Room Air Room Air Sepsis Recent Fever Within 48 Hours No Sepsis New/Unexplained Change in Mental Status N/A Sepsis Action Taken by Nursing No Action Required 01/02/25 20:17 01/02/25 20:30 01/02/25 21:00 Temperature Temperature Source Pulse Rate 109 H 116 H Pulse Rhythm Pulse Strength Respiratory Rate 17 20 Respiratory Effort / Characteristics Respiratory Depth Respiratory Pattern Blood Pressure 125/85 135/95 Blood Pressure Mean 98 108 Blood Pressure Position Pulse Oximetry 98 100 Oxygen Delivery Method Room Air Room Air Sepsis Recent Fever Within 48 Hours Sepsis New/Unexplained Change in Mental Status Sepsis Action Taken by Nursing 01/02/25 21:03 01/02/25 21:30 01/02/25 21:45 Temperature Temperature Source Pulse Rate 160 H 158 H 121 H Pulse Rhythm Pulse Strength Respiratory Rate 24 24 26 H Respiratory Effort / Characteristics Respiratory Depth Respiratory Pattern Blood Pressure 147/94 H 113/89 120/92 Blood Pressure Mean 111 97 101 Blood Pressure Position Pulse Oximetry 100 100 100 Oxygen Delivery Method Room Air Room Air Room Air Sepsis Recent Fever Within 48 Hours Sepsis New/Unexplained Change in Mental Status Sepsis Action Taken by Nursing 01/02/25 22:00 01/02/25 22:10 01/02/25 22:25 Temperature 37.4 C 37.3 C Temperature Source Oral Oral Pulse Rate 124 H 120 H 121 H Pulse Rhythm Regular Pulse Strength Normal Respiratory Rate 24 16 16 Respiratory Effort / Characteristics Respiratory Depth Respiratory Pattern Blood Pressure 124/78 112/75 109/83 Blood Pressure Mean 93 87 91 Blood Pressure Position Lying Pulse Oximetry 100 100 100 Oxygen Delivery Method Room Air Sepsis Recent Fever Within 48 Hours Sepsis New/Unexplained Change in Mental Status Sepsis Action Taken by Nursing 01/02/25 22:25 01/02/25 22:40 Temperature 37.3 C 37.8 C H Temperature Source Oral Oral Pulse Rate 121 H 135 H Pulse Rhythm Regular Pulse Strength Normal Respiratory Rate 16 20 Respiratory Effort / Characteristics Respiratory Depth Respiratory Pattern Blood Pressure 109/83 116/77 Blood Pressure Mean 91 90 Blood Pressure Position Lying Pulse Oximetry 100 100 Oxygen Delivery Method Sepsis Recent Fever Within 48 Hours Sepsis New/Unexplained Change in Mental Status Sepsis Action Taken by Nursing Laboratory Data 01/02/25 20:20 01/02/25 20:20 Lab Results 01/02/25 01/02/25 01/02/25 Range/Units 20:20 20:31 21:11 WBC 6.51 (4.8-10.8) K/ul RBC 1.40 L (4.20-5.40) M/uL Hgb 4.4 L* (12.0-16.0) g/dL Hct 13.4 L* (37.0-47.0) % MCV 95.7 (80.0-100.0) fL MCH 31.4 (25.0-34.0) pg MCHC 32.8 (32.0-36.0) g/dL RDW Std Deviation 51.5 H (36.4-46.3) fL RDW Coeff of Brielle 14.8 H (11.5-14.5) % Plt Count 222 (130-400) K/uL MPV 10.5 (9.4-12.4) fL Immature Gran % (Auto) 0.2 % Neut % (Auto) 61.0 % Lymph % (Auto) 31.0 % Maverick % (Auto) 7.2 % Eos % (Auto) 0.3 % Baso % (Auto) 0.3 % Neut # (Auto) 3.97 (1.40-6.50) K/uL Lymph # (Auto) 2.02 (1.20-3.40) K/uL Maverick # (Auto) 0.47 (0.11-0.59) K/uL Eos # (Auto) 0.02 (0.00-0.50) K/uL Baso # (Auto) 0.02 (0.00-0.20) K/uL Immature Gran # (Auto) 0.01 (0.01-0.20) K/uL Absolute Nucleated RBC 0.03 (0.00-0.12) K/uL Nucleated RBC % (auto) 0.5 % Polychromasia 1+ Sodium 137 (136-145) mmol/L Potassium 3.9 (3.5-5.1) mmol/L Chloride 104 (98-107) mmol/L Carbon Dioxide 20 L (21-32) mmol/L Anion Gap 13 H (3-11) BUN 9 (6-23) mg/dl Creatinine 0.64 (0.6-1.2) mg/dl Est Cr Clr Drug Dosing 109.6 ml/min eGFR 109.62 BUN/Creatinine Ratio 14.1 (10-20) Glucose 147 H (70-99(Fasting)) mg/dl Lactate 7.1 H* (0.4-2.0) mmol/L Calcium 7.8 L (8.6-10.3) mg/dl Total Bilirubin 0.7 (0.2-1.0) mg/dl AST 47 H (13-39) U/L ALT 21 (7-52) U/L Alkaline Phosphatase 104 (34-104) U/L Troponin I High Sens 7.8 (0-14) pg/ml Total Protein 4.3 L (6.0-8.3) gm/dl Albumin 2.3 L (3.4-5.0) gm/dl Globulin 2.0 L (2.5-4.0) gm/dl Albumin/Globulin Ratio 1.1 (0.9-2) Lipase 175 H (11-82) U/L Blood Type A Positive Blood Type Recheck A Positive Antibody Screen NEGATIVE Crossmatch See Detail Administered Medications Vancomycin HCl 1,750 mg/ (Sodium Chloride) 535 mls @ 200 mls/hr IV NOW ONE Stop: 01/02/25 23:13 Last Admin: 01/02/25 20:55 Dose: 200 mls/hr Documented By: richr Discontinued Medications Dicyclomine HCl (Dicyclomine Hcl 10 Mg/Ml 2 Ml Amp/Vial) 20 mg IM NOW ONE Stop: 01/02/25 20:41 Last Admin: 01/02/25 20:55 Dose: 20 mg Documented By: mathieu Sodium Chloride (Nss) 1,000 mls @ 999 mls/hr IV .Q1H1M ONE Stop: 01/02/25 21:28 Last Infusion: 01/02/25 21:39 Dose: Infused Documented By: Admin: 01/02/25 20:33 Dose: 999 mls/hr Documented By: BABATUNDE Cefepime HCl (Maxipime 2000mg) 1,000 mg in 10 mls @ 5 mls/min IV NOW STA; Protocol Stop: 01/02/25 20:34 Last Admin: 01/02/25 20:55 Dose: 5 mls/min Documented By: richr Ioversol (Optiray 320 100ml) 93 ml IV ONCE ONE Stop: 01/02/25 21:23 Last Admin: 01/02/25 21:23 Dose: 93 ml Documented By: YAIMA Ondansetron HCl (Ondansetron Inj 2 Mg/Ml 2 Ml Vial) 4 mg IV NOW STA Stop: 01/02/25 20:54 Last Admin: 01/02/25 20:56 Dose: 4 mg Documented By: mathieu Imaging Data Radiologist's Impression: Chest X-Ray 01/02/25 20:17 Single frontal view of the chest Comparison made to prior exam dated 12/03/2024 Impression: No acute pulmonary pathology Electronically signed by Darrel Alonso 01-02-2025 8:51 PM Abdomen/Pelvis CT 01/02/25 20:21 Exam(s): CT ABDOMEN + PELVIS With Contrast IV Amt: 93 ml opti 320 EXAM: CT Abdomen and Pelvis With Intravenous Contrast CLINICAL HISTORY: Reason for exam: GI bleed. TECHNIQUE: Axial computed tomography images of the abdomen and pelvis with intravenous contrast. CTDI is 13.65 mGy and DLP is 680.19 mGy-cm. Automated exposure control was utilized for the study. A dose lowering technique was utilized adhering to the principles of ALARA. CONTRAST: Patient received 93 ml opti 320 of IV contrast COMPARISON: No relevant prior studies available. FINDINGS: Lung bases: Unremarkable. No mass. No consolidation. ABDOMEN: Liver: Hepatic steatosis. Gallbladder and bile ducts: Unremarkable. No calcified stones. No ductal dilation. Pancreas: Unremarkable. No mass. No ductal dilation. Spleen: Unremarkable. No splenomegaly. Adrenals: Unremarkable. No mass. Kidneys and ureters: Unremarkable. No solid mass. No hydronephrosis. Stomach and bowel: Subtle inflammatory changes about the splenic flexure. Postoperative changes of the stomach suggesting a Mitzi-en-Y gastric bypass. There is a cystic structure within the gastric remnant which is unchanged from the prior exam measuring 5 x 4.5 cm. No obstruction. No mucosal thickening. No evidence of gastrointestinal hemorrhage identified on this exam. PELVIS: Appendix: Normal-appearing appendix. Bladder: Unremarkable. No mass. Reproductive: Unremarkable as visualized. ABDOMEN and PELVIS: Intraperitoneal space: Moderate amount of fluid within the dependent pelvis. No free air. Bones/joints: No acute fracture. No dislocation. Soft tissues: Unremarkable. Vasculature: Unremarkable. No abdominal aortic aneurysm. Lymph nodes: Unremarkable. No enlarged lymph nodes. IMPRESSION: Subtle inflammatory changes about the splenic flexure. No defined splenic wall thickening identified on this exam. This is of uncertain clinical significance or etiology No evidence of gastrointestinal hemorrhage Persistent 5 cm cyst arising from the excluded portion of the stomach. Patient is status post gastric bypass. Electronically signed by: Darrel Alonso MD 01/02/25 22:30 PM Discharge Plan Visit Data Chief Complaint: Chest Pain Stated Complaint: Chest Pain, Palpitations, Weakness, +KEENAN ED Provider: Shakira Cruz Discharge Problem: GI (gastrointestinal bleed), Chest pain, Anemia, Acidosis, lactic Patient Disposition: Admitted As Inpatient Condition: Serious Forms Stand Alone Forms: [facility] [employer] Prescriptions Prescriptions: No Action lamotrigine 100 mg tablet 100 mg PO BID 30 Days Qty: 60 5RF oxycodone 5 mg tablet 5 mg PO Q8H PRN (Reason: pain) Qty: 7 0RF trazodone 50 mg tablet 50 mg PO HS Qty: 30 5RF Rx Instructions: PER PT "DID NOT SEGMENT PRODUCER FROM PHARMACY YET". Supercream (OBGYN) [facility] 15 g ointment 1 applic topical BID PRN (Reason: hemorrhoids) Qty: 15 0RF Rx Instructions: Epinephrine 1mg/mL inj 0.24mL; benzocaine powd 3g; tannic acid powd 0.16g; lanolin anhydr oint 11.88g; Na metabisulfite 100% granu 0.05g1 pea size applic. to Anal Fissure 3x daily as needed escitalopram oxalate 10 mg tablet 10 mg PO DAILY Rx Instructions: PER PT "DID NOT GET FROM PHARMACY YET". propranolol 120 mg capsule,extended release 24hr 120 mg PO QAM Rx Instructions: PER PT "NEED NEW SCRIPT OR NEEDS REFILLED, NEEDS TO TALK WITH PHARMACY". cyanocobalamin (vitamin B-12) 1,000 mcg/mL solution 1,000 mcg subcut Q14D Referrals Referrals: Moira Yancey DO [Primary Care Provider] - Discharge Problem: GI (gastrointestinal bleed) Qualifiers: GI bleed type/associated pathology: unspecified gastrointestinal hemorrhage type Qualified Code(s): K92.2 - Gastrointestinal hemorrhage, unspecified Chest pain Qualifiers: Chest pain type: other chest pain Qualified Code(s): R07.89 - Other chest pain Anemia Qualifiers: Other causes of anemia: acute posthemorrhagic
[2025-01-02] MEDS: SODIUM CHLORIDE 0.9% 1,000 ML IV ONE (20:33)
[2025-01-02] MEDS ORDERED: VANCOMYCIN CONSULT ACTIVE PRN (20:33)
--- NOTE | 2025-01-02 20:52 | XRay Report ---
Single frontal view of the chest Comparison made to prior exam dated 12/03/2024 Impression: No acute pulmonary pathology Electronically signed by Darrel Alonso 01-02-2025 8:51 PM
[2025-01-02] MEDS: CEFEPIME 1000MG 1,000 MG/10 ML SYR IV STA (20:55)
[2025-01-02] MEDS: VANCOMYCIN HCL 1,750 MG in SODIUM CHLORIDE 0.9% 500 ML IV ONE (20:55)
[2025-01-02] MEDS: DICYCLOMINE HCL 10 MG/ML 2 ML AMP/VIAL IM ONE (20:55)
[2025-01-02] MEDS: ONDANSETRON INJ 2 MG/ML 2 ML VIAL IV STA (20:56)
[2025-01-02 21:00] LABS: Alanine Aminotransferase 21 U/L (7-52); Albumin Globulin Ratio 1.1 (0.9-2); Albumin Level 2.3 gm/dl (3.4-5.0); Alkaline Phosphatase 104 U/L (34-104); Anion Gap 13 (3-11); Bilirubin,Total 0.7 mg/dl (0.2-1.0); Blood Urea Nitrogen 9 mg/dl (6-23); Calcium 7.8 mg/dl (8.6-10.3); Carbon Dioxide 20 mmol/L (21-32); Chloride 104 mmol/L (98-107); Creatinine Clr Calc Pharmacy 109.6 ml/min; Globulin 2.0 gm/dl (2.5-4.0); Glucose 147 mg/dl (70-99(Fasting)); Lipase 175 U/L (11-82); Potassium 3.9 mmol/L (3.5-5.1); Sodium 137 mmol/L (136-145); Total Protein 4.3 gm/dl (6.0-8.3)
[2025-01-02 21:05] LABS: Hematocrit (blood only) 13.4 % (37.0-47.0); Hemoglobin 4.4 g/dL (12.0-16.0); Mean Corpuscular Hemoglobin 31.4 pg (25.0-34.0); Mean Corpuscular Volume 95.7 fL (80.0-100.0); Platelet Count 222 K/uL (130-400); RDW Standard Deviation 51.5 fL (36.4-46.3); Red Blood Count 1.40 M/uL (4.20-5.40); White Blood Count 6.51 K/ul (4.8-10.8)
[2025-01-02] MEDS ORDERED: SODIUM CHLORIDE 0.9% 100 ML IV PRN (21:06)
[2025-01-02] MEDS: OPTIRAY 320 100ml IV ONE (21:23)
[2025-01-02 22:18] LABS: Immature Granulocytes # (auto) 0.01 K/uL (0.01-0.20); Immature Granulocytes % (auto) 0.2 %; Polychromasia 1+
--- NOTE | 2025-01-02 22:31 | CT Scan Report ---
Exam(s): CT ABDOMEN + PELVIS With Contrast IV Amt: 93 ml opti 320 EXAM: CT Abdomen and Pelvis With Intravenous Contrast CLINICAL HISTORY: Reason for exam: GI bleed. TECHNIQUE: Axial computed tomography images of the abdomen and pelvis with intravenous contrast. CTDI is 13.65 mGy and DLP is 680.19 mGy-cm. Automated exposure control was utilized for the study. A dose lowering technique was utilized adhering to the principles of ALARA. CONTRAST: Patient received 93 ml opti 320 of IV contrast COMPARISON: No relevant prior studies available. FINDINGS: Lung bases: Unremarkable. No mass. No consolidation. ABDOMEN: Liver: Hepatic steatosis. Gallbladder and bile ducts: Unremarkable. No calcified stones. No ductal dilation. Pancreas: Unremarkable. No mass. No ductal dilation. Spleen: Unremarkable. No splenomegaly. Adrenals: Unremarkable. No mass. Kidneys and ureters: Unremarkable. No solid mass. No hydronephrosis. Stomach and bowel: Subtle inflammatory changes about the splenic flexure. Postoperative changes of the stomach suggesting a Mitzi-en-Y gastric bypass. There is a cystic structure within the gastric remnant which is unchanged from the prior exam measuring 5 x 4.5 cm. No obstruction. No mucosal thickening. No evidence of gastrointestinal hemorrhage identified on this exam. PELVIS: Appendix: Normal-appearing appendix. Bladder: Unremarkable. No mass. Reproductive: Unremarkable as visualized. ABDOMEN and PELVIS: Intraperitoneal space: Moderate amount of fluid within the dependent pelvis. No free air. Bones/joints: No acute fracture. No dislocation. Soft tissues: Unremarkable. Vasculature: Unremarkable. No abdominal aortic aneurysm. Lymph nodes: Unremarkable. No enlarged lymph nodes. IMPRESSION: Subtle inflammatory changes about the splenic flexure. No defined splenic wall thickening identified on this exam. This is of uncertain clinical significance or etiology No evidence of gastrointestinal hemorrhage Persistent 5 cm cyst arising from the excluded portion of the stomach. Patient is status post gastric bypass. Electronically signed by: Darrel Alonso MD 01/02/25 22:30 PM
--- NOTE | 2025-01-02 23:31 | History & Physical Report ---
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 Her evaluation is significant for profound anemia with H/H 4.4/13.4 in the setting of elevated lactate (7.1 -> 5.8) and hypocalcemia. Her imaging reveals some inflammatory changes at the splenic flexure but no acute GI hemorrhage noted. Pt to be admitted for acute blood loss anemia, secondary to GI bleed. #Acute blood loss anemia presumed secondary to GI bleed / Hematochezia Reports 3 days of hematochezia, with day of arrival being accompanied by SOB, palpitations, and profound fatigue. Abdominal cramping minimal. H/o hemorrhoids. Colonoscopy & EGD completed ~ 1 year ago, per pt. H/o gastric bypass (2006). 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 Admits to increased emotional stress, no NSAID use. Poor appetite. Admission for acute blood loss anemia, presumed 2/2 GI source. - CBC H/H 4.4/13.4 - trend q4h - Ca 7.8, albumin 2.3; corrected 9.2 -- repeat Ca am - Lactate 7.1, 5.8 on repeat -- in setting of acute blood loss -- received 1L NSS in ED, deferred further IVF as would hemodilute H/H - repeat am - NPO - 2U PRBC ordered - transfuse 2U, recheck H/H 1 hour after each unit completed - Pantoprazole IV + Famotidine IV - Deferred further abx at time of admission - WBC WNL, no infectious symptoms - received IV abx in ED, covered for 24 hours - GI consulted - appreciate input + recs #Alcohol use/Elevated LFT- AST 47; Was placed on AWSS last stay, ultimately d/c. 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 Please excuse any grammatical errors that may be secondary to use of this software. 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 Patient with most recent hospital admission 12/03/2024 until 12/06/2024. 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 She reports often having "explosive diarrhea" more often than not, so it is hard to determine the amount of blood that she was passing. She does admit to history of hemorrhoids, but does not feel that she suffers with constipation. No h/o diverticulosis. Pt denies NSAID use. 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 No h/o varices. Does have history of pancreatitis, states that this feels different. Her abdomen has a generalized mild tenderness, with some "period-like" cramps at her lower abdomen with bowel movements. She has not had fever or chills, no N/V. She had come to the hospital on the day of arrival because she was feeling palpitations as well as more winded with every- day activities. Her coworkers noted that she appeared to be pallor, not her normal self. She did not have dizziness or syncope. She has had a prior Mitzi-en-Y in 2006, then "a few years last, the bowel twisted on itself and was dying", requiring emergent hospital transfer to [facility] but by the time she got there it had resolved. Pt reports no prior episodes of such since. She has had a colonoscopy and EGD ~ 1 year ago, no acute findings. Pt denies current CP, SOB, palpitations, N/V, numbness/tingling, F/C, URI symptoms, or LUTS. She feels better after treatment has been initiated in the ED. ED evaluation reveals CBC without leukocytosis, RBC 1.40, H/H 4.4/13.4, plt WNL; CMP CO2 20, AG 13, gluc ose 147, AST 47, protein 4.3, albumin 2.3, globulin 2.0; Ca 7.8; lactate 7.1, 5.8 on repeat; lipase 175; CXR w/o acute findings; CTAP subtle inflammatory changes at splenic flexure, no hemorrhage, 5cm cyst arising from excluded portion of stomach, s/p gastric bypass.; Provided with Vancomycin 1,750 mg IV, 1L NSS, Zofran 4mg IV, dicyclomine 20mg po, and Cefepime 1g IV in ED. Please see Dr. Royal's attestation for adjustments/additions to treatment plan. Allergies Allergy/AdvReac Type Severity Reaction Status Date / Time No Known Allergies Allergy Verified 01/02/25 22:00 Home Medications Medication Instructions Recorded Confirmed Type cyanocobalamin (vitamin B-12) 1,000 mcg subcut Q14D 09/17/23 01/02/25 History 1,000 mcg/mL injection solution propranolol 120 mg capsule,24 120 mg PO QAM 01/27/24 01/02/25 History hr,extended release Supercream (OBGYN) Ranger 1 applic topical BID PRN 10/21/24 01/02/25 Rx [facility] 15 g ointment hemorrhoids #15 grams lamotrigine 100 mg tablet 100 mg PO BID 30 days #60 tabs 12/01/24 01/02/25 Rx oxycodone 5 mg tablet 5 mg PO Q8H PRN pain #7 tabs 12/02/24 01/02/25 Rx escitalopram oxalate 10 mg tablet 10 mg PO DAILY 12/16/24 01/02/25 History trazodone 50 mg tablet 50 mg PO HS #30 tabs 01/01/25 01/02/25 Rx Past Med/Surg History Problem List (Updated 01/03/25 @ 12:40 by Adama Wills MD) Vitamin deficiency, unspecified Iron deficiency anemia Hematochezia Acute blood loss anemia Acidosis, lactic (Acute) GI (gastrointestinal bleed) (Acute) Anemia (Acute) Chest pain (Acute) Leucopenia Elevated AST (SGOT) (Acute) Hx of hemorrhoids Seizure-like activity "only full blown seizure she's ever had" 2021; f/u dr. crenshaw Perineal cyst in female Vaginal lump Vaginal cyst Iron deficiency anemia following bariatric surgery Hoarseness of voice Esophagitis Epigastric abdominal pain (Acute) Idiopathic polyneuropathy Encounter for pre-operative examination Chronic diarrhea Rectal bleeding Polyp of gallbladder Abdominal pain, vomiting, and diarrhea (Acute) Cellulitis Entered 2022 Abnormal uterine bleeding (AUB) Vitamin B12 deficiency Hypertension Anxiety Medical History Sepsis Hoarseness of voice History of anxiety Hx of iron deficiency anemia Idiopathic polyneuropathy History of hypertension Seizure disorder last seizure 2021, f/u dr. crenshaw, id neuro Alcohol use Essential tremor reason for propranolol Hx of pancreatitis Classic migraine with aura hx, none for years History of nephrolithiasis Chronic mixed headache syndrome Surgical History H/O removal of cyst Hx of colonoscopy (2023) History of esophagogastroduodenoscopy (EGD) History of x1 History of gynecologic surgery D&E-surgically induced H/O lithotripsy Status post surgery laryngeal surgery- stripping of vocal cords, nodules removed History of Mitzi-en-Y gastric bypass 2006 Family History Uncle Bladder cancer maternal uncle Sister Brain tumor Grandfather (Paternal) Colorectal cancer Aunt Lung cancer paternal aunt Father Essential tremor Mother Hypertension Denies family history of Ovarian cancer Breast cancer Social History Smoking Status: Never smoker Second Hand Exposure: No; Do You Dip or Chew Tobacco: No; Hx Alcohol Use: Yes Alcohol type: wine Alcohol Intake Frequency Comment: 2-3 drinks, 5-7 days per week Hx Substance Use: No Preferred Language: Korean Communication Ability: Effective Public Affairs Officer Required: No Beliefs That Will Affect Care: None marital status: Current Living Situation: Spouse 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 Other Information That Helps Us Care for You: No Feels Safe at Home: Yes Safety Concerns: Feels Safe At This Time Assistive Devices: None Review of Systems Review of Systems: All systems reviewed & are unremarkable except as noted in Subjective Physical Exam Physical Exam: General: No acute distress Skin: Warm and dry, slight pallor appearance Head: Normocephalic, atraumatic Eyes: PERRL, conjunctivae clear, sclera non-icteric; wearing glasses ENT: External ear and ear canal without swelling; nose atraumatic; good dentition, tongue normal appearance, pharynx normal Neck: Supple, no LAD Cardio: Tachycardic, regular rhythm, no M/G/R, S1 and S2 normal Resp: No respiratory distress, Lungs CTA in all lobes bilaterally, no wheezes, rales, or rhonchi Abdomen: Soft, symmetric, generalized mild tenderness, pinpoint; No masses or hepatosplenomegaly; Bowel sounds normoactive MSK: No deformities; pulses palpable and equal; no edema. Neuro: Awake, alert; Sensation intact bilaterally; CN grossly intact Psych: Appropriate mood and affect; good judgement and insight. Results & Data Results & Data Vital Signs (Past 12 Hours) Vital Signs Temp Pulse Resp BP Pulse Ox O2 Del Method 01/02/25 23:10 37.4 C 115 H 18 133/98 100 01/02/25 22:40 37.8 C H 135 H 20 116/77 100 01/02/25 22:25 37.3 C 121 H 16 109/83 100 01/02/25 22:25 37.3 C 121 H 16 109/83 100 01/02/25 22:10 37.4 C 120 H 16 112/75 100 01/02/25 22:00 124 H 24 124/78 100 Room Air 01/02/25 21:45 121 H 26 H 120/92 100 Room Air 01/02/25 21:30 158 H 24 113/89 100 Room Air 01/02/25 21:03 160 H 24 147/94 H 100 Room Air 01/02/25 21:00 116 H 20 135/95 100 Room Air 01/02/25 20:30 109 H 17 125/85 01/02/25 20:17 98 Room Air 01/02/25 20:16 98 Room Air 01/02/25 20:13 126 H 01/02/25 20:10 36.7 C 112 H 20 144/90 H 98 Room Air Laboratory Results 01/02/25 20:31 Aerobic Blood Culture - Pending Blood Anaerobic Blood Culture - Pending 01/02/25 20:20 Aerobic Blood Culture - Pending Blood Anaerobic Blood Culture - Pending 01/02/25 01/02/25 01/02/25 22:49 21:11 20:31 WBC RBC Hgb Hct MCV MCH MCHC RDW Std Deviation RDW Coeff of Brielle Plt Count MPV Immature Gran % (Auto) Neut % (Auto) Lymph % (Auto) [place] % (Auto) Eos % (Auto) Baso % (Auto) Neut # (Auto) Lymph # (Auto) [place] # (Auto) Eos # (Auto) Baso # (Auto) Immature Gran # (Auto) Absolute Nucleated RBC Nucleated RBC % (auto) Polychromasia Sodium Potassium Chloride Carbon Dioxide Anion Gap BUN Creatinine Est Cr Clr Drug Dosing eGFR BUN/Creatinine Ratio Glucose Lactate 5.8 H* Calcium Total Bilirubin AST ALT Alkaline Phosphatase Troponin I High Sens Total Protein Albumin Globulin Albumin/Globulin Ratio Lipase Blood Type A Positive Blood Type Recheck A Positive Antibody Screen NEGATIVE Crossmatch See Detail 01/02/25 20:20 WBC 6.51 RBC 1.40 L Hgb 4.4 L* Hct 13.4 L* MCV 95.7 MCH 31.4 MCHC 32.8 RDW Std Deviation 51.5 H RDW Coeff of Brielle 14.8 H Plt Count 222 MPV 10.5 Immature Gran % (Auto) 0.2 Neut % (Auto) 61.0 Lymph % (Auto) 31.0 [place] % (Auto) 7.2 Eos % (Auto) 0.3 Baso % (Auto) 0.3 Neut # (Auto) 3.97 Lymph # (Auto) 2.02 [place] # (Auto) 0.47 Eos # (Auto) 0.02 Baso # (Auto) 0.02 Immature Gran # (Auto) 0.01 Absolute Nucleated RBC 0.03 Nucleated RBC % (auto) 0.5 Polychromasia 1+ Sodium 137 Potassium 3.9 Chloride 104 Carbon Dioxide 20 L Anion Gap 13 H BUN 9 Creatinine 0.64 Est Cr Clr Drug Dosing 109.6 eGFR 109.62 BUN/Creatinine Ratio 14.1 Glucose 147 H Lactate 7.1 H* Calcium 7.8 L Total Bilirubin 0.7 AST 47 H ALT 21 Alkaline Phosphatase 104 Troponin I High Sens 7.8 Total Protein 4.3 L Albumin 2.3 L Globulin 2.0 L Albumin/Globulin Ratio 1.1 Lipase 175 H Blood Type Blood Type Recheck Antibody Screen Crossmatch Diagnostic Findings Chest X-Ray 01/02/25 20:17 Single frontal view of the chest Comparison made to prior exam dated 12/03/2024 Impression: No acute pulmonary pathology Electronically signed by Darrel Alonso 01-02-2025 8:51 PM Abdomen/Pelvis CT 01/02/25 20:21 Exam(s): CT ABDOMEN + PELVIS With Contrast IV Amt: 93 ml opti 320 EXAM: CT Abdomen and Pelvis With Intravenous Contrast CLINICAL HISTORY: Reason for exam: GI bleed. TECHNIQUE: Axial computed tomography images of the abdomen and pelvis with intravenous contrast. CTDI is 13.65 mGy and DLP is 680.19 mGy-cm. Automated exposure control was utilized for the study. A dose lowering technique was utilized adhering to the principles of ALARA. CONTRAST: Patient received 93 ml opti 320 of IV contrast COMPARISON: No relevant prior studies available. FINDINGS: Lung bases: Unremarkable. No mass. No consolidation. ABDOMEN: Liver: Hepatic steatosis. Gallbladder and bile ducts: Unremarkable. No calcified stones. No ductal dilation. Pancreas: Unremarkable. No mass. No ductal dilation. Spleen: Unremarkable. No splenomegaly. Adrenals: Unremarkable. No mass. Kidneys and ureters: Unremarkable. No solid mass. No hydronephrosis. Stomach and bowel: Subtle inflammatory changes about the splenic flexure. Postoperative changes of the stomach suggesting a Mitzi-en-Y gastric bypass. There is a cystic structure within the gastric remnant which is unchanged from the prior exam measuring 5 x 4.5 cm. No obstruction. No mucosal thickening. No evidence of gastrointestinal hemorrhage identified on this exam. PELVIS: Appendix: Normal-appearing appendix. Bladder: Unremarkable. No mass. Reproductive: Unremarkable as visualized. ABDOMEN and PELVIS: Intraperitoneal space: Moderate amount of fluid within the dependent pelvis. No free air. Bones/joints: No acute fracture. No dislocation. Soft tissues: Unremarkable. Vasculature: Unremarkable. No abdominal aortic aneurysm. Lymph nodes: Unremarkable. No enlarged lymph nodes. IMPRESSION: Subtle inflammatory changes about the splenic flexure. No defined splenic wall thickening identified on this exam. This is of uncertain clinical significance or etiology No evidence of gastrointestinal hemorrhage Persistent 5 cm cyst arising from the excluded portion of the stomach. Patient is status post gastric bypass. Electronically signed by: Darrel Alonso MD 01/02/25 22:30 PM Medications Administered 1L NSS Decision for [place] Dicyclomine 20 elena IM Cefepime 1 g IV Vancomycin 750 mg IV Code Status & VTE Plan Code Status Full VTE Prophylaxis Plan VTE Prophylaxis will be ordered: Yes Supervising Physician Co-Signing Physician Notes Attending addendum: I have physically seen this patient, have supervised the JUN's activities, and agree with the H&P unless as otherwise noted. Assessment and Plan: The patient is a 49-year-old female with past medical history including seizure-like activity, essential tremor, hypertension, anxiety, recurrent pancreatitis, alcohol dependence, AUB, cellulitis, and idiopathic polyneuropathy. She presents to the emergency department due to palpitations and bright red blood per rectum that began 3 days prior to arrival, with palpitations starting the day of arrival. Initial workup in the emergency department revealed a hemoglobin of 4.4 and hematocrit of 13.4, lactate 7.1 and follow-up 5.8. Acute blood loss anemia requiring transfusion- Hemoglobin 4.4 hematocrit 13.4 on admission H&H every 4 hours To receive 2 units PRBCs ordered by the ED Give pantoprazole 80 mg IV now, to 40 mg IV twice daily. Famotidine 20 mg IV twice daily Ceftriaxone IV given in the ED Consult gastroenterology Alcohol use/elevated LFT- Known alcohol dependency Previous admission with [facility] protocol Follow-up for any symptomatology of withdrawal Seizure disorder- Continue lamotrigine Essential tremor- Propranolol temporarily on hold Remaining orders and notations PG Care Time/CCT Total # of Minutes Spent Total Time Spent with Patient: Total time spent is greater than 50% in coordination of care (as documented) at patient's floor/unit and/or counseling patient: Coding Level of Care Code 04002 INT INP/OBS CARE 3/75MIN Diagnoses Acute blood loss anemia D62 Hematochezia K92.1
[2025-01-03] MEDS: ONDANSETRON INJ 2 MG/ML 2 ML VIAL IV PRN (01:08)
[2025-01-03] MEDS: ACETAMINOPHEN 1,000 MG/100 ML VIAL IV PRN (01:11)
[2025-01-03] MEDS: FAMOTIDINE 20MG IV PUSH 20 MG/5 ML SYR IV STA (01:12)
[2025-01-03 02:28] LABS: Hematocrit (blood only) 17.1 % (37.0-47.0); Hemoglobin 5.8 g/dL (12.0-16.0)
[2025-01-03] MEDS ORDERED: SODIUM CHLORIDE 0.9% 100 ML IV PRN (02:43)
[2025-01-03 04:39] LABS: Anion Gap 5.0 (3-11); Blood Urea Nitrogen 11.0 mg/dl (6-23); Calcium 7.2 mg/dl (8.6-10.3); Carbon Dioxide 23.0 mmol/L (21-32); Chloride 108.0 mmol/L (98-107); Creatinine Clr Calc Pharmacy 91.1 ml/min; Glucose 111.0 mg/dl (70-99(Fasting)); Potassium 3.4 mmol/L (3.5-5.1); Sodium 136.0 mmol/L (136-145)
[2025-01-03 05:05] LABS: Hematocrit (blood only) 18.9 % (37.0-47.0); Hemoglobin 6.6 g/dL (12.0-16.0)
[2025-01-03] MEDS: POTASSIUM CHLORIDE / WTR 10 MEQ/100 ML PLCT IV SCH (05:27)
[2025-01-03] MEDS: MoRPHine SULFATE 2 MG/ML CARP IV PRN (05:27)
[2025-01-03] MEDS: PANTOprazole 40 MG/10 ML SYR IV SCH (08:45)
[2025-01-03] MEDS: lamoTRIgine 100 MG TAB PO SCH (08:46)
[2025-01-03] MEDS: THIAMINE HCL 100 MG in SYRINGE 9 ML IV STA (08:46)
[2025-01-03] MEDS: FAMOTIDINE 20MG IV PUSH 20 MG/5 ML SYR IV SCH (08:52)
[2025-01-03 09:23] LABS: Iron 219.0 mcg/dl (35-150); Total Iron Binding Cap Calc 325.0 mcg/dl (250-450); Transferrin 232.0 mg/dl (200-360); Transferrin (FE) Percent Satur 67.0 % (15-50)
[2025-01-03] MEDS: THIAMINE HCL 500 MG in SODIUM CHLORIDE 0.9% 50 ML IV SCH (09:33)
[2025-01-03 09:57] LABS: Folate (Folic Acid),Ser orPlas 6.56 ng/ml (>5.38)
[2025-01-03 09:58] LABS: Vitamin B12 > 1500 pg/ml (180-914)
[2025-01-03 10:00] LABS: Iron < 10 mcg/dl (35-150); Transferrin 273 mg/dl (200-360)
[2025-01-03 10:49] LABS: Ferritin 12.3 ng/ml (8-388)
[2025-01-03 11:11] LABS: Reticulocytes # 0.070 10^6/uL (0.020-0.100)
--- NOTE | 2025-01-03 11:49 | Electrocardiogram Report ---
Test Reason : Blood Pressure : */* mmHG Vent. Rate : 113 BPM Atrial Rate : 113 BPM P-R Int : 130 ms QRS Dur : 70 ms QT Int : 330 ms P-R-T Axes : 54 50 55 degrees QTcB Int : 452 ms Sinus tachycardia Low voltage QRS Borderline ECG When compared with ECG of 03-Dec-2024 15:51, No significant change was found Confirmed by Jeremias Parra ([id number]) on 01/03/2025 11:48:56 AM Referred By: REFERRED SELF Confirmed By: Jeremias Parra
[2025-01-03 11:56] LABS: Hematocrit (blood only) 26.9 % (37.0-47.0); Hemoglobin 9.5 g/dL (12.0-16.0)
--- NOTE | 2025-01-03 12:42 | Gastrointestinal Consultation ---
Date of Consultation January 03, 2025 Assessment & Plan (1) Hematochezia: Hematochezia the past attributed to hemorrhoids. Patient is iron deficient. She does have frequent intermittent bright blood which she attributes to the previous identified hemorrhoids here whenever she does have an increased amount of bleeding in the last week. There is some subtle abnormalities in the splenic flexure and she does have pain in this area. Should have a repeat colonoscopy. She was also to have an outpatient upper endoscopy to evaluate for anemia and history of gastric bypass. This did not occur. Will arrange an EGD colonoscopy. During this admission. (2) Acute blood loss anemia: I believe this is an acute on chronic process. She does appear to be iron deficient. I think this is been exacerbating her acute blood loss in the last week. Hemoglobin currently 9.5. Should be acceptable to perform endoscopy. (3) GI (gastrointestinal bleed): (4) Iron deficiency anemia: (5) Vitamin deficiency, unspecified: Multiple vitamin deficiencies including B12 folate and now iron documented. This may reflect lack of taking a regular multivitamin in the face of gastric bypass. We did order thiamine this is a concern. Patient should be on chronic thiamine replacement she is at risk of thiamine deficiency and the neurological sequela of this. This was reviewed with the patient today. Long-term multivitamin recommended. History of Present Illness Reason for Consultation: GI bleed anemia Attending Physician: Abigail Clay MD History of Present Illness 49-year-old female admitted with palpitations fatigue and profound anemia. Hemoglobin 4.4 on admission. Took 2 aspirin yesterday for the palpitations she was fearful of a heart attack. She does not regularly take aspirin or NSAIDs. There is a history of gastric bypass surgery in the past. Patient is also had a history of multiple vitamin deficiencies in the past likely reflecting previous gastric bypass and the lack of oral multivitamin. These have included iron deficiency B12 and folate deficiencies. MCV on current admission was 95.7, patient typically is in the high 105 range. B12 and folate are pending. Iron testing performed on pretransfusion blood is consistent with iron deficiency anemia. Patient however has been having red-maroon to dark stools for at least a week. Longer than the 3 days she noted in the emergency room. States she intermittently gets bright red rectal bleeding which she attributes to hemorrhoids though this has been more profuse. There is been no vomiting. BUN/creatinine levels on admission were normal against significant upper GI bleeding. CT scan suggested some abnormalities at the hepatic flexure. Interesting the patient states she does get discomfort in this area periodically. Predating the obvious bleeding from a week ago. Patient had a full colonoscopy in April [id number] for chronic diarrhea and hematochezia. Medium size hemorrhoids identified. No other source for bleeding. Patient was seen during admission By GI. Outpatient upper endoscopy r ecommended I do not believe this ever happened. Patient denies upper GI symptoms at this time. She denies regular NSAIDs. Allergies Allergy/AdvReac Type Severity Reaction Status Date / Time No Known Allergies Allergy Verified 01/02/25 22:00 Home Medications Medication Instructions Recorded Confirmed Type cyanocobalamin (vitamin B-12) 1,000 mcg subcut Q14D 09/17/23 01/02/25 History 1,000 mcg/mL injection solution propranolol 120 mg capsule,24 120 mg PO QAM 01/27/24 01/02/25 History hr,extended release Supercream (OBGYN) [place] 1 applic topical BID PRN 10/21/24 01/02/25 Rx [facility] 15 g ointment hemorrhoids #15 grams lamotrigine 100 mg tablet 100 mg PO BID 30 days #60 tabs 12/01/24 01/02/25 Rx oxycodone 5 mg tablet 5 mg PO Q8H PRN pain #7 tabs 12/02/24 01/02/25 Rx escitalopram oxalate 10 mg tablet 10 mg PO DAILY 12/16/24 01/02/25 History trazodone 50 mg tablet 50 mg PO HS #30 tabs 01/01/25 01/02/25 Rx Patient History Medical History Sepsis Hoarseness of voice History of anxiety Hx of iron deficiency anemia Idiopathic polyneuropathy History of hypertension Seizure disorder last seizure 2021, f/u dr. [place], [place] [facility] Alcohol use Essential tremor reason for propranolol Hx of pancreatitis Classic migraine with aura hx, none for years History of nephrolithiasis Chronic mixed headache syndrome Surgical History H/O removal of cyst Hx of colonoscopy (2023) History of esophagogastroduodenoscopy (EGD) History of x1 History of gynecologic surgery D&E-surgically induced H/O lithotripsy Status post surgery laryngeal surgery- stripping of vocal cords, nodules removed History of Mitzi-en-Y gastric bypass 2006 Family History Uncle Bladder cancer maternal uncle Sister Brain tumor Grandfather (Paternal) Colorectal cancer Aunt Lung cancer paternal aunt Father Essential tremor Mother Hypertension Denies family history of Ovarian cancer Breast cancer Social History Smoking Status: Never smoker Second Hand Exposure: No; Do You Dip or Chew Tobacco: No; Hx Alcohol Use: Yes Alcohol type: wine Alcohol Intake Frequency Comment: 2-3 drinks, 5-7 days per week Hx Substance Use: No Preferred Language: Maltese Communication Ability: Effective Television Station Manager Required: No Beliefs That Will Affect Care: None marital status: Current Living Situation: Spouse 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 Notes shortness of breath weakness dizziness related to profound anemia. GI as noted above Review systems otherwise as per admitting H&P reviewed without change Physical Exam Physical Exam: Patient appears well in no acute distress. She is examined at the bedside. She is orientated to person place and time. The eyes feel no jaundice Chest and heart exams per admitting H&P. Abdomen thin scaphoid and benign. 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 no focal neurological changes Psych affect normal Exam otherwise Results & Data Vital Signs (Past 12 Hours) Vital Signs Temp Pulse Pulse Resp BP BP Pulse Ox 01/03/25 12:15 36.8 C 97 H 20 153/108 H 95 01/03/25 10:27 36.8 C 94 H 14 150/106 H 97 01/03/25 09:26 36.9 C 87 16 154/107 H 98 01/03/25 08:59 36.9 C 94 H 16 151/103 H 97 01/03/25 08:56 36.9 C 94 H 16 151/103 H 97 01/03/25 08:41 36.9 C 94 H 16 151/103 H 97 01/03/25 08:41 36.7 C 110 H 16 153/105 H 97 01/03/25 08:25 36.9 C 89 16 151/100 H 98 01/03/25 08:07 36.8 C 88 18 150/106 H 97 01/03/25 07:23 36.8 C 90 16 149/102 H 97 01/03/25 07:16 36.6 C 91 H 18 147/99 H 97 01/03/25 06:23 37.1 C 92 H 16 149/96 H 98 01/03/25 05:53 36.6 C 89 16 138/94 99 01/03/25 05:40 37.2 C 83 18 134/81 99 01/03/25 05:38 36.9 C 92 H 18 145/101 H 99 01/03/25 05:23 37.2 C 83 18 134/81 99 01/03/25 03:03 37.2 C 97 H 18 133/94 99 01/03/25 02:35 36.8 C 89 16 138/90 100 01/03/25 01:40 37.2 C 99 H 16 165/102 H 100 01/03/25 01:10 37.1 C 112 H 16 149/94 H 98 01/03/25 00:55 37.1 C 115 H 16 147/89 H 100 01/03/25 00:34 37 C 103 H 18 124/84 100 O2 Del Method 01/03/25 12:15 Room Air 01/03/25 10:27 01/03/25 09:26 01/03/25 08:59 01/03/25 08:56 01/03/25 08:41 01/03/25 08:41 01/03/25 08:25 01/03/25 08:07 01/03/25 07:23 01/03/25 07:16 Room Air 01/03/25 06:23 01/03/25 05:53 01/03/25 05:40 01/03/25 05:38 01/03/25 05:23 01/03/25 03:03 Room Air 01/03/25 02:35 01/03/25 01:40 01/03/25 01:10 01/03/25 00:55 01/03/25 00:34 PG Care Time/CCT Total # of Minutes Spent Total Time Spent with Patient: Total time spent is greater than 50% in coordination of care (as documented) at patient's floor/unit and/or counseling patient: Coding Level of Care Code 82392 INT INP/OBS CARE MIN Diagnoses Hematochezia K92.1 Acute blood loss anemia D62 GI (gastrointestinal bleed) K92.2 GI bleed type/associated pathology: unspecified gastrointestinal hemorrhage type Iron deficiency anemia D50.9 Vitamin deficiency, unspecified E56.9 (3) GI (gastrointestinal bleed) GI bleed type/associated pathology: unspecified gastrointestinal hemorrhage type Qualified Code(s): K92.2 - Gastrointestinal hemorrhage, unspecified
--- NOTE | 2025-01-03 14:41 | Hospitalist Progress Note ---
Date of Service January 03, 2025 Assessment & Plan (1) Acute blood loss anemia: (2) Hematochezia: Plan 49-year-old woman with history of Mitzi-en-Y gastric bypass, admission a month ago for severe sepsis related to perineal postoperative infection resolved, admitted with acute lower GI bleeding and severe acute blood loss anemia with hemoglobin of 4.4 #acute lower GI bleeding, acute blood loss anemia, severe iron deficiency anemia she had a CT angiogram in the ED which was negative for any acute hemorrhage there was inflammation of the colon and the splenic flexure area, she does have some pain in this area added on anemia studies to her ED presentation labs she was severely iron deficient with serum iron less than 10, ferritin was low normal. B12 is normal and folate was low end of normal range. she had EGD approximately a year ago to evaluate pancreatic cysts, it was EGD/EUS done at [facility] she has not had recent colonoscopy consulted gastroenterology Dr. Wills, discussed plan of care with him he plans colonoscopy tomorrow, start bowel prep tonight she has been transfused 4 units so far with exuberant response to the last unit hemoglobin now adequate at 9.5, recheck hemoglobin this evening and tomorrow morning #recurrent severely elevated lactate levels - this has been during acute illnesses but seems out of proportion replace thiamine empirically with 500 mg IV Q 8 hours x 8 doses then ongoing oral replacement # malnutrition, history of gastric bypass she is already on B12 supplementation as an outpatient, replace B1 and this should be continued indefinitely, consulted dietitian # hepatic steatosis, elevated LFT - probably partially metabolic and somewhat alcohol related in the past she has cut back significantly on her alcohol intake. not at risk for alcohol withdrawal at this time # history of seizures last in 2021, continue Lamictal #Essential tremor- Propranolol - hold for now #Insomnia- Trazodone - continue once diet ordered VTE Prophylaxis: SCDs Admission and Anticipated Discharge Date Admission Date: January 02, 2025 Subjective 49-year-old woman with history of gastric bypass came in with hematochezia for a week, characterized by dark and occasionally bright red blood. Reports generalized abdominal discomfort and left upper quadrant pain during coughing or palpation. Rapid gastrointestinal transit post meals, a long-standing issue. No chronic hemorrhoidal bleeding. Received B12 injection yesterday, taking vitamins but not iron. EGD with EUS last year for pancreatic cyst showed no significant findings. Significant increase in lactate level during severe sepsis last month, persisted despite resolution of sepsis. similar sounding episode more remotely in the past when she was thought to have necrotic bowel from an intussusception or obstruction and was transferred to tertiary care And the bowel was found to be normal. Lactate level of 7 on this admission Significantly malnourished with albumin 2.3, slightly improved from 2.0 in mid- November post-sepsis. Protein supplementation recommended. Consultation with registered dietitian arranged. Physical Exam Physical Exam: General Appearance: Awake and alert. Vital signs: Reviewed past 24h vital signs in EMR, unremarkable. HEENT: Within normal limits. Respiratory: Respirations nonlabored, no rhonchi rales or wheezes. Cardiovascular: Regular rate and rhythm, no murmur. Gastrointestinal: Soft, mild left upper quadrant tenderness, nondistended, hyperactive bowel sounds. Extremities: warm and well perfused, no LE edema. Skin: Warm and dry. No rashes. Neurological: AOx4, normal speech and mentation, lock x 4. Psychiatric: Normal. Results & Data Results & Data Vital Signs (Past 12 Hours) Vital Signs Temp Pulse Pulse Resp BP BP Pulse Ox 01/03/25 12:15 36.8 C 97 H 20 153/108 H 95 01/03/25 10:27 36.8 C 94 H 14 150/106 H 97 01/03/25 09:26 36.9 C 87 16 154/107 H 98 01/03/25 08:59 36.9 C 94 H 16 151/103 H 97 01/03/25 08:56 36.9 C 94 H 16 151/103 H 97 01/03/25 08:41 36.9 C 94 H 16 151/103 H 97 01/03/25 08:41 36.7 C 110 H 16 153/105 H 97 01/03/25 08:25 36.9 C 89 16 151/100 H 98 01/03/25 08:07 36.8 C 88 18 150/106 H 97 01/03/25 07:23 36.8 C 90 16 149/102 H 97 01/03/25 07:16 36.6 C 91 H 18 147/99 H 97 01/03/25 06:23 37.1 C 92 H 16 149/96 H 98 01/03/25 05:53 36.6 C 89 16 138/94 99 01/03/25 05:40 37.2 C 83 18 134/81 99 01/03/25 05:38 36.9 C 92 H 18 145/101 H 99 01/03/25 05:23 37.2 C 83 18 134/81 99 01/03/25 03:03 37.2 C 97 H 18 133/94 99 01/03/25 02:35 36.8 C 89 16 138/90 100 O2 Del Method 01/03/25 12:15 Room Air 01/03/25 10:27 01/03/25 09:26 01/03/25 08:59 01/03/25 08:56 01/03/25 08:41 01/03/25 08:41 01/03/25 08:25 01/03/25 08:07 01/03/25 07:23 01/03/25 07:16 Room Air 01/03/25 06:23 01/03/25 05:53 01/03/25 05:40 01/03/25 05:38 01/03/25 05:23 01/03/25 03:03 Room Air 01/03/25 02:35 Laboratory Results - Labs: - Hemoglobin: was 4.4 at presentation improved to 9.5 after 4 units transfusion overnight - WBC: 6 - Platelets: Normal - MCV: Normal, previously macrocytic - Sodium: 136 - Potassium: 3.4 - BUN: 11 - Creatinine: 0.77 - Lactate: 7.1 on presentation, resolved to 1.5 - Serum Iron: <10 - Transferrin: 273 - Ferritin: 12 - Folate: 6.4 - Vitamin B12: >1500 - Imaging: - CTA: colonic Inflammation in splenic flexure PG Care Time/CCT Total # of Minutes Spent Total Time Spent with Patient: Total time spent is greater than 50% in coordination of care (as documented) at patient's floor/unit and/or counseling patient: Coding Level of Care Code 58772 SUB INP/OBS CARE 3/50MIN Diagnoses Acute blood loss anemia D62 Hematochezia K92.1
[2025-01-03] MEDS: LAVAGE SOLUTION 4000ML PO SCH (18:42)
[2025-01-03 19:05] LABS: Hematocrit (blood only) 28.5 % (37.0-47.0); Hemoglobin 9.9 g/dL (12.0-16.0)
[2025-01-03 21:27] LABS: Hematocrit (blood only) 28.6 % (37.0-47.0); Hemoglobin 10.0 g/dL (12.0-16.0); Mean Corpuscular Hemoglobin 31.4 pg (25.0-34.0); Mean Corpuscular Volume 89.9 fL (80.0-100.0); Platelet Count 137 K/uL (130-400); RDW Standard Deviation 49.4 fL (36.4-46.3); Red Blood Count 3.18 M/uL (4.20-5.40); White Blood Count 6.85 K/ul (4.8-10.8)
[2025-01-03 22:56] LABS: Hematocrit (blood only) 27.0 % (37.0-47.0); Hemoglobin 9.4 g/dL (12.0-16.0); Mean Corpuscular Hemoglobin 30.9 pg (25.0-34.0); Mean Corpuscular Volume 88.8 fL (80.0-100.0); Platelet Count 136 K/uL (130-400); RDW Standard Deviation 48.8 fL (36.4-46.3); Red Blood Count 3.04 M/uL (4.20-5.40); White Blood Count 6.54 K/ul (4.8-10.8)
[2025-01-04 03:28] LABS: Hematocrit (blood only) 26.0 % (37.0-47.0); Hemoglobin 9.0 g/dL (12.0-16.0); Mean Corpuscular Hemoglobin 31.0 pg (25.0-34.0); Mean Corpuscular Volume 89.7 fL (80.0-100.0); Platelet Count 134 K/uL (130-400); RDW Standard Deviation 48.2 fL (36.4-46.3); Red Blood Count 2.90 M/uL (4.20-5.40); White Blood Count 5.66 K/ul (4.8-10.8)
[2025-01-04 06:32] LABS: Hematocrit (blood only) 27.8 % (37.0-47.0); Hemoglobin 10.0 g/dL (12.0-16.0); Mean Corpuscular Hemoglobin 31.9 pg (25.0-34.0); Mean Corpuscular Volume 88.8 fL (80.0-100.0); Platelet Count 144 K/uL (130-400); RDW Standard Deviation 47.3 fL (36.4-46.3); Red Blood Count 3.13 M/uL (4.20-5.40); White Blood Count 5.73 K/ul (4.8-10.8)
[2025-01-04] MEDS: PROPRANOLOL HCL 60 MG LA CAP PO SCH (08:40)
--- NOTE | 2025-01-04 09:58 | History & Physical Bridge Note ---
Date of Service January 04, 2025 History & Physical Bridge Note I have examined the patient, reviewed the History & Physical and in the interval since the performance of the History & Physical I have noted the following changes of clinical significance: no changes noted Seen patient for evaluation of colonoscopy today. She's completed prep. She still reports lots of blood in stool. Blood counts stable with Hgb 10.0. BP good at 143/100. No hypotension. Mildly tachycardic at 94BPM. Remain NPO with plans to proceed with Colonoscopy today. Supervising Physician Co-Signing Physician Notes Increase rectal bleeding with preparation may signify hemorrhoidal source. Evaluate splenic flexure abnormality on CT scan. Colonoscopy today. Risk benefits discussed informed consent obtained
[2025-01-04 12:00] LABS: Hematocrit (blood only) 23.5 % (37.0-47.0); Hemoglobin 8.3 g/dL (12.0-16.0); Mean Corpuscular Hemoglobin 31.6 pg (25.0-34.0); Mean Corpuscular Volume 89.4 fL (80.0-100.0); Platelet Count 154 K/uL (130-400); RDW Standard Deviation 47.4 fL (36.4-46.3); Red Blood Count 2.63 M/uL (4.20-5.40); White Blood Count 6.53 K/ul (4.8-10.8)
--- NOTE | 2025-01-04 12:18 | Hospitalist Progress Note ---
Date of Service January 04, 2025 Assessment & Plan (1) Acute blood loss anemia: (2) Hematochezia: Plan 49-year-old woman with history of Mitzi-en-Y gastric bypass, admission a month ago for severe sepsis related to perineal postoperative infection resolved, admitted with acute lower GI bleeding and severe acute blood loss anemia with hemoglobin of 4.4 #acute lower GI bleeding, acute blood loss anemia, severe iron deficiency anemia she had a CT angiogram in the ED which was negative for any acute hemorrhage there was inflammation of the colon and the splenic flexure area, she does have some pain in this area added on anemia studies to her ED presentation labs she was severely iron deficient with serum iron less than 10, ferritin was low normal. B12 is normal and folate was low end of normal range. she had EGD approximately a year ago to evaluate pancreatic cysts, it was EGD/EUS done at [facility] she has not had recent colonoscopy she was transfused 4 units RBCs with exhuberant response, probably the second H/H in the 6's yesterday was falsely low or diluted sample. Hg increased to 10 overnight had ongoing bloody stools overnight did not resolve with bowel prep. LUQ mild pain/tenderness resolved consulted gastroenterology Dr. Wills, colonoscopy this afternoon #recurrent severely elevated lactate levels - this has been during acute illnesses but seems out of proportion replace thiamine empirically with 500 mg IV Q 8 hours x 8 doses then ongoing oral replacement # moderate malnutrition, history of gastric bypass, hypoalbuminemia she is already on B12 supplementation as an outpatient, replace B1 and this should be continued indefinitely, consulted dietitian, protein supplement # hepatic steatosis, elevated LFT - probably partially metabolic and somewhat alcohol related in the past she has cut back significantly on her alcohol intake. not at risk for alcohol withdrawal at this time # history of seizures last in 2021, continue Lamictal #Essential tremor- Propranolol - hold for now #Insomnia- Trazodone - continue once diet ordered VTE Prophylaxis: SCDs Admission and Anticipated Discharge Date Admission Date: January 02, 2025 Subjective Ongoing hematochezia overnight despite bowel prep did not clear LUQ pain/tenderness resolved No vomiting Physical Exam Physical Exam: General Appearance: Awake and alert. Vital signs: Reviewed past 24h vital signs in EMR, unremarkable. Exam unchanged 01/04 excepting no LUQ tenderness HEENT: Within normal limits. Respiratory: Respirations nonlabored, no rhonchi rales or wheezes. Cardiovascular: Regular rate and rhythm, no murmur. Gastrointestinal: Soft, nontender, nondistended, hyperactive bowel sounds. Extremities: warm and well perfused, no LE edema. Skin: Warm and dry. No rashes. Neurological: AOx4, normal speech and mentation, lock x 4. Psychiatric: Normal. Results & Data Results & Data Vital Signs (Past 12 Hours) Vital Signs Temp Pulse Pulse Resp BP BP Pulse Ox 01/04/25 11:29 37.1 C 77 20 103/68 96 01/04/25 08:11 94 H 01/04/25 07:05 36.8 C 101 H 20 143/100 H 99 01/04/25 03:31 36.8 C 101 H 18 151/101 H 95 O2 Del Method 01/04/25 11:29 Room Air 01/04/25 08:11 01/04/25 07:05 Room Air 01/04/25 03:31 Room Air PG Care Time/CCT Total # of Minutes Spent Total Time Spent with Patient: Total time spent is greater than 50% in coordination of care (as documented) at patient's floor/unit and/or counseling patient: Coding Level of Care Code 47410 SUB INP/OBS CARE 2/35MIN Diagnoses Acute blood loss anemia D62 Hematochezia K92.1
--- NOTE | 2025-01-04 15:34 | Anesthesiology Consultation ---
Date of Service January 04, 2025 Assessment & Plan ASA ASA3 Proposed Anesthesia Anesthesia Type: MAC Risk / Benefits Reviewed With: PT / POA / Parent / Guardian, Accepts Plan and Informed Consent Obtained History Surgery Operation Date: 01/04/25 16:30 Proposed Procedures p Colonoscopy Dr. Johann Wills MD Height/Weight Height: 5 ft 8 in Weight: 66.6 kg Allergies Allergy/AdvReac Type Severity Reaction Status Date / Time No Known Allergies Allergy Verified 01/02/25 22:00 Medications Home Medications Medication Instructions Recorded Confirmed Last Taken cyanocobalamin (vitamin B-12) 1,000 mcg subcut Q14D 09/17/23 01/02/25 3 Weeks Ago 1,000 mcg/mL injection solution ~11/06/24 propranolol 120 mg capsule,24 120 mg PO QAM 01/27/24 01/02/25 11/27/24 08:00 hr,extended release Supercream (OBGYN) [place] 1 applic topical BID PRN 10/21/24 01/02/25 Unknown Apothecary 15 g ointment hemorrhoids #15 grams lamotrigine 100 mg tablet 100 mg PO BID 30 days #60 tabs 12/01/24 01/02/25 01/02/25 08:00 oxycodone 5 mg tablet 5 mg PO Q8H PRN pain #7 tabs 12/02/24 01/02/25 Unknown escitalopram oxalate 10 mg tablet 10 mg PO DAILY 12/16/24 01/02/25 Unknown trazodone 50 mg tablet 50 mg PO HS #30 tabs 01/01/25 01/02/25 Unknown Active Medications Generic Name Dose Route Start Last Admin Trade Name Freq PRN Reason Stop Dose Admin Famotidine 20 mg in 5 mls @ 2.5 mls/min 01/03/25 09:00 01/04/25 08:40 Pepcid 20mg Iv Push IV 02/02/25 08:59 2.5 mls/min Q12H MIN Administration Pantoprazole Sodium 40 mg in 10 mls @ 5 mls/min 01/03/25 09:00 01/04/25 08:40 Protonix IV 02/02/25 08:59 5 mls/min BID MIN Administration Acetaminophen 1,000 mg in 100 mls @ 400 mls/hr 01/03/25 01:06 01/03/25 01:28 Ofirmev IV 01/06/25 01:05 Infused Q8H PRN Infusion Pain or Fever Thiamine HCl 500 mg/ Sodium 55 mls @ 210 mls/hr 01/03/25 08:45 01/04/25 08:41 Chloride IV 01/05/25 17:01 Infused Q8H MIN Infusion Lamotrigine 100 mg 01/03/25 09:00 01/04/25 08:41 Lamotrigine 100 Mg Tab PO 02/02/25 08:59 100 mg BID MIN Administration Protocol Morphine Sulfate 2 mg 01/03/25 01:06 01/04/25 10:38 Morphine Sulfate 2 Mg/Ml Carp IV 01/17/25 01:05 2 mg Q3H PRN Administration Pain >6/10 Ondansetron HCl 4 mg 01/03/25 00:21 01/03/25 21:34 Ondansetron Inj 2 Mg/Ml 2 Ml Vial IV 02/02/25 00:20 4 mg Q6H PRN Administration Nausea Propranolol HCl 120 mg 01/04/25 09:00 01/04/25 08:40 Propranolol Hcl 60 Mg [place] PO 02/03/25 08:59 120 mg QAM MIN Administration NPO Date Last Intake of Fluids: 01/04/25 Time Last Intake of Fluids: 12:00 Date Last Intake of Solids: 12/31/24 Time Last Intake of Solids: 00:01 Past Medical History Medical History Sepsis Hoarseness of voice History of anxiety Hx of iron deficiency anemia Idiopathic polyneuropathy History of hypertension Seizure disorder last seizure 2021, f/u dr. crenshaw, [place] neuro Alcohol use Essential tremor reason for propranolol Hx of pancreatitis Classic migraine with aura hx, none for years History of nephrolithiasis Chronic mixed headache syndrome Exercise / Class Metabolic Activity II 4-5 Yardwork/Stairs/Walk up hill Past Family History Family History Uncle Bladder cancer maternal uncle Sister Brain tumor Grandfather (Paternal) Colorectal cancer Aunt Lung cancer paternal aunt Father Essential tremor Mother Hypertension Denies family history of Ovarian cancer Breast cancer Past Surgical History Surgical History H/O removal of cyst Hx of colonoscopy (2023) History of esophagogastroduodenoscopy (EGD) History of x1 History of gynecologic surgery D&E-surgically induced H/O lithotripsy Status post surgery laryngeal surgery- stripping of vocal cords, nodules removed History of Mitzi-en-Y gastric bypass 2006 Past Anesthesia History No Hx of Anesthesia Complications and No Family Hx of Anesthesia Complications History of PONV No Hx of PONV and No Hx of Motion Sickness Social History Smoking Status: Never smoker Do You Dip or Chew Tobacco: No Hx Alcohol Use: Yes Alcohol type: wine alcohol intake frequency: 3 or more drinks per day Hx Substance Use: No substance use type: does not use Physical Exam Vital Signs Last Vital Signs Temp 36.9 C 01/04/25 14:36 Pulse 80 01/04/25 14:36 Resp 16 01/04/25 14:36 BP 110/82 01/04/25 14:36 Pulse Ox 96 01/04/25 14:36 O2 Del Method Room Air 01/04/25 14:36 Constitutional no acute distress ENMT Mouth: no dentition abnormality Thyromental Distance: > or= 3.5 Finger Breadths Mallampati Class: II Neck normal visual inspection Respiratory normal respiratory effort; no respiratory distress Auscultation: lungs clear to auscultation bilaterally Cardiovascular Rate/Rhythm: regular rate and regular rhythm Heart Sounds: no murmur Musculoskeletal Spine: normal cervical ROM Psychiatric Orientation: alert and oriented x 3 Testing Laboratory Results 01/04/25 11:16 01/03/25 04:08 Blood Type A Positive 01/02/25 20:31 Antibody Screen NEGATIVE 01/02/25 20:31 01/02/25 20:31 Aerobic Blood Culture - Preliminary Blood No growth in Aerobic bottle after 24 hours. Anaerobic Blood Culture - Preliminary No growth in Anaerobic bottle after 24 hours. 01/02/25 20:20 Aerobic Blood Culture - Preliminary Blood No growth in Aerobic bottle after 24 hours. Anaerobic Blood Culture - Preliminary No growth in Anaerobic bottle after 24 hours. Day of Procedure Evaluation. Date of Surgery January 04, 2025 Height/Weight Height: 5 ft 8 in Weight: 66.6 kg Vital Signs Last Vital Signs Temp 36.9 C 01/04/25 14:36 Pulse 80 01/04/25 14:36 Resp 16 01/04/25 14:36 BP 110/82 01/04/25 14:36 Pulse Ox 96 01/04/25 14:36 O2 Del Method Room Air 01/04/25 14:36 Allergies Allergy/AdvReac Type Severity Reaction Status Date / Time No Known Allergies Allergy Verified 01/02/25 22:00 Medications Home Medications Medication Instructions Recorded Confirmed Last Taken cyanocobalamin (vitamin B-12) 1,000 mcg subcut Q14D 09/17/23 01/02/25 3 Weeks Ago 1,000 mcg/mL injection solution ~11/06/24 propranolol 120 mg capsule,24 120 mg PO QAM 01/27/24 01/02/25 11/27/24 08:00 hr,extended release Supercream (OBGYN) [place] 1 applic topical BID PRN 10/21/24 01/02/25 Unknown Apothecary 15 g ointment hemorrhoids #15 grams lamotrigine 100 mg tablet 100 mg PO BID 30 days #60 tabs 12/01/24 01/02/25 01/02/25 08:00 oxycodone 5 mg tablet 5 mg PO Q8H PRN pain #7 tabs 12/02/24 01/02/25 Unknown escitalopram oxalate 10 mg tablet 10 mg PO DAILY 12/16/24 01/02/25 Unknown trazodone 50 mg tablet 50 mg PO HS #30 tabs 01/01/25 01/02/25 Unknown Active Medications Generic Name Dose Route Start Last Admin Trade Name Freq PRN Reason Stop Dose Admin Famotidine 20 mg in 5 mls @ 2.5 mls/min 01/03/25 09:00 01/04/25 08:40 Pepcid 20mg Iv Push IV 02/02/25 08:59 2.5 mls/min Q12H MIN Administration Pantoprazole Sodium 40 mg in 10 mls @ 5 mls/min 01/03/25 09:00 01/04/25 08:40 Protonix IV 02/02/25 08:59 5 mls/min BID MIN Administration Acetaminophen 1,000 mg in 100 mls @ 400 mls/hr 01/03/25 01:06 01/03/25 01:28 Ofirmev IV 01/06/25 01:05 Infused Q8H PRN Infusion Pain or Fever Thiamine HCl 500 mg/ Sodium 55 mls @ 210 mls/hr 01/03/25 08:45 01/04/25 08:41 Chloride IV 01/05/25 17:01 Infused Q8H MIN Infusion Lamotrigine 100 mg 01/03/25 09:00 01/04/25 08:41 Lamotrigine 100 Mg Tab PO 02/02/25 08:59 100 mg BID MIN Administration Protocol Morphine Sulfate 2 mg 01/03/25 01:06 01/04/25 10:38 Morphine Sulfate 2 Mg/Ml Carp IV 01/17/25 01:05 2 mg Q3H PRN Administration Pain >6/10 Ondansetron HCl 4 mg 01/03/25 00:21 01/03/25 21:34 Ondansetron Inj 2 Mg/Ml 2 Ml Vial IV 02/02/25 00:20 4 mg Q6H PRN Administration Nausea Propranolol HCl 120 mg 01/04/25 09:00 01/04/25 08:40 Propranolol Hcl 60 Mg [place] PO 02/03/25 08:59 120 mg QAM MIN Administration Past Anesthesia History No Hx of Anesthesia Complications and No Family Hx of Anesthesia Complications History of PONV No Hx of PONV and No Hx of Motion Sickness NPO Date Last Intake of Fluids: 01/04/25 Time Last Intake of Fluids: 12:00 Date Last Intake of Solids: 12/31/24 Time Last Intake of Solids: 00:01 Home Medications Home Medications Medication Instructions Recorded Confirmed Last Taken cyanocobalamin (vitamin B-12) 1,000 mcg subcut Q14D 09/17/23 01/02/25 3 Weeks Ago 1,000 mcg/mL injection solution ~11/06/24 propranolol 120 mg capsule,24 120 mg PO QAM 01/27/24 01/02/25 11/27/24 08:00 hr,extended release Supercream (OBGYN) [place] 1 applic topical BID PRN 10/21/24 01/02/25 Unknown Apothecary 15 g ointment hemorrhoids #15 grams lamotrigine 100 mg tablet 100 mg PO BID 30 days #60 tabs 12/01/24 01/02/25 01/02/25 08:00 oxycodone 5 mg tablet 5 mg PO Q8H PRN pain #7 tabs 12/02/24 01/02/25 Unknown escitalopram oxalate 10 mg tablet 10 mg PO DAILY 12/16/24 01/02/25 Unknown trazodone 50 mg tablet 50 mg PO HS #30 tabs 01/01/25 01/02/25 Unknown Active Medications Generic Name Dose Route Start Last Admin Trade Name Javierq PRN Reason Stop Dose Admin Famotidine 20 mg in 5 mls @ 2.5 mls/min 01/03/25 09:00 01/04/25 08:40 Pepcid 20mg Iv Push IV 02/02/25 08:59 2.5 mls/min Q12H MIN Administration Pantoprazole Sodium 40 mg in 10 mls @ 5 mls/min 01/03/25 09:00 01/04/25 08:40 Protonix IV 02/02/25 08:59 5 mls/min BID MIN Administration Acetaminophen 1,000 mg in 100 mls @ 400 mls/hr 01/03/25 01:06 01/03/25 01:28 Ofirmev IV 01/06/25 01:05 Infused Q8H PRN Infusion Pain or Fever Thiamine HCl 500 mg/ Sodium 55 mls @ 210 mls/hr 01/03/25 08:45 01/04/25 08:41 Chloride IV 01/05/25 17:01 Infused Q8H MIN Infusion Lamotrigine 100 mg 01/03/25 09:00 01/04/25 08:41 Lamotrigine 100 Mg Tab PO 02/02/25 08:59 100 mg BID MIN Administration Protocol Morphine Sulfate 2 mg 01/03/25 01:06 01/04/25 10:38 Morphine Sulfate 2 Mg/Ml Carp IV 01/17/25 01:05 2 mg Q3H PRN Administration Pain >6/10 Ondansetron HCl 4 mg 01/03/25 00:21 01/03/25 21:34 Ondansetron Inj 2 Mg/Ml 2 Ml Vial IV 02/02/25 00:20 4 mg Q6H PRN Administration Nausea Propranolol HCl 120 mg 01/04/25 09:00 01/04/25 08:40 Propranolol Hcl 60 Mg [place] PO 02/03/25 08:59 120 mg QAM MIN Administration Exercise / Class Metabolic Activity Metabolic Activity: II 4-5 Yardwork/Stairs/Walk up hill Physical Exam Constitutional: no acute distress Mouth: no dentition abnormality Thyromental Distance: > or= 3.5 Finger Breadths Mallampati Class: II Neck: + visual inspection normal Respiratory: + respiratory effort normal and + clear to auscultation bilaterally; no respiratory distress Cardiovascular: + regular rate and + regular rhythm; no murmur Musculoskeletal: no limited cervical ROM Psychiatric: + alert and + oriented x 3 ASA ASA3 Proposed Anesthesia Proposed Anesthesia: MAC Risk / Benefits Reviewed With: PT / POA / Parent / Guardian, Accepts Plan and Informed Consent Obtained
--- NOTE | 2025-01-04 16:00 | Anesthesiology Progress Note ---
Date of Service January 04, 2025 Anesthesia Post Procedure Vital Signs Vital Signs: Temp Pulse Pulse Resp BP BP Pulse Ox 01/04/25 14:36 36.9 C 80 16 110/82 96 01/04/25 11:29 37.1 C 77 20 103/68 96 01/04/25 08:11 94 H 01/04/25 07:05 36.8 C 101 H 20 143/100 H 99 01/04/25 03:31 36.8 C 101 H 18 151/101 H 95 01/03/25 23:05 36.9 C 99 H 18 145/96 H 95 01/03/25 22:54 103 H 01/03/25 21:36 36.8 C 103 H 168/118 H 100 01/03/25 19:13 36.7 C 86 18 155/100 H 95 O2 Del Method 01/04/25 14:36 Room Air 01/04/25 11:29 Room Air 01/04/25 08:11 01/04/25 07:05 Room Air 01/04/25 03:31 Room Air 01/03/25 23:05 Room Air 01/03/25 22:54 01/03/25 21:36 Room Air 01/03/25 19:13 Room Air Pain Intensity Chest: Pain Intensity: 6 Transfer of Care Handoff Completed per policy Notes Mental Status: alert / awake / arousable and participated in evaluation Nausea / Vomiting: adequately controlled Pain: adequately controlled Airway Patency, RR, SpO2: stable & adequate BP & HR: stable & adequate Hydration State: stable & adequate Anesthetic Complications: no major complications apparent and Pt Satisfied with anesthetic care
--- NOTE | 2025-01-04 16:14 | Communication Note ---
Date of Service: January 04, 2025 Colonoscopy Blood throughout the colon all the way to the cecum. TI intubated without blood. Extensive lavage undertaken from cecum to anus. No fresh bleeding identified. Scope repassed all the way to the cecum looking for recurrent or fresh blood none seen. No significant diverticular disease identified. No polyps or neoplasia. Exam somewhat hampered by the blood and some ileus adherent material. Peers to have a colonic bleed based on TI without blood. No lesions identified no diverticulosis seen. Potentially small Dula Ellie's or AVM not seen today. Recommend we reprep her overnight rescope tomorrow looking for a small lesion. If fresh bleeding overnight consider repeat CTA or nuclear medicine study in the AM.
--- NOTE | 2025-01-04 16:23 | GI REPORT ---
[facility] Patient: MARIELENA SIMS : 1975 Sex at : Female Age: 49 Years Procedure: Colonoscopy Date: 01/04/2025 Attending Physician: Adama Wills MD Referring MD: Abigail Clay Md Indications: - Iron deficiency anemia hematochezia Medications: - Monitored Anesthesia Care Complications: - No immediate complications. Estimated Blood Loss: - No blood loss from the procedure. Just old blood in the colon Procedure: - The adult colonoscope was introduced through the anus and advanced to the terminal ileum, with identification of the appendiceal orifice and ileocecal valve. - The colonoscopy was performed without difficulty. - The quality of the bowel preparation was poor. - The patient tolerated the procedure fairly well. Findings: - The perianal examination was normal. - Red blood was found in the entire colon. Lavage of the area was performed using a large amount, resulting in clearance with adequate visualization. - The terminal ileum appeared normal. Impression: - Preparation of the colon was poor. - Blood in the entire examined colon. - The examined portion of the ileum was normal. - No specimens collected. - Extensive old blood throughout the colon. Patient reported extensive red bleeding earlier today. The ileum was normal there was no blood in the ileum. I lavaged the colon extensively on at least 2 separate occasions the scope was passed to the cecum and withdrawn 3 times. No fresh bleeding noted following the lavage and clearance of the red blood. Mucosal detail somewhat hampered by adherent heme and bilious material. A small AVM Dula Ellie's could be overlooked. No significant diverticuli identified. Hemorrhoids did not appear to be a source for bleeding. Recommendation: - Consider reprep today rescope tomorrow looking for small AVM or Dula Ellie's type lesion. Will review with patient Procedure Code(s): - 61317, Colonoscopy, flexible; diagnostic, including collection of specimen(s) by brushing or washing, when performed (separate procedure) Diagnosis Code(s): - K92.2, Gastrointestinal hemorrhage, unspecified CPT(R) - 2022 copyright [employer]. All Rights Reserved. The CPT codes, CCI edits and ICD codes generated are intended as suggestions and were generated based on input data. These codes are preliminary and upon sales record clerk review may be revised to meet current compliance and payer requirements. The provider is responsible for the final determination of appropriate codes, and modifiers. Adama Wills MD This document has been electronically signed. Note Initiated:01/04/2025 Note Completed:01/04/2025 4:22 PM [email or web address]\[id number]
[2025-01-04] MEDS: LIDOCAINE 2% 2 ML VIAL/AMP(20MG/ML) INFIL ONE (17:40)
[2025-01-04] MEDS: PROPOFOL IV EMULSION 10 MG/ML 20 ML VIAL IV ONE ×2 (17:40)
[2025-01-04] MEDS: LAVAGE SOLUTION 4000ML PO SCH (18:15)
[2025-01-05 05:56] LABS: Hematocrit (blood only) 22.7 % (37.0-47.0); Hemoglobin 7.6 g/dL (12.0-16.0); Immature Granulocytes # (auto) 0.03 K/uL (0.01-0.20); Immature Granulocytes % (auto) 0.5 %; Mean Corpuscular Hemoglobin 31.0 pg (25.0-34.0); Mean Corpuscular Volume 92.7 fL (80.0-100.0); Platelet Count 165 K/uL (130-400); RDW Standard Deviation 50.4 fL (36.4-46.3); Red Blood Count 2.45 M/uL (4.20-5.40); White Blood Count 5.90 K/ul (4.8-10.8)
[2025-01-05 06:13] LABS: Anion Gap 7.0 (3-11); Blood Urea Nitrogen 10.0 mg/dl (6-23); Calcium 7.8 mg/dl (8.6-10.3); Carbon Dioxide 25.0 mmol/L (21-32); Chloride 106.0 mmol/L (98-107); Creatinine Clr Calc Pharmacy 123.1 ml/min; Glucose 73.0 mg/dl (70-99(Fasting)); Potassium 3.3 mmol/L (3.5-5.1); Sodium 138.0 mmol/L (136-145)
[2025-01-05 07:03] LABS: Polychromasia 2+
--- NOTE | 2025-01-05 09:51 | History & Physical Bridge Note ---
Date of Service January 05, 2025 History & Physical Bridge Note I have examined the patient, reviewed the History & Physical and in the interval since the performance of the History & Physical I have noted the following changes of clinical significance: no changes noted. F/U Colonoscopy and EGD today for ongoing hematochezia. Today patient reports that her stools are much clearier. VSS. Hgb 7.6g/dl this morning, down from 8.3g/dl yesterday. Plan to proceed with EGD and Colonoscopy today. Supervising Physician Co-Signing Physician Notes Patient feels well. She states there is no further blood with preparation. We plan to do an upper and lower endoscopy today to evaluate for occult gastrointestinal bleeding. Risks and benefits discussed informed consent obtained.
--- NOTE | 2025-01-05 13:02 | Anesthesiology Consultation ---
Date of Service January 05, 2025 Assessment & Plan (1) Encounter for pre-operative examination: Chart Review Chart Review: Acceptable Risk for Surgery and Patient NOT seen in Pre Admission Testing Consults Requested none History Surgery Operation Date: 01/04/25 16:30 Proposed Procedures p Colonoscopy Dr. Johann Wills MD Operation Date: 01/05/25 17:55 Proposed Procedures p Colonoscopy EGD Dr. Johann Wills MD Height/Weight Height: 5 ft 8 in Weight: 66.5 kg Allergies Allergy/AdvReac Type Severity Reaction Status Date / Time No Known Allergies Allergy Verified 01/02/25 22:00 Medications Home Medications Medication Instructions Recorded Confirmed Last Taken cyanocobalamin (vitamin B-12) 1,000 mcg subcut Q14D 09/17/23 01/02/25 3 Weeks Ago 1,000 mcg/mL injection solution ~11/06/24 propranolol 120 mg capsule,24 120 mg PO QAM 01/27/24 01/02/25 11/27/24 08:00 hr,extended release Supercream (OBGYN) [place] 1 applic topical BID PRN 10/21/24 01/02/25 Unknown Apothecary 15 g ointment hemorrhoids #15 grams lamotrigine 100 mg tablet 100 mg PO BID 30 days #60 tabs 12/01/24 01/02/25 01/02/25 08:00 oxycodone 5 mg tablet 5 mg PO Q8H PRN pain #7 tabs 12/02/24 01/02/25 Unknown escitalopram oxalate 10 mg tablet 10 mg PO DAILY 12/16/24 01/02/25 Unknown trazodone 50 mg tablet 50 mg PO HS #30 tabs 01/01/25 01/02/25 Unknown Active Medications Generic Name Dose Route Start Last Admin Trade Name Freq PRN Reason Stop Dose Admin Famotidine 20 mg in 5 mls @ 2.5 mls/min 01/03/25 09:00 01/05/25 09:41 Pepcid 20mg Iv Push IV 02/02/25 08:59 2.5 mls/min Q12H MIN Administration Pantoprazole Sodium 40 mg in 10 mls @ 5 mls/min 01/03/25 09:00 01/05/25 09:28 Protonix IV 02/02/25 08:59 5 mls/min BID MIN Administration Acetaminophen 1,000 mg in 100 mls @ 400 mls/hr 01/03/25 01:06 01/03/25 01:28 Ofirmev IV 01/06/25 01:05 Infused Q8H PRN Infusion Pain or Fever Thiamine HCl 500 mg/ Sodium 55 mls @ 210 mls/hr 01/03/25 08:45 01/05/25 10:08 Chloride IV 01/05/25 17:01 Infused Q8H MIN Infusion Lamotrigine 100 mg 01/03/25 09:00 01/05/25 09:29 Lamotrigine 100 Mg Tab PO 02/02/25 08:59 100 mg BID MIN Administration Protocol Morphine Sulfate 2 mg 01/03/25 01:06 01/04/25 20:43 Morphine Sulfate 2 Mg/Ml Carp IV 01/17/25 01:05 2 mg Q3H PRN Administration Pain >6/10 Ondansetron HCl 4 mg 01/03/25 00:21 01/03/25 21:34 Ondansetron Inj 2 Mg/Ml 2 Ml Vial IV 02/02/25 00:20 4 mg Q6H PRN Administration Nausea Propranolol HCl 120 mg 01/04/25 09:00 01/04/25 08:40 Propranolol Hcl 60 Mg [place] PO 02/03/25 08:59 120 mg QAM MIN Administration Past Medical History Medical History Sepsis Hoarseness of voice History of anxiety Hx of iron deficiency anemia Idiopathic polyneuropathy History of hypertension Seizure disorder last seizure 2021, f/u dr. crenshaw, [place] neuro Alcohol use Essential tremor reason for propranolol Hx of pancreatitis Classic migraine with aura hx, none for years History of nephrolithiasis Chronic mixed headache syndrome Patient received 4 units pRBC's this admission. Past Family History Family History Uncle Bladder cancer maternal uncle Sister Brain tumor Grandfather (Paternal) Colorectal cancer Aunt Lung cancer paternal aunt Father Essential tremor Mother Hypertension Denies family history of Ovarian cancer Breast cancer Past Surgical History Surgical History H/O removal of cyst Hx of colonoscopy (2023) History of esophagogastroduodenoscopy (EGD) History of x1 History of gynecologic surgery D&E-surgically induced H/O lithotripsy Status post surgery laryngeal surgery- stripping of vocal cords, nodules removed History of Mitzi-en-Y gastric bypass 2006 Social History Smoking Status: Never smoker Do You Dip or Chew Tobacco: No Hx Alcohol Use: Yes Alcohol type: wine alcohol intake frequency: 3 or more drinks per day Hx Substance Use: No substance use type: does not use Physical Exam Vital Signs Last Vital Signs Temp 36.6 C 01/05/25 10:51 Pulse 69 01/05/25 10:51 Resp 19 01/05/25 10:51 BP 128/83 01/05/25 10:51 Pulse Ox 94 01/05/25 10:51 O2 Del Method Room Air 01/05/25 10:51 Testing Laboratory Results 01/05/25 05:26 01/05/25 05:26 Blood Type A Positive 01/02/25 20:31 Antibody Screen NEGATIVE 01/02/25 20:31 01/02/25 20:31 Aerobic Blood Culture - Preliminary Blood No growth in Aerobic bottle after 48 hours. Anaerobic Blood Culture - Preliminary No growth in Anaerobic bottle after 48 hours. 01/02/25 20:20 Aerobic Blood Culture - Preliminary Blood No growth in Aerobic bottle after 48 hours. Anaerobic Blood Culture - Preliminary No growth in Anaerobic bottle after 48 hours. Electrocardiogram Date: 01/02/25 DICTATED BY: Jeremias Parra MD Test Reason : Blood Pressure : */* mmHG Vent. Rate : 113 BPM Atrial Rate : 113 BPM P-R Int : 130 ms QRS Dur : 70 ms QT Int : 330 ms P-R-T Axes : 54 50 55 degrees QTcB Int : 452 ms Sinus tachycardia Low voltage QRS Borderline ECG When compared with ECG of 03-Dec-2024 15:51, No significant change was found Confirmed by Jeremias Parra ([id number]) on 01/03/2025 11:48:56 AM Chest X-Ray Date: 01/02/25 Single frontal view of the chest Comparison made to prior exam dated 12/03/2024 Impression: No acute pulmonary pathology Electronically signed by Darrel Alonso 01-02-2025 8:51 PM
[2025-01-05] MEDS ORDERED: ACETAMINOPHEN 325 MG TAB PO PRN (15:10)
--- NOTE | 2025-01-05 15:19 | Hospitalist Progress Note ---
Date of Service January 05, 2025 Assessment & Plan (1) Acute blood loss anemia: (2) Hematochezia: Plan 49-year-old woman with history of Mitzi-en-Y gastric bypass, admission a month ago for severe sepsis related to perineal postoperative infection resolved, admitted with acute lower GI bleeding and severe acute blood loss anemia with hemoglobin of 4.4 #acute lower GI bleeding, acute blood loss anemia, severe iron deficiency anemia she had a CT angiogram in the ED which was negative for any acute hemorrhage there was inflammation of the colon and the splenic flexure area, she does have some pain in this area added on anemia studies to her ED presentation labs she was severely iron deficient with serum iron less than 10, ferritin was low normal. B12 is normal and folate was low end of normal range. she had EGD approximately a year ago to evaluate pancreatic cysts, it was EGD/EUS done at [facility] she has not had recent colonoscopy she was transfused 4 units RBCs with exhuberant response, hemoglobin remained in nines to ten yesterday with ongoing bloody stools, colonoscopy 01/04 no discrete bleeding source identified though there was a lot of blood in the colon the terminal ileum was free of blood suggesting a colonic source. bloody stools resolved overnight with bowel prep hemoglobin decreased to 7.6 vital signs are stable She is planned to undergo repeat colonoscopy and an EGD this afternoon #recurrent severely elevated lactate levels - this has been during acute illnesses but seems out of proportion replace thiamine empirically with 500 mg IV Q 8 hours x 8 doses then ongoing oral replacement - already ordered # moderate malnutrition, history of gastric bypass, hypoalbuminemia she is already on B12 supplementation as an outpatient, replace B1 and this should be continued indefinitely, consulted dietitian, protein supplement # hepatic steatosis, elevated LFT - probably partially metabolic and somewhat alcohol related in the past she has cut back significantly on her alcohol intake. not at risk for alcohol withdrawal at this time # history of seizures last in 2021, continue Lamictal #Essential tremor- Propranolol - resumed she had hypertension yesterday from beta-annabelle withdrawal which resolved after resumption of propranolol #Insomnia- Trazodone - continue once diet ordered VTE Prophylaxis: SCDs Admission and Anticipated Discharge Date Admission Date: January 02, 2025 Subjective Emily reports that the blood cleared during her bowel prep in the middle of the night since then no further hematochezia last night she had some left upper quadrant pain and had a dose of morphine, this morning she was a little bit confused when she first woke up but that has cleared now mentating normally no abdominal pain currently left upper quadrant no longer tender she has not walked around too much but she feels much better and dyspnea on exertion seems to be improved Physical Exam Physical Exam: General Appearance: Awake and alert. sitting in bed Vital signs: Reviewed past 24h vital signs in EMR, unremarkable. Exam unchanged 01/05 HEENT: Within normal limits. Respiratory: normal work of breathing Cardiovascular: deferred Gastrointestinal: Soft, nontender, nondistended, normal bowel tones. No left upper quadrant tenderness Extremities: warm and well perfused, no LE edema. Skin: Warm and dry. No rashes. Neurological: AOx4, normal speech and mentation, lock x 4. Psychiatric: Normal. Results & Data Results & Data Vital Signs (Past 12 Hours) Vital Signs Temp Pulse Pulse Resp BP BP Pulse Ox 01/05/25 14:33 36.1 C L 68 16 118/81 99 01/05/25 10:51 36.6 C 69 19 128/83 94 01/05/25 07:25 36.5 C 65 18 108/72 96 01/05/25 05:14 65 O2 Del Method 01/05/25 14:33 Room Air 01/05/25 10:51 Room Air 01/05/25 07:25 Room Air 01/05/25 05:14 Laboratory Results hemoglobin decreased from 9 down to 7.6 this morning white blood count was 6 PG Care Time/CCT Total # of Minutes Spent Total Time Spent with Patient: Total time spent is greater than 50% in coordination of care (as documented) at patient's floor/unit and/or counseling patient: Coding Level of Care Code 72147 SUB INP/OBS CARE 2/35MIN Diagnoses Acute blood loss anemia D62 Hematochezia K92.1
--- NOTE | 2025-01-05 15:37 | Communication Note ---
Date of Service: January 05, 2025 EGD colonoscopy Status post gastric bypass. No ulceration upper GI tract. Scope passed 80 cm out the efferent loop. Colonoscopy Numerous petechiae throughout the cecum ascending colon and proximal transverse. These are not AVMs. No active bleeding identified. Exact etiology unclear. Could potentially represent platelet dysfunction in this patient with numerous multivitamin deficiencies. Suggest high-dose potency multivitamin. Consider vitamin C supplementation. Correct iron deficiency. Patient should also be on thiamine. No active bleeding in the GI tract today. This is not diverticular bleeding as the patient did not have significant diverticulosis. She did have some internal hemorrhoids which could account for intermittent bright red rectal bleeding. However this would not account for the blood seen throughout the colon on yesterday's exam. If she represents with hematochezia recommend CTA followed by nuclear medicine study
--- NOTE | 2025-01-05 15:42 | GI REPORT ---
[facility] Patient: MARIELENA SIMS : 1975 Sex at : Female Age: 49 Years Procedure: Colonoscopy Date: 01/05/2025 Attending Physician: Adama Wills MD Referring MD: Referred Self; Abigail Clay Md Indications: - Occult gastrointestinal bleeding, hematochezia, melena Medications: - Monitored Anesthesia Care Complications: - No immediate complications. Estimated Blood Loss: - Estimated blood loss was minimal. Procedure: - The adult colonoscope was introduced through the anus and advanced to the cecum, identified by appendiceal orifice and ileocecal valve. - The colonoscopy was performed without difficulty. - The quality of the bowel preparation was fair. Findings: - The perianal examination was normal. - Cecum ascending and proximal transverse colon showed innumerous sometimes seen with air insufflation. However typically confined just to the cecum or proximal ascending not involving the extent of colon seen today. May suggest some mucosal fragility. Potentially could be seen with low vitamin C levels. These are not AVMs. Too numerous to treat. - The exam was otherwise without abnormality on direct and retroflexion views. Impression: - Preparation of the colon was fair. - Cecum ascending and proximal transverse colon showed innumerous sometimes seen with air insufflation. However typically confined just to the cecum or proximal ascending not involving the extent of colon seen today. May suggest some mucosal fragility. Potentially could be seen with low vitamin C levels. These are not AVMs. Too numerous to treat. - The examination was otherwise normal on direct and retroflexion views. - No specimens collected. Recommendation: - Innumerous petechia proximal colon. Uncertain etiology. Recommend high-dose multivitamin. Oral iron with vitamin C tablets. If recurrent hematochezia CTA and nuclear medicine study - Patient is iron deficiency give dose of Venofer Procedure Code(s): - 99104, Colonoscopy, flexible; diagnostic, including collection of specimen(s) by brushing or washing, when performed (separate procedure) CPT(R) - 2023 copyright [employer]. All Rights Reserved. The CPT codes, CCI edits and ICD codes generated are intended as suggestions and were generated based on input data. These codes are preliminary and upon developer advocate review may be revised to meet current compliance and payer requirements. The provider is responsible for the final determination of appropriate codes, and modifiers. Adama Wills MD This document has been electronically signed. Note Initiated:01/05/2025 Note Completed:01/05/2025 3:42 PM \\[email or web address]\[email or web address]\Data\Provation\Results\LIVE\[id number].pdf
--- NOTE | 2025-01-05 15:45 | GI REPORT ---
[facility] Patient: MARIELENA SIMS : 1975 Sex at : Female Age: 49 Years Procedure: Upper GI endoscopy Date: 01/05/2025 Attending Physician: Adama Wills MD Referring MD: Referred Self; Abigail Clay Md Indications: - Suspected upper gastrointestinal bleeding Medications: - Monitored Anesthesia Care Complications: - No immediate complications. Estimated Blood Loss: - Estimated blood loss: None. Procedure: - The egd scope was introduced through the mouth and advanced to the jejunum. - The upper GI endoscopy was accomplished without difficulty. - The patient tolerated the procedure well. Findings: - Status post gastric bypass. No ulceration of the pouch. Afferent efferent loops normal. Scope passed 80 cm's out afferent loop. No bleeding source identified Impression: - Status post gastric bypass. No ulceration of the pouch. Afferent efferent loops normal. Scope passed 80 cm's out afferent loop. No bleeding source identified - No specimens collected. - No bleeding source upper GI tract repeat colonoscopy today Recommendation: Procedure Code(s): - 93465, Esophagogastroduodenoscopy, flexible, transoral; diagnostic, including collection of specimen(s) by brushing or washing, when performed (separate procedure) CPT(R) - 202 copyright [employer]. All Rights Reserved. The CPT codes, CCI edits and ICD codes generated are intended as suggestions and were generated based on input data. These codes are preliminary and upon coffee machine technician review may be revised to meet current compliance and payer requirements. The provider is responsible for the final determination of appropriate codes, and modifiers. Adama Wills MD This document has been electronically signed. Note Initiated:01/05/2025 Note Completed:01/05/2025 3:44 PM \\[email or web address]\[email or web address]\Data\Provation\Results\LIVE\[id number].pdf
--- NOTE | 2025-01-05 15:57 | Anesthesiology Progress Note ---
Date of Service January 05, 2025 Anesthesia Post Procedure Vital Signs Vital Signs: Temp Pulse Pulse Resp BP BP Pulse Ox 01/05/25 15:49 76 18 112/66 95 01/05/25 15:34 36.1 C L 75 16 104/65 100 01/05/25 14:33 36.1 C L 68 16 118/81 99 01/05/25 10:51 36.6 C 69 19 128/83 94 01/05/25 07:25 36.5 C 65 18 108/72 96 01/05/25 05:14 65 01/05/25 03:09 36.7 C 73 16 104/69 97 01/04/25 23:44 36.9 C 78 16 117/68 96 01/04/25 21:41 67 01/04/25 18:58 36.5 C 104 H 18 129/84 92 01/04/25 18:12 72 01/04/25 17:00 36.4 C L 63 20 116/32 L 99 01/04/25 16:46 63 15 114/64 98 01/04/25 16:32 71 18 110/72 100 01/04/25 16:17 80 16 88/42 L 99 O2 Del Method 01/05/25 15:49 Room Air 01/05/25 15:34 Room Air 01/05/25 14:33 Room Air 01/05/25 10:51 Room Air 01/05/25 07:25 Room Air 01/05/25 05:14 01/05/25 03:09 Room Air 01/04/25 23:44 Room Air 01/04/25 21:41 01/04/25 18:58 Room Air 01/04/25 18:12 01/04/25 17:00 Room Air 01/04/25 16:46 Room Air 01/04/25 16:32 Room Air 01/04/25 16:17 Room Air Pain Intensity Chest: Pain Intensity: 6 Abdomen: Pain Intensity: 6 Transfer of Care Handoff Completed per policy Notes Mental Status: alert / awake / arousable and participated in evaluation Patient Amnestic to Procedure: Yes Nausea / Vomiting: adequately controlled Pain: adequately controlled Airway Patency, RR, SpO2: stable & adequate BP & HR: stable & adequate Hydration State: stable & adequate Anesthetic Complications: no major complications apparent and Pt Satisfied with anesthetic care
[2025-01-05] MEDS: IRON SUCROSE 200 MG in SODIUM CHLORIDE 0.9% 100 ML IV ONE (16:35)
[2025-01-05] MEDS: PROPOFOL IV EMULSION 10 MG/ML 20 ML VIAL IV ONE ×2 (16:45→16:46)
[2025-01-05] MEDS: LIDOCAINE 2% 2 ML VIAL/AMP(20MG/ML) INFIL ONE (16:45)
[2025-01-05] MEDS: POTASSIUM CHLORIDE CRTAB 20 MEQ TABCR PO ONE (16:48)
[2025-01-05] MEDS: MoRPHine SULFATE 2 MG/ML CARP IV PRN (21:17)
[2025-01-06 06:19] LABS: Hematocrit (blood only) 21.4 % (37.0-47.0); Hemoglobin 7.4 g/dL (12.0-16.0); Mean Corpuscular Hemoglobin 32.3 pg (25.0-34.0); Mean Corpuscular Volume 93.4 fL (80.0-100.0); Platelet Count 198 K/uL (130-400); RDW Standard Deviation 48.6 fL (36.4-46.3); Red Blood Count 2.29 M/uL (4.20-5.40); White Blood Count 5.44 K/ul (4.8-10.8)
[2025-01-06 06:55] LABS: Anion Gap 6.0 (3-11); Blood Urea Nitrogen 10.0 mg/dl (6-23); Calcium 8.0 mg/dl (8.6-10.3); Carbon Dioxide 25.0 mmol/L (21-32); Chloride 108.0 mmol/L (98-107); Creatinine Clr Calc Pharmacy 115.0 ml/min; Glucose 76.0 mg/dl (70-99(Fasting)); Potassium 4.5 mmol/L (3.5-5.1); Sodium 139.0 mmol/L (136-145)
--- NOTE | 2025-01-06 07:38 | Hospitalist Progress Note ---
Date of Service January 06, 2025 Assessment & Plan (1) Vitamin deficiency, unspecified: (2) Iron deficiency anemia: (3) Hematochezia: (4) Acute blood loss anemia: Plan 49-year-old woman with history of Mitzi-en-Y gastric bypass, admission a month ago for severe sepsis related to perineal postoperative infection resolved, admitted with acute lower GI bleeding and severe acute blood loss anemia with hemoglobin of 4.4 #Acute lower GI bleeding, acute blood loss anemia, severe iron deficiency anemia -CT angiogram in the ED which was negative for any acute hemorrhage there was inflammation of the colon and the splenic flexure area, she does have some pain in this area -Iron studies on presentation: Iron level<10. Hgb still on lower side . Today Hgb: 7.4. Will order another dose of Venofer. Will monitor H/H tomorrow . -Endoscopy and Colonoscopy yesterday. Colonoscopy findings with innumerous petechia proximal colon. Recommended high dose multivitamin; and vitamin C tablets # Moderate malnutrition, history of gastric bypass, hypoalbuminemia she is already on B12 supplementation as an outpatient, replace B1 and this should be continued indefinitely, consulted dietitian, protein supplement # Hepatic steatosis, elevated LFT - probably partially metabolic and somewhat alcohol related in the past she has cut back significantly on her alcohol intake. not at risk for alcohol withdrawal at this time # History of seizures last in 2021, continue Lamictal #Essential tremor- Propranolol - resumed she had hypertension yesterday from beta-annabelle withdrawal which resolved after resumption of propranolol #Insomnia- Trazodone VTE Prophylaxis: SCDs Admission and Anticipated Discharge Date Admission Date: January 02, 2025 Supervising Physician Co-Signing Physician Notes I personally examined the patient and verified all monroy points of history and exam, discussed case, and agree with decision making with Dr James tolerating food reasonably but with larger meals gets discomfort and then some loose stools. just since resuming eating - notes was not really eating much for a while vitals noted nad heent nc at mmm breathing unlabored no accessory muscles good effort skin no rashes no pallor or icterus neuro no focal deficits GI bleeding with acute blood loss anemia/profound acute blood loss (and likely hypoproliferative) anemia requiring 4 units PRBC - now stable but with dizziness and still fairly low Hgb - follow into tomorrow to ensure no further blood loss. given likelihood of poor absorption - IV iron additionally now and then would rec following Fe levels periodically as outpt (?periodic IV iron when/if low?). given endoscopic appearance c/w vitamin C deficiency - replete; supplement thiamine, MVI, etc. hopefully home tomorrow as long as ongoing stability; close and ongoing outpt f/u thereafter otherwise as above Subjective Emily was seen and examined in the bedside this morning. She reported that she had bowel movement midnight . Stool was clear. She denies abdominal pain, dizziness or shortness of breath. She had her breakfast this morning and tolerated well. Review of Systems Review of Systems: As per HPI Physical Exam Physical Exam: General Appearance: Awake and alert. sitting in bed Vital signs: Reviewed past 24h vital signs in EMR, unremarkable. Exam unchanged 01/05 HEENT: Within normal limits. Respiratory: normal work of breathing Cardiovascular: deferred Gastrointestinal: Soft, nontender, nondistended, normal bowel tones. No left upper quadrant tenderness Extremities: warm and well perfused, no LE edema. Skin: Warm and dry. No rashes. Neurological: AOx4, normal speech and mentation, lock x 4. Psychiatric: Normal. Results & Data Results & Data Vital Signs (Past 12 Hours) Vital Signs Temp Pulse Pulse Resp BP BP Pulse Ox 01/06/25 02:26 36.6 C 69 16 97/63 L 97 01/05/25 23:29 36.6 C 71 18 97/62 L 92 01/05/25 21:52 69 01/05/25 20:00 36.4 C L 80 18 132/85 97 O2 Del Method 01/06/25 02:26 Room Air 01/05/25 23:29 Room Air 01/05/25 21:52 01/05/25 20:00 Room Air Resident Activity Tracking Resident Involvement: Resident Care Provided Care Provided: Adult Hospital Medicine
[2025-01-06] MEDS: THIAMINE HCL 100 MG TAB PO SCH (08:58)
[2025-01-06] MEDS: MULTIVITAMIN TAB PO SCH (08:58)
[2025-01-06] MEDS: ASCORBIC ACID 500 MG TAB PO SCH (08:58)
[2025-01-06] MEDS: ESCITALOPRAM OXALATE 10 MG TAB PO SCH (11:39)
--- NOTE | 2025-01-06 14:39 | Gastroenterology Progress Note ---
Date of Service January 06, 2025 Assessment & Plan (1) Chronic diarrhea: Plan 49yowf with h/o chronic diarrhea, Anxiety, h/o alcohol use, pancreatitis is seen today for f/u EGD and Colonoscopy for ABLA and Hematochezia. (1) Hematochezia. - H/H stable. - Continue to replace iron and f/u CBC as directed by primary team. - Clinically no further hematochezia noted. - EGD and Colonoscopy - Non-diagnostics. No diverticular bleeding identified. - If re-presents with hematochezia recommend CTA abd/pelvis for re-evaluation of bleeding. - Please call with any acute changes, questions or concerns. Please see addendum below with additional recommendation from my supervising physician. (2) Chronic diarrhea. - Ongoing for 10 years. DDX- pancreatic insufficiency, IBS-d, Bile acid diarrhea (still has gallbladder though), IBD, Celiac, infection. - Given increased frequency check Check C.diff to rule infection. - Check Celiac, pancreatic elastase, Stool Calprotectin. - If non-diagnostic may treat with Imodium PRN and f/u in outpatient. - Further recommendations to come with results. - Please see addendum below with additional recommendation from my supervising physician. Over 60 minutes was spent in chart review, exam and documentation on date of service. Admission and Anticipated Discharge Date Admission Date: January 02, 2025 Supervising Physician Co-Signing Physician Notes Doing well no active bleeding. Okay for discharge. Thiamine high-dose multivitamin and iron supplementation. Recommend she take vitamin C with her iron tablets. Subjective 49yowf with h/o alcoholic use, pancreatitis, chronic diarrhea, HTN, Anxiety, P olyneuropathy is seen today on GI rounds for follow up of hematochezia and ABLA. (1) ABLA/Hematochezia. - Patient presented with symptoms of acute anemia, SOB and found to have Hgb 4.4g/dl. - Patient underwent EGD adn Colonoscopy with Dr. Wills 01/05/25 - EGD was unremarkable. Per communication report "Numerous petechiae throughout the cecum ascending colon and proximal transverse. These are not AVMs. No active bleeding identified. Exact etiology unclear. Could potentially represent platelet dysfunction in this patient with numerous multivitamin deficiencies. Suggest high-dose potency multivitamin. Consider vitamin C supplementation. Correct iron deficiency. Patient should also be on thiamine. No active bleeding in the GI tract today. This is not diverticular bleeding as the patient did not have significant diverticulosis. She did have some internal hemorrhoids which could account for intermittent bright red rectal bleeding. However this would not account for the blood seen throughout the colon on yesterday's exam. If she represents with hematochezia recommend CTA followed by nuclear medicine study" - Today patient denies any further hematochezia. She does still have diarrhea but she reports this has been typical for her. She does note she's going about 1x/day. - Hgb 7.4g/dl stable in comparison to yesterdays of 7.6g/dl. (2) Chronic diarrhea - She reports a 10 year history of diarrhea. - She reports previous endoscopic evaluations have been negative for colitis or microscopic colitis. - She thinks that she has IBS. She previously followed with a curriculum development specialist who is no longer in practice. - She states that this occurs 2-3x/day. But 1-2 x/month she'll get more urgency "explosive diarrhea" that last a few days. - She denies any fevers, chills, N/V, melena or hematochezia. - Previous Stool PCR/Cdiff were negative in the past, although nothing recent. She does have a fecal elastase that was low suggesting possible pancreatic insufficiency however, this can be diluted resulting in a false positive. - Colonoscopy 2023 - Biopsies negative for colitis/microscopic colitis. Surgical History - C section. Mitzi en Y bypass. EGD/Colonoscopy Social History - Alcohol 5 glasses of wine a week. No tobacco or drug use. Family History - Paternal grandfather had CRC. No celiac or IBD. Review of Systems Review of Systems: See HPI Physical Exam Physical Exam: Constitutional: NAD. Alert. Answering questions appropriately. Respiratory: Breathing is even, non-labored. Lungs new are clear to auscultation anteriorly. Cardiovascular: Regular Rate and Rhythm, no murmurs, rubs or gallops appreciated. Gastrointestinal (Abdomen): Normoactive bowel sounds x4, soft, non-distended, non-tender. Musculoskeletal: Lying in bed comfortably. No peripheral edema. Results & Data Results & Data Vital Signs (Past 12 Hours) Vital Signs Temp Pulse Pulse Resp BP Pulse Ox O2 Del Method 01/06/25 14:15 68 01/06/25 11:50 98.1 F 67 20 115/76 98 Room Air 01/06/25 09:47 69 112/74 01/06/25 08:06 98.2 F 71 18 103/58 L 99 Room Air 01/06/25 08:06 72 PG Care Time/CCT Total # of Minutes Spent Total Time Spent with Patient: Total time spent is greater than 50% in coordination of care (as documented) at patient's floor/unit and/or counseling patient: Coding Level of Care Code 21717 SUB INP/OBS CARE 3/50MIN Diagnoses Chronic diarrhea K52.9
[2025-01-06] MEDS: IRON SUCROSE 200 MG in SODIUM CHLORIDE 0.9% 100 ML IV ONE (15:15)
--- NOTE | 2025-01-06 16:51 | Billing Data ---
Date of Service January 06, 2025 Coding Level of Care Code 83356 SUB INP/OBS CARE MIN
[2025-01-07 06:15] LABS: Hematocrit (blood only) 22.7 % (37.0-47.0); Hemoglobin 7.5 g/dL (12.0-16.0); Mean Corpuscular Hemoglobin 31.3 pg (25.0-34.0); Mean Corpuscular Volume 94.6 fL (80.0-100.0); Platelet Count 205 K/uL (130-400); RDW Standard Deviation 50.7 fL (36.4-46.3); Red Blood Count 2.40 M/uL (4.20-5.40); White Blood Count 4.98 K/ul (4.8-10.8)
--- NOTE | 2025-01-07 07:35 | Hospitalist Progress Note ---
Date of Service January 07, 2025 Assessment & Plan (1) Vitamin deficiency, unspecified: (2) Iron deficiency anemia: (3) Hematochezia: (4) Acute blood loss anemia: Plan 49-year-old woman with history of Mitzi-en-Y gastric bypass, admission a month ago for severe sepsis related to perineal postoperative infection resolved, admitted with acute lower GI bleeding and severe acute blood loss anemia with hemoglobin of 4.4 #Acute lower GI bleeding, acute blood loss anemia, severe iron deficiency anemia -CT angiogram in the ED which was negative for any acute hemorrhage there was inflammation of the colon and the splenic flexure area, she does have some pain in this area -Iron studies on presentation: Iron level<10. Hgb still on lower side . Today Hgb: 7.4. Will order another dose of Venofer. Will monitor H/H tomorrow . -Endoscopy and Colonoscopy yesterday. Colonoscopy findings with innumerous petechia proximal colon. Recommended high dose multivitamin; and vitamin C tablets # Moderate malnutrition, history of gastric bypass, hypoalbuminemia she is already on B12 supplementation as an outpatient, replace B1 and this should be continued indefinitely, consulted dietitian, protein supplement # Hepatic steatosis, elevated LFT - probably partially metabolic and somewhat alcohol related in the past she has cut back significantly on her alcohol intake. not at risk for alcohol withdrawal at this time # History of seizures last in 2021, continue Lamictal #Essential tremor- Propranolol - resumed she had hypertension yesterday from beta-annabelle withdrawal which resolved after resumption of propranolol #Insomnia- Trazodone VTE Prophylaxis: SCDs Admission and Anticipated Discharge Date Admission Date: January 02, 2025 Review of Systems Review of Systems: As per HPI Physical Exam Physical Exam: General Appearance: Awake and alert. sitting in bed Vital signs: Reviewed past 24h vital signs in EMR, unremarkable. Exam unchanged 01/05 HEENT: Within normal limits. Respiratory: normal work of breathing Cardiovascular: deferred Gastrointestinal: Soft, nontender, nondistended, normal bowel tones. No left upper quadrant tenderness Extremities: warm and well perfused, no LE edema. Skin: Warm and dry. No rashes. Neurological: AOx4, normal speech and mentation, lock x 4. Psychiatric: Normal. Results & Data Results & Data Vital Signs (Past 12 Hours) Vital Signs Temp Pulse Resp BP Pulse Ox O2 Del Method 01/06/25 23:36 36.3 C L 66 16 102/66 92 Room Air
[2025-01-07] MEDS: FOLIC ACID 1 MG TAB PO SCH (08:24)
[2025-01-07 10:39] VITALS: BP 105/71; PULSE 64; RESP 20; TEMP 97.9; O2SAT 97
--- NOTE | 2025-01-07 13:06 | Discharge Summary ---
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 Patient with most recent hospital admission 12/03/2024 until 12/06/2024. 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 She reports often having "explosive diarrhea" more often than not, so it is hard to determine the amount of blood that she was passing. She does admit to history of hemorrhoids, but does not feel that she suffers with constipation. No h/o diverticulosis. Pt denies NSAID use. Does drink alcohol, < 5 drinks per week, with most recent drink being 2 days APPLIANCE REPAIRER. No h/o varices. Does have history of pancreatitis, states that this feels different. Her abdomen has a generalized mild tenderness, with some "period-like" cramps at her lower abdomen with bowel movements. She has not had fever or chills, no N/V. She had come to the hospital on the day of arrival because she was feeling palpitations as well as more winded with every- day activities. Her coworkers noted that she appeared to be pallor, not her normal self. She did not have dizziness or syncope. She has had a prior Mitzi-en-Y in 2006, then "a few years last, the bowel twisted on itself and was dying", requiring emergent hospital transfer to [place] but by the time she got there it had resolved. Pt reports no prior episodes of such since. She has had a colonoscopy and EGD ~ 1 year ago, no acute findings. Pt denies current CP, SOB, palpitations, N/V, numbness/tingling, F/C, URI symptoms, or LUTS. She feels better after treatment has been initiated in the ED. ED evaluation reveals CBC without leukocytosis, RBC 1.40, H/H 4.4/13.4, plt WNL; CMP CO2 20, AG 13, glucose 147, AST 47, protein 4.3, albumin 2.3, globulin 2.0; Ca 7.8; lactate 7.1, 5.8 on repeat; lipase 175; CXR w/o acute findings; CTAP subtle inflammatory changes at splenic flexure, no hemorrhage, 5cm cyst arising from excluded portion of stomach, s/p gastric bypass.; Provided with Vancomycin 1,750 mg IV, 1L NSS, Zofran 4mg IV, dicyclomine 20mg po, and Cefepime 1g IV in ED. Please see Dr. Royal's attestation for adjustments/additions to treatment plan. Admission Exam Per Admitting Provider General: No acute distress Skin: Warm and dry, slight pallor appearance Head: Normocephalic, atraumatic Eyes: PERRL, conjunctivae clear, sclera non-icteric; wearing glasses ENT: External ear and ear canal without swelling; nose atraumatic; good dentition, tongue normal appearance, pharynx normal Neck: Supple, no LAD Cardio: Tachycardic, regular rhythm, no M/G/R, S1 and S2 normal Resp: No respiratory distress, Lungs CTA in all lobes bilaterally, no wheezes, rales, or rhonchi Abdomen: Soft, symmetric, generalized mild tenderness, pinpoint; No masses or hepatosplenomegaly; Bowel sounds normoactive MSK: No deformities; pulses palpable and equal; no edema. Neuro: Awake, alert; Sensation intact bilaterally; CN grossly intact Psych: Appropriate mood and affect; good judgement and insight. Principal Diagnosis 1 Iron deficiency anemia in setting of Lower GI bleeding Discharge Exam General Appearance: Awake and alert. sitting in bed Vital signs: Reviewed past 24h vital signs in EMR, unremarkable. Exam unchanged 01/05 HEENT: Within normal limits. Respiratory: normal work of breathing Cardiovascular: deferred Gastrointestinal: Soft, nontender, nondistended, normal bowel tones. No left upper quadrant tenderness Extremities: warm and well perfused, no LE edema. Skin: Warm and dry. No rashes. Neurological: AOx4, normal speech and mentation, lock x 4. Psychiatric: Normal. Discharge Data Allergies Allergy/AdvReac Type Severity Reaction Status Date / Time No Known Allergies Allergy Verified 01/02/25 22:00 Consultations 01/02/25 23:03 ED Decision to Admit Stat 01/03/25 00:21 Consult Gastroenterology Routine Procedures Performed Operation Date: 01/05/25 17:55 Actual Procedures s Esophagogastroduodenoscopy(Not Applicable) - Adama Wills MD p Colonoscopy(Not Applicable) - Adama Wills MD Ordered Studies 01/02/25 20:21 CT Abd and Pelvis [CT abd pelvis IV con only] Stat Hospital Course (1) Vitamin deficiency, unspecified: (2) Iron deficiency anemia: (3) Hematochezia: (4) Acute blood loss anemia: Plan 49-year-old woman with history of Mitzi-en-Y gastric bypass, admission a month ago for severe sepsis related to perineal postoperative infection resolved, admitted with acute lower GI bleeding and severe acute blood loss anemia with hemoglobin of 4.4 #Acute lower GI bleeding, acute blood loss anemia, severe iron deficiency anemia -CT angiogram in the ED which was negative for any acute hemorrhage there was inflammation of the colon and the splenic flexure area, she does have some pain in this area -Iron studies on presentation: Iron level<10. Hgb still on lower side . Today Hgb: 7.4. -Endoscopy and Colonoscopy yesterday. Colonoscopy findings with innumerous petechia proximal colon. Recommended high dose multivitamin; and vitamin C tablets, Folic Acid, Iron tablet and Thiamine in the outpatient. -Followup with PCP in a a week to check your Hgb. # Moderate malnutrition, history of gastric bypass, hypoalbuminemia she is already on B12 supplementation as an outpatient, replace B1 and this should be continued indefinitely, consulted dietitian, protein supplement # Hepatic steatosis, elevated LFT - probably partially metabolic and somewhat alcohol related in the past she has cut back significantly on her alcohol intake. not at risk for alcohol withdrawal at this time # History of seizures last in 2021, continue Lamictal #Essential tremor- Propranolol - resumed she had hypertension yesterday from beta-annabelle withdrawal which resolved after resumption of propranolol #Insomnia- Trazodone Total Time Total Time Spent Total Time Spent (In Minutes): See attending attestation Discharge Plan Discharge Items Patient Disposition: Home - Self-Care Reason For Visit: ANEMIA, GIB Discharge Diagnosis: 1. Lower GI bleeding Condition on Discharge: Serious Activity: Resume your previous activity Non-emergency contact: Primary Care Provider and Anthropometrist Call non-emergency contact if: you have any medication questions Follow-up/Referrals: Moira Yancey DO [Primary Care Provider] - 01/18/25 2:30 pm Diet: Regular Addtl Attending Provider Instructions: You were admitted to the hospital for low hemoglobin due to bleeding from rectum . You were evaluated further to find out the cause of bleeding. Upper GI endoscopy was done with no abnormalities detected. Colonoscopy revealed innumerous hemorrhagic points in proximal colon which was the cause of your bleeding.We suspect multiple vitamin deficiencies might be leading to this. We recommend you to take multivitamin tablets, iron tablet, vitamin C tablets, folic acid and thiamine tablet in the outpatient. Your hemoglobin is still on lower side, but overall your symptoms have improved and stable today for discharge. Medication -Vitamin C tablets(Ascorbic acid) has been sent to your pharmacy.Please take Vitamin C Tablet 500mg daily in the morning. -Folic acid tablet has been sent to your pharmacy. Please take Folic acid 1mg daily in the morning -Multivitamin tablets has been sent to your pharmacy. Please take multivitamin 1 tablet daily in the morning -Thiamine Hcl(Vitamin B1) has been sent to your pharmacy. Please take thiamine tablet 100 mg two times a day(12 hr apart) daily -Iron tablet(Ferrous Gluconate) has been sent to you pharmacy. Please take Ferrous gluconate 270 mg daily. Follow up Please followup with your PCP Dr Yancey in the outpatient. You will need repeat hemoglobin in 1 week to monitor your hemoglobin level We are not sure wether the oral iron tablets will replete your iron. If your hemoglobin remain lows in the next 2-3 month, you may benefit from intravenous iron infusion monthly. Please discuss this with your PCP If you again start bleed , or bleeding is significant along with symptoms like severe fatigue and shortness of breath, then you need to be evaluated immediately in the ER If you have any issues filling these prescriptions, please call [phone] and ask to leave a message for Dr Mary Jane James Pending Studies at Discharge: No Stand-Alone Forms: [email or web address], Smoking Cessation Medications and DC Order Prescriptions: New thiamine HCl (vitamin B1) 100 mg Tablet 200 mg PO BID 30 Days Qty: 120 0RF ascorbic acid (vitamin C) [Vitamin C] 500 mg Tablet 500 mg PO QAM Qty: 60 1RF folic acid 1 mg Tablet 1 mg PO QAM 30 Days Qty: 30 0RF multivitamin with folic acid [Daily-Pilar (with folic acid)] 400 mcg Tablet 1 tab PO QAM Qty: 30 1RF ferrous gluconate 270 mg (27 mg iron) tablet 270 mg PO DAILY Qty: 30 1RF Continued lamotrigine 100 mg tablet 100 mg PO BID 30 Days Qty: 60 5RF trazodone 50 mg tablet 50 mg PO HS Qty: 30 5RF Rx Instructions: PER PT "DID NOT PORTRAIT ARTIST FROM PHARMACY YET". Supercream (OBGYN) [facility] 15 g ointment 1 applic topical BID PRN (Reason: hemorrhoids) Qty: 15 0RF Rx Instructions: Epinephrine 1mg/mL inj 0.24mL; benzocaine powd 3g; tannic acid powd 0.16g; lanolin anhydr oint 11.88g; Na metabisulfite 100% granu 0.05g1 pea size applic. to Anal Fissure 3x daily as needed escitalopram oxalate 10 mg tablet 10 mg PO DAILY Rx Instructions: PER PT "DID NOT GET FROM PHARMACY YET". propranolol 120 mg capsule,extended release 24hr 120 mg PO QAM Rx Instructions: PER PT "NEED NEW SCRIPT OR NEEDS REFILLED, NEEDS TO TALK WITH PHARMACY". cyanocobalamin (vitamin B-12) 1,000 mcg/mL solution 1,000 mcg subcut Q14D Discontinued oxycodone 5 mg tablet 5 mg PO Q8H PRN (Reason: pain) Qty: 7 0RF Discharge Orders: Discharge Order (Routine); Ordered 01/07/25 Ordered By: Mary Jane James Admission Data Admit Date/Time: 01/02/25 23:24 Attending Provider: Darrel Smalls Admit Provider: Kevin Royal Primary Care Provider: Moira Yancey Other Providers: Kevin Royal; Adama Wills Other Interventions: Discharge Summary Assessment (RN) Last Done: 01/07/25 11:44 Supervising Physician Co-Signing Physician Notes I personally examined the patient and verified all monroy points of history and exam, discussed case, and agree with decision making with Dr James Notes that yesterday's food intolerance issues were clearly volume of food related, and she is doing better. Definitely wants to go home, feels up to going home. vitals noted nad heent nc at mmm breathing unlabored no accessory muscles good effort skin no rashes no pallor or icterus neuro no focal deficits GI bleeding with acute blood loss anemia/profound acute blood loss (and likely hypoproliferative) anemia requiring 4 units PRBC - now stable and has been for several days. given likelihood of poor absorption - safe/stable for home with repletion of multiple vitamins and nutrients, ongoing, and close and ongoing outpatient follow-up. Resident Activity Tracking Resident Involvement: Resident Care Provided Care Provided: Adult [facility]
--- NOTE | 2025-01-07 13:24 | Billing Data ---
Date of Service January 07, 2025 Coding Level of Care Code 31127 IN/OBS DISCH 30 MIN/LESS
== END 2025-01-07 11:59 | disposition home or self-care (01) | DRG 812 ==
LOC: ED 20:10 → SUATTDRO 23:24 → 2S 23:24